=== PATIENT | male | born 1930 | race Caucasian/White ===

== ENCOUNTER 2016-10-22 11:29 | Inpatient (IN) | payer OTHER ==
[~2016-10-22] VITALS: Ht 167.6 cm; Wt 64.5 kg
[~2016-10-22 11:29] MED LIST: KETO0.4S2 OPR; PRED1SUS3 OPR; VITATAB19 PO
[2016-10-22 12:18] LABS: BASO % 0.4 %; BASO ABS # 0.04 K/uL (0-0.2); COMPLETE YES; EOS % 1.5 %; HEMATOCRIT 43.3 % (42-52); IG% 0.2 %; LYMPH ABS # 2.17 K/uL (1.2-3.4); MEAN CELL VOLUME 93.3 fL (80-100); MEAN CORPUSCULAR HGB CONC 33.3 g/dl (32-36); MEAN PLATELET VOLUME 9.1 fL (7.4-10.4); NEUT % 64.9 %; PLATELET COUNT 235 K/uL (130-400); RED BLOOD COUNT 4.64 M/uL (4.7-6.1); WHITE BLOOD COUNT 10.34 K/uL (4.8-10.8)
[2016-10-22 12:27] LABS: INR 2.7 (0.9-1.1); PARTIAL THROMBOPLASTIN RATIO 1.6; PROTHROMBIN TIME (PATIENT) 29.8 SECONDS (9.0-12.0)
[2016-10-22 12:36] LABS: BUN/CREATININE RATIO 17.1 (10-20); CALCIUM 8.6 mg/dl (8.5-10.1); CREATININE 0.85 mg/dl (0.60-1.40); POTASSIUM 3.6 mmol/L (3.5-5.1)
--- NOTE | 2016-10-22 12:39 | DIAGNOSTIC IMAGING REPORT ---
CHEST ONE VIEW PORTABLE CLINICAL HISTORY: 86 years-old Male presenting with AMS. TECHNIQUE: Portable upright AP view of the chest was obtained. COMPARISON: 12/16/2015. FINDINGS: Prominent cardiomediastinal silhouette, unchanged. Elevation of the left hemidiaphragm as on prior exam. Apparent subtle nodular retrocardiac opacities. Pleural spaces clear. Degenerative changes of the bilateral glenohumeral joints. Previously noted old left rib fractures not as well depicted on the current radiograph. Upper abdomen normal. IMPRESSION: 1. Apparent subtle nodular retrocardiac opacities, possibly atelectasis, aspiration or infection. Electronically signed by: Karan Dickerson 10/22/2016 12:37 PM Dictated Date/Time: 10/22/2016 12:35 PM
--- NOTE | 2016-10-22 13:03 | DIAGNOSTIC IMAGING REPORT ---
CT SCAN OF THE BRAIN WITHOUT IV CONTRAST CLINICAL HISTORY: Change in mental status. COMPARISON STUDY: CT of the brain dated 12/16/2015. TECHNIQUE: Unenhanced axial CT scan of the brain is performed from the vertex to the skull base. CT DOSE: 614.27 mGy.cm FINDINGS: Brain parenchyma: There are age-related involutional changes noting moderate patchy subcortical and periventricular microangiopathic change. Left frontoparietal encephalomalacia is unchanged and consistent with a remote infarct. There is no hemorrhage, mass effect, or evidence of acute territorial ischemia by CT criteria. Morales-white matter is preserved. No extra-axial fluid collection is seen. Ventricles, sulci, cisterns: Prominent secondary to involutional change. Intracranial vasculature: There is atherosclerotic calcification of the cavernous carotid and vertebral arteries. Calvarium: Unremarkable. Sinuses and mastoids: There is trace mucosal thickening in the left maxillary antrum. The remaining visualized paranasal sinuses are clear. The mastoid air cells are well pneumatized. Orbits: The bony orbits are grossly intact. There are bilateral ocular lens implants. IMPRESSION: Senescent changes and remote infarct as above. There is no hemorrhage, mass effect, or evidence of acute territorial ischemia by CT criteria. Electronically signed by: Patrice Palma M.D. 10/22/2016 1:02 PM Dictated Date/Time: 10/22/2016 1:00 PM
[2016-10-22] MEDS ORDERED: CEFEPIME IV 1,000 MG in DEXTROSE 5% 100ML 100 ML IV STA (13:07)
[2016-10-22] MEDS ORDERED: SODIUM CHLORIDE 0.9% 1000ML 1,000 ML IV STA (13:11)
[2016-10-22 13:25] VITALS: O2SAT 91; Ht 167.6 cm; Wt 64.5 kg
[2016-10-22 13:31] LABS: URINE APPEARANCE CLEAR (CLEAR); URINE BILIRUBIN NEG (NEG); URINE COLOR YELLOW; URINE EPITHELIAL CELL AUTO 0-5 /lpf (0-5); URINE NITRITE NEG (NEG); URINE PH 5.5 (4.5-7.5); URINE SPECIFIC GRAVITY 1.013 (1.000-1.030); UROBILINOGEN NEG (NEG); ZZURINE CULT IF INDIC CATH NO
[2016-10-22 13:51] LABS: MANUAL MICROSCOPIC REQUIRED? NO; REVIEW REQ? NO
[2016-10-22] MEDS ORDERED: ONDANSETRON INJ 2 MG/ML 2 ML VIAL IV PRN (14:00)
[2016-10-22] MEDS ORDERED: ACETAMINOPHEN 325 MG TAB PO PRN (14:00)
--- NOTE | 2016-10-22 14:43 | Progress Note ---
Progress Note Date of Service Oct 22, 2016. Progress Note Patient came in for intermittent confusion. Patient was here 1 year ago for similar symptoms with work up negative. Per patient's son, he has noticed subtle changes in mental status on and off for months now. No recent illness, no recent change in medications Not on pain medications. EXAM Gen- Awake, alert, disoriented to place, person, time but overall pleasant HEENT -AT, NC Neck- No JVD Lungs- AEBE, no wheezing Heart- S1, S2 normal Ext- No edema Neuro- Power 5/5 all ext, cranial nerves intact ASSESSMENT/PLAN: INTERMITTENT CONFUSION Per son, has noticed subtle changes of forgetfulness, change in mental status on and off with some good days and bad days x months. No recent change in medications, no signs of new infection. Had similar symptoms a year ago when work up was negative. -Likely developing dementia which is progressively worsening . Unlikely to be stroke -Will observe for 24 hours and rule out any acute infection though so far Labs- normal, no clear source of infection noted. -Work up= Labs normal, CT head- no acute changes, CXR- retrocardiac opacities but no clinical signs of pneumonia so likely atelectasis CAD: -stable -continue ASA, BB ATRIAL FIB: -rate controlled with Metoprolol -on Coumadin INR 2.6 -monitor INR HYPERLIPIDEMIA: -continue Statin Hx of Prior CVA: -s/p carotid endarterectomy -continue ASA, Statin DEPRESSION: -continue Celexa DISPOSITION Discussed with son about safety at home as lives alone. Will talk to sister about 24 hour care vs halfway placement PT/OT ordered SS consulted Agree with A/P of SHANE Henry
[2016-10-22] MEDS ORDERED: PROMETHAZINE HCL INJ 12.5 MG in SODIUM CHLORIDE 0.9% 50ML 50 ML IV PRN (14:45)
[2016-10-22] MEDS ORDERED: PNEUMOCOCCAL ADMINISTRATION CHARGE ONE (14:45)
[2016-10-22] MEDS ORDERED: PNEUMOCOCCAL POLYSACCHARIDES 25 MCG/0.5 ML VIAL/SYR IM. ONE (14:45)
[2016-10-22 15:52] VITALS: BP 165/69; PULSE 96; TEMP 36.6; O2SAT 91
[2016-10-22] MEDS: WARFARIN SOD 1 MG TAB PO SCH (16:48)
--- NOTE | 2016-10-22 17:34 | EMERGENCY ROOM VISIT NOTE ---
History Report prepared by Meaghan: Natacha Hernandez Under the Supervision of: Dr. Wilson Berman D.O. First contact with patient: 11:59 Chief Complaint: CONFUSION Stated Complaint: CONFUSED AND SOME DIZZINESS Nursing Triage Summary: son reports pt has been confused for past 2 days. feels like this maybe related to being dehydrated pt works out in the yard and does not get enough fluids has been hospitalized before for this. History of Present Illness The patient is a 86 year old male who presents to the Emergency Room with complaints of episodes of confusion beginning 3 days prior to arrival. Per the patient's family, he has episodes where he is at baseline and understands everything going on. Then he will have an episode of confusion where he does not understand what is going on, where he is, or who is with him. The patient has trouble with his speech when he has these episodes. The patient has had an episode like this in the past that was due to dehydration. The patient normally is mentally with it. He did his normal day to day routine this morning. Pt denies headache, change in vision, fevers, chest pain, shortness of breath, nausea, vomiting, diarrhea, pain with urination, and melena. Source of History: family Onset: 3 days [employer]IV[employer] Position: other (global) Quality: other (confusion) Timing: other (episodes) Note: Patient is experiencing trouble knowing who he is with, where he is, and trouble speaking. Review of Systems See HPI for pertinent positives & negatives. A total of 10 systems reviewed and were otherwise negative. Past Medical & Surgical Medical Problems: (1) Afib (2) Altered mental status (3) Anticoagulated on Coumadin (4) CAD (coronary artery disease) (5) Carotid artery stenosis (6) CVA (cerebral vascular accident) (7) Depression (8) History of left heart catheterization (LHC) (9) HLD (hyperlipidemia) (10) stroke (11) Stroke-like symptom (12) Valvular disease Surgical Problems: (1) H/O carotid endarterectomy (2) H/O colonoscopy (3) H/O shoulder surgery Family History FH: cancer FH: heart disease Social History Smoking Status: Former Smoker Alcohol Use: occasionally Drug Use: none Marital Status: Housing Status: lives alone Occupation Status: retired Current/Historical Medications Scheduled Aspirin (Aspirin Ec), 81 MG PO QAM Atorvastatin Calcium (Lipitor), 40 MG PO DAILY Cholecalciferol (Vitamin D 1000 Unit), 1,000 INTER.UNIT PO QAM Citalopram Hydrobromide (Citalopram Hydrobromide), 20 MG PO QAM Folic Acid (Folvite), 400 MCG PO QAM Metoprolol Tartrate (Lopressor), 12.5 MG PO QAM Multiple Vitamins W/ Minerals (Preservision Areds), 1 CAP PO QAM [place]-3 Fatty Acids (Fish Oil), 1 CAPSULE PO QAM Vitamin A (Vitamin A), 8,000 UNITS PO DAILY Warfarin Sod (Jantoven), 1 MG PO DAILY Allergies Coded Allergies: No Known Allergies (Unverified , 10/22/16) Physical Exam Vital Signs Date Time Temp Pulse Resp B/P (MAP) Pulse Ox O2 Delivery O2 Flow Rate FiO2 10/22/16 13:36 70 18 136/73 91 Room Air 10/22/16 13:25 91 Room Air 10/22/16 13:00 70 10/22/16 12:57 68 18 154/84 91 Room Air 10/22/16 11:31 36.4 95 20 135/86 92 Room Air Physical Exam GENERAL: sitting up in bed, disheveled, alert, well appearing, well nourished, no distress, non-toxic EYE EXAM: normal conjunctiva, PERRL and EOM's intact OROPHARYNX: no exudate, no erythema, lips, buccal mucosa, and tongue normal and mucous membranes are moist NECK: supple, no nuchal rigidity, no adenopathy, non-tender LUNGS: Clear to auscultation. Normal chest wall mechanics HEART: systolic ejection murmur, S1 normal and S2 normal ABDOMEN: abdomen soft, non-tender, normo-active bowel sounds, no masses, no rebound or guarding. BACK: Back is symmetrical on inspection and there is no deformity, no midline tenderness, no CVA tenderness. SKIN: no rashes and no bruising UPPER EXTREMITIES: upper extremities have no weakness. LOWER EXTREMITIES: No pitting edema. NEURO EXAM: Alert, intermittently follows commands, not oriented to time or place. cranial nerves II-XII intact, normal speech, no weakness of arms, no weakness of legs. Unable to perform drift or finger to nose. Medical Decision & Procedures ER Provider Diagnostic Interpretation: Radiology results as stated below per my review and the radiologist's interpretation: CT SCAN OF THE BRAIN WITHOUT IV CONTRAST CLINICAL HISTORY: Change in mental status. COMPARISON STUDY: CT of the brain dated 12/16/2015. TECHNIQUE: Unenhanced axial CT scan of the brain is performed from the vertex to the skull base. CT DOSE: 614.27 mGy.cm FINDINGS: Brain parenchyma: There are age-related involutional changes noting moderate patchy subcortical and periventricular microangiopathic change. Left frontoparietal encephalomalacia is unchanged and consistent with a remote infarct. There is no hemorrhage, mass effect, or evidence of acute territorial ischemia by CT criteria. Morales-white matter is preserved. No extra-axial fluid collection is seen. Ventricles, sulci, cisterns: Prominent secondary to involutional change. Intracranial vasculature: There is atherosclerotic calcification of the cavernous carotid and vertebral arteries. Calvarium: Unremarkable. Sinuses and mastoids: There is trace mucosal thickening in the left maxillary antrum. The remaining visualized paranasal sinuses are clear. The mastoid air cells are well pneumatized. Orbits: The bony orbits are grossly intact. There are bilateral ocular lens implants. IMPRESSION: Senescent changes and remote infarct as above. There is no hemorrhage, mass effect, or evidence of acute territorial ischemia by CT criteria. Electronically signed by: Patrice Palma M.D. 10/22/2016 1:02 PM Dictated Date/Time: 10/22/2016 1:00 PM CHEST ONE VIEW PORTABLE CLINICAL HISTORY: 86 years-old Male presenting with AMS. TECHNIQUE: Portable upright AP view of the chest was obtained. COMPARISON: 12/16/2015. FINDINGS: Prominent cardiomediastinal silhouette, unchanged. Elevation of the left hemidiaphragm as on prior exam. Apparent subtle nodular retrocardiac opacities. Pleural spaces clear. Degenerative changes of the bilateral glenohumeral joints. Previously noted old left rib fractures not as well depicted on the current radiograph. Upper abdomen normal. IMPRESSION: 1. Apparent subtle nodular retrocardiac opacities, possibly atelectasis, aspiration or infection. Electronically signed by: Karan Dickerson 10/22/2016 12:37 PM Dictated Date/Time: 10/22/2016 12:35 PM Laboratory Results 10/22/16 12:05 Red Blood Count 4.64, Mean Corpuscular Volume 93.3, Mean Corpuscular Hemoglobin 31.0, Mean Corpuscular Hemoglobin Concent 33.3, Mean Platelet Volume 9.1, Neutrophils (%) (Auto) 64.9, Lymphocytes (%) (Auto) 21.0, Monocytes (%) (Auto) 12.0, Eosinophils (%) (Auto) 1.5, Basophils (%) (Auto) 0.4, Neutrophils # (Auto ) 6.72, Lymphocytes # (Auto) 2.17, Monocytes # (Auto) 1.24, Eosinophils # (Auto ) 0.15, Basophils # (Auto) 0.04 10/22/16 12:05 Test 10/22/16 12:05 10/22/16 13:15 White Blood Count 10.34 K/uL (4.8-10.8) Red Blood Count 4.64 M/uL (4.7-6.1) Hemoglobin 14.4 g/dL (14.0-18.0) Hematocrit 43.3 % (42-52) Mean Corpuscular Volume 93.3 fL (80-100) Mean Corpuscular Hemoglobin 31.0 pg (25-34) Mean Corpuscular Hemoglobin Concent 33.3 g/dl (32-36) Platelet Count 235 K/uL (130-400) Mean Platelet Volume 9.1 fL (7.4-10.4) Neutrophils (%) (Auto) 64.9 % Lymphocytes (%) (Auto) 21.0 % Monocytes (%) (Auto) 12.0 % Eosinophils (%) (Auto) 1.5 % Basophils (%) (Auto) 0.4 % Neutrophils # (Auto) 6.72 K/uL (1.4-6.5) Lymphocytes # (Auto) 2.17 K/uL (1.2-3.4) Monocytes # (Auto) 1.24 K/uL (0.11-0.59) Eosinophils # (Auto) 0.15 K/uL (0-0.5) Basophils # (Auto) 0.04 K/uL (0-0.2) RDW Standard Deviation 45.5 fL (36.4-46.3) RDW Coefficient of Variation 13.3 % (11.5-14.5) Immature Granulocyte % (Auto) 0.2 % Immature Granulocyte # (Auto) 0.02 K/uL (0.00-0.02) Prothrombin Time 29.8 SECONDS (9.0-12.0) Prothromb Time International Ratio 2.7 (0.9-1.1) Activated Partial Thromboplast Time 41.3 SECONDS (21.0-31.0) Partial Thromboplastin Ratio 1.6 Anion Gap 8.0 mmol/L (3-11) Est Creatinine Clear Calc Drug Dose 58.3 ml/min Estimated GFR () 92.7 Estimated GFR (Non- 80.0 BUN/Creatinine Ratio 17.1 (10-20) Calcium Level 8.6 mg/dl (8.5-10.1) Total Bilirubin 0.9 mg/dl (0.2-1) Direct Bilirubin 0.2 mg/dl (0-0.2) Aspartate Amino Transf (AST/SGOT) 27 U/L (15-37) Alanine Aminotransferase (ALT/SGPT) 33 U/L (12-78) Alkaline Phosphatase 51 U/L (45-117) Troponin I 0.024 ng/ml (0-0.045) Total Protein 6.7 gm/dl (6.4-8.2) Albumin 3.3 gm/dl (3.4-5.0) Urine Color YELLOW Urine Appearance CLEAR (CLEAR) Urine pH 5.5 (4.5-7.5) Urine Specific [place] 1.013 (1.000-1.030) Urine Protein NEG (NEG) Urine Glucose (UA) NEG (NEG) Urine Ketones NEG (NEG) Urine Occult Blood NEG (NEG) Urine Nitrite NEG (NEG) Urine Bilirubin NEG (NEG) Urine Urobilinogen NEG (NEG) Urine Leukocyte Esterase NEG (NEG) Urine WBC (Auto) 0 /hpf (0-5) Urine RBC (Auto) 0-4 /hpf (0-4) Urine Hyaline Casts (Auto) 1-5 /lpf (0-5) Urine Epithelial Cells (Auto) 0-5 /lpf (0-5) Urine Bacteria (Auto) NEG (NEG) Laboratory results per my review. Medications Administered Medications (Trade) Dose Ordered Sig/Thelma Route Start Time Stop Time Status Last Admin Dose Admin Cefepime HCl 1000 mg/Dextrose 111.3 ml @ 200 mls/hr NOW STAT IV 10/22/16 13:07 10/22/16 13:40 DC 10/22/16 13:32 200 MLS/HR Sodium Chloride 1,000 ml @ 999 mls/hr Q1H1M STAT IV 10/22/16 13:11 10/22/16 14:11 DC 10/22/16 13:32 999 MLS/HR ECG Indication: altered mental status Rate (beats per minute): 74 Rhythm: sinus rhythm Findings: 1st degree AV block, PAC, RBBB, left axis deviation ED Course ED COURSE: Vital signs were reviewed and showed hypertension. The patients medical record was reviewed The above diagnostic studies were performed and reviewed. ED treatments and interventions as stated above. 1201: The patient was evaluated in room B7. A complete history and physical examination was performed. 1307: Cefepime HCl 1,000 mg/ Dextrose 111.3 mll @ 200 mls/hr IV. 1309: I checked on the patient and discussed plan for hospitalization. 1311: Sodium Chloride 1,000 ml @ 999 mls/hr IV. 1314: I reviewed the patient's case with RAMONA Preston. She will evaluate the patient for further management. 1325: Upon reevaluation, the patient is hemodynamically stable.I discussed my findings with the patient and his family and they understands and agrees with the treatment plan. Based on the patients age, coexisting illnesses, exam and lab findings the decision to treat as an inpatient was made. The patient remained stable while under my care. The patient will be evaluated for further management. Medical Decision Differential diagnoses includes but is not limited to toxic, metabolic, infectious, traumatic, cardiac, neurologic, hematologic, psychiatric and inflammatory etiologies. Medication Reconciliation: I attest that I have personally reviewed the patient' s current medication list. Blood pressure screening: Patient was found to have an elevated blood pressure and was referred to their primary doctor for recheck and further treatment. The patient is a 86 year old male who presents to the ED with complaints of confusion. Son notes that he is normally awake alert and oriented. He is normal following commands. He has been confused for the past 2 days. No complaints. CBC along with fever, LFTs, bilirubin or unremarkable. Troponin was detectable but not positive. INR was therapeutic. UA was negative. Chest x-ray shows small pneumonia versus atelectasis. Patient had no previous pulmonary complaints. Patient was given IV fluids and cefepime. He is admitted to internal medicine following a negative CT head for altered mental status. Consults Time Called: 1310 Consulting Physician: RAMONA Preston Returned Call: 1314 I reviewed the patient's case with RAMONA Preston. She will evaluate the patient for further management. Impression Primary Impression: Altered mental status Scribe Attestation The scribe's documentation has been prepared under my direction and personally reviewed by me in its entirety. I confirm that the note above accurately reflects all work, treatment, procedures, and medical decision making performed by me. Departure Information Dispostion Being Evaluated By Hospitalist Referrals No Doctor, Assigned (PCP) Problem Qualifiers Primary Impression: Altered mental status Altered mental status type: unspecified Qualified Codes: R41.82 - Altered mental status, unspecified
--- NOTE | 2016-10-22 17:49 | History and Physical ---
History & Physical Date & Time of Service: Oct 22, 2016 ~ 13:30 Chief Complaint: Altered Mental Status Primary Care Physician: Dr. Osman History of Present Illness 86 year old male who presents to the ER with altered mental status. History is limited from patient. Patient's son is at the bedside who provides information due to patient's current mental status. The son reports he notes increasing episodic confusion over the past 4 days. Patient lives alone with family checking on him everyday. Patient had a similar presentation in December 2015. Son reports noticing subtle changes over the past several months however no confusion as severe as the past few days. Patient has continued to take his medications as prescribed. No new medications. No infectious symptoms. Denies unilateral weakness, slurred speech, or facial droop. In the ED, patient's work up is unremarkable however he is severely confused (unsure of his own name, his son, or where he is). Past Medical/Surgical History Medical Problems: (1) Afib Status: Chronic (2) Anticoagulated on Coumadin Status: Chronic (3) Aortic valve stenosis Permanent Comment: mild on echo from 03/2016 Status: Chronic (4) CAD (coronary artery disease) Permanent Comment: 2002 - PCI to left circumflex Status: Chronic (5) CVA (cerebral vascular accident) Status: Chronic (6) Depression Status: Chronic (7) Diastolic dysfunction Permanent Comment: grade I on echo 03/2016 Status: Chronic (8) HLD (hyperlipidemia) Status: Chronic Surgical Problems: (1) H/O carotid endarterectomy Status: Chronic (2) H/O shoulder surgery Status: Chronic Family History non contributory due to patient's age Social History Smoking Status: Former Smoker Alcohol Use: occasionally Allergies Coded Allergies: No Known Allergies (Unverified , 10/22/16) Home Medications Scheduled Aspirin (Aspirin Ec), 81 MG PO QAM Atorvastatin Calcium (Lipitor), 40 MG PO DAILY Cholecalciferol (Vitamin D 1000 Unit), 1,000 INTER.UNIT PO QAM Citalopram Hydrobromide (Citalopram Hydrobromide), 20 MG PO QAM Folic Acid (Folvite), 400 MCG PO QAM Metoprolol Tartrate (Lopressor), 12.5 MG PO QAM Multiple Vitamins W/ Minerals (Preservision Areds), 1 CAP PO QAM [place]-3 Fatty Acids (Fish Oil), 1 CAPSULE PO QAM Vitamin A (Vitamin A), 8,000 UNITS PO DAILY Warfarin Sod (Jantoven), 1 MG PO DAILY Review of Systems unable to be completed with patient due to mental status Physical Exam Vital Signs Date Time Temp Pulse Resp B/P (MAP) Pulse Ox O2 Delivery O2 Flow Rate FiO2 10/22/16 15:52 36.6 96 17 165/69 (101) 91 Room Air 10/22/16 15:25 86 18 163/76 93 Room Air 10/22/16 13:36 70 18 136/73 91 Room Air 10/22/16 13:25 91 Room Air 10/22/16 13:00 70 10/22/16 12:57 68 18 154/84 91 Room Air 10/22/16 11:31 36.4 95 20 135/86 92 Room Air General Appearance: no apparent distress Head: normocephalic Eyes: normal inspection ENT: hearing grossly normal Neck: supple, no JVD Respiratory/Chest: lungs clear, normal breath sounds, no respiratory distress Cardiovascular: regular rate, rhythm, no edema, normal peripheral pulses Abdomen/GI: normal bowel sounds, non tender, soft Extremities/Musculoskelatal: normal inspection, no calf tenderness Neurologic/Psych: alert, + disoriented (to self, time, place, and situation), + pertinent finding (patient is confused however remains pleasant, difficult to complete neuro exam since he does not follow commands well, no obvious focal deficits noted) Skin: normal color, warm/dry Diagnostics Laboratory Results Results Past 24 Hours Test 10/22/16 12:05 10/22/16 13:15 Range/Units White Blood Count 10.34 4.8-10.8 K/uL Red Blood Count 4.64 4.7-6.1 M/uL Hemoglobin 14.4 14.0-18.0 g/dL Hematocrit 43.3 42-52 % Mean Corpuscular Volume 93.3 80-100 fL Mean Corpuscular Hemoglobin 31.0 25-34 pg Mean Corpuscular Hemoglobin Concent 33.3 32-36 g/dl Platelet Count 235 130-400 K/uL Mean Platelet Volume 9.1 7.4-10.4 fL Neutrophils (%) (Auto) 64.9 % Lymphocytes (%) (Auto) 21.0 % Monocytes (%) (Auto) 12.0 % Eosinophils (%) (Auto) 1.5 % Basophils (%) (Auto) 0.4 % Neutrophils # (Auto) 6.72 1.4-6.5 K/uL Lymphocytes # (Auto) 2.17 1.2-3.4 K/uL Monocytes # (Auto) 1.24 0.11-0.59 K/uL Eosinophils # (Auto) 0.15 0-0.5 K/uL Basophils # (Auto) 0.04 0-0.2 K/uL RDW Standard Deviation 45.5 36.4-46.3 fL RDW Coefficient of Variation 13.3 11.5-14.5 % Immature Granulocyte % (Auto) 0.2 % Immature Granulocyte # (Auto) 0.02 0.00-0.02 K/uL Prothrombin Time 29.8 9.0-12.0 SECONDS Prothromb Time International Ratio 2.7 0.9-1.1 Activated Partial Thromboplast Time 41.3 21.0-31.0 SECONDS Partial Thromboplastin Ratio 1.6 Sodium Level 140 136-145 mmol/L Potassium Level 3.6 3.5-5.1 mmol/L Chloride Level 107 98-107 mmol/L Carbon Dioxide Level 25 21-32 mmol/L Anion Gap 8.0 3-11 mmol/L Blood Urea Nitrogen 15 7-18 mg/dl Creatinine 0.85 0.60-1.40 mg/dl Est Creatinine Clear Calc Drug Dose 58.3 ml/min Estimated GFR () 92.7 Estimated GFR (Non- 80.0 BUN/Creatinine Ratio 17.1 10-20 Random Glucose 108 70-99 mg/dl Calcium Level 8.6 8.5-10.1 mg/dl Total Bilirubin 0.9 0.2-1 mg/dl Direct Bilirubin 0.2 0-0.2 mg/dl Aspartate Amino Transf (AST/SGOT) 27 15-37 U/L Alanine Aminotransferase (ALT/SGPT) 33 12-78 U/L Alkaline Phosphatase 51 45-117 U/L Troponin I 0.024 0-0.045 ng/ml Total Protein 6.7 6.4-8.2 gm/dl Albumin 3.3 3.4-5.0 gm/dl Urine Color YELLOW Urine Appearance CLEAR CLEAR Urine pH 5.5 4.5-7.5 Urine Specific [place] 1.013 1.000-1.030 Urine Protein NEG NEG Urine Glucose (UA) NEG NEG Urine Ketones NEG NEG Urine Occult Blood NEG NEG Urine Nitrite NEG NEG Urine Bilirubin NEG NEG Urine Urobilinogen NEG NEG Urine Leukocyte Esterase NEG NEG Urine WBC (Auto) 0 0-5 /hpf Urine RBC (Auto) 0-4 0-4 /hpf Urine Hyaline Casts (Auto) 1-5 0-5 /lpf Urine Epithelial Cells (Auto) 0-5 0-5 /lpf Urine Bacteria (Auto) NEG NEG Diagnostic Radiology HEAD CT IMPRESSION: Senescent changes and remote infarct as above. There is no hemorrhage, mass effect, or evidence of acute territorial ischemia by CT criteria. CXR IMPRESSION: 1. Apparent subtle nodular retrocardiac opacities, possibly atelectasis, aspiration or infection. Impression Assessment and Plan Per Dr. Leelee Burrell: INTERMITTENT CONFUSION Per son, has noticed subtle changes of forgetfulness, change in mental status on and off with some good days and bad days x months. No recent change in medications, no signs of new infection. Had similar symptoms a year ago when work up was negative. -Likely developing dementia which is progressively worsening . Unlikely to be stroke -Will observe for 24 hours and rule out any acute infection though so far Labs- normal, no clear source of infection noted. -Work up= Labs normal, CT head- no acute changes, CXR- retrocardiac opacities but no clinical signs of pneumonia so likely atelectasis CAD: -stable -continue ASA, BB ATRIAL FIB: -rate controlled with Metoprolol -on Coumadin INR 2.6 -monitor INR HYPERLIPIDEMIA: -continue Statin Hx of Prior CVA: -s/p carotid endarterectomy -continue ASA, Statin DEPRESSION: -continue Celexa DISPOSITION Discussed with son about safety at home as lives alone. Will talk to sister about 24 hour care vs residential placement PT/OT ordered SS consulted Advanced Directives Existing Living Will: Yes Existing Power of Geology Teacher: Yes VTE Prophylaxis VTE Risk Assessment Done? Y/N: Yes Risk Level: Moderate Given or contraindicated: Warfarin (Coumadin)
[2016-10-22 19:37] VITALS: BP 163/61; PULSE 79; TEMP 36.7; O2SAT 90
[2016-10-22 23:26] VITALS: BP 143/68; PULSE 65; TEMP 36.5; O2SAT 95
[2016-10-23] VITALS (8 sets, daily range): BP systolic 112–186; BP diastolic 58–93; PULSE 58–74; TEMP 36.4–36.9; O2SAT 90–96
[2016-10-23 02:07] LABS: BENZODIAZEPINE, URINE NEG (NEG); COCAINE,URINE NEG (NEG); PHENCYCLIDINE, URINE NEG (NEG)
[2016-10-23 06:01] LABS: HEMATOCRIT 45.8 % (42-52); MEAN CELL VOLUME 93.1 fL (80-100); MEAN CORPUSCULAR HEMOGLOBIN 31.5 pg (25-34); MEAN CORPUSCULAR HGB CONC 33.8 g/dl (32-36); MEAN PLATELET VOLUME 9.1 fL (7.4-10.4); PLATELET COUNT 222 K/uL (130-400); RED BLOOD COUNT 4.92 M/uL (4.7-6.1); WHITE BLOOD COUNT 10.26 K/uL (4.8-10.8)
[2016-10-23 06:17] LABS: INR 2.9 (0.9-1.1); PROTHROMBIN TIME (PATIENT) 32.4 SECONDS (9.0-12.0)
[2016-10-23 06:35] LABS: BUN/CREATININE RATIO 18.3 (10-20); CALCIUM 8.6 mg/dl (8.5-10.1); CREATININE 0.67 mg/dl (0.60-1.40); POTASSIUM 3.7 mmol/L (3.5-5.1)
[2016-10-23] MEDS: ATORVASTATIN 40 MG TAB PO SCH (09:09)
[2016-10-23] MEDS: CEROVITE ADV FORMULA TAB PO SCH (09:09)
[2016-10-23] MEDS: ASPIRIN 81 MG ECTAB PO SCH (09:09)
[2016-10-23] MEDS: CITALOPRAM 20 MG TAB PO SCH (09:09)
[2016-10-23] MEDS: CHOLECALCIFEROL 1000 INTER.UNIT TAB PO SCH (09:10)
[2016-10-23] MEDS: FoLIC ACID TAB 400 MCG TAB PO SCH (09:10)
[2016-10-23] MEDS: METOPROLOL TARTRATE 25 MG TAB PO SCH (09:10)
[2016-10-23 14:53] LABS: BENZODIAZEPINE, URINE NEG (NEG); COCAINE,URINE NEG (NEG); PHENCYCLIDINE, URINE NEG (NEG)
[2016-10-23] MEDS: WARFARIN SOD 1 MG TAB PO SCH (15:56)
--- NOTE | 2016-10-23 19:26 | Progress Note ---
Internal Med Progress Note Date of Service: Oct 23, 2016. Provider Documentation: SUBJECTIVE: The patient was seen and examined Remains totally confused Denies any complaints OBJECTIVE: Vital Signs-as noted below Exam: General-No distress at rest Eyes-normal ENT-normal Neck-Supple Lungs-clear to auscultate bilaterally Heart-Regular,no murmur Abdomen-Benign,no masses Extremities-NO edema Neuro-AA Totally confused Lab data as noted below. ASSESSMENT & PLAN: INTERMITTENT CONFUSION Per son, has noticed subtle changes of forgetfulness, Change in mental status on and off with some good days and bad days x months. -No recent change in medications, no signs of new infection. -Had similar symptoms a year ago when work up was negative. -Likely developing dementia which is progressively worsening . -No evidence of Infection,Stroke or any injury -discussed with the Son -will observe for a day or two -may need neurology input CAD: -stable -continue ASA, BB ATRIAL FIB: -rate controlled with Metoprolol -on Coumadin INR 2.9 on 10/23/16 -monitor INR HYPERLIPIDEMIA: -continue Statin Hx of Prior CVA: -s/p carotid endarterectomy -continue ASA, Statin DEPRESSION: -continue Celexa DISPOSITION Discussed with son about safety at home as lives alone. May need 24 hour care vs correction placement PT/OT ordered SS consulted Vital Signs: Date Time Temp Pulse Resp B/P (MAP) Pulse Ox O2 Delivery O2 Flow Rate FiO2 10/23/16 16:00 92 Room Air 10/23/16 15:38 36.6 67 19 153/93 (113) 92 Room Air 10/23/16 12:20 Room Air 10/23/16 11:28 36.8 67 18 143/82 (102) 92 Room Air 10/23/16 08:07 Room Air 10/23/16 07:43 36.4 65 20 112/73 (86) 90 Room Air 10/23/16 04:00 Room Air 10/23/16 00:00 Room Air 10/22/16 23:26 36.5 65 18 143/68 (93) 95 Room Air 10/22/16 19:37 36.7 79 20 163/61 (95) 90 Room Air 10/22/16 19:30 Room Air Lab Results: Results Past 24 Hours Test 10/23/16 01:30 10/23/16 05:44 10/23/16 08:40 Range/Units Urine Opiates Screen NEG NEG NEG Urine Methadone, Qualitative NEG NEG NEG Urine Barbiturates NEG NEG NEG Urine Phencyclidine (PCP) Level NEG NEG NEG Ur Amphetamine/Methamphetamine NEG NEG NEG MDMA (Ecstasy) Screen NEG NEG NEG Urine Benzodiazepines Screen NEG NEG NEG Urine Cocaine Metabolite NEG NEG NEG Urine Marijuana (THC) NEG NEG NEG White Blood Count 10.26 4.8-10.8 K/uL Red Blood Count 4.92 4.7-6.1 M/uL Hemoglobin 15.5 14.0-18.0 g/dL Hematocrit 45.8 42-52 % Mean Corpuscular Volume 93.1 80-100 fL Mean Corpuscular Hemoglobin 31.5 25-34 pg Mean Corpuscular Hemoglobin Concent 33.8 32-36 g/dl RDW Standard Deviation 44.8 36.4-46.3 fL RDW Coefficient of Variation 13.2 11.5-14.5 % Platelet Count 222 130-400 K/uL Mean Platelet Volume 9.1 7.4-10.4 fL Prothrombin Time 32.4 9.0-12.0 SECONDS Prothromb Time International Ratio 2.9 0.9-1.1 Sodium Level 142 136-145 mmol/L Potassium Level 3.7 3.5-5.1 mmol/L Chloride Level 109 98-107 mmol/L Carbon Dioxide Level 26 21-32 mmol/L Anion Gap 7.0 3-11 mmol/L Blood Urea Nitrogen 12 7-18 mg/dl Creatinine 0.67 0.60-1.40 mg/dl Est Creatinine Clear Calc Drug Dose 74.0 ml/min Estimated GFR () 102.3 Estimated GFR (Non- 88.2 BUN/Creatinine Ratio 18.3 10-20 Random Glucose 104 70-99 mg/dl Calcium Level 8.6 8.5-10.1 mg/dl
[2016-10-24] VITALS (7 sets, daily range): BP systolic 111–162; BP diastolic 64–75; PULSE 68–79; TEMP 36.5–36.7; O2SAT 90–92
[2016-10-24 07:49] LABS: HEMATOCRIT 43.4 % (42-52); MEAN CELL VOLUME 92.1 fL (80-100); MEAN CORPUSCULAR HEMOGLOBIN 32.5 pg (25-34); MEAN CORPUSCULAR HGB CONC 35.3 g/dl (32-36); MEAN PLATELET VOLUME 9.2 fL (7.4-10.4); PLATELET COUNT 234 K/uL (130-400); RED BLOOD COUNT 4.71 M/uL (4.7-6.1); WHITE BLOOD COUNT 10.54 K/uL (4.8-10.8)
[2016-10-24 07:57] LABS: BUN/CREATININE RATIO 22.8 (10-20); CALCIUM 8.4 mg/dl (8.5-10.1); CREATININE 0.74 mg/dl (0.60-1.40); POTASSIUM 3.8 mmol/L (3.5-5.1)
[2016-10-24 08:10] LABS: THYROID STIMULATING HORMONE 3.27 uIu/ml (0.300-4.500)
[2016-10-24] MEDS: ASPIRIN 81 MG ECTAB PO SCH (08:19)
[2016-10-24] MEDS: CHOLECALCIFEROL 1000 INTER.UNIT TAB PO SCH (08:19)
[2016-10-24] MEDS: CEROVITE ADV FORMULA TAB PO SCH (08:20)
[2016-10-24] MEDS: FoLIC ACID TAB 400 MCG TAB PO SCH (08:20)
[2016-10-24] MEDS: METOPROLOL TARTRATE 25 MG TAB PO SCH (08:20)
[2016-10-24] MEDS: CITALOPRAM 20 MG TAB PO SCH (08:20)
[2016-10-24] MEDS: ATORVASTATIN 40 MG TAB PO SCH (08:20)
--- NOTE | 2016-10-24 12:43 | Neurology Consultation ---
Neurology Consultation Date of Consultation: Oct 24, 2016. Attending Physician: Jitendra Loco M.D. Primary Care Physician: No Doctor, Assigned Reason for Consultation: confusion with persistent altered mental status History of Present Illness Source: family, clinic records Patient with known cerebrovascular disease admitted for increased confusion for past week or so but now back to baseline and being discharged I only saw him briefly with family and did no exam today Past Medical/Surgical History Medical Problems: (1) Altered mental status Status: Acute (2) Confusion Status: Acute (3) Leukocytosis Status: Acute Past Medical/Surgical History Medical Problems: (1) Afib Status: Chronic (2) Anticoagulated on Coumadin Status: Chronic (3) Aortic valve stenosis Permanent Comment: mild on echo from 03/2016 Status: Chronic (4) CAD (coronary artery disease) Permanent Comment: 2002 - PCI to left circumflex Status: Chronic (5) CVA (cerebral vascular accident) Status: Chronic (6) Depression Status: Chronic (7) Diastolic dysfunction Permanent Comment: grade I on echo 03/2016 Status: Chronic (8) HLD (hyperlipidemia) Status: Chronic Surgical Problems: (1) H/O carotid endarterectomy Status: Chronic (2) H/O shoulder surgery Status: Chronic Family History non contributory due to patient's age Social History Smoking Status: Former Smoker Alcohol Use: occasionally Allergies Coded Allergies: No Known Allergies (Unverified , 10/22/16) Home Medications Scheduled Aspirin (Aspirin Ec), 81 MG PO QAM Atorvastatin Calcium (Lipitor), 40 MG PO DAILY Cholecalciferol (Vitamin D 1000 Unit), 1,000 INTER.UNIT PO QAM Citalopram Hydrobromide (Citalopram Hydrobromide), 20 MG PO QAM Folic Acid (Folvite), 400 MCG PO QAM Metoprolol Tartrate (Lopressor), 12.5 MG PO QAM Multiple Vitamins W/ Minerals (Preservision Areds), 1 CAP PO QAM [place]-3 Fatty Acids (Fish Oil), 1 CAPSULE PO QAM Vitamin A (Vitamin A), 8,000 UNITS PO DAILY Warfarin Sod (Jantoven), 1 MG PO DAILY Review of Systems unable to be completed with patient due to mental status Social History Smoking Status: Never smoker Alcohol Use: occasionally Housing Status: lives alone Allergies Coded Allergies: No Known Allergies (Unverified , 10/22/16) Current Inpatient Medications Current Inpatient Medications Medications (Trade) Dose Ordered Sig/Thelma Route Start Time Stop Time Status Last Admin Dose Admin Acetaminophen (Tylenol Tab) 650 mg Q4H PRN PO 10/22/16 14:00 11/21/16 13:59 Aspirin (Ecotrin Tab) 81 mg QAM PO 10/23/16 09:00 11/22/16 08:59 10/24/16 08:19 81 MG Atorvastatin Calcium (Lipitor Tab) 40 mg DAILY PO 10/23/16 09:00 11/22/16 08:59 10/24/16 08:20 40 MG Cholecalciferol (Vitamin D Tab) 1,000 inter.unit QAM PO 10/23/16 09:00 11/22/16 08:59 10/24/16 08:19 1,000 INTER.UNIT Citalopram Hydrobromide (celeXA TAB) 20 mg QAM PO 10/23/16 09:00 11/22/16 08:59 10/24/16 08:20 20 MG Folic Acid (Folvite Tab) 400 mcg QAM PO 10/23/16 09:00 11/22/16 08:59 10/24/16 08:20 400 MCG Metoprolol Tartrate (Lopressor Tab) 12.5 mg QAM PO 10/23/16 09:00 11/22/16 08:59 10/24/16 08:20 12.5 MG Warfarin Sodium (Coumadin Tab) 1 mg DAILY@1600 PO 10/22/16 16:00 11/21/16 15:59 10/23/16 15:56 1 MG Multivitamins/ Minerals (Multivitamin W/ Minerals Tab) 1 tab QAM PO 10/23/16 09:00 11/22/16 08:59 10/24/16 08:20 1 TAB Miscellaneous Information (Order Awaiting Action) 1 ea QS N/A 10/22/16 16:00 11/21/16 15:59 Promethazine HCl 12.5 mg/Sodium Chloride 50.5 ml @ 204 mls/hr Q6H PRN IV 10/22/16 14:45 11/21/16 14:44 Physical Exam Vital Signs (Past 24 Hrs): Date Time Temp Pulse Resp B/P (MAP) Pulse Ox O2 Delivery O2 Flow Rate FiO2 10/24/16 11:16 36.6 72 18 111/64 (80) 92 10/24/16 08:00 91 Room Air 10/24/16 07:30 36.7 79 18 143/75 (97) 91 Room Air 10/24/16 05:05 36.5 76 20 152/70 (97) 90 Room Air 10/24/16 04:00 Room Air 10/24/16 01:40 68 162/72 (102) Room Air 10/24/16 00:01 Room Air 10/23/16 23:43 36.6 58 20 178/74 (108) 91 Room Air 10/23/16 23:41 36.7 61 20 186/82 (116) 96 Room Air 10/23/16 19:53 36.9 72 18 127/71 (89) 95 Room Air 10/23/16 16:00 92 Room Air 10/23/16 15:38 36.6 67 19 153/93 (113) 92 Room Air Only a very limited assessment was performed as patient was in the process of being discharged when I entered the room Laboratory Results Past 24 Hours: 10/24/16 07:09 10/24/16 07:09 Test 10/24/16 07:09 Red Blood Count 4.71 M/uL (4.7-6.1) Mean Corpuscular Volume 92.1 fL (80-100) Mean Corpuscular Hemoglobin 32.5 pg (25-34) Mean Corpuscular Hemoglobin Concent 35.3 g/dl (32-36) RDW Standard Deviation 44.2 fL (36.4-46.3) RDW Coefficient of Variation 13.1 % (11.5-14.5) Mean Platelet Volume 9.2 fL (7.4-10.4) Anion Gap 9.0 mmol/L (3-11) Est Creatinine Clear Calc Drug Dose 67.0 ml/min Estimated GFR () 98.2 Estimated GFR (Non- 84.7 BUN/Creatinine Ratio 22.8 (10-20) Calcium Level 8.4 mg/dl (8.5-10.1) Vitamin B12 Level 546 pg/mL (211-911) Folate > 24.00 ng/mL (>5.38) Thyroid Stimulating Hormone (TSH) 3.270 uIu/ml (0.300-4.500) Imaging CT SCAN OF THE BRAIN WITHOUT IV CONTRAST CLINICAL HISTORY: Change in mental status. COMPARISON STUDY: CT of the brain dated 12/16/2015. TECHNIQUE: Unenhanced axial CT scan of the brain is performed from the vertex to the skull base. CT DOSE: 614.27 mGy.cm FINDINGS: Brain parenchyma: There are age-related involutional changes noting moderate patchy subcortical and periventricular microangiopathic change. Left frontoparietal encephalomalacia is unchanged and consistent with a remote infarct. There is no hemorrhage, mass effect, or evidence of acute territorial ischemia by CT criteria. Morales-white matter is preserved. No extra-axial fluid collection is seen. Ventricles, sulci, cisterns: Prominent secondary to involutional change. Intracranial vasculature: There is atherosclerotic calcification of the cavernous carotid and vertebral arteries. Calvarium: Unremarkable. Sinuses and mastoids: There is trace mucosal thickening in the left maxillary antrum. The remaining visualized paranasal sinuses are clear. The mastoid air cells are well pneumatized. Orbits: The bony orbits are grossly intact. There are bilateral ocular lens implants. IMPRESSION: Senescent changes and remote infarct as above. There is no hemorrhage, mass effect, or evidence of acute territorial ischemia by CT criteria. Electronically signed by: Patrice Palma M.D. 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
--- NOTE | 2016-10-24 15:22 | Progress Note ---
Internal Med Progress Note Date of Service: Oct 24, 2016. Provider Documentation: SUBJECTIVE: The patient was seen and examined Pleasantly confused today Denies any other complaints Ambulating well OBJECTIVE: Vital Signs-as noted below Exam: General-No distress at rest Eyes-normal ENT-normal Neck-Supple Lungs-clear to auscultate bilaterally Heart-Regular,no murmur Abdomen-Benign,no masses Extremities-NO edema Neuro-AA Totally confused Lab data as noted below. ASSESSMENT & PLAN: INTERMITTENT CONFUSION Per son, has noticed subtle changes of forgetfulness, Change in mental status on and off with some good days and bad days x months. -No recent change in medications, no signs of new infection. -Had similar symptoms a year ago when work up was negative. -Likely developing dementia which is progressively worsening . -No evidence of Infection,Stroke or any injury -discussed with the Son -will observe for a day or two -appreciate Neurology input -No medication advised CAD: -stable -continue ASA, BB ATRIAL FIB: -rate controlled with Metoprolol -on Coumadin INR 2.9 on 10/23/16 -monitor INR -therapeutic HYPERLIPIDEMIA: -continue Statin Hx of Prior CVA: -s/p carotid endarterectomy -continue ASA, Statin DEPRESSION: -continue Celexa DISPOSITION Discussed with son about safety at home as lives alone. May need 24 hour care vs fci placement PT/OT ordered SS consulted Discussed with the Daughter and the Son-will take him home Vital Signs: Date Time Temp Pulse Resp B/P (MAP) Pulse Ox O2 Delivery O2 Flow Rate FiO2 10/24/16 12:00 92 Room Air 10/24/16 11:16 36.6 72 18 111/64 (80) 92 10/24/16 08:00 91 Room Air 10/24/16 07:30 36.7 79 18 143/75 (97) 91 Room Air 10/24/16 05:05 36.5 76 20 152/70 (97) 90 Room Air 10/24/16 04:00 Room Air 10/24/16 01:40 68 162/72 (102) Room Air 10/24/16 00:01 Room Air 10/23/16 23:43 36.6 58 20 178/74 (108) 91 Room Air 10/23/16 23:41 36.7 61 20 186/82 (116) 96 Room Air 10/23/16 19:53 36.9 72 18 127/71 (89) 95 Room Air 10/23/16 16:00 92 Room Air 10/23/16 15:38 36.6 67 19 153/93 (113) 92 Room Air Lab Results: Results Past 24 Hours Test 10/24/16 07:09 Range/Units White Blood Count 10.54 4.8-10.8 K/uL Red Blood Count 4.71 4.7-6.1 M/uL Hemoglobin 15.3 14.0-18.0 g/dL Hematocrit 43.4 42-52 % Mean Corpuscular Volume 92.1 80-100 fL Mean Corpuscular Hemoglobin 32.5 25-34 pg Mean Corpuscular Hemoglobin Concent 35.3 32-36 g/dl RDW Standard Deviation 44.2 36.4-46.3 fL RDW Coefficient of Variation 13.1 11.5-14.5 % Platelet Count 234 130-400 K/uL Mean Platelet Volume 9.2 7.4-10.4 fL Sodium Level 141 136-145 mmol/L Potassium Level 3.8 3.5-5.1 mmol/L Chloride Level 108 98-107 mmol/L Carbon Dioxide Level 24 21-32 mmol/L Anion Gap 9.0 3-11 mmol/L Blood Urea Nitrogen 17 7-18 mg/dl Creatinine 0.74 0.60-1.40 mg/dl Est Creatinine Clear Calc Drug Dose 67.0 ml/min Estimated GFR () 98.2 Estimated GFR (Non- 84.7 BUN/Creatinine Ratio 22.8 10-20 Random Glucose 116 70-99 mg/dl Calcium Level 8.4 8.5-10.1 mg/dl Vitamin B12 Level 546 211-911 pg/mL Folate > 24.00 >5.38 ng/mL Thyroid Stimulating Hormone (TSH) 3.270 0.300-4.500 uIu/ml
--- NOTE | 2016-10-24 15:29 | Discharge Instructions ---
Discharge Instructions Date of Service Oct 24, 2016. Admission Reason for Admission: Altered Mental Status Discharge Discharge Diagnosis / Problem: Dementia,Delirium-resolved,AF Discharge Goals Goal(s): Prevent Disease Progression Activity Recommendations Activity Limitations: resume your previous activity (Do Not Drive) DO NOT DRIVE . Instructions / Follow-Up Instructions / Follow-Up Dr Osman on 10/29/16 at 1:30PM.Please refrain from driving Current Hospital Diet Patient's current hospital diet: AHA Diet (Heart Healthy) Discharge Diet Recommended Diet: AHA Diet (Heart Healthy) Pending Studies Studies pending at discharge: no Medical Emergencies . Who to Call and When: Medical Emergencies: If at any time you feel your situation is an emergency, please call 911 immediately. . Non-Emergent Contact Non-Emergency issues call your: Primary Care Provider . Past History Medical & Surgical History: (1) Altered mental status (2) CVA (cerebral vascular accident) (3) CAD (coronary artery disease) (4) Afib (5) Anticoagulated on Coumadin (6) Depression (7) Aortic valve stenosis (8) Diastolic dysfunction (9) H/O carotid endarterectomy (10) H/O shoulder surgery . "Provider Documentation" section prepared by Jitendra Loco. . VTE Core Measure Inpt VTE Proph given/why not?: Warfarin (Coumadin)
[2016-10-24] MEDS: WARFARIN SOD 1 MG TAB PO SCH (15:51)
--- NOTE | 2016-10-25 07:37 | Discharge Summary ---
Discharge Summary Date of Service Oct 25, 2016. Discharge Summary Admission Date: Oct 22, 2016 at 13:58 Discharge Date: Oct 24, 2016 Discharge Disposition: Home Principal Diagnosis: Dementia,Delirium-resolved,AF Secondary Diagnoses/Problems: Please see H&P and Hospital progress note Consultations: Neurology Medication Reconciliation Continued Medications: Aspirin (Aspirin Ec) 81 Mg Tab 81 MG PO QAM Atorvastatin Calcium (Lipitor) 80 Mg Tab 40 MG PO DAILY, TAB Cholecalciferol (Vitamin D 1000 Unit) 1,000 Unit Cap 1000 INTER.UNIT PO QAM, CAP Citalopram Hydrobromide (Citalopram Hydrobromide) 20 Mg Tab 20 MG PO QAM Folic Acid (Folvite) 400 Mcg Tab 400 MCG PO QAM, TAB Metoprolol Tartrate (Lopressor) 25 Mg Tab 12.5 MG PO QAM, TAB Multiple Vitamins W/ Minerals (Preservision Areds) 1 Cap Cap 1 CAP PO QAM [place]-3 Fatty Acids (Fish Oil) 1 Cap Cap 1 CAPSULE PO QAM Vitamin A (Vitamin A) 8,000 Unit Tab 8000 UNITS PO DAILY Warfarin Sod (Jantoven) 1 Mg Tab 1 MG PO DAILY, TAB Admission Information HPI (per Admitting provider): 86 year old male who presents to the ER with altered mental status. History is limited from patient. Patient's son is at the bedside who provides information due to patient's current mental status. The son reports he notes increasing episodic confusion over the past 4 days. Patient lives alone with family checking on him everyday. Patient had a similar presentation in December 2015. Son reports noticing subtle changes over the past several months however no confusion as severe as the past few days. Patient has continued to take his medications as prescribed. No new medications. No infectious symptoms. Denies unilateral weakness, slurred speech, or facial droop. In the ED, patient's work up is unremarkable however he is severely confused (unsure of his own name, his son, or where he is). Past Medical/Surgical History Medical Problems: (1) Afib Status: Chronic (2) Anticoagulated on Coumadin Status: Chronic (3) Aortic valve stenosis Permanent Comment: mild on echo from 03/2016 Status: Chronic (4) CAD (coronary artery disease) Permanent Comment: 2002 - PCI to left circumflex Status: Chronic (5) CVA (cerebral vascular accident) Status: Chronic (6) Depression Status: Chronic (7) Diastolic dysfunction Permanent Comment: grade I on echo 03/2016 Status: Chronic (8) HLD (hyperlipidemia) Status: Chronic Surgical Problems: (1) H/O carotid endarterectomy Status: Chronic (2) H/O shoulder surgery Status: Chronic Family History non contributory due to patient's age Social History Smoking Status: Former Smoker Alcohol Use: occasionally Allergies Coded Allergies: No Known Allergies (Unverified , 10/22/16) Home Medications Scheduled Aspirin (Aspirin Ec), 81 MG PO QAM Atorvastatin Calcium (Lipitor), 40 MG PO DAILY Cholecalciferol (Vitamin D 1000 Unit), 1,000 INTER.UNIT PO QAM Citalopram Hydrobromide (Citalopram Hydrobromide), 20 MG PO QAM Folic Acid (Folvite), 400 MCG PO QAM Metoprolol Tartrate (Lopressor), 12.5 MG PO QAM Multiple Vitamins W/ Minerals (Preservision Areds), 1 CAP PO QAM [place]-3 Fatty Acids (Fish Oil), 1 CAPSULE PO QAM Vitamin A (Vitamin A), 8,000 UNITS PO DAILY Warfarin Sod (Jantoven), 1 MG PO DAILY Review of Systems unable to be completed with patient due to mental status Physical Ex - H&P Physical Exam Vital Signs Date Time Temp Pulse Resp B/P (MAP) Pulse Ox O2 Delivery O2 Flow Rate FiO2 10/22/16 15:52 36.6 96 17 165/69 (101) 91 Room Air 10/22/16 15:25 86 18 163/76 93 Room Air 10/22/16 13:36 70 18 136/73 91 Room Air 10/22/16 13:25 91 Room Air 10/22/16 13:00 70 10/22/16 12:57 68 18 154/84 91 Room Air 10/22/16 11:31 36.4 95 20 135/86 92 Room Air General Appearance: no apparent distress Head: normocephalic Eyes: normal inspection ENT: hearing grossly normal Neck: supple, no JVD Respiratory/Chest: lungs clear, normal breath sounds, no respiratory distress Cardiovascular: regular rate, rhythm, no edema, normal peripheral pulses Abdomen/GI: normal bowel sounds, non tender, soft Extremities/Musculoskelatal: normal inspection, no calf tenderness Neurologic/Psych: alert, + disoriented (to self, time, place, and situation), + pertinent finding (patient is confused however remains pleasant, difficult to complete neuro exam since he does not follow commands well, no obvious focal deficits noted) Skin: normal color, warm/dry Diagnostics - H&P Diagnostics Laboratory Results Results Past 24 Hours Test 10/22/16 12:05 10/22/16 13:15 Range/Units White Blood Count 10.34 4.8-10.8 K/uL Red Blood Count 4.64 4.7-6.1 M/uL Hemoglobin 14.4 14.0-18.0 g/dL Hematocrit 43.3 42-52 % Mean Corpuscular Volume 93.3 80-100 fL Mean Corpuscular Hemoglobin 31.0 25-34 pg Mean Corpuscular Hemoglobin Concent 33.3 32-36 g/dl Platelet Count 235 130-400 K/uL Mean Platelet Volume 9.1 7.4-10.4 fL Neutrophils (%) (Auto) 64.9 % Lymphocytes (%) (Auto) 21.0 % Monocytes (%) (Auto) 12.0 % Eosinophils (%) (Auto) 1.5 % Basophils (%) (Auto) 0.4 % Neutrophils # (Auto) 6.72 1.4-6.5 K/uL Lymphocytes # (Auto) 2.17 1.2-3.4 K/uL Monocytes # (Auto) 1.24 0.11-0.59 K/uL Eosinophils # (Auto) 0.15 0-0.5 K/uL Basophils # (Auto) 0.04 0-0.2 K/uL RDW Standard Deviation 45.5 36.4-46.3 fL RDW Coefficient of Variation 13.3 11.5-14.5 % Immature Granulocyte % (Auto) 0.2 % Immature Granulocyte # (Auto) 0.02 0.00-0.02 K/uL Prothrombin Time 29.8 9.0-12.0 SECONDS Prothromb Time International Ratio 2.7 0.9-1.1 Activated Partial Thromboplast Time 41.3 21.0-31.0 SECONDS Partial Thromboplastin Ratio 1.6 Sodium Level 140 136-145 mmol/L Potassium Level 3.6 3.5-5.1 mmol/L Chloride Level 107 98-107 mmol/L Carbon Dioxide Level 25 21-32 mmol/L Anion Gap 8.0 3-11 mmol/L Blood Urea Nitrogen 15 7-18 mg/dl Creatinine 0.85 0.60-1.40 mg/dl Est Creatinine Clear Calc Drug Dose 58.3 ml/min Estimated GFR () 92.7 Estimated GFR (Non- 80.0 BUN/Creatinine Ratio 17.1 10-20 Random Glucose 108 70-99 mg/dl Calcium Level 8.6 8.5-10.1 mg/dl Total Bilirubin 0.9 0.2-1 mg/dl Direct Bilirubin 0.2 0-0.2 mg/dl Aspartate Amino Transf (AST/SGOT) 27 15-37 U/L Alanine Aminotransferase (ALT/SGPT) 33 12-78 U/L Alkaline Phosphatase 51 45-117 U/L Troponin I 0.024 0-0.045 ng/ml Total Protein 6.7 6.4-8.2 gm/dl Albumin 3.3 3.4-5.0 gm/dl Urine Color YELLOW Urine Appearance CLEAR CLEAR Urine pH 5.5 4.5-7.5 Urine Specific [place] 1.013 1.000-1.030 Urine Protein NEG NEG Urine Glucose (UA) NEG NEG Urine Ketones NEG NEG Urine Occult Blood NEG NEG Urine Nitrite NEG NEG Urine Bilirubin NEG NEG Urine Urobilinogen NEG NEG Urine Leukocyte Esterase NEG NEG Urine WBC (Auto) 0 0-5 /hpf Urine RBC (Auto) 0-4 0-4 /hpf Urine Hyaline Casts (Auto) 1-5 0-5 /lpf Urine Epithelial Cells (Auto) 0-5 0-5 /lpf Urine Bacteria (Auto) NEG NEG Diagnostic Radiology HEAD CT IMPRESSION: Senescent changes and remote infarct as above. There is no hemorrhage, mass effect, or evidence of acute territorial ischemia by CT criteria. CXR IMPRESSION: 1. Apparent subtle nodular retrocardiac opacities, possibly atelectasis, aspiration or infection. Impression - H&P Impression Assessment and Plan Per Dr. Leelee Burrell: INTERMITTENT CONFUSION Per son, has noticed subtle changes of forgetfulness, change in mental status on and off with some good days and bad days x months. No recent change in medications, no signs of new infection. Had similar symptoms a year ago when work up was negative. -Likely developing dementia which is progressively worsening . Unlikely to be stroke -Will observe for 24 hours and rule out any acute infection though so far Labs- normal, no clear source of infection noted. -Work up= Labs normal, CT head- no acute changes, CXR- retrocardiac opacities but no clinical signs of pneumonia so likely atelectasis CAD: -stable -continue ASA, BB ATRIAL FIB: -rate controlled with Metoprolol -on Coumadin INR 2.6 -monitor INR HYPERLIPIDEMIA: -continue Statin Hx of Prior CVA: -s/p carotid endarterectomy -continue ASA, Statin DEPRESSION: -continue Celexa DISPOSITION Discussed with son about safety at home as lives alone. Will talk to sister about 24 hour care vs correction placement PT/OT ordered SS consulted Advanced Directives Existing Living Will: Yes Existing Power of Cylinder [employer] Hole Reliner: Yes VTE Prophylaxis VTE Risk Assessment Done? Y/N: Yes Risk Level: Moderate Given or contraindicated: Warfarin (Coumadin) Physical Exam (per Admitting): General Appearance: no apparent distress Head: normocephalic Eyes: normal inspection ENT: hearing grossly normal Neck: supple, no JVD Respiratory/Chest: lungs clear, normal breath sounds, no respiratory distress Cardiovascular: regular rate, rhythm, no edema, normal peripheral pulses Abdomen/GI: normal bowel sounds, non tender, soft Extremities/Musculoskelatal: normal inspection, no calf tenderness Neurologic/Psych: alert, + disoriented (to self, time, place, and situation) , + pertinent finding (patient is confused however remains pleasant, difficult to complete neuro exam since he does not follow commands well, no obvious focal deficits noted) Skin: normal color, warm/dry Hospital Course INTERMITTENT CONFUSION Per son, has noticed subtle changes of forgetfulness, Change in mental status on and off with some good days and bad days x months. -No recent change in medications, no signs of new infection. -Had similar symptoms a year ago when work up was negative. -Likely developing dementia which is progressively worsening . -No evidence of Infection,Stroke or any injury -discussed with the Son -will observe for a day or two -appreciate Neurology input -No medication advised CAD: -stable -continue ASA, BB ATRIAL FIB: -rate controlled with Metoprolol -on Coumadin INR 2.9 on 10/23/16 -monitor INR -therapeutic HYPERLIPIDEMIA: -continue Statin Hx of Prior CVA: -s/p carotid endarterectomy -continue ASA, Statin DEPRESSION: -continue Celexa DISPOSITION Discussed with son about safety at home as lives alone. May need 24 hour care vs correction placement PT/OT ordered SS consulted Discussed with the Daughter and the Son-will take him home Total time spent on discharge = 35 minutes This includes examination of the patient, discharge planning, medication reconciliation, and communication with other providers. Discharge Instructions Date of Service Oct 24, 2016. Admission Reason for Admission: Altered Mental Status Discharge Discharge Diagnosis / Problem: Dementia,Delirium-resolved,AF Discharge Goals Goal(s): Prevent Disease Progression Activity Recommendations Activity Limitations: resume your previous activity (Do Not Drive) DO NOT DRIVE . Instructions / Follow-Up Instructions / Follow-Up Dr Osman on 10/29/16 at 1:30PM.Please refrain from driving Current Hospital Diet Patient's current hospital diet: AHA Diet (Heart Healthy) Discharge Diet Recommended Diet: AHA Diet (Heart Healthy) Pending Studies Studies pending at discharge: no Medical Emergencies . Who to Call and When: Medical Emergencies: If at any time you feel your situation is an emergency, please call 911 immediately. . Non-Emergent Contact Non-Emergency issues call your: Primary Care Provider . Past History Medical & Surgical History: (1) Altered mental status (2) CVA (cerebral vascular accident) (3) CAD (coronary artery disease) (4) Afib (5) Anticoagulated on Coumadin (6) Depression (7) Aortic valve stenosis (8) Diastolic dysfunction (9) H/O carotid endarterectomy (10) H/O shoulder surgery . "Provider Documentation" section prepared by Jitendra Loco. . VTE Core Measure Inpt VTE Proph given/why not?: Warfarin (Coumadin) <Electronically signed by Jitendra Loco M.D.> Signed: 10/24/16 1532 Additional Copies To Raquel Osman M.D.
[2016-12-06] MEDS ORDERED: MULTCAP33 PO (09:44)
[2016-12-06] MEDS ORDERED: VITA1TAB6 PO (11:51)
== END 2016-10-24 16:24 | disposition home or self-care (01) | DRG 884 ==
LOC: C.EDB 11:31 → C.MED 13:58 → ENRESERV 14:31
PROVIDERS: ADMIT Internal Medicine; ATTEND Internal Medicine
DX: F03.90 Unspecified dementia, unspecified severity, without behavioral disturbance, psychotic disturbance, mood disturbance, and anxiety (principal); R41.0 Disorientation, unspecified; I48.91 Unspecified atrial fibrillation; I25.10 Atherosclerotic heart disease of native coronary artery without angina pectoris; F32.9 Major depressive disorder, single episode, unspecified; E78.5 Hyperlipidemia, unspecified; I51.9 Heart disease, unspecified; I35.0 Nonrheumatic aortic (valve) stenosis; Z87.891 Personal history of nicotine dependence; Z79.82 Long term (current) use of aspirin; Z79.01 Long term (current) use of anticoagulants; Z86.73 Personal history of transient ischemic attack (TIA), and cerebral infarction without residual deficits; Z79.899 Other long term (current) drug therapy

== ENCOUNTER 2016-12-06 13:47 | Inpatient (IN) | payer OTHER ==
[~2016-12-06] VITALS: Ht 165.1 cm; Wt 79.6 kg
[~2016-12-06 13:47] MED LIST changes: -KETO0.4S2 OPR; +MULTCAP33 PO; -PRED1SUS3 OPR; +VITA1TAB6 PO; -VITATAB19 PO
--- NOTE | 2016-12-06 14:27 | EMERGENCY ROOM VISIT NOTE ---
History Report prepared by Meaghan: Harvey Cotton Under the Supervision of: Dr. Milton Ocasio M.D. First contact with patient: 14:16 Chief Complaint: LETHARGIC Stated Complaint: BRUISING, FEVER Nursing Triage Summary: Pts son verbalizes pt developed yellow skin and bruises everywhere on Saturday. Pt takes coumadin, unsure why. Per pts son, pt also seems lethargic. Pt is hard of hearing, alert and oriented x3 in triage. History of Present Illness The patient is an 86 year old male who presents to the Emergency Room for worsening extremity bruising and swelling that started 2 days ago. Per the patient's son, the patient started developing bruising on his right arm 2 days ago as well as on the inside of his left thumb. The patient noted to his son that he may have hit a screen door, but yesterday, the patient started developing bruising on his left wrist and left shoulder. It was also noticed that the patient started developing jaundiced yellow skin last night, which is new. The patient has no history of liver issues, and the patient was seen here 2 months ago for dehydration, and none of the tests came back abnormal. The patient's son notes that the patient has seemed lethargic the past few days. The patient has a known tooth infection that is scheduled to be pulled as long as his INR is under 3. The patient states that currently, he has no pain. He denies any recent falls. One of the other patient's family members noticed some blood in the patient's urine recently. The patient does live by himself. He is on Coumadin. The patient is noted to be fairly healthy, and has no history of aneurysms. The patient adds that he cut himself shaving prior to arrival on the top of his lip. Source of History: patient, family Onset: 2 days ago Position: other (global - bruising) Timing: worsening Associated Symptoms: + fatigue Note: Associated symptoms: Bruising and swelling on right arm, left thumb, left wrist , left shoulder. Jaundiced skin. Denies any falls. Review of Systems See HPI for pertinent positives and negatives. A total of ten systems were reviewed and were otherwise negative. Past Medical & Surgical Medical Problems: (1) Afib (2) Anticoagulated on Coumadin (3) Aortic valve stenosis (4) Biliary obstruction (5) CAD (coronary artery disease) (6) CVA (cerebral vascular accident) (7) Depression (8) Diastolic dysfunction (9) HLD (hyperlipidemia) (10) Pancreatic mass Surgical Problems: (1) H/O carotid endarterectomy (2) H/O shoulder surgery Family History FH: cancer FH: heart disease Social History Smoking Status: Former Smoker Alcohol Use: occasionally Housing Status: lives alone Current/Historical Medications Scheduled Aspirin (Aspirin Ec), 81 MG PO QAM Atorvastatin Calcium (Lipitor), 40 MG PO DAILY Cholecalciferol (Vitamin D 1000 Unit), 1,000 INTER.UNIT PO QAM Citalopram Hydrobromide (Citalopram Hydrobromide), 20 MG PO QAM Folic Acid (Folvite), 400 MCG PO QAM Metoprolol Tartrate (Lopressor), 12.5 MG PO QAM Multiple Vitamins W/ Minerals (Preservision Areds), 1 CAP PO QAM Maupin-3 Fatty Acids (Fish Oil), 1 CAPSULE PO QAM Vitamin A (Vitamin A), 8,000 UNITS PO DAILY Warfarin Sod (Jantoven), 1 MG PO DAILY Allergies Coded Allergies: No Known Allergies (Unverified , 10/22/16) Physical Exam Vital Signs Date Time Temp Pulse Resp B/P (MAP) Pulse Ox O2 Delivery O2 Flow Rate FiO2 12/06/16 17:42 99 22 106/72 95 Room Air 12/06/16 17:14 102 20 84/63 98 Room Air 12/06/16 14:34 122 12/06/16 14:24 118 105/68 12/06/16 13:56 36.6 96 18 92 Room Air Physical Exam GENERAL: Awake, alert, ill-appearing but in no acute distress. HENT: Normocephalic, atraumatic. Oropharynx unremarkable. Dry mucous membranes. EYES: Normal conjunctiva. Scleral icterus. NECK: Supple. No nuchal rigidity. FROM. No JVD. RESPIRATORY: Clear to auscultation. CARDIAC: IRIR. Extremities warm and well perfused. Pulses equal. ABDOMEN: Soft, non-distended. No tenderness to palpation. Palpable pulsatile mass in epigastrum. No rebound or guarding. RECTAL: Deferred. MUSCULOSKELETAL: Chest examination reveals no tenderness. The back is symmetrical on inspection without obvious abnormality. There is no CVA tenderness to palpation. No joint edema. LOWER EXTREMITIES: Calves are equal size bilaterally and non-tender. No edema. No discoloration. NEURO: Alert to self and place, but with mild dementia. No sensory or motor deficits noted. SKIN: Diffuse jaundice noted. Medical Decision & Procedures ER Provider Diagnostic Interpretation: Radiology results as stated below per my review and radiologist interpretation: CHEST ONE VIEW PORTABLE HISTORY: 86 years-old Male CHEST PAIN COMPARISON: Portable chest radiograph 10/22/2016 TECHNIQUE: Portable upright AP view of the chest FINDINGS: Cardiac silhouette is again mildly enlarged. There is atherosclerosis and tortuosity of the thoracic aorta. No pneumothorax or large pleural effusion. There are hazy bibasilar opacities again noted without significant change from comparison. There is mild left hemidiaphragmatic elevation. Mild pulmonary vascular congestion persists. Degenerative changes involve the bilateral shoulders and spine. There are surgical clips at the neck base. IMPRESSION: 1. Mild cardiomegaly with pulmonary vascular congestion. No overt pulmonary edema. 2. Subsegmental bibasilar opacities are again seen suggesting atelectasis. The above report was generated using voice recognition software. It may contain grammatical, syntax or spelling errors. Electronically signed by: Colton Nelson M.D. 12/06/2016 3:44 PM Dictated Date/Time: 12/06/2016 3:43 PM LEFT HAND MIN 3 VIEWS ROUTINE HISTORY: 86 years-old Male ecchymosis/swelling COMPARISON: Brain radiographs of same day TECHNIQUE: 2 views of the left hand FINDINGS: Multifocal severe degenerative changes are seen about the hand and wrist, notably involving the radiocarpal, first carpal metacarpal, first through third metacarpophalangeal and interphalangeal joints. The bones are moderately demineralized. Subcortical cystic changes are seen about the carpus. There has been prior partial amputation of the fourth digit at the level of the mid shaft proximal phalanx. No acute fracture or dislocation is identified. Negative for opaque foreign body. IMPRESSION: 1. No acute fracture or dislocation. 2. Multifocal severe degenerative changes about the hand and wrist as above. 3. Prior partial amputation of the fourth digit at the level of the mid shaft proximal phalanx. The above report was generated using voice recognition software. It may contain grammatical, syntax or spelling errors. Electronically signed by: Colton Nelson M.D. 12/06/2016 3:51 PM Dictated Date/Time: 12/06/2016 3:48 PM RIGHT HAND 3 VIEWS CLINICAL HISTORY: Right hand pain and swelling. FINDINGS: 3 views of the right hand are obtained. No prior studies are available for comparison at the time of dictation. The skeletal structures are osteopenic. No fracture is seen. Advanced degenerative change is seen at the radiocarpal articulation. Cyst formation is present in the distal radius. There is chondrocalcinosis of the triangular fibrocartilage. Advanced osteoarthritic change is present throughout the wrist and hand. Erosive osteoarthritis is seen involving the distal interphalangeal joints. There is subluxation at the first interphalangeal joint as well as the second, third, and fourth distal interphalangeal joints. Mild diffuse soft tissue edema is noted. IMPRESSION: 1. Soft tissue edema with no radiographic evidence of right hand fracture. 2. Osteopenia and advanced arthritic change as above. Electronically signed by: Patrice Palma M.D. 12/06/2016 3:55 PM Dictated Date/Time: 12/06/2016 3:53 PM RIGHT FOREARM 2 VIEWS CLINICAL HISTORY: Right forearm swelling and bruising. FINDINGS: AP and lateral views of the right forearm are obtained. No prior studies are available for comparison at the time of dictation. The skeletal structures are osteopenic. No fracture is seen in the right forearm. Arthritic change is noted in the wrist. Soft tissue edema is present throughout the imaged right upper extremity. An IV catheter is present in the antecubital fossa. IMPRESSION: Soft tissue swelling with no radiographic evidence of right forearm fracture. Electronically signed by: Patrice Palma M.D. 12/06/2016 3:49 PM Dictated Date/Time: 12/06/2016 3:[address] SCAN OF THE ABDOMEN AND PELVIS WITHOUT IV CONTRAST CLINICAL HISTORY: Lethargy. Sepsis. COMPARISON STUDY: Renal ultrasound dated 07/14/2012. TECHNIQUE: CT scan of the abdomen and pelvis is performed from the lung bases to the proximal femora. Images are reviewed in the axial, sagittal, and coronal planes. IV contrast was not administered for this examination as per the referring clinician. Note that the examination was performed in significantly suboptimal fashion without oral and IV contrast. The examination is also degraded by motion artifact. Automated dose control exposure was utilized. A dose lowering technique was utilized adhering to the principles of ALARA. CT DOSE: 467.76 mGycm FINDINGS: Lung bases: The heart is enlarged and without pericardial effusion. The coronary arteries and aortic valve leaflets are densely calcified. There is a small hiatal hernia. Evaluation of the lung base is degraded by motion artifact. Patchy airspace opacities are seen in the medial segment of the right middle lobe. Dependent atelectasis is observed. No pleural effusion is identified. Liver: The unenhanced liver is normal in size, contour, and attenuation. There is moderate intrahepatic biliary ductal dilatation. Gallbladder: The gallbladder is distended and grossly unremarkable. Spleen: Normal in size and attenuation. Pancreas: The unenhanced pancreas is moderately atrophic. The pancreatic head appears asymmetrically increased in size as compared to the remainder of the gland and there is indeterminant soft tissue seen anteriorly on axial image #123. The pancreas duct is normal in caliber. Adrenal glands: Unremarkable. Kidneys: The unenhanced kidneys demonstrate cortical atrophy and are without hydronephrosis. Parapelvic cysts are suggested on the left. There is a punctate nonobstructing right renal calculus. Abdominal vasculature: There is advanced atherosclerotic calcification and ectasia of the abdominal aorta. Bowel: There is moderate to advanced colonic diverticulosis without CT evidence of acute diverticulitis. No bowel obstruction is seen. The appendix is well-visualized and normal. Peritoneum: There is no intraperitoneal free air or abdominal ascites. There is a small fat-containing umbilical hernia. Lymphadenopathy: None. Pelvic viscera: The prostate gland is mildly enlarged and heterogeneous, measuring 4.9 cm in transverse diameter. There is median lobe hypertrophy. The bladder wall is thickened and trabeculated consistent with chronic outlet obstruction. Skeletal structures: The skeletal structures are osteopenic. No lytic or blastic lesions are seen. IMPRESSION: 1. Significantly suboptimal examination without oral and IV contrast. The examination is also degraded by motion artifact. 2. There are no definite acute infectious or inflammatory findings in the abdomen or pelvis. 3. Moderate to advanced colonic diverticulosis without CT evidence of acute diverticulosis. 4. The gallbladder is distended and there is intrahepatic biliary ductal dilatation. Correlation with clinical findings and serum bilirubin levels be required. If clinically warranted this could be further assessed with an ultrasound of the right upper quadrant. 5. The pancreas is atrophic, and the pancreatic head appears asymmetrically enlarged as compared to the remainder of the gland. Indeterminant soft tissue is suggested along the anterior margin the pancreatic head. This is not well characterized and of indeterminant significance. Correlation with a contrast-enhanced CT scan of the abdomen is recommended for further assessment and to assess for underlying mass lesion. 6. Cardiomegaly. 7. Patchy airspace opacities are present within the medial segment of the right middle lobe. Cortical clinically for evidence of an infectious/inflammatory pneumonitis. 8. Punctate nonobstructing right renal calculus. 9. Prostatomegaly with evidence of chronic bladder outlet obstruction. 10. Additional findings as above. Electronically signed by: Patrice Palma M.D. 12/06/2016 4:42 PM Dictated Date/Time: 12/06/2016 4:33 PM Limited EM bedside US: No gross enlargement of aorta. Laboratory Results Test 12/06/16 14:54 Ammonia 34.0 umol/L (11-32) Pro-B-Type Natriuretic Peptide 2442 pg/ml (0-1800) Chemistry Specimen Hemolysis Laboratory results reviewed by me Medications Administered Medications (Trade) Dose Ordered Sig/Thelma Route Start Time Stop Time Status Last Admin Dose Admin Sodium Chloride 1,000 ml @ 100 mls/hr Q10H STAT IV 12/06/16 14:40 12/06/16 19:53 DC 12/06/16 14:40 100 MLS/HR Vancomycin HCl 1250 mg/Sodium Chloride 275 ml @ 125 mls/hr 1552 IV 12/06/16 15:52 12/06/16 18:21 DC 12/06/16 20:21 125 MLS/HR Phytonadione 5 mg/ Sodium Chloride 50.5 ml @ 101 mls/hr NOW ONCE IV 12/06/16 17:05 12/06/16 17:34 DC 12/06/16 17:42 101 MLS/HR Pantoprazole Sodium 40 mg/ Syringe 10 ml @ 5 mls/min NOW ONCE IV 12/06/16 18:00 12/06/16 18:21 DC 12/06/16 18:14 5 MLS/MIN Piperacillin Sod/ Tazobactam Sod 2.25 gm/Dextrose 110 ml @ 200 mls/hr TODAY@1552 IV 12/06/16 15:52 12/06/16 20:00 DC 12/06/16 18:45 200 MLS/HR ECG Indication: weakness Rate (beats per minute): 100 Rhythm: atrial fibrillation Findings: PVC (frequent), no acute ischemic change, other (RBBB) ED Course 1416: The patient was evaluated in room C9. A complete history and physical exam was performed. 1440: Ordered NSS 1000 ml @ 100 mls/hr IV. 1552: Ordered Vancomycin HCl 1250 mg/Sodium Chloride 275 ml @ 125 mls/hr IV, Zosyn IV 2.25 gm IV. 1556: I reevaluated and updated the patient. 1705: Ordered Phytonadione 5 mg/Sodium Chloride 50.5 ml @ 101 mls/hr IV. 1728: I reevaluated the patient and he is resting comfortably. The patient and his son verbally expressed understanding and agreement of the treatment plan. The patient will be evaluated for further treatment. 1742: I discussed the patient with Marge Roldan - she will evaluate the patient for further treatment. 1800: Ordered Pantoprazole Sodium 40 mg/Syringe 10 ml @ 5 mls/min IV. 1820: I discussed the patient with Dr. Santos - [facility] [place]. Medical Decision I reviewed the patient's past medical history, medications, and the nursing notes as described above. Differential diagnoses: infection, pulmonary vs urinary, possible biliary infection, pancreatic mass, AAA, ACS, CHF, dehydration, electrolyte abnormality. Patient is an 86 yo man with pmhx of afib on coumadin who presents to the ED with worsening fatigue, confusion, new jaundice since Saturday per HPI. On arrival the patient is alert to self but otherwise pleasantly demented in NAD. AF with HR 90-100s and SBP 90-100s. On exam has scleral icterus and diffuse jaundice. Abd soft nt/nd with ?pulsitile mass although no AAA on bedside US. Considering patient's painless jaundice there was concern for pancreatic malignancy. Since with new renal failure with Cr. 3.[address] with contrast and thus limited. However pancreatic head with areas suspicious for mass with associated biliary ductal diliation. Otherwise, WBC 18, lactate 2.9, trop 0.07 all in setting of new renal failure. EKG with pvcs but otherwise no acute ischemia. INR supratherapeutic greater than 8. Hemoglobin down to 9 from 14 last month prior. She was given IV vitamin K. K centra considered however in the setting of no evidence of active bleed (rectal exam with brown stool but guaiac positive) additional reversal and/or transfusion was deferred. Patient given broad spectrum abx. Severity of patient's illness was d/w familly. I d/w medicine team who will admit patient to ICU. I also gave report to ICU attending. Likely will need surgery/GI consultation to further characterize mass. Medication Reconcilliation Current Medication List: was personally reviewed by me Blood Pressure Screening Patient's blood pressure: Normal blood pressure Consults Time Called: 174 Consulting Physician: Marge Roldan Returned Call: [phone] I discussed the patient with Marge Roldan - she will evaluate the patient for further treatment. Additional Consults: Time Called: [id number] Consulted Physician: Dr. Danielle LOZANO um rn Returned Call: [phone] Additional Comments: I discussed the patient with Dr. Danielle LOZANO um rn. Impression Primary Impression: Sepsis Additional Impression: Pancreatic mass Scribe Attestation The scribe's documentation has been prepared under my direction and personally reviewed by me in its entirety. I confirm that the note above accurately reflects all work, treatment, procedures, and medical decision making performed by me. Departure Information Dispostion Being Evaluated By Hospitalist Raquel Alba M.D. (PCP) Patient Instructions My [facility] Problem Qualifiers
[2016-12-06] MEDS ORDERED: SODIUM CHLORIDE 0.9% 1000ML 1,000 ML IV STA (14:40)
[2016-12-06 15:12] LABS: HEMATOCRIT 26.6 % (42-52); MEAN CORPUSCULAR HEMOGLOBIN 32.5 pg (25-34); MEAN CORPUSCULAR HGB CONC 34.6 g/dl (32-36); MEAN PLATELET VOLUME 10.3 fL (7.4-10.4); PLATELET COUNT 285 K/uL (130-400); RED BLOOD COUNT 2.83 M/uL (4.7-6.1); WHITE BLOOD COUNT 18.63 K/uL (4.8-10.8)
[2016-12-06] MEDS ORDERED: ATOR80TA PO (15:42)
[2016-12-06] MEDS ORDERED: CITA20TA4 PO (15:42)
[2016-12-06] MEDS ORDERED: LPR25 PO (15:42)
[2016-12-06] MEDS ORDERED: OMEGCAP2 PO (15:42)
--- NOTE | 2016-12-06 15:46 | DIAGNOSTIC IMAGING REPORT ---
CHEST ONE VIEW PORTABLE HISTORY: 86 years-old Male CHEST PAIN COMPARISON: Portable chest radiograph 10/22/2016 TECHNIQUE: Portable upright AP view of the chest FINDINGS: Cardiac silhouette is again mildly enlarged. There is atherosclerosis and tortuosity of the thoracic aorta. No pneumothorax or large pleural effusion. There are hazy bibasilar opacities again noted without significant change from comparison. There is mild left hemidiaphragmatic elevation. Mild pulmonary vascular congestion persists. Degenerative changes involve the bilateral shoulders and spine. There are surgical clips at the neck base. IMPRESSION: 1. Mild cardiomegaly with pulmonary vascular congestion. No overt pulmonary edema. 2. Subsegmental bibasilar opacities are again seen suggesting atelectasis. The above report was generated using voice recognition software. It may contain grammatical, syntax or spelling errors. Electronically signed by: Colton Nelson M.D. 12/06/2016 3:44 PM Dictated Date/Time: 12/06/2016 3:43 PM
[2016-12-06 15:48] LABS: ALKALINE PHOSPHATASE 413 U/L (45-117); ALT/SGPT 504 U/L (12-78); AST/SGOT 529 U/L (15-37); BLOOD UREA NITROGEN 43 mg/dl (7-18); BUN/CREATININE RATIO 11.5 (10-20); CALCIUM 8.1 mg/dl (8.5-10.1); CARBON DIOXIDE 21 mmol/L (21-32); CHLORIDE 108 mmol/L (98-107); GLUCOSE 135 mg/dl (70-99); POTASSIUM 3.8 mmol/L (3.5-5.1); SODIUM 140 mmol/L (136-145)
--- NOTE | 2016-12-06 15:50 | DIAGNOSTIC IMAGING REPORT ---
RIGHT FOREARM 2 VIEWS CLINICAL HISTORY: Right forearm swelling and bruising. FINDINGS: AP and lateral views of the right forearm are obtained. No prior studies are available for comparison at the time of dictation. The skeletal structures are osteopenic. No fracture is seen in the right forearm. Arthritic change is noted in the wrist. Soft tissue edema is present throughout the imaged right upper extremity. An IV catheter is present in the antecubital fossa. IMPRESSION: Soft tissue swelling with no radiographic evidence of right forearm fracture. Electronically signed by: Patrice Palma M.D. 12/06/2016 3:49 PM Dictated Date/Time: 12/06/2016 3:48 PM
[2016-12-06] MEDS ORDERED: VANCOMYCIN INJ 1,250 MG in SODIUM CHLORIDE 0.9% 500ML 500 ML IV STA (15:52)
[2016-12-06] MEDS ORDERED: PIPERACILL/TAZOBAC IV 2.25 GM in DEXTROSE 5% 100ML 100 ML IV SCH (15:52)
[2016-12-06] MEDS ORDERED: VANCOMYCIN INJ 1,250 MG in SODIUM CHLORIDE 0.9% 250ML 250 ML IV SCH (15:52)
[2016-12-06] MEDS ORDERED: PIPERACILLIN/TAZOBACTAM 3.375 GM/100ML D5W IV STA (15:52)
--- NOTE | 2016-12-06 15:52 | DIAGNOSTIC IMAGING REPORT ---
LEFT HAND MIN 3 VIEWS ROUTINE HISTORY: 86 years-old Male ecchymosis/swelling COMPARISON: Brain radiographs of same day TECHNIQUE: 2 views of the left hand FINDINGS: Multifocal severe degenerative changes are seen about the hand and wrist, notably involving the radiocarpal, first carpal metacarpal, first through third metacarpophalangeal and interphalangeal joints. The bones are moderately demineralized. Subcortical cystic changes are seen about the carpus. There has been prior partial amputation of the fourth digit at the level of the mid shaft proximal phalanx. No acute fracture or dislocation is identified. Negative for opaque foreign body. IMPRESSION: 1. No acute fracture or dislocation. 2. Multifocal severe degenerative changes about the hand and wrist as above. 3. Prior partial amputation of the fourth digit at the level of the mid shaft proximal phalanx. The above report was generated using voice recognition software. It may contain grammatical, syntax or spelling errors. Electronically signed by: Colton Nelson M.D. 12/06/2016 3:51 PM Dictated Date/Time: 12/06/2016 3:48 PM
[2016-12-06] MEDS ORDERED: ASPI81TA28 PO (15:53)
[2016-12-06] MEDS ORDERED: CHOL100027 PO (15:53)
[2016-12-06] MEDS ORDERED: FOLI400T41 PO (15:53)
--- NOTE | 2016-12-06 15:56 | DIAGNOSTIC IMAGING REPORT ---
RIGHT HAND 3 VIEWS CLINICAL HISTORY: Right hand pain and swelling. FINDINGS: 3 views of the right hand are obtained. No prior studies are available for comparison at the time of dictation. The skeletal structures are osteopenic. No fracture is seen. Advanced degenerative change is seen at the radiocarpal articulation. Cyst formation is present in the distal radius. There is chondrocalcinosis of the triangular fibrocartilage. Advanced osteoarthritic change is present throughout the wrist and hand. Erosive osteoarthritis is seen involving the distal interphalangeal joints. There is subluxation at the first interphalangeal joint as well as the second, third, and fourth distal interphalangeal joints. Mild diffuse soft tissue edema is noted. IMPRESSION: 1. Soft tissue edema with no radiographic evidence of right hand fracture. 2. Osteopenia and advanced arthritic change as above. Electronically signed by: Patrice Palma M.D. 12/06/2016 3:55 PM Dictated Date/Time: 12/06/2016 3:53 PM
[2016-12-06 16:00] LABS: PROTHROMBIN TIME (PATIENT) > 100.0 SECONDS (9.0-12.0)
[2016-12-06 16:02] LABS: BASO % 0.2 %; BASO ABS # 0.03 K/uL (0-0.2); COMPLETE YES; IG% 0.4 %; LYMPH % 8.5 %; LYMPH ABS # 1.58 K/uL (1.2-3.4); MONO % 9.1 %; NEUT % 81.8 %
[2016-12-06 16:07] LABS: INR > 8.0 (0.9-1.1)
[2016-12-06] MEDS ORDERED: WARF1TAB6 PO (16:21)
--- NOTE | 2016-12-06 16:44 | DIAGNOSTIC IMAGING REPORT ---
CT SCAN OF THE ABDOMEN AND PELVIS WITHOUT IV CONTRAST CLINICAL HISTORY: Lethargy. Sepsis. COMPARISON STUDY: Renal ultrasound dated 07/14/2012. TECHNIQUE: CT scan of the abdomen and pelvis is performed from the lung bases to the proximal femora. Images are reviewed in the axial, sagittal, and coronal planes. IV contrast was not administered for this examination as per the referring clinician. Note that the examination was performed in significantly suboptimal fashion without oral and IV contrast. The examination is also degraded by motion artifact. Automated dose control exposure was utilized. A dose lowering technique was utilized adhering to the principles of ALARA. CT DOSE: 467.76 mGycm FINDINGS: Lung bases: The heart is enlarged and without pericardial effusion. The coronary arteries and aortic valve leaflets are densely calcified. There is a small hiatal hernia. Evaluation of the lung base is degraded by motion artifact. Patchy airspace opacities are seen in the medial segment of the right middle lobe. Dependent atelectasis is observed. No pleural effusion is identified. Liver: The unenhanced liver is normal in size, contour, and attenuation. There is moderate intrahepatic biliary ductal dilatation. Gallbladder: The gallbladder is distended and grossly unremarkable. Spleen: Normal in size and attenuation. Pancreas: The unenhanced pancreas is moderately atrophic. The pancreatic head appears asymmetrically increased in size as compared to the remainder of the gland and there is indeterminant soft tissue seen anteriorly on axial image #123. The pancreas duct is normal in caliber. Adrenal glands: Unremarkable. Kidneys: The unenhanced kidneys demonstrate cortical atrophy and are without hydronephrosis. Parapelvic cysts are suggested on the left. There is a punctate nonobstructing right renal calculus. Abdominal vasculature: There is advanced atherosclerotic calcification and ectasia of the abdominal aorta. Bowel: There is moderate to advanced colonic diverticulosis without CT evidence of acute diverticulitis. No bowel obstruction is seen. The appendix is well-visualized and normal. Peritoneum: There is no intraperitoneal free air or abdominal ascites. There is a small fat-containing umbilical hernia. Lymphadenopathy: None. Pelvic viscera: The prostate gland is mildly enlarged and heterogeneous, measuring 4.9 cm in transverse diameter. There is median lobe hypertrophy. The bladder wall is thickened and trabeculated consistent with chronic outlet obstruction. Skeletal structures: The skeletal structures are osteopenic. No lytic or blastic lesions are seen. IMPRESSION: 1. Significantly suboptimal examination without oral and IV contrast. The examination is also degraded by motion artifact. 2. There are no definite acute infectious or inflammatory findings in the abdomen or pelvis. 3. Moderate to advanced colonic diverticulosis without CT evidence of acute diverticulosis. 4. The gallbladder is distended and there is intrahepatic biliary ductal dilatation. Correlation with clinical findings and serum bilirubin levels be required. If clinically warranted this could be further assessed with an ultrasound of the right upper quadrant. 5. The pancreas is atrophic, and the pancreatic head appears asymmetrically enlarged as compared to the remainder of the gland. Indeterminant soft tissue is suggested along the anterior margin the pancreatic head. This is not well characterized and of indeterminant significance. Correlation with a contrast-enhanced CT scan of the abdomen is recommended for further assessment and to assess for underlying mass lesion. 6. Cardiomegaly. 7. Patchy airspace opacities are present within the medial segment of the right middle lobe. Cortical clinically for evidence of an infectious/inflammatory pneumonitis. 8. Punctate nonobstructing right renal calculus. 9. Prostatomegaly with evidence of chronic bladder outlet obstruction. 10. Additional findings as above. Electronically signed by: Patrice Palma M.D. 12/06/2016 4:42 PM Dictated Date/Time: 12/06/2016 4:33 PM
[2016-12-06] MEDS ORDERED: PHYTONADIONE INJ 5 MG in SODIUM CHLORIDE 0.9% 50ML 50 ML IV ONE (17:05)
[2016-12-06] MEDS ORDERED: PANTOprazole INJ 40 MG in SYRINGE 0 ML IV ONE (18:00)
[2016-12-06 19:55] VITALS: BP 134/40; PULSE 125; TEMP 36.8; O2SAT 95; Ht 165.1 cm; Wt 79.6 kg
[2016-12-06] MEDS: METRONIDAZOLE / NSS 500 MG in PREMIXED NSS 100 ML IV SCH (20:21)
[2016-12-06] MEDS: D5W AND NSS 1,000 ML IV SCH (20:22)
--- NOTE | 2016-12-06 21:25 | History and Physical ---
History & Physical Date & Time of Service: Dec 06, 2016 at 21:22 Chief Complaint: Biliary Obstruction, Pancreatic Mass, Sepsis Primary Care Physician: Raquel Osman M.D. History of Present Illness This is 86yo man with a PMH of A Fib (on coumadin), CAD and h/o prior CVA who presents with worsening bruising of extremities as well as jaundice. Patient has been on long-term anticoagulation and noticed bruising of all four extremities earlier this week that has progressively worsened. He denies any recent falls but states that he may have run into the door of his home. Patient lives alone and has family who intermittently check in. This morning, the patient's son visited and noticed that his Dad was noticeably jaundiced. There is no PMH of liver or gall bladder disease. Patient endorses increased fatigue over the past few days but denies fever, chills, CP, SOB, abdominal pain, nausea , vomiting or rectal bleeding. Family has noticed some blood in patient's urine this week. Denies pain of any kind. Of note, patient has a dental abscess but has not been eligible for surgery due to INR >3. Past Medical/Surgical History Medical Problems: (1) Afib Status: Chronic (2) Anticoagulated on Coumadin Status: Chronic (3) Aortic valve stenosis Permanent Comment: mild on echo from 03/2016 Status: Chronic (4) CAD (coronary artery disease) Permanent Comment: 2002 - PCI to left circumflex Status: Chronic (5) CVA (cerebral vascular accident) Status: Chronic (6) Depression Status: Chronic (7) Diastolic dysfunction Permanent Comment: grade I on echo 03/2016 Status: Chronic (8) HLD (hyperlipidemia) Status: Chronic Surgical Problems: (1) H/O carotid endarterectomy Status: Chronic (2) H/O shoulder surgery Status: Chronic Family History FH: cancer FH: heart disease Social History Smoking Status: Former Smoker Allergies Coded Allergies: No Known Allergies (Unverified , 10/22/16) Home Medications Scheduled Aspirin (Aspirin Ec), 81 MG PO QAM Atorvastatin Calcium (Lipitor), 40 MG PO DAILY Cholecalciferol (Vitamin D 1000 Unit), 1,000 INTER.UNIT PO QAM Citalopram Hydrobromide (Citalopram Hydrobromide), 20 MG PO QAM Folic Acid (Folvite), 400 MCG PO QAM Metoprolol Tartrate (Lopressor), 12.5 MG PO QAM Multiple Vitamins W/ Minerals (Preservision Areds), 1 CAP PO QAM Erie-3 Fatty Acids (Fish Oil), 1 CAPSULE PO QAM Vitamin A (Vitamin A), 8,000 UNITS PO DAILY Warfarin Sod (Jantoven), 1 MG PO DAILY Review of Systems Ten systems reviewed and negative except as noted in the HPI. Physical Exam Vital Signs Date Time Temp Pulse Resp B/P (MAP) Pulse Ox O2 Delivery O2 Flow Rate FiO2 12/06/16 19:55 36.8 125 20 134/40 95 Nasal Cannula 2.0 12/06/16 18:48 107 22 121/70 92 Room Air 12/06/16 17:42 99 22 106/72 95 Room Air 12/06/16 17:14 102 20 84/63 98 Room Air 12/06/16 14:34 122 12/06/16 14:24 118 105/68 12/06/16 13:56 36.6 96 18 92 Room Air General Appearance: WD/WN, no apparent distress, + pertinent finding ( Significant jaundice from head to toe. ) Head: normocephalic, atraumatic Eyes: + abnormal sclerae exam (Scleral icterus ) ENT: normal ENT inspection (hard of hearing ) Neck: supple, no adenopathy, trachea midline Respiratory/Chest: chest non-tender, lungs clear, normal breath sounds, no respiratory distress, no accessory muscle use Cardiovascular: regular rate, rhythm, no murmur Abdomen/GI: normal bowel sounds, non tender, soft (Palpable abdominal bruit ), no organomegaly, + abnormal bowel sounds Extremities/Musculoskelatal: normal inspection, no calf tenderness, normal capillary refill Neurologic/Psych: no motor/sensory deficits, alert (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 due to partial deafness bilaterally), normal mood/affect, oriented x 3 Skin: warm/dry, + jaundice, + pertinent finding (Significant bruising of bilateral arms, some bruising on legs ) Diagnostics Laboratory Results Results Past 24 Hours Test 12/06/16 14:54 12/06/16 20:49 12/06/16 21:00 Range/Units White Blood Count 18.63 4.8-10.8 K/uL Red Blood Count 2.83 4.7-6.1 M/uL Hemoglobin 9.2 14.0-18.0 g/dL Hematocrit 26.6 42-52 % Mean Corpuscular Volume 94.0 80-100 fL Mean Corpuscular Hemoglobin 32.5 25-34 pg Mean Corpuscular Hemoglobin Concent 34.6 32-36 g/dl Platelet Count 285 130-400 K/uL Mean Platelet Volume 10.3 7.4-10.4 fL Neutrophils (%) (Auto) 81.8 % Lymphocytes (%) (Auto) 8.5 % Monocytes (%) (Auto) 9.1 % Eosinophils (%) (Auto) 0.0 % Basophils (%) (Auto) 0.2 % Neutrophils # (Auto) 15.24 1.4-6.5 K/uL Lymphocytes # (Auto) 1.58 1.2-3.4 K/uL Monocytes # (Auto) 1.70 0.11-0.59 K/uL Eosinophils # (Auto) 0.00 0-0.5 K/uL Basophils # (Auto) 0.03 0-0.2 K/uL RDW Standard Deviation 52.7 36.4-46.3 fL RDW Coefficient of Variation 15.3 11.5-14.5 % Immature Granulocyte % (Auto) 0.4 % Immature Granulocyte # (Auto) 0.08 0.00-0.02 K/uL Prothrombin Time > 100.0 9.0-12.0 SECONDS Prothromb Time International Ratio > 8.0 0.9-1.1 Sodium Level 140 136-145 mmol/L Potassium Level 3.8 3.5-5.1 mmol/L Chloride Level 108 98-107 mmol/L Carbon Dioxide Level 21 21-32 mmol/L Anion Gap 11.0 3-11 mmol/L Blood Urea Nitrogen 43 7-18 mg/dl Creatinine 3.70 0.60-1.40 mg/dl Est Creatinine Clear Calc Drug Dose 12.9 ml/min Estimated GFR () 16.4 Estimated GFR (Non- 14.1 BUN/Creatinine Ratio 11.5 10-20 Random Glucose 135 70-99 mg/dl Lactic Acid Level 2.9 0.4-2.0 mmol/L Calcium Level 8.1 8.5-10.1 mg/dl Total Bilirubin 12.1 0.2-1 mg/dl Direct Bilirubin 0-0.2 mg/dl Aspartate Amino Transf (AST/SGOT) 529 15-37 U/L Alanine Aminotransferase (ALT/SGPT) 504 12-78 U/L Alkaline Phosphatase 413 45-117 U/L Ammonia 34.0 11-32 umol/L Total Creatine Kinase 615 39-308 U/L Troponin I 0.075 0-0.045 ng/ml Pro-B-Type Natriuretic Peptide 2442 0-1800 pg/ml Total Protein 6.3 6.4-8.2 gm/dl Albumin 2.8 3.4-5.0 gm/dl Lipase 244 73-393 U/L Chemistry Specimen Hemolysis Bedside Glucose 118 70-99 mg/dl Microbiology Results 12/06/16 Blood Culture, Received Pending 12/06/16 Blood Culture, Received Pending 12/06/16 MRSA DNA Surveillance Screen, Received Pending Diagnostic Radiology Abd/Pelvis CT: IMPRESSION: 1. Significantly suboptimal examination without oral and IV contrast. The examination is also degraded by motion artifact. 2. There are no definite acute infectious or inflammatory findings in the abdomen or pelvis. 3. Moderate to advanced colonic diverticulosis without CT evidence of acute diverticulosis. 4. The gallbladder is distended and there is intrahepatic biliary ductal dilatation. Correlation with clinical findings and serum bilirubin levels be required. If clinically warranted this could be further assessed with an ultrasound of the right upper quadrant. 5. The pancreas is atrophic, and the pancreatic head appears asymmetrically enlarged as compared to the remainder of the gland. Indeterminant soft tissue is suggested along the anterior margin the pancreatic head. This is not well characterized and of indeterminant significance. Correlation with a contrast-enhanced CT scan of the abdomen is recommended for further assessment and to assess for underlying mass lesion. 6. Cardiomegaly. 7. Patchy airspace opacities are present within the medial segment of the right middle lobe. Cortical clinically for evidence of an infectious/inflammatory pneumonitis. 8. Punctate nonobstructing right renal calculus. 9. Prostatomegaly with evidence of chronic bladder outlet obstruction. 10. Additional findings as above. CXR: IMPRESSION: 1. Mild cardiomegaly with pulmonary vascular congestion. No overt pulmonary edema. 2. Subsegmental bibasilar opacities are again seen suggesting atelectasis. R Hand XR: IMPRESSION: 1. Soft tissue edema with no radiographic evidence of right hand fracture. 2. Osteopenia and advanced arthritic change as above. EKG Undetermined rhythm. R BBB Impression Assessment and Plan This is 86yo man with a PMH of A Fib (on coumadin), CAD and h/o prior CVA who presents with worsening bruising of extremities as well as jaundice and was found to have biliary obstruction and a pancreatic mass. Biliary obstruction: -No h/o liver/GB pathology -Elevated T bili of 12 -CT Abd with distended GB and intrahepatic biliary ductal dilatation -Concern for ascending cholangitis -RUQ US, MRCP ordered -Started on cipro, flagyl -Consulted GI, general surgery -Kept NPO, IVFs Incidental pancreatic mass: -CT abd/pelvis with asymmetrically enlarged pancreatic head -Further imaging is suggested. Due to patient's CKD, a non-contrast MRI of the abd would be indicated SIRs with suspected GI source of infection: -Leukocytosis of 18, hypotensive to 84/63, tachycardic 110s-120s, Lactic acid of 2.9 -Started on antibiotics -BP responded to IVFs and is now in normal range -Will repeat lactate, CBC [place]: -Cr of 3.7 from a baseline ~1 -Initiated IVFs -Avoid nephrotoxic agents -Monitor BMP Palpable abd bruit: -Palpated on exam -However, was not appreciated on Ct abd/pelvis -Denies any CP, abd pain CAD: -Stable -Continue metoprolol. Held ASA. Atrial Fibrillation (on coumadin): -Rate controlled with Metoprolol - INR supratherapeutic at 8 -Coumadin held -Monitor INR HLD: -Statin held while NPO -Plan to reinitiate Hx of Prior CVA: -S/p carotid endarterectomy -ASA, Statin held -Plan to reinitiate Depression: - Celexa held DVT Ppx: SCDs Code status: FULL PCP: [facility] Dispo: SW consulted to help with discharge placement Attending Physician Addendum Dr. Roblero: I have seen and examined the patient with RAPHAEL Wang and agree with her assessment and plan and would like to comment on the following: This is a 86 year old M with jaundice of the eyes and skin and bruising x [address] abdomen patient has findings suspicious for pancreatic mass as pancreatic head appears asymmetrically enlarged as compared to the remainder of the gland and in addition based on clinical exam of jaundice, transaminitis with AST and ALT over 200, elevated alkaline phosphatase over 450, hyperbilurubinemia of 12 gallbladder distended and dilated bile duct visualized on CT abdomen, with leukocytosis of 18,000 there is concern for bile duct stone obstruction vs cholangitis. These findings are new. In addition, supratherapeutic INR of 8 and while patient is on coumadin for history of atrial fibrillation it is less likely due to improper use of coumadin and more likely due to acute hepatobiliary injury consistent with aforementioned lab findings. Patient was last seen in [facility] 1 month ago in 10/2016 for evaluation of altered mental status and had normal LFTs. Will empirically treat with ciprofloxacin and flagyl in case of cholangitis. Will monitor LFTs including INR. Patient had received Vitamin K 5 mg IV in the ED on admission for supratherapeutic INR. Will order additional imaging studies abdominal ultrasound, MRI abdomen, MRCP. Have obtained ICU consultation and spoken with Surgery consult and GI consult and awaiting full recommendations and possible interventions. Patients status is full code. Level of Care Critical Care Advanced Directives Existing Living Will: Yes Existing Power of Binder[employer] Machine Feeder Offbearer: Yes Resuscitation Status FULL RESUSCITATION VTE Prophylaxis VTE Risk Assessment Done? Y/N: Yes Risk Level: Moderate Given or contraindicated: SCD's Social Service Consult >80 yr.& Lives Alone
[2016-12-06 21:44] LABS: INR 2.3 (0.9-1.1); PARTIAL THROMBOPLASTIN RATIO 1.7; PROTHROMBIN TIME (PATIENT) 25.4 SECONDS (9.0-12.0)
[2016-12-06 21:51] LABS: CREATININE 3.9 mg/dl (0.60-1.40)
[2016-12-06 21:52] LABS: BUN/CREATININE RATIO 12.1 (10-20); CALCIUM 7.4 mg/dl (8.5-10.1); MAGNESIUM 1.9 mg/dl (1.8-2.4); POTASSIUM 3.5 mmol/L (3.5-5.1)
[2016-12-06 21:54] LABS: MEAN CELL VOLUME 93.5 fL (80-100); MEAN CORPUSCULAR HEMOGLOBIN 30.5 pg (25-34); MEAN CORPUSCULAR HGB CONC 32.6 g/dl (32-36); MEAN PLATELET VOLUME 10.1 fL (7.4-10.4); PLATELET COUNT 250 K/uL (130-400); RED BLOOD COUNT 2.46 M/uL (4.7-6.1)
[2016-12-06 21:55] LABS: ALB/GLOB RATIO 0.8 (0.9-2); PHOSPHORUS 4.3 mg/dl (2.5-4.9)
[2016-12-06 22:00] VITALS: BP 98/58; PULSE 101; O2SAT 93
[2016-12-06] MEDS ORDERED: CIPROFLOXACIN / D5W 400 MG in PREMIXED IN D5W 200 ML IV SCH (22:00)
--- NOTE | 2016-12-06 23:17 | DIAGNOSTIC IMAGING REPORT ---
MRCP CLINICAL HISTORY: 86 years-old Male presenting with Biliary obstruction. TECHNIQUE: Multisequence, multiplanar MR imaging of the abdomen was performed without the use of intravenous contrast. IV contrast: None. COMPARISON: Correlation made to a T performed the same day. FINDINGS: Localizer images: Unremarkable. Lung bases: Left atrial enlargement suggested. No pericardial effusion. Trace right pleural effusion. Liver: Normal morphology. No liver lesion. Patent hepatic vasculature. Biliary: Diffuse moderate intrahepatic and extrahepatic delivery ductal dilatation. Intrahepatic biliary trifurcation. Gallbladder distended but without gallstones. Low insertion of the cystic duct immediately superior to the pancreatic head. It is at the site of insertion at their is abrupt cut off of the common bile duct. No evidence of common duct calculi. Pancreas: Parenchymal atrophy with diffuse pancreatic ductal dilatation that abruptly tapers at the level of the pancreatic head. Ill-defined soft tissue mass at the level of the pancreatic head extending anteriorly into the peripancreatic fat. This is incompletely evaluated without intravenous contrast. Spleen: Normal. Adrenal glands: Normal. Kidneys and ureters: Multiple left parapelvic and parenchymal cysts noted. Gastrointestinal tract: The descending portion of the duodenum directly abuts the pancreatic head mass, although the horizontal portion appears uninvolved. Peritoneal cavity: No free fluid or intraperitoneal gas. Vasculature: Normal noncontrast appearance. The superior mesenteric artery appears grossly uninvolved. The portal venous confluence abuts the pancreatic mass. Lymph nodes: No gross lymphadenopathy allowing for noncontrast technique. Abdominal wall: Normal. Musculoskeletal: Scoliotic curvature of the thoracolumbar spine. IMPRESSION: 1. Dilated biliary and pancreatic ducts with abrupt cutoff at the level of the pancreatic head, where there is an ill-defined soft tissue mass highly concerning for pancreatic malignancy, namely adenocarcinoma. The examination is limited due to lack of intravenous contrast. Further evaluation with a contrast-enhanced dedicated pancreas MRI or CT is recommended. Electronically signed by: Karan Dickerson M.D. 12/06/2016 11:16 PM Dictated Date/Time: 12/06/2016 11:06 PM
[2016-12-06] MEDS: METOPROLOL TARTRATE 1 MG/ML VIAL IV. SCH (23:36)
[2016-12-07] VITALS (41 sets, daily range): BP systolic 82–182; BP diastolic 38–166; PULSE 48–178; TEMP 36.3–36.9; O2SAT 70–99
[2016-12-07 03:03] LABS: INR 1.4 (0.9-1.1); PARTIAL THROMBOPLASTIN RATIO 1.4; PROTHROMBIN TIME (PATIENT) 15.4 SECONDS (9.0-12.0)
[2016-12-07 03:05] LABS: HEMATOCRIT 19.4 % (42-52); MEAN CELL VOLUME 92.4 fL (80-100); MEAN CORPUSCULAR HEMOGLOBIN 32.4 pg (25-34); MEAN CORPUSCULAR HGB CONC 35.1 g/dl (32-36); MEAN PLATELET VOLUME 9.7 fL (7.4-10.4); PLATELET COUNT 189 K/uL (130-400); WHITE BLOOD COUNT 12.08 K/uL (4.8-10.8)
[2016-12-07 03:16] LABS: BASO % 0.2 %; BASO ABS # 0.03 K/uL (0-0.2); COMPLETE YES; EOS % 0.2 %; IG% 0.3 %; LYMPH % 12.7 %; LYMPH ABS # 1.53 K/uL (1.2-3.4); MONO % 13.3 %; NEUT % 73.3 %; POLYCHROMASIA 1+
[2016-12-07 03:38] LABS: BUN/CREATININE RATIO 11.2 (10-20); CALCIUM 7.4 mg/dl (8.5-10.1); CKMB/CK RATIO 0.7 (0-3.0); CREATININE 4.3 mg/dl (0.60-1.40); MAGNESIUM 1.9 mg/dl (1.8-2.4); PHOSPHORUS 4.4 mg/dl (2.5-4.9); POTASSIUM 3.4 mmol/L (3.5-5.1)
[2016-12-07] MEDS: METRONIDAZOLE / NSS 500 MG in PREMIXED NSS 100 ML IV SCH ×3 (03:53→19:50)
[2016-12-07] MEDS: POTASSIUM CHLR 10 MEQ / WTR 10 MEQ in PREMIXED WATER 100 ML IV SCH ×2 (04:39→04:49)
[2016-12-07] MEDS: METOPROLOL TARTRATE 1 MG/ML VIAL IV. SCH ×3 (05:52→18:25)
[2016-12-07] MEDS: D5W AND NSS 1,000 ML IV SCH ×2 (07:15→16:42)
--- NOTE | 2016-12-07 07:25 | DIAGNOSTIC IMAGING REPORT ---
ULTRASOUND RIGHT UPPER QUADRANT ABDOMEN CLINICAL HISTORY: Right upper quadrant abdominal pain. COMPARISON STUDY: Abdominal CT and MRCP dated 12/06/2016. TECHNIQUE: Real-time, grayscale, and color flow sonography of the right upper quadrant of the abdomen was performed. Images are reviewed in the transverse and longitudinal planes. FINDINGS: Liver: The liver is normal in size and echotexture. There is intrahepatic biliary ductal dilatation. The main portal vein is patent. Gallbladder: The gallbladder is distended measuring 10 cm in length. No gallstones are identified. The gallbladder wall appears mildly thickened measuring up to 4 mm. No pericholecystic fluid is seen and a sonographic Resendez's sign is reportedly absent. The common bile duct measures up to 1.1 cm in diameter. Pancreas: A hypoechoic mass lesion is suggested in the region of the pancreatic head. This is not well assessed by ultrasound. Right kidney: Survey images of the right kidney demonstrate cortical atrophy. There is no hydronephrosis. Ascites: None. IMPRESSION: 1. There is intra and extrahepatic biliary ductal dilatation, which was better characterized on today's MRCP. 2. An ill-defined hypoechoic mass lesion is suggested in the region of the pancreatic head. This is not well assessed by ultrasound and correlation with a contrast-enhanced abdominal CT is again recommended for further assessment. 3. The gallbladder is distended and there is nonspecific gallbladder wall thickening. No shadowing gallstones are identified and there is no convincing sonographic evidence of acute cholecystitis. Clinical correlation will be required. If there is strong clinical concern for cholecystitis this could be further assessed with a nuclear hepatobiliary scan. Electronically signed by: Patrice Palma M.D. 12/07/2016 7:24 AM Dictated Date/Time: 12/07/2016 7:20 AM
[2016-12-07 08:25] LABS: MANUAL MICROSCOPIC REQUIRED? YES; REVIEW REQ? NO; SULFASALICYLIC ACID POS (NEG); URINE APPEARANCE CLOUDY (CLEAR); URINE COLOR RED; ZZUR CULT IF INDIC CLEAN CATCH YES
[2016-12-07 08:26] LABS: URINE SPECIFIC GRAVITY 1.022 (1.000-1.030)
[2016-12-07 08:29] LABS: URINE RBC >30 /hpf (0-4)
[2016-12-07 08:30] LABS: URINE BACTERIA 4+ (NEG)
[2016-12-07 08:31] LABS: URINE AMORPHOUS SEDIMENT PRESENT (NONE PRSENT)
[2016-12-07] MEDS ORDERED: INDOMETHACIN 50 MG SUPP PR SCH (08:45)
--- NOTE | 2016-12-07 09:57 | Gastrointestinal Consultation ---
Gastrointestinal Consultation Date of Consultation: Dec 07, 2016 Attending Physician: Jitendra Loco Consulting Physician: Sandra Carlton Reason for Consultation: Biliary obstruction, sepsis, pancreas mass History of Present Illness Patient is a 86 year old male who was brought to ED by his son who noticed pt to be worsening bruising on extremities and also new jaundice. Denies any falls but may have ran into door. He has PMHx of CVA, Afib on Coumadin. Upon eval, INR noted to be supratherapuetic >8, he did receive Vit K 5mg IV, INR down to 1.5 now. His labs also showed WBC 15, H/H /. Family noticed blood in urine as well. CMP reviewed ARF w BUN/Cr 43/3.7, lactic acid of 3.9, elevated LFTs: Tbili 12, AST/ALT in 500s, AP 400s (LFTs previously normal), Troponin rising 0.07 to 0.09, BNP 2442. Imaging studies showed evidence of atelectasis, pulmonary vascular congestion. Abd imaging studies w u/s, CT, MRCP concerning for biliary and pancreatic duct dilations, pancreas head mass suspicious for adenocarcinoma, dilated gallbladder but w/o cholelithiasis. Pt afebrile overnight. Cipro/Flagyl IV antibx started. He denies any CP, SOB, abd pain, N/V. He is very hard of hearing, hard to obtain ROS. Past Medical/Surgical History Medical Problems: (1) Confusion Status: Acute (2) Leukocytosis Status: Acute (3) Pancreatic mass Status: Acute (4) Sepsis Status: Acute Past Medical History: Medical Problems: (1) Afib Status: Chronic (2) Anticoagulated on Coumadin Status: Chronic (3) Aortic valve stenosis Permanent Comment: mild on echo from 03/2016 Status: Chronic (4) CAD (coronary artery disease) Permanent Comment: 2002 - PCI to left circumflex Status: Chronic (5) CVA (cerebral vascular accident) Status: Chronic (6) Depression Status: Chronic (7) Diastolic dysfunction Permanent Comment: grade I on echo 03/2016 Status: Chronic (8) HLD (hyperlipidemia) Status: Chronic Past Surgical History: Surgical Problems: (1) H/O carotid endarterectomy Status: Chronic (2) H/O shoulder surgery Status: Chronic Family History FH: cancer FH: heart disease Social History Smoking Status: Former Smoker Alcohol Use: occasionally Housing Status: lives alone Allergies Coded Allergies: No Known Allergies (Unverified , 10/22/16) Current Medications Home Meds and Scripts Medications Dose Route/Sig Max Daily Dose Days Date Category Vitamin A 8,000 Unit Tab 8,000 Units PO DAILY 10/22/16 Reported Jantoven (Warfarin Sodium) 1 Mg Tab 1 Mg PO DAILY 12/16/15 Reported Preservision Areds (Multiple Vitamins W/ Minerals) 1 Cap Cap 1 Cap PO QAM 08/10/14 Reported Aspirin Ec (Aspirin) 81 Mg Tab 81 Mg PO QAM 07/14/12 Reported Vitamin D 1000 Unit (Cholecalciferol) 1,000 Unit Cap 1,000 Inter.unit PO QAM 07/14/12 Reported Folvite (Folic Acid) 400 Mcg Tab 400 Mcg PO QAM 07/14/12 Reported Fish Oil ([place]-3 Fatty Acids) 1 Cap Cap 1 Capsule PO QAM 07/14/12 Reported Lipitor (Atorvastatin Calcium) 80 Mg Tab 40 Mg PO DAILY 07/14/12 Reported Citalopram Hydrobromide 20 Mg Tab 20 Mg PO QAM 07/14/12 Reported Lopressor (Metoprolol Tartrate) 25 Mg Tab 12.5 Mg PO QAM 07/14/12 Reported Review of Systems Constitutional: No fever, No chills Respiratory: No cough, No shortness of breath Cardiac: No chest pain Abdomen: No pain, No nausea, No vomiting Male : + hematuria Skin: + see HPI (bruising), + jaundice Physical Exam Date Time Temp Pulse Resp B/P (MAP) Pulse Ox O2 Delivery O2 Flow Rate FiO2 12/07/16 09:20 36.6 90 20 104/52 96 2.0 12/07/16 09:04 36.6 178 22 113/45 96 2.0 12/07/16 08:14 36.6 80 20 110/44 95 25.0 12/07/16 07:16 36.5 70 21 103/57 98 2.0 12/07/16 06:20 36.6 61 21 109/53 98 12/07/16 06:07 36.6 71 22 101/52 98 12/07/16 06:02 36.6 62 23 103/49 98 12/07/16 05:57 36.3 67 19 113/74 99 12/07/16 05:52 75 113/74 12/07/16 04:00 Nasal Cannula 2.0 12/07/16 03:31 67 21 95/55 (68) 98 Nasal Cannula 2.0 12/07/16 03:01 81 20 88/50 (63) 97 Nasal Cannula 2.0 12/07/16 02:01 61 22 83/45 (58) 98 Nasal Cannula 2.0 12/07/16 01:08 86 16 109/77 (88) 96 Nasal Cannula 2.0 12/07/16 00:01 36.7 59 24 82/56 (65) 96 Nasal Cannula 2.0 12/07/16 00:00 Nasal Cannula 2.0 12/06/16 23:36 96 113/52 12/06/16 22:00 101 24 98/58 (71) 93 Nasal Cannula 2.0 12/06/16 19:55 36.8 125 20 134/40 95 Nasal Cannula 2.0 12/06/16 18:48 107 22 121/70 92 Room Air 12/06/16 17:42 99 22 106/72 95 Room Air 12/06/16 17:14 102 20 84/63 98 Room Air 12/06/16 14:34 122 12/06/16 14:24 118 105/68 12/06/16 13:56 36.6 96 18 92 Room Air General Appearance: WD/WN, no apparent distress Eyes: EOMI Neck: supple, no JVD, trachea midline Respiratory/Chest: no respiratory distress, no accessory muscle use, + decreased breath sounds Cardiovascular: regular rate, rhythm, no gallop, no murmur Abdomen: normal bowel sounds, non tender, soft Extremities: no pedal edema Neurologic/Psych: alert, normal mood/affect, + disoriented (oriented to self and place mostly. Very hard of hearing) Skin: + jaundice, + pertinent finding (large areas of ecchymosis on arms. ) Laboratory Results Last 24 Hours Test 12/06/16 14:54 12/06/16 20:49 12/06/16 21:21 12/06/16 23:46 White Blood Count 18.63 K/uL 15.40 K/uL Red Blood Count 2.83 M/uL 2.46 M/uL Hemoglobin 9.2 g/dL 7.5 g/dL Hematocrit 26.6 % 23.0 % Mean Corpuscular Volume 94.0 fL 93.5 fL Mean Corpuscular Hemoglobin 32.5 pg 30.5 pg Mean Corpuscular Hemoglobin Concent 34.6 g/dl 32.6 g/dl Platelet Count 285 K/uL 250 K/uL Mean Platelet Volume 10.3 fL 10.1 fL Neutrophils (%) (Auto) 81.8 % Lymphocytes (%) (Auto) 8.5 % Monocytes (%) (Auto) 9.1 % Eosinophils (%) (Auto) 0.0 % Basophils (%) (Auto) 0.2 % Neutrophils # (Auto) 15.24 K/uL Lymphocytes # (Auto) 1.58 K/uL Monocytes # (Auto) 1.70 K/uL Eosinophils # (Auto) 0.00 K/uL Basophils # (Auto) 0.03 K/uL RDW Standard Deviation 52.7 fL 52.3 fL RDW Coefficient of Variation 15.3 % 15.3 % Immature Granulocyte % (Auto) 0.4 % Immature Granulocyte # (Auto) 0.08 K/uL Prothrombin Time > 100.0 SECONDS 25.4 SECONDS Prothromb Time International Ratio > 8.0 2.3 Sodium Level 140 mmol/L 141 mmol/L Potassium Level 3.8 mmol/L 3.5 mmol/L Chloride Level 108 mmol/L 110 mmol/L Carbon Dioxide Level 21 mmol/L 21 mmol/L Anion Gap 11.0 mmol/L 10.0 mmol/L Blood Urea Nitrogen 43 mg/dl 47 mg/dl Creatinine 3.70 mg/dl 3.90 mg/dl Est Creatinine Clear Calc Drug Dose 12.9 ml/min 12.3 ml/min Estimated GFR () 16.4 15.4 Estimated GFR (Non- 14.1 13.3 BUN/Creatinine Ratio 11.5 12.1 Random Glucose 135 mg/dl 110 mg/dl Lactic Acid Level 2.9 mmol/L 1.7 mmol/L Calcium Level 8.1 mg/dl 7.4 mg/dl Total Bilirubin 12.1 mg/dl 10.2 mg/dl Direct Bilirubin mg/dl Aspartate Amino Transf (AST/SGOT) 529 U/L 426 U/L Alanine Aminotransferase (ALT/SGPT) 504 U/L 411 U/L Alkaline Phosphatase 413 U/L 334 U/L Ammonia 34.0 umol/L Total Creatine Kinase 615 U/L Troponin I 0.075 ng/ml Pro-B-Type Natriuretic Peptide 2442 pg/ml Total Protein 6.3 gm/dl 5.3 gm/dl Albumin 2.8 gm/dl 2.4 gm/dl Lipase 244 U/L Chemistry Specimen Hemolysis Bedside Glucose 118 mg/dl 124 mg/dl Activated Partial Thromboplast Time 44.3 SECONDS Partial Thromboplastin Ratio 1.7 Phosphorus Level 4.3 mg/dl Magnesium Level 1.9 mg/dl Globulin 2.9 gm/dl Albumin/Globulin Ratio 0.8 Test 12/07/16 02:41 12/07/16 06:18 12/07/16 08:00 White Blood Count 12.08 K/uL Red Blood Count 2.10 M/uL Hemoglobin 6.8 g/dL Hematocrit 19.4 % Mean Corpuscular Volume 92.4 fL Mean Corpuscular Hemoglobin 32.4 pg Mean Corpuscular Hemoglobin Concent 35.1 g/dl Platelet Count 189 K/uL Mean Platelet Volume 9.7 fL Neutrophils (%) (Auto) 73.3 % Lymphocytes (%) (Auto) 12.7 % Monocytes (%) (Auto) 13.3 % Eosinophils (%) (Auto) 0.2 % Basophils (%) (Auto) 0.2 % Neutrophils # (Auto) 8.84 K/uL Lymphocytes # (Auto) 1.53 K/uL Monocytes # (Auto) 1.61 K/uL Eosinophils # (Auto) 0.03 K/uL Basophils # (Auto) 0.03 K/uL RDW Standard Deviation 51.5 fL RDW Coefficient of Variation 15.2 % Immature Granulocyte % (Auto) 0.3 % Immature Granulocyte # (Auto) 0.04 K/uL Polychromasia 1+ Prothrombin Time 15.4 SECONDS Prothromb Time International Ratio 1.4 Activated Partial Thromboplast Time 36.0 SECONDS Partial Thromboplastin Ratio 1.4 Sodium Level 139 mmol/L Potassium Level 3.4 mmol/L Chloride Level 111 mmol/L Carbon Dioxide Level 20 mmol/L Anion Gap 8.0 mmol/L Blood Urea Nitrogen 48 mg/dl Creatinine 4.30 mg/dl Est Creatinine Clear Calc Drug Dose 11.1 ml/min Estimated GFR () 13.7 Estimated GFR (Non- 11.8 BUN/Creatinine Ratio 11.2 Random Glucose 133 mg/dl Lactic Acid Level 1.2 mmol/L Calcium Level 7.4 mg/dl Phosphorus Level 4.4 mg/dl Magnesium Level 1.9 mg/dl Total Bilirubin 9.7 mg/dl Direct Bilirubin 8.1 mg/dl Aspartate Amino Transf (AST/SGOT) 368 U/L Alanine Aminotransferase (ALT/SGPT) 374 U/L Alkaline Phosphatase 309 U/L Total Creatine Kinase 569 U/L Creatine Kinase MB 4.2 ng/ml Creatine Kinase MB Ratio 0.7 Troponin I 0.093 ng/ml Total Protein 4.8 gm/dl Albumin 2.2 gm/dl Lipase 194 U/L Bedside Glucose 125 mg/dl Urine Color RED Urine Appearance CLOUDY Urine pH Urine Specific [place] 1.022 Urine Protein POS Urine Glucose (UA) Urine Ketones Urine Occult Blood Urine Nitrite Urine Bilirubin Urine Urobilinogen Urine Leukocyte Esterase Urine RBC >30 /hpf Urine WBC 10-30 /hpf Urine Epithelial Cells 0-5 /lpf Urine Amorphous Sediment PRESENT Urine Bacteria 4+ Impression Patient is a 86 year old male admitted for sepsis, new onset of painless jaundice, increased LFTs and increased bruising, noted supratherapeutic INR on Coumadin for Afib and hx of CVA. His abd imaging studies are concerning for pancreas head mass ? adenocarcinoma causing biliary and pancreatic ductal dilation. Plan - Continue Cipro/Flagyl IV antibiotics - Keep NPO, plan for EUS/ERCP w stent placements in [place] this afternoon by Dr. Carlton. Given pt's cardiac hx, anemia and increased troponin will ask Cardiology service to eval for pre-op clearance, consult already placed by primary hospitalist. - Will discuss plans w his family, liya Telles coming from [place] is ISABELA GARVIN noon. I saw and evaluated the patient. He presented with several days of worsening jaundice and hematuria. The patient does note having a fever at home and was thought to have evidence of sepsis last evening. Gastroenterology consulted due to marked dilation of his common bile duct and elevation of his liver associated enzymes. Physical examination Scleral icterus noted, mild right-sided abdominal tenderness noted Impression: 86-year-old male presenting with scleral icterus, elevated liver enzymes and leukocytosis. I wonder about underlying cholangitis or perhaps a pancreatic head mass. We will proceed with upper endoscopy and endoscopic ultrasound for further diagnosis. After these procedures we will proceed with ERCP for biliary decompression and biliary stent placement. I discussed the risks and benefits of the procedures to include bleeding, infection, perforation , pancreatitis, failed biliary cannulation, insufficient cellularity. Plan Nothing by mouth Continue broad-spectrum antibiotics Upper endoscopy, endoscopic ultrasound today ERCP today for biliary decompression
--- NOTE | 2016-12-07 10:21 | Surgery Consultation ---
Consultation Date of Consultation: Dec 07, 2016. Attending Physician: Jitendra Loco M.D. History of Present Illness 86 y/o in usual state of health. was seen at coumadin clinic for increased bruising/hematuria. he was noted to be jaundiced and sent to the ER. w/u has revealed a likely pancreatic mass with biliary obstruction. pt denies weightloss or abdominal pain. he is currently dealing with an abcessed tooth. Past Medical/Surgical History Medical Problems: (1) Confusion Status: Acute (2) Leukocytosis Status: Acute (3) Pancreatic mass Status: Acute (4) Sepsis Status: Acute Family History FH: cancer FH: heart disease Social History Smoking Status: Former Smoker Housing Status: lives alone Allergies Coded Allergies: No Known Allergies (Unverified , 10/22/16) Home Medications Scheduled Aspirin (Aspirin Ec), 81 MG PO QAM Atorvastatin Calcium (Lipitor), 40 MG PO DAILY Cholecalciferol (Vitamin D 1000 Unit), 1,000 INTER.UNIT PO QAM Citalopram Hydrobromide (Citalopram Hydrobromide), 20 MG PO QAM Folic Acid (Folvite), 400 MCG PO QAM Metoprolol Tartrate (Lopressor), 12.5 MG PO QAM Multiple Vitamins W/ Minerals (Preservision Areds), 1 CAP PO QAM [place]-3 Fatty Acids (Fish Oil), 1 CAPSULE PO QAM Vitamin A (Vitamin A), 8,000 UNITS PO DAILY Warfarin Sod (Jantoven), 1 MG PO DAILY Current Inpatient Medications Current Inpatient Medications Medications (Trade) Dose Ordered Sig/Thelma Route Start Time Stop Time Status Last Admin Dose Admin Ciprofloxacin/ Dextrose 400 mg/ Prmx 200 ml @ 100 mls/hr Q12H IV 12/06/16 22:00 12/08/16 21:59 12/06/16 21:35 100 MLS/HR Metronidazole 500 mg/Prmx 100 ml @ 100 mls/hr Q8H IV 12/06/16 20:00 12/08/16 19:59 12/07/16 03:53 100 MLS/HR Pantoprazole Sodium 40 mg/ Syringe 10 ml @ 5 mls/min DAILY@1100 IV 12/07/16 11:00 01/06/17 10:59 Metoprolol Tartrate (Lopressor Iv) 2.5 mg Q6 IV. 12/07/16 00:00 01/06/17 00:00 12/07/16 05:52 2.5 MG Dextrose/Sodium Chloride 1,000 ml @ 100 mls/hr Q10H IV 12/06/16 20:00 01/05/17 19:59 12/07/16 07:15 100 MLS/HR Indomethacin (Indocin Suppository) 100 mg TODAY@0845 [place] 12/07/16 08:45 12/07/16 13:59 Review of Systems Constitutional: + weakness Abdomen: + problem reported (jaundiced) Genitourinary - Male: + hematuria Hematologic / Lymphatic: + abnormal bleeding/bruising Physical Exam Date Time Temp Pulse Resp B/P (MAP) Pulse Ox O2 Delivery O2 Flow Rate FiO2 12/07/16 09:50 36.9 66 22 104/52 93 2.0 12/07/16 09:20 36.6 90 20 104/52 96 2.0 12/07/16 09:04 36.6 178 22 113/45 96 2.0 12/07/16 08:14 36.6 80 20 110/44 95 25.0 12/07/16 07:16 36.5 70 21 103/57 98 2.0 12/07/16 06:20 36.6 61 21 109/53 98 12/07/16 06:07 36.6 71 22 101/52 98 12/07/16 06:02 36.6 62 23 103/49 98 12/07/16 05:57 36.3 67 19 113/74 99 12/07/16 05:52 75 113/74 12/07/16 04:00 Nasal Cannula 2.0 12/07/16 03:31 67 21 95/55 (68) 98 Nasal Cannula 2.0 12/07/16 03:01 81 20 88/50 (63) 97 Nasal Cannula 2.0 12/07/16 02:01 61 22 83/45 (58) 98 Nasal Cannula 2.0 12/07/16 01:08 86 16 109/77 (88) 96 Nasal Cannula 2.0 12/07/16 00:01 36.7 59 24 82/56 (65) 96 Nasal Cannula 2.0 12/07/16 00:00 Nasal Cannula 2.0 12/06/16 23:36 96 113/52 12/06/16 22:00 101 24 98/58 (71) 93 Nasal Cannula 2.0 12/06/16 19:55 36.8 125 20 134/40 95 Nasal Cannula 2.0 12/06/16 18:48 107 22 121/70 92 Room Air 12/06/16 17:42 99 22 106/72 95 Room Air 12/06/16 17:14 102 20 84/63 98 Room Air 12/06/16 14:34 122 12/06/16 14:24 118 105/68 12/06/16 13:56 36.6 96 18 92 Room Air General Appearance: no apparent distress Head: normocephalic Eyes: EOMI, + pertinent finding (sclera icterus) Neck: supple, no JVD Respiratory/Chest: no respiratory distress, no accessory muscle use Abdomen/GI: non tender, soft Neurologic/Psych: alert, oriented x 3 Skin: + pertinent finding (jaundiced) Laboratory Results Last 24 Hours Test 12/06/16 14:54 12/06/16 20:49 12/06/16 21:21 12/06/16 23:46 White Blood Count 18.63 K/uL 15.40 K/uL Red Blood Count 2.83 M/uL 2.46 M/uL Hemoglobin 9.2 g/dL 7.5 g/dL Hematocrit 26.6 % 23.0 % Mean Corpuscular Volume 94.0 fL 93.5 fL Mean Corpuscular Hemoglobin 32.5 pg 30.5 pg Mean Corpuscular Hemoglobin Concent 34.6 g/dl 32.6 g/dl Platelet Count 285 K/uL 250 K/uL Mean Platelet Volume 10.3 fL 10.1 fL Neutrophils (%) (Auto) 81.8 % Lymphocytes (%) (Auto) 8.5 % Monocytes (%) (Auto) 9.1 % Eosinophils (%) (Auto) 0.0 % Basophils (%) (Auto) 0.2 % Neutrophils # (Auto) 15.24 K/uL Lymphocytes # (Auto) 1.58 K/uL Monocytes # (Auto) 1.70 K/uL Eosinophils # (Auto) 0.00 K/uL Basophils # (Auto) 0.03 K/uL RDW Standard Deviation 52.7 fL 52.3 fL RDW Coefficient of Variation 15.3 % 15.3 % Immature Granulocyte % (Auto) 0.4 % Immature Granulocyte # (Auto) 0.08 K/uL Prothrombin Time > 100.0 SECONDS 25.4 SECONDS Prothromb Time International Ratio > 8.0 2.3 Sodium Level 140 mmol/L 141 mmol/L Potassium Level 3.8 mmol/L 3.5 mmol/L Chloride Level 108 mmol/L 110 mmol/L Carbon Dioxide Level 21 mmol/L 21 mmol/L Anion Gap 11.0 mmol/L 10.0 mmol/L Blood Urea Nitrogen 43 mg/dl 47 mg/dl Creatinine 3.70 mg/dl 3.90 mg/dl Est Creatinine Clear Calc Drug Dose 12.9 ml/min 12.3 ml/min Estimated GFR () 16.4 15.4 Estimated GFR (Non- 14.1 13.3 BUN/Creatinine Ratio 11.5 12.1 Random Glucose 135 mg/dl 110 mg/dl Lactic Acid Level 2.9 mmol/L 1.7 mmol/L Calcium Level 8.1 mg/dl 7.4 mg/dl Total Bilirubin 12.1 mg/dl 10.2 mg/dl Direct Bilirubin mg/dl Aspartate Amino Transf (AST/SGOT) 529 U/L 426 U/L Alanine Aminotransferase (ALT/SGPT) 504 U/L 411 U/L Alkaline Phosphatase 413 U/L 334 U/L Ammonia 34.0 umol/L Total Creatine Kinase 615 U/L Troponin I 0.075 ng/ml Pro-B-Type Natriuretic Peptide 2442 pg/ml Total Protein 6.3 gm/dl 5.3 gm/dl Albumin 2.8 gm/dl 2.4 gm/dl Lipase 244 U/L Chemistry Specimen Hemolysis Bedside Glucose 118 mg/dl 124 mg/dl Activated Partial Thromboplast Time 44.3 SECONDS Partial Thromboplastin Ratio 1.7 Phosphorus Level 4.3 mg/dl Magnesium Level 1.9 mg/dl Globulin 2.9 gm/dl Albumin/Globulin Ratio 0.8 Test 12/07/16 02:41 12/07/16 06:18 12/07/16 08:00 White Blood Count 12.08 K/uL Red Blood Count 2.10 M/uL Hemoglobin 6.8 g/dL Hematocrit 19.4 % Mean Corpuscular Volume 92.4 fL Mean Corpuscular Hemoglobin 32.4 pg Mean Corpuscular Hemoglobin Concent 35.1 g/dl Platelet Count 189 K/uL Mean Platelet Volume 9.7 fL Neutrophils (%) (Auto) 73.3 % Lymphocytes (%) (Auto) 12.7 % Monocytes (%) (Auto) 13.3 % Eosinophils (%) (Auto) 0.2 % Basophils (%) (Auto) 0.2 % Neutrophils # (Auto) 8.84 K/uL Lymphocytes # (Auto) 1.53 K/uL Monocytes # (Auto) 1.61 K/uL Eosinophils # (Auto) 0.03 K/uL Basophils # (Auto) 0.03 K/uL RDW Standard Deviation 51.5 fL RDW Coefficient of Variation 15.2 % Immature Granulocyte % (Auto) 0.3 % Immature Granulocyte # (Auto) 0.04 K/uL Polychromasia 1+ Prothrombin Time 15.4 SECONDS Prothromb Time International Ratio 1.4 Activated Partial Thromboplast Time 36.0 SECONDS Partial Thromboplastin Ratio 1.4 Sodium Level 139 mmol/L Potassium Level 3.4 mmol/L Chloride Level 111 mmol/L Carbon Dioxide Level 20 mmol/L Anion Gap 8.0 mmol/L Blood Urea Nitrogen 48 mg/dl Creatinine 4.30 mg/dl Est Creatinine Clear Calc Drug Dose 11.1 ml/min Estimated GFR () 13.7 Estimated GFR (Non- 11.8 BUN/Creatinine Ratio 11.2 Random Glucose 133 mg/dl Lactic Acid Level 1.2 mmol/L Calcium Level 7.4 mg/dl Phosphorus Level 4.4 mg/dl Magnesium Level 1.9 mg/dl Total Bilirubin 9.7 mg/dl Direct Bilirubin 8.1 mg/dl Aspartate Amino Transf (AST/SGOT) 368 U/L Alanine Aminotransferase (ALT/SGPT) 374 U/L Alkaline Phosphatase 309 U/L Total Creatine Kinase 569 U/L Creatine Kinase MB 4.2 ng/ml Creatine Kinase MB Ratio 0.7 Troponin I 0.093 ng/ml Total Protein 4.8 gm/dl Albumin 2.2 gm/dl Lipase 194 U/L Bedside Glucose 125 mg/dl Urine Color RED Urine Appearance CLOUDY Urine pH Urine Specific [place] 1.022 Urine Protein POS Urine Glucose (UA) Urine Ketones Urine Occult Blood Urine Nitrite Urine Bilirubin Urine Urobilinogen Urine Leukocyte Esterase Urine RBC >30 /hpf Urine WBC 10-30 /hpf Urine Epithelial Cells 0-5 /lpf Urine Amorphous Sediment PRESENT Urine Bacteria 4+ Assessment & Plan likely pancreatic ca for ERCP with stent placement and possible biopsy likely not a candidate for whipple but may need a diversion will follow along
[2016-12-07] MEDS ORDERED: MIDAZOLAM HCL 1 MG/ML 2ML VIAL ONE (11:24)
[2016-12-07] MEDS ORDERED: FENTANYL CITRATE INJ 50 MCG/1 ML 2 ML VIAL ONE (11:24)
[2016-12-07] MEDS: PANTOprazole INJ 40 MG in SYRINGE 0 ML IV SCH (11:30)
--- NOTE | 2016-12-07 12:09 | Endo History and Physical ---
History & Physical Date of Service: Dec 07, 2016. Chief Complaint: Jaundice Referring Physician: History of Present Illness Patient admitted last evening with jaundice, elevated liver enzymes and suspected sepsis. We are planning to do upper endoscopy, endoscopic ultrasound and ERCP today for further evaluation. 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?) Hx Urinary Tract Surgery: No Social History Smoking Status: Former Smoker Hx Substance Use: No Hx Alcohol Use: No Allergies Coded Allergies: No Known Allergies (Unverified , 10/22/16) Current Medications Reported Home Medications Medications Dose Route/Sig Max Daily Dose Days Date Category Vitamin A 8,000 Unit Tab 8,000 Units PO DAILY 10/22/16 Reported Jantoven (Warfarin Sodium) 1 Mg Tab 1 Mg PO DAILY 12/16/15 Reported Preservision Areds (Multiple Vitamins W/ Minerals) 1 Cap Cap 1 Cap PO QAM 08/10/14 Reported Aspirin Ec (Aspirin) 81 Mg Tab 81 Mg PO QAM 07/14/12 Reported Vitamin D 1000 Unit (Cholecalciferol) 1,000 Unit Cap 1,000 Inter.unit PO QAM 07/14/12 Reported Folvite (Folic Acid) 400 Mcg Tab 400 Mcg PO QAM 07/14/12 Reported Fish Oil ([place]-3 Fatty Acids) 1 Cap Cap 1 Capsule PO QAM 07/14/12 Reported Lipitor (Atorvastatin Calcium) 80 Mg Tab 40 Mg PO DAILY 07/14/12 Reported Citalopram Hydrobromide 20 Mg Tab 20 Mg PO QAM 07/14/12 Reported Lopressor (Metoprolol Tartrate) 25 Mg Tab 12.5 Mg PO QAM 07/14/12 Reported Vital Signs Weight (Kilograms): 65.900 Height (Feet): 5 Height (Inches): 5.00 Date Time Temp Pulse Resp B/P (MAP) Pulse Ox O2 Delivery O2 Flow Rate FiO2 12/07/16 11:54 73 123/58 12/07/16 11:30 Nasal Cannula 2.0 12/07/16 11:00 61 21 88 12/07/16 10:50 36.9 79 20 103/55 93 2.0 12/07/16 10:38 36.9 80 22 104/52 93 Nasal Cannula 2.0 12/07/16 10:31 51 23 182/166 (174) 87 12/07/16 10:30 64 23 72 12/07/16 10:01 67 22 113/38 (83) 94 12/07/16 10:00 72 19 70 12/07/16 09:50 36.9 66 22 104/52 93 2.0 12/07/16 09:30 69 24 104/52 (70) 94 12/07/16 09:20 36.6 90 20 104/52 96 2.0 12/07/16 09:12 65 20 85/56 (60) 90 12/07/16 09:04 64 21 113/45 (54) 94 12/07/16 09:04 36.6 178 22 113/45 96 2.0 12/07/16 09:02 79 24 104/43 (83) 88 12/07/16 09:00 75 17 86 12/07/16 08:31 74 25 93/61 (72) 92 12/07/16 08:30 78 28 89 12/07/16 08:14 36.6 80 20 110/44 95 25.0 12/07/16 08:01 72 18 119/62 (73) 97 12/07/16 08:00 85 20 90 12/07/16 07:31 71 20 110/44 (61) 97 12/07/16 07:30 48 20 96 12/07/16 07:30 Nasal Cannula 2.0 12/07/16 07:30 36.6 80 16 110/44 (66) 98 Nasal Cannula 2.0 12/07/16 07:16 82 21 103/57 (69) 96 12/07/16 07:16 36.5 70 21 103/57 98 2.0 12/07/16 07:01 56 19 94/55 (63) 99 12/07/16 07:00 68 20 12/07/16 06:20 36.6 61 21 109/53 98 12/07/16 06:07 36.6 71 22 101/52 98 12/07/16 06:02 36.6 62 23 103/49 98 12/07/16 05:57 36.3 67 19 113/74 99 12/07/16 05:52 75 113/74 12/07/16 04:00 Nasal Cannula 2.0 12/07/16 03:31 67 21 95/55 (68) 98 Nasal Cannula 2.0 12/07/16 03:01 81 20 88/50 (63) 97 Nasal Cannula 2.0 12/07/16 02:01 61 22 83/45 (58) 98 Nasal Cannula 2.0 12/07/16 01:08 86 16 109/77 (88) 96 Nasal Cannula 2.0 12/07/16 00:01 36.7 59 24 82/56 (65) 96 Nasal Cannula 2.0 12/07/16 00:00 Nasal Cannula 2.0 12/06/16 23:36 96 113/52 12/06/16 22:00 101 24 98/58 (71) 93 Nasal Cannula 2.0 12/06/16 19:55 36.8 125 20 134/40 95 Nasal Cannula 2.0 12/06/16 18:48 107 22 121/70 92 Room Air 12/06/16 17:42 99 22 106/72 95 Room Air 12/06/16 17:14 102 20 84/63 98 Room Air 12/06/16 14:34 122 12/06/16 14:24 118 105/68 12/06/16 13:56 36.6 96 18 92 Room Air Physical Exam General Appearance: + mild distress Respiratory/Chest: Auscultation: deminished air movement Cardiovascular: Heart Auscultation: murmur, pertinent finding (irregular rhythm consistent with atrial fibrillation) Abdomen: Inspection & Palpation: soft, RUQ tenderness Assessment and Plan Patient admitted with suspected sepsis and elevated liver enzymes. Given the clinical scenario we are wondering about biliary obstruction and possible cholangitis. We are planning to do evaluation today with upper endoscopy and endoscopic ultrasound completing procedures with ERCP for biliary decompression. We have discussed the risks and benefits of the procedures to include bleeding, infection, perforation, pain, pancreatitis and failed biliary cannulation.
[2016-12-07] MEDS ORDERED: INDOMETHACIN 50 MG SUPP PR ONE (12:11)
[2016-12-07] MEDS ORDERED: ATROPINE SULFATE 0.1 MG/ML 5ML SYR IV PRN (12:45)
[2016-12-07] MEDS ORDERED: EpHEDrine SULFATE INJ 50 MG/ML AMP IV PRN (12:45)
[2016-12-07] MEDS ORDERED: FENTANYL CITRATE INJ 50 MCG/1 ML 2 ML VIAL IV PRN (12:45)
[2016-12-07] MEDS ORDERED: LIDOCAINE HCL 2% 2 ML VIAL (20MG/ML) ONE (12:59)
[2016-12-07] MEDS ORDERED: PROPOFOL IV EMULSION 10 MG/ML 20 ML VIAL IV ONE (12:59)
[2016-12-07] MEDS ORDERED: ROCURONIUM BROMIDE 10 MG/ML 5 ML VIAL IV ONE (12:59)
[2016-12-07] MEDS ORDERED: SUCCINYLCHOLINE CHLORIDE 20 MG/ML 10 ML VIAL IV ONE (12:59)
--- NOTE | 2016-12-07 13:54 | Critical Care Consultation ---
Critical Care Consultation Date of Consultation: Dec 07, 2016. Attending Physician: Jitendra Loco M.D. Reason for Consultation: jaundice, elevated liver enzymes and suspected sepsis History of Present Illness Patient is a 86 year old male who was brought to the ED by his son who noticed the patient appeared jaundiced and had worsening bruising on his extremities ( without trauma), as well as hematuria over the last week. Patient's medical history is significant for CVA and atrial fibrillation on Coumadin. On initial evaluation, derangement of labs were noted: Leukocytosis 18.63 on admission. Anemia with dropping hemoglobin - eventually down to 6.8, necessitating transfusion. Acute renal failure with BUN/Cr 43/3.7. Lactic acid of 3.9.Elevated LFTs: Tbili 12, AST and ALT in 500s, ALP 400s - patient was last seen in [facility] in 10/2016 for evaluation of altered mental status and had normal LFTs). INR > 8 with subsequent vitamin K 5 mg IV administration. Troponin rising 0.07 to 0.09 and BNP 2442. In the ED patient was started on IV fluids and empiric Vancomycin and Zosyn. Imaging studies: Non contrasted CT abd/pelvis was concerning for distended gallbladder and intrahepatic biliary ductal dilatation. Asymmetrically enlarged pancreatic head with trophic pancreas tail. Biliary U/S confirmed intrahepatic biliary ductal dilatation, a distended and thickened gallbladder measuring 10 cm in length and up to 4mm thick, without gallstones and a dilated common bile duct that measures up to 1.1 cm in diameter. A hypoechoic mass lesion is suggested in the region of the pancreatic head. MRCP revealed dilated biliary and pancreatic ducts with abrupt cutoff at the level of the pancreatic head, where there is an ill-defined soft tissue mass highly concerning for pancreatic malignancy. Patient was transferred to ICU for further evaluation with concern for bile duct obstruction vs cholangitis. Surgery and GI were consulted. 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 Family History FH: cancer FH: heart disease Social History Smoking Status: Former Smoker Housing Status: lives alone Allergies Coded Allergies: No Known Allergies (Unverified , 10/22/16) Home Medications Scheduled Aspirin (Aspirin Ec), 81 MG PO QAM Atorvastatin Calcium (Lipitor), 40 MG PO DAILY Cholecalciferol (Vitamin D 1000 Unit), 1,000 INTER.UNIT PO QAM Citalopram Hydrobromide (Citalopram Hydrobromide), 20 MG PO QAM Folic Acid (Folvite), 400 MCG PO QAM Metoprolol Tartrate (Lopressor), 12.5 MG PO QAM Multiple Vitamins W/ Minerals (Preservision Areds), 1 CAP PO QAM [place]-3 Fatty Acids (Fish Oil), 1 CAPSULE PO QAM Vitamin A (Vitamin A), 8,000 UNITS PO DAILY Warfarin Sod (Jantoven), 1 MG PO DAILY Current Inpatient Medications Current Inpatient Medications Medications (Trade) Dose Ordered Sig/Thelma Route Start Time Stop Time Status Last Admin Dose Admin Metronidazole 500 mg/Prmx 100 ml @ 100 mls/hr Q8H IV 12/06/16 20:00 12/08/16 19:59 12/07/16 03:53 100 MLS/HR Pantoprazole Sodium 40 mg/ Syringe 10 ml @ 5 mls/min DAILY@1100 IV 12/07/16 11:00 01/06/17 10:59 12/07/16 11:30 5 MLS/MIN Metoprolol Tartrate (Lopressor Iv) 2.5 mg Q6 IV. 12/07/16 00:00 01/06/17 00:00 12/07/16 11:54 2.5 MG Dextrose/Sodium Chloride 1,000 ml @ 100 mls/hr Q10H IV 12/06/16 20:00 01/05/17 19:59 12/07/16 07:15 100 MLS/HR Ciprofloxacin/ Dextrose 400 mg/ Prmx 200 ml @ 100 mls/hr Q24H IV 12/07/16 22:00 12/15/16 23:59 Fentanyl Citrate (Fentanyl Inj) 50 mcg Q5M PRN IV 12/07/16 12:45 12/07/16 17:45 Ephedrine Sulfate (EpHEDrine SULFATE INJ) 5 mg Q5M PRN IV 12/07/16 12:45 12/07/16 17:45 Atropine Sulfate (Atropine Sulfate 0.1MG/Ml Inj) 0.5 mg Q1M PRN IV 12/07/16 12:45 12/07/16 17:45 Review of Systems See HPI for pertinent positives and negatives. A total of ten systems were reviewed and were otherwise negative. Physical Exam Date Time Temp Pulse Resp B/P (MAP) Pulse Ox O2 Delivery O2 Flow Rate FiO2 12/07/16 11:54 73 123/58 12/07/16 11:30 Nasal Cannula 2.0 12/07/16 11:00 61 21 88 12/07/16 10:50 36.9 79 20 103/55 93 2.0 12/07/16 10:38 36.9 80 22 104/52 93 Nasal Cannula 2.0 12/07/16 10:31 51 23 182/166 (174) 87 12/07/16 10:30 64 23 72 12/07/16 10:01 67 22 113/38 (83) 94 12/07/16 10:00 72 19 70 12/07/16 09:50 36.9 66 22 104/52 93 2.0 12/07/16 09:30 69 24 104/52 (70) 94 12/07/16 09:20 36.6 90 20 104/52 96 2.0 12/07/16 09:12 65 20 85/56 (60) 90 12/07/16 09:04 64 21 113/45 (54) 94 12/07/16 09:04 36.6 178 22 113/45 96 2.0 12/07/16 09:02 79 24 104/43 (83) 88 12/07/16 09:00 75 17 86 12/07/16 08:31 74 25 93/61 (72) 92 12/07/16 08:30 78 28 89 12/07/16 08:14 36.6 80 20 110/44 95 25.0 12/07/16 08:01 72 18 119/62 (73) 97 12/07/16 08:00 85 20 90 12/07/16 07:31 71 20 110/44 (61) 97 12/07/16 07:30 48 20 96 12/07/16 07:30 Nasal Cannula 2.0 12/07/16 07:30 36.6 80 16 110/44 (66) 98 Nasal Cannula 2.0 12/07/16 07:16 82 21 103/57 (69) 96 12/07/16 07:16 36.5 70 21 103/57 98 2.0 12/07/16 07:01 56 19 94/55 (63) 99 8/25/17 07:00 68 20 12/07/16 06:20 36.6 61 21 109/53 98 12/07/16 06:07 36.6 71 22 101/52 98 12/07/16 06:02 36.6 62 23 103/49 98 12/07/16 05:57 36.3 67 19 113/74 99 12/07/16 05:52 75 113/74 12/07/16 04:00 Nasal Cannula 2.0 12/07/16 03:31 67 21 95/55 (68) 98 Nasal Cannula 2.0 12/07/16 03:01 81 20 88/50 (63) 97 Nasal Cannula 2.0 12/07/16 02:01 61 22 83/45 (58) 98 Nasal Cannula 2.0 12/07/16 01:08 86 16 109/77 (88) 96 Nasal Cannula 2.0 12/07/16 00:01 36.7 59 24 82/56 (65) 96 Nasal Cannula 2.0 12/07/16 00:00 Nasal Cannula 2.0 12/06/16 23:36 96 113/52 12/06/16 22:00 101 24 98/58 (71) 93 Nasal Cannula 2.0 12/06/16 19:55 36.8 125 20 134/40 95 Nasal Cannula 2.0 12/06/16 18:48 107 22 121/70 92 Room Air 12/06/16 17:42 99 22 106/72 95 Room Air 12/06/16 17:14 102 20 84/63 98 Room Air 12/06/16 14:34 122 12/06/16 14:24 118 105/68 12/06/16 13:56 36.6 96 18 92 Room Air GENERAL: alert, lying in bed, no acute distress, non-toxic HEAD: Normocephalic, atraumatic. EYES: PERRL, EOMI, Scleral icterus and conjunctival pallor OROPHARYNX: No exudate, no erythema. Mucous membranes are dry NECK: Supple, no nuchal rigidity, no adenopathy, non-tender LUNGS: Clear to auscultation. Normal chest wall mechanics, diminished air entry. No crepitations, crackles, or wheezes HEART: Irregular rate, consistent with a.fib, S1 and S2 normal, systolic murmur appreciated. No reproducible chest tenderness. ABDOMEN: Soft, tender to palpation in RUQ, normo-active bowel sounds, no masses , no rebound or guarding. SKIN: Warm, pink, dry. Jaundiced. Significant bruising on arms and wrists. No rashes EXTREMITIES: Grossly normal. Moving all 4 limbs, strength 5/5. No pitting edema. Calves non tender. NEURO: Alert, Ox3. No focal deficits. Normal sensorium, cranial nerves II-XII grossly intact, except hard of hearing, normal speech. PSYCH: Mood and affect appropriate. Laboratory Results Last 24 Hours Test 12/06/16 14:54 12/06/16 20:49 12/06/16 21:21 12/06/16 23:46 White Blood Count 18.63 K/uL 15.40 K/uL Red Blood Count 2.83 M/uL 2.46 M/uL Hemoglobin 9.2 g/dL 7.5 g/dL Hematocrit 26.6 % 23.0 % Mean Corpuscular Volume 94.0 fL 93.5 fL Mean Corpuscular Hemoglobin 32.5 pg 30.5 pg Mean Corpuscular Hemoglobin Concent 34.6 g/dl 32.6 g/dl Platelet Count 285 K/uL 250 K/uL Mean Platelet Volume 10.3 fL 10.1 fL Neutrophils (%) (Auto) 81.8 % Lymphocytes (%) (Auto) 8.5 % Monocytes (%) (Auto) 9.1 % Eosinophils (%) (Auto) 0.0 % Basophils (%) (Auto) 0.2 % Neutrophils # (Auto) 15.24 K/uL Lymphocytes # (Auto) 1.58 K/uL Monocytes # (Auto) 1.70 K/uL Eosinophils # (Auto) 0.00 K/uL Basophils # (Auto) 0.03 K/uL RDW Standard Deviation 52.7 fL 52.3 fL RDW Coefficient of Variation 15.3 % 15.3 % Immature Granulocyte % (Auto) 0.4 % Immature Granulocyte # (Auto) 0.08 K/uL Prothrombin Time > 100.0 SECONDS 25.4 SECONDS Prothromb Time International Ratio > 8.0 2.3 Sodium Level 140 mmol/L 141 mmol/L Potassium Level 3.8 mmol/L 3.5 mmol/L Chloride Level 108 mmol/L 110 mmol/L Carbon Dioxide Level 21 mmol/L 21 mmol/L Anion Gap 11.0 mmol/L 10.0 mmol/L Blood Urea Nitrogen 43 mg/dl 47 mg/dl Creatinine 3.70 mg/dl 3.90 mg/dl Est Creatinine Clear Calc Drug Dose 12.9 ml/min 12.3 ml/min Estimated GFR () 16.4 15.4 Estimated GFR (Non- 14.1 13.3 BUN/Creatinine Ratio 11.5 12.1 Random Glucose 135 mg/dl 110 mg/dl Lactic Acid Level 2.9 mmol/L 1.7 mmol/L Calcium Level 8.1 mg/dl 7.4 mg/dl Total Bilirubin 12.1 mg/dl 10.2 mg/dl Direct Bilirubin mg/dl Aspartate Amino Transf (AST/SGOT) 529 U/L 426 U/L Alanine Aminotransferase (ALT/SGPT) 504 U/L 411 U/L Alkaline Phosphatase 413 U/L 334 U/L Ammonia 34.0 umol/L Total Creatine Kinase 615 U/L Troponin I 0.075 ng/ml Pro-B-Type Natriuretic Peptide 2442 pg/ml Total Protein 6.3 gm/dl 5.3 gm/dl Albumin 2.8 gm/dl 2.4 gm/dl Lipase 244 U/L Chemistry Specimen Hemolysis Bedside Glucose 118 mg/dl 124 mg/dl Activated Partial Thromboplast Time 44.3 SECONDS Partial Thromboplastin Ratio 1.7 Phosphorus Level 4.3 mg/dl Magnesium Level 1.9 mg/dl Globulin 2.9 gm/dl Albumin/Globulin Ratio 0.8 Test 12/07/16 02:41 12/07/16 06:18 12/07/16 08:00 12/07/16 13:00 White Blood Count 12.08 K/uL Red Blood Count 2.10 M/uL Hemoglobin 6.8 g/dL Hematocrit 19.4 % Mean Corpuscular Volume 92.4 fL Mean Corpuscular Hemoglobin 32.4 pg Mean Corpuscular Hemoglobin Concent 35.1 g/dl Platelet Count 189 K/uL Mean Platelet Volume 9.7 fL Neutrophils (%) (Auto) 73.3 % Lymphocytes (%) (Auto) 12.7 % Monocytes (%) (Auto) 13.3 % Eosinophils (%) (Auto) 0.2 % Basophils (%) (Auto) 0.2 % Neutrophils # (Auto) 8.84 K/uL Lymphocytes # (Auto) 1.53 K/uL Monocytes # (Auto) 1.61 K/uL Eosinophils # (Auto) 0.03 K/uL Basophils # (Auto) 0.03 K/uL RDW Standard Deviation 51.5 fL RDW Coefficient of Variation 15.2 % Immature Granulocyte % (Auto) 0.3 % Immature Granulocyte # (Auto) 0.04 K/uL Polychromasia 1+ Prothrombin Time 15.4 SECONDS Prothromb Time International Ratio 1.4 Activated Partial Thromboplast Time 36.0 SECONDS Partial Thromboplastin Ratio 1.4 Sodium Level 139 mmol/L Potassium Level 3.4 mmol/L Chloride Level 111 mmol/L Carbon Dioxide Level 20 mmol/L Anion Gap 8.0 mmol/L Blood Urea Nitrogen 48 mg/dl Creatinine 4.30 mg/dl Est Creatinine Clear Calc Drug Dose 11.1 ml/min Estimated GFR () 13.7 Estimated GFR (Non- 11.8 BUN/Creatinine Ratio 11.2 Random Glucose 133 mg/dl Lactic Acid Level 1.2 mmol/L Calcium Level 7.4 mg/dl Phosphorus Level 4.4 mg/dl Magnesium Level 1.9 mg/dl Total Bilirubin 9.7 mg/dl Direct Bilirubin 8.1 mg/dl Aspartate Amino Transf (AST/SGOT) 368 U/L Alanine Aminotransferase (ALT/SGPT) 374 U/L Alkaline Phosphatase 309 U/L Total Creatine Kinase 569 U/L Creatine Kinase MB 4.2 ng/ml Creatine Kinase MB Ratio 0.7 Troponin I 0.093 ng/ml Total Protein 4.8 gm/dl Albumin 2.2 gm/dl Lipase 194 U/L Bedside Glucose 125 mg/dl Urine Color RED Urine Appearance CLOUDY Urine pH Urine Specific [place] 1.022 Urine Protein POS Urine Glucose (UA) Urine Ketones Urine Occult Blood Urine Nitrite Urine Bilirubin Urine Urobilinogen Urine Leukocyte Esterase Urine RBC >30 /hpf Urine WBC 10-30 /hpf Urine Epithelial Cells 0-5 /lpf Urine Amorphous Sediment PRESENT Urine Bacteria 4+ Diagnostic Results UPPER ENDOSCOPIC U/S: - There was no sign of significant pathology in the ampulla. - There was dilation in the common bile duct which measured up to 10 mm. - Endosonographic images of the left adrenal gland were unremarkable. - One enlarged lymph node was visualized in the artur hepatis region. - A mass was identified in the pancreatic head. This was staged T3 N1 Mx by endosonographic criteria. The staging applies if malignancy is confirmed. Fine needle aspiration performed. ERCP - The major papilla appeared to be small. 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 - A sphincterotomy was performed. - One covered metal biliary stent was placed into the common bile duct. Assessment & Plan Reason critically ill: 86 year old male presents with painless jaundice, hepatic dysfunction, severe anemia and leukocytosis requiring transfusion. High suspicion for malignancy and concern for sepsis. Neuro - CAM negative. - Fentanyl PRN pain - Continue to monitor for changes in RASS CV - Afib rate controlled with lopressor. - BP in acceptable range - Continue to monitor on telemetry Resp - On 2L oxygen via nasal cannula, saturating 94%. Wean as tolerated GI/Nutrition - NPO for now, as per GI - Patient s/p ERCP with biliary stent placement for decompression - Surgery consulted, do not believe patient will be a good candidate for Whipple 's. - Will monitor LFTs closely - GI prophylaxis: pantoprazole Renal/ - Evidence of worsening creatinine despite non contrasted scans. - Continue IVF NSS @ 75cc/hr - Will trend BMP, Mg+, PO4+ ID - Patient afebrile. Ongoing leukocytosis - Continue IV ciprofloxacin and flagyl for now, given ?septic presentation - Will monitor CBC Endo - Glucose within acceptable range. Will continue to monitor Heme - Significant anemia, transfusion of 2 units pRBCs. Will continue to monitor H/ H - INR supratherapeutic likely secondary to acute hepatobiliary injury rather than non compliant use of Coumadin. Patient s/p IV vitamin K. Will continue to monitor prothrombin profile VTE Prophylaxis - No anticoagulation warranted at this time given supratherapeutic INR Resident Physician Supervision Note: I was present with Dr. Aishwarya Ibarra during the history and exam. I discussed the case with the resident and agree with the findings and plan as documented in the note. Any exceptions or clarifications are listed here: 86 year-old male with h/o a-fib on Coumadin, presents with painless obstructive jaundice secondary to pancreatic head mass, highly suspicious for malignancy. Also presented with anemia, oliguric [place], supratherapeutic INR He is s/p ERCP with placement of metallic stent. Monitor LFTs Follow up pathology. If it returns malignant, the prognosis would likely be poor. Surgery and GI following the patient This morning he received 2 units PRBC for Hb of 6.8 (baseline of 14) INR corrected with vitamin K. Will hold it for now Gabriel inserted, has hematuria but overall very poor urine output. Bladder scan showed an empty bladder. Probably INDIA secondary to hypovolemia, hypotension at home Short course of Abx. I seriously doubt cholangitis. DVT prophylaxis: ICDs Critical care time spent greater than 40 minutes Documented By: Benedicto Santos MD Resident Tracking Resident Involvement: Resident Care Provided Care Provided: Adult Hospital Medicine
--- NOTE | 2016-12-07 14:43 | [facility] Post Operative Brief Note ---
Immediate Operative Summary Operative Date Dec 07, 2016. Pre-Operative Diagnosis Biliary Obstruction Post-Operative Diagnosis Pancreatic head mass Procedure(s) Performed Endoscopic Retrograde Cholangiopancreatogram, Upper Endoscopy, Endoscopic Ultrasonography, Stent Placement, Duodenal Mass Biopsies Surgeon Dr. Sandra Carlton Loan Service Officer Surgeon(s) none Estimated Blood Loss 0 cc Findings duodenal mass noted (mony erosion of HOP mass into duodenum) 25 mm HOP mass (FNA done) [address] (no FNA) Covered biliary stent placed. Specimens Duodenal mass biopsies FNA of a pancreatic mass Drains Covered biliary stent placed. Anesthesia General Complication(s) None Disposition Recovery Room / PACU
--- NOTE | 2016-12-07 14:48 | DIAGNOSTIC IMAGING REPORT ---
ERCP BILIARY DUCTAL CLINICAL HISTORY: DUCT EXPLORATION COMPARISON STUDY: CT of the abdomen and pelvis, MRCP and right upper quadrant ultrasound December 06, 2016. FLUOROSCOPY TIME: 3 minutes. FINDINGS: 11 fluoroscopic images were obtained during ERCP. These images demonstrate cannulation of the common bile duct. Biliary ductal dilatation is noted with irregular narrowing of the distal common bile duct. Subsequent images demonstrate placement of a metallic Wallstent within the common bile duct. IMPRESSION: Fluoroscopic images from ERCP demonstrating irregular narrowing of the distal common bile duct highly suggestive of malignancy with placement of a metallic Wallstent. Electronically signed by: Michael Lara M.D. 12/07/2016 2:47 PM Dictated Date/Time: 12/07/2016 2:42 PM
--- NOTE | 2016-12-07 15:19 | Anesthesiology Progress Note ---
Anesthesia Post Op Note Date & Time Dec 07, 2016 at 15:19 Vital Signs Pain Intensity: 0.0 Vital Signs Past 12 Hours Date Time Temp Pulse Resp B/P (MAP) Pulse Ox O2 Delivery O2 Flow Rate FiO2 12/07/16 11:54 73 123/58 12/07/16 11:30 Nasal Cannula 2.0 12/07/16 11:00 61 21 88 12/07/16 10:50 36.9 79 20 103/55 93 2.0 12/07/16 10:38 36.9 80 22 104/52 93 Nasal Cannula 2.0 12/07/16 10:31 51 23 182/166 (174) 87 12/07/16 10:30 64 23 72 12/07/16 10:01 67 22 113/38 (83) 94 12/07/16 10:00 72 19 70 12/07/16 09:50 36.9 66 22 104/52 93 2.0 12/07/16 09:30 69 24 104/52 (70) 94 12/07/16 09:20 36.6 90 20 104/52 96 2.0 12/07/16 09:12 65 20 85/56 (60) 90 12/07/16 09:04 64 21 113/45 (54) 94 12/07/16 09:04 36.6 178 22 113/45 96 2.0 12/07/16 09:02 79 24 104/43 (83) 88 12/07/16 09:00 75 17 86 12/07/16 08:31 74 25 93/61 (72) 92 12/07/16 08:30 78 28 89 12/07/16 08:14 36.6 80 20 110/44 95 25.0 12/07/16 08:01 72 18 119/62 (73) 97 12/07/16 08:00 85 20 90 12/07/16 07:31 71 20 110/44 (61) 97 12/07/16 07:30 48 20 96 12/07/16 07:30 Nasal Cannula 2.0 12/07/16 07:30 36.6 80 16 110/44 (66) 98 Nasal Cannula 2.0 12/07/16 07:16 82 21 103/57 (69) 96 12/07/16 07:16 36.5 70 21 103/57 98 2.0 12/07/16 07:01 56 19 94/55 (63) 99 12/07/16 07:00 68 20 12/07/16 06:20 36.6 61 21 109/53 98 12/07/16 06:07 36.6 71 22 101/52 98 12/07/16 06:02 36.6 62 23 103/49 98 12/07/16 05:57 36.3 67 19 113/74 99 12/07/16 05:52 75 113/74 12/07/16 04:00 Nasal Cannula 2.0 12/07/16 03:31 67 21 95/55 (68) 98 Nasal Cannula 2.0 Notes Mental Status: alert / awake / arousable, participated in evaluation Pt Amnestic to Procedure: Yes Nausea / Vomiting: adequately controlled Pain: adequately controlled Airway Patency, RR, SpO2: stable & adequate BP & HR: stable & adequate Hydration State: stable & adequate Anesthetic Complications: no major complications apparent
--- NOTE | 2016-12-07 16:09 | GI REPORT ---
Procedure Date: 12/07/2016 12:24 PM Procedure: Upper EUS Indications: Common bile duct dilation (acquired) seen on CT scan, Suspected mass in pancreas on CT scan, Common bile duct dilation (acquired) seen on MRCP, Abnormal ultrasound of the abdomen Medicines: General Anesthesia Complications: No immediate complications. Estimated blood loss: Minimal. Estimated Blood Loss: Estimated blood loss was minimal. Procedure: Pre-Anesthesia Assessment: - Prior to the procedure, a History and Physical was performed, and patient medications, allergies and sensitivities were reviewed. The patient's tolerance of previous anesthesia was reviewed. - The risks and benefits of the procedure and the sedation options and risks were discussed with the patient. All questions were answered and informed consent was obtained. - Patient identification and proposed procedure were verified prior to the procedure by the physician, the nurse and the knitter mechanic. The procedure was verified in the procedure room. - Pre-procedure physical examination revealed no contraindications to sedation. - ASA Grade Assessment: IV - A patient with severe systemic disease that is a constant threat to life. - After reviewing the risks and benefits, the patient was deemed in satisfactory condition to undergo the procedure. - The anesthesia plan was to use general anesthesia. - Immediately prior to administration of medications, the patient was re-assessed for adequacy to receive sedatives. - The heart rate, respiratory rate, oxygen saturations, blood pressure, adequacy of pulmonary ventilation, and response to care were monitored throughout the procedure. - The physical status of the patient was re-assessed after the procedure. After obtaining informed consent, the endoscope was passed under direct vision. Throughout the procedure, the patient's blood pressure, pulse, and oxygen saturations were monitored continuously. The Endosonoscope was introduced through the mouth, and advanced to the second part of duodenum. The upper EUS was accomplished without difficulty. The patient tolerated the procedure well. Findings: Endosonographic Finding : There was no sign of significant endosonographic abnormality in the ampulla. There was dilation in the common bile duct which measured up to 10 mm. There was abnormal echogenicity in the visualized portion of the liver. This area was notable for dilated intrahepatic ducts. There was no sign of significant endosonographic abnormality in the left adrenal gland. No adrenal gland enlargement was identified. No lymph nodes were seen during endosonographic examination in the splenic region (level 19), in the celiac region (level 20) and in the perigastric region. One enlarged lymph node was visualized in the artur hepatis region. It measured 11 mm by 10 mm in maximal cross-sectional diameter. The node was round, hypoechoic and had poorly defined margins. FNA not performed due to the adjacent pancreatic mass. The pancreatic duct had a dilated endosonographic appearance in the body of the pancreas and in the tail of the pancreas. The pancreatic duct measured up to 4.2 mm in diameter in the body and 3.7 mm in the tail. A rounded mass was identified in the pancreatic head. The mass was hypoechoic. The mass measured 25 mm by 20 mm in maximal cross-sectional diameter. The endosonographic borders were well-defined. There was sonographic evidence suggesting invasion into the hepatic artery (manifested by encasement) and the portal vein (manifested by abutment). An intact interface was seen between the mass and the superior mesenteric artery and celiac trunk suggesting a lack of invasion. The remainder of the pancreas was examined. The endosonographic appearance of parenchyma and the upstream pancreatic duct indicated duct dilation. Fine needle aspiration for cytology was performed. Color Doppler imaging was utilized prior to needle puncture to confirm a lack of significant vascular structures within the needle path. Five passes were made with the 25 gauge needle using a transduodenal approach. A stylet was used. A general administrator was present and performed a preliminary cytologic examination. Final cytology results are pending. Estimated blood loss was minimal. Impression: - There was no sign of significant pathology in the ampulla. - There was dilation in the common bile duct which measured up to 10 mm. - Endosonographic images of the left adrenal gland were unremarkable. - One enlarged lymph node was visualized in the artur hepatis region. - A mass was identified in the pancreatic head. This was staged T3 N1 Mx by endosonographic criteria. The staging applies if malignancy is confirmed. Fine needle aspiration performed. Recommendation: - Perform an ERCP today. - Await cytology results. Sandra Carlton D.O. Sandra Carlton DO 12/07/2016 2:36:45 PM This report has been signed electronically. Note Initiated On: 12/07/2016 12:24 PM I attest to the content of the Intraoperative Record and orders documented therein, exceptions below
--- NOTE | 2016-12-07 16:09 | GI REPORT ---
Procedure Date: 12/07/2016 12:27 PM Procedure: ERCP Indications: Jaundice, Suspected ascending cholangitis Medicines: General Anesthesia Complications: No immediate complications. Estimated blood loss: Minimal. Estimated Blood Loss: Estimated blood loss was minimal. Procedure: Pre-Anesthesia Assessment: - Prior to the procedure, a History and Physical was performed, and patient medications, allergies and sensitivities were reviewed. The patient's tolerance of previous anesthesia was reviewed. - The risks and benefits of the procedure and the sedation options and risks were discussed with the patient. All questions were answered and informed consent was obtained. - Patient identification and proposed procedure were verified prior to the procedure by the physician, the nurse and the body bumper. The procedure was verified in the procedure room. - Pre-procedure physical examination revealed no contraindications to sedation. - ASA Grade Assessment: IV - A patient with severe systemic disease that is a constant threat to life. - After reviewing the risks and benefits, the patient was deemed in satisfactory condition to undergo the procedure. - The anesthesia plan was to use general anesthesia. - Immediately prior to administration of medications, the patient was re-assessed for adequacy to receive sedatives. - The heart rate, respiratory rate, oxygen saturations, blood pressure, adequacy of pulmonary ventilation, and response to care were monitored throughout the procedure. - The physical status of the patient was re-assessed after the procedure. After obtaining informed consent, the scope was passed under direct vision. Throughout the procedure, the patient's blood pressure, pulse, and oxygen saturations were monitored continuously. The Scope was introduced through the mouth, and advanced to the duodenum and used to inject contrast into the bile duct. The patient tolerated the procedure well. The ERCP was somewhat difficult due to a partially obstructing mass. Successful completion of the procedure was aided by performing the maneuvers documented (below) in this report. Findings: The news assistant film was normal. The esophagus was successfully intubated under direct vision without detailed examination of the pharynx, larynx, and associated structures, and upper GI tract. The upper GI tract was grossly normal. The major papilla was small. Several attempts to cannulate the CBD with an Omni 35 and 0.035 in Acrobat 2 guidewire were made without sucess. The wire was traded with a 0.025 in Acrobat. The bile duct was then deeply cannulated with the short-nosed traction sphincterotome (Omni 35) and and 0.025 in Acrobat guidewire. The pancreatic duct was not cannulated nor injected. Contrast was injected into the biliary tree. I personally interpreted the bile duct images. Contrast extended to the hepatic ducts. The lower third of the main bile duct contained a single segmental stenosis 20 mm in length (intrapancretic portion) correlating with a mass seen on today's EUS. Biliary sphincterotomy was made with a monofilament short-tip traction sphincterotome using ERBE electrocautery. There was no post-sphincterotomy bleeding. A brush cytology was attempted but could not be obtained due to a long position of the endoscope. One 10 Fr by 6 cm covered metal biliary stent was placed 5.5 cm into the common bile duct ([employer], REF [id number]). Bile flowed through the stent. The stent was in good position. The endoscope was withdrawn from the patient. Impression: - The major papilla appeared to be small. 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 - A sphincterotomy was performed. - One covered metal biliary stent was placed into the common bile duct. Recommendation: - Avoid aspirin and nonsteroidal anti-inflammatory medicines for 1 week. - Clear liquid diet today. - Use broad spectrum antibiotics for 10 days. - Observe patient's clinical course following today's ERCP with therapeutic intervention. Sandra Carlton D.O. Sandra Carlton, 12/07/2016 2:26:14 PM This report has been signed electronically. Note Initiated On: 12/07/2016 12:27 PM I attest to the content of the Intraoperative Record and orders documented therein, exceptions below
--- NOTE | 2016-12-07 16:09 | GI REPORT ---
Procedure Date: 12/07/2016 12:23 PM Procedure: Upper GI endoscopy Indications: Abnormal CT of the GI tract, Abnormal MRI of the GI tract, Abnormal ultrasound of the GI tract Medicines: General Anesthesia Complications: No immediate complications. Estimated blood loss: Minimal. Estimated Blood Loss: Estimated blood loss was minimal. Procedure: Pre-Anesthesia Assessment: - Prior to the procedure, a History and Physical was performed, and patient medications, allergies and sensitivities were reviewed. The patient's tolerance of previous anesthesia was reviewed. - The risks and benefits of the procedure and the sedation options and risks were discussed with the patient. All questions were answered and informed consent was obtained. - Patient identification and proposed procedure were verified prior to the procedure by the physician, the nurse and the auto parts salesperson. The procedure was verified in the procedure room. - Pre-procedure physical examination revealed no contraindications to sedation. - ASA Grade Assessment: IV - A patient with severe systemic disease that is a constant threat to life. - After reviewing the risks and benefits, the patient was deemed in satisfactory condition to undergo the procedure. - The anesthesia plan was to use general anesthesia. - Immediately prior to administration of medications, the patient was re-assessed for adequacy to receive sedatives. - The heart rate, respiratory rate, oxygen saturations, blood pressure, adequacy of pulmonary ventilation, and response to care were monitored throughout the procedure. - The physical status of the patient was re-assessed after the procedure. After obtaining informed consent, the endoscope was passed under direct vision. Throughout the procedure, the patient's blood pressure, pulse, and oxygen saturations were monitored continuously. The On-site loaner was introduced through the mouth, and advanced to the third part of duodenum. The upper GI endoscopy was accomplished without difficulty. The patient tolerated the procedure well. Findings: The examined esophagus was normal. The Z-line was irregular and was found 39 cm from the incisors. The entire examined stomach was normal. A large infiltrative mass with no bleeding was found in the duodenal bulb. Biopsies were taken with a cold forceps for histology. Estimated blood loss was minimal. The 2nd part of the duodenum and 3rd part of the duodenum were normal. Impression: - Normal esophagus. - Z-line irregular, 39 cm from the incisors. - Normal stomach. - Rule out malignancy, duodenal mass. Biopsied. - Normal 2nd part of the duodenum and 3rd part of the duodenum. Recommendation: - Perform an upper endoscopic ultrasound (UEUS) today. - Await pathology results. Sandra Carlton D.O. Sandra Carlton, 12/07/2016 12:41:56 PM This report has been signed electronically. Note Initiated On: 12/07/2016 12:23 PM I attest to the content of the Intraoperative Record and orders documented therein, exceptions below
[2016-12-07 16:24] LABS: HEMATOCRIT 28.9 % (42-52); MEAN CELL VOLUME 90.6 fL (80-100); MEAN CORPUSCULAR HGB CONC 34.3 g/dl (32-36); MEAN PLATELET VOLUME 9.9 fL (7.4-10.4); PLATELET COUNT 204 K/uL (130-400); RED BLOOD COUNT 3.19 M/uL (4.7-6.1); WHITE BLOOD COUNT 15.63 K/uL (4.8-10.8)
[2016-12-07 16:43] LABS: ALB/GLOB RATIO 0.7 (0.9-2); BUN/CREATININE RATIO 11.3 (10-20); CALCIUM 7.5 mg/dl (8.5-10.1); CKMB/CK RATIO 0.9 (0-3.0); PHOSPHORUS 4.4 mg/dl (2.5-4.9); POTASSIUM 3.6 mmol/L (3.5-5.1)
[2016-12-07] MEDS ORDERED: NURSING VERBAL MED ORDER ONE (17:00)
--- NOTE | 2016-12-07 17:06 | Progress Note ---
Internal Med Progress Note Date of Service: Dec 07, 2016. 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 ASSESSMENT & PLAN: This is 86yo man with a PMH of A Fib (on Coumadin), CAD and h/o prior CVA who presents with worsening bruising of extremities And Painless Jaundice Admitted with biliary obstruction and a pancreatic head mass. Painless Jaundice Secondary to biliary obstruction No h/o liver/GB pathology CT Abd with distended GB and intrahepatic biliary ductal dilatation Concern for ascending cholangitis with increased WCC Started on cipro, flagyl and will continue for now US Liver-No acute Cholecystitis has CBD and Intrahepatic duct dilatation Consulted GI, general surgery NPO, IVFs Incidental pancreatic head mass: Likely Pancreatic cancer -CT abd/pelvis with asymmetrically enlarged pancreatic head -MRI consistent with CBD dilation and Pancreatic Head mass -S/P ERCP -Duodenal Bulb mass-biopsied SIRs with suspected GI source of infection: -Leukocytosis of 18, hypotensive to 84/63, tachycardic 110s-120s, Lactic acid of 2.9 -Started on antibiotics with Cipro and Flagyl -BP responded to IVFs and is now in normal range [place]: -Cr of 3.7 from a baseline ~1 -Likely secondary to Intravascular Fluid depletion -Initiated IVFs -Avoid nephrotoxic agents -Monitor BMP Palpable abd bruit: -Palpated on exam -However, was not appreciated on Ct abd/pelvis -Denies any CP, abd pain CAD: Atrial Fibrillation (on Coumadin): -Rate controlled with Metoprolol -Cardiology consulted for Pre-op clearance as requested by GI for ERCP -INR supratherapeutic at 8 -Received Vitamin K in ER -Coumadin held -Monitor INR -trending down Dementia No acute Delirium HLD: -Statin held while NPO and due to increased LFTs -Plan to reinitiate Hx of Prior CVA: -S/p carotid endarterectomy -ASA, Statin held -Plan to reinitiate Depression: - Celexa held DVT Ppx: SCDs Code status: FULL PCP: [facility] Dispo: SW consulted to help with discharge placement Vital Signs: Date Time Temp Pulse Resp B/P (MAP) Pulse Ox O2 Delivery O2 Flow Rate FiO2 12/07/16 15:00 36.6 79 20 138/64 (88) 94 Nasal Cannula 2.0 12/07/16 15:00 Nasal Cannula 2.0 12/07/16 14:51 36.9 134/82 (101) 95 12/07/16 14:50 82 19 97 12/07/16 14:50 82 19 94 12/07/16 14:46 122/68 (84) 95 12/07/16 14:45 36.6 69 19 94 12/07/16 14:45 80 19 92 12/07/16 14:41 147/75 (107) 12/07/16 14:40 86 19 95 12/07/16 14:40 36.7 85 19 94 12/07/16 14:36 130/84 (94) 12/07/16 14:35 89 18 95 12/07/16 14:35 36.4 81 18 94 12/07/16 14:31 36.6 135/76 (96) 12/07/16 14:30 81 16 94 12/07/16 14:30 85 16 12/07/16 14:25 36.6 83 24 83 12/07/16 14:25 76 24 12/07/16 14:23 133/70 (89) 12/07/16 11:54 73 123/58 12/07/16 11:30 Nasal Cannula 2.0 12/07/16 11:00 61 21 88 12/07/16 10:50 36.9 79 20 103/55 93 2.0 12/07/16 10:38 36.9 80 22 104/52 93 Nasal Cannula 2.0 12/07/16 10:31 51 23 182/166 (174) 87 12/07/16 10:30 64 23 72 12/07/16 10:01 67 22 113/38 (83) 94 12/07/16 10:00 72 19 70 12/07/16 09:50 36.9 66 22 104/52 93 2.0 12/07/16 09:30 69 24 104/52 (70) 94 12/07/16 09:20 36.6 90 20 104/52 96 2.0 12/07/16 09:12 65 20 85/56 (60) 90 12/07/16 09:04 64 21 113/45 (54) 94 12/07/16 09:04 36.6 178 22 113/45 96 2.0 12/07/16 09:02 79 24 104/43 (83) 88 12/07/16 09:00 75 17 86 12/07/16 08:31 74 25 93/61 (72) 92 12/07/16 08:30 78 28 89 12/07/16 08:14 36.6 80 20 110/44 95 25.0 12/07/16 08:01 72 18 119/62 (73) 97 12/07/16 08:00 85 20 90 12/07/16 07:31 71 20 110/44 (61) 97 12/07/16 07:30 48 20 96 12/07/16 07:30 Nasal Cannula 2.0 12/07/16 07:30 36.6 80 16 110/44 (66) 98 Nasal Cannula 2.0 12/07/16 07:16 82 21 103/57 (69) 96 12/07/16 07:16 36.5 70 21 103/57 98 2.0 12/07/16 07:01 56 19 94/55 (63) 99 12/07/16 07:00 68 20 12/07/16 06:20 36.6 61 21 109/53 98 12/07/16 06:07 36.6 71 22 101/52 98 12/07/16 06:02 36.6 62 23 103/49 98 12/07/16 05:57 36.3 67 19 113/74 99 12/07/16 05:52 75 113/74 12/07/16 04:00 Nasal Cannula 2.0 12/07/16 03:31 67 21 95/55 (68) 98 Nasal Cannula 2.0 12/07/16 03:01 81 20 88/50 (63) 97 Nasal Cannula 2.0 12/07/16 02:01 61 22 83/45 (58) 98 Nasal Cannula 2.0 12/07/16 01:08 86 16 109/77 (88) 96 Nasal Cannula 2.0 12/07/16 00:01 36.7 59 24 82/56 (65) 96 Nasal Cannula 2.0 12/07/16 00:00 Nasal Cannula 2.0 12/06/16 23:36 96 113/52 12/06/16 22:00 101 24 98/58 (71) 93 Nasal Cannula 2.0 12/06/16 19:55 36.8 125 20 134/40 95 Nasal Cannula 2.0 12/06/16 18:48 107 22 121/70 92 Room Air 12/06/16 17:42 99 22 106/72 95 Room Air 12/06/16 17:14 102 20 84/63 98 Room Air Lab Results: Results Past 24 Hours Test 12/06/16 20:49 12/06/16 21:21 12/06/16 23:46 12/07/16 02:41 Range/Units Bedside Glucose 118 124 70-99 mg/dl White Blood Count 15.40 12.08 4.8-10.8 K/uL Red Blood Count 2.46 2.10 4.7-6.1 M/uL Hemoglobin 7.5 6.8 14.0-18.0 g/dL Hematocrit 23.0 19.4 42-52 % Mean Corpuscular Volume 93.5 92.4 80-100 fL Mean Corpuscular Hemoglobin 30.5 32.4 25-34 pg Mean Corpuscular Hemoglobin Concent 32.6 35.1 32-36 g/dl RDW Standard Deviation 52.3 51.5 36.4-46.3 fL RDW Coefficient of Variation 15.3 15.2 11.5-14.5 % Platelet Count 250 189 130-400 K/uL Mean Platelet Volume 10.1 9.7 7.4-10.4 fL Prothrombin Time 25.4 15.4 9.0-12.0 SECONDS Prothromb Time International Ratio 2.3 1.4 0.9-1.1 Activated Partial Thromboplast Time 44.3 36.0 21.0-31.0 SECONDS Partial Thromboplastin Ratio 1.7 1.4 Sodium Level 141 139 136-145 mmol/L Potassium Level 3.5 3.4 3.5-5.1 mmol/L Chloride Level 110 111 98-107 mmol/L Carbon Dioxide Level 21 20 21-32 mmol/L Anion Gap 10.0 8.0 3-11 mmol/L Blood Urea Nitrogen 47 48 7-18 mg/dl Creatinine 3.90 4.30 0.60-1.40 mg/dl Est Creatinine Clear Calc Drug Dose 12.3 11.1 ml/min Estimated GFR () 15.4 13.7 Estimated GFR (Non- 13.3 11.8 BUN/Creatinine Ratio 12.1 11.2 10-20 Random Glucose 110 133 70-99 mg/dl Lactic Acid Level 1.7 1.2 0.4-2.0 mmol/L Calcium Level 7.4 7.4 8.5-10.1 mg/dl Phosphorus Level 4.3 4.4 2.5-4.9 mg/dl Magnesium Level 1.9 1.9 1.8-2.4 mg/dl Total Bilirubin 10.2 9.7 0.2-1 mg/dl Aspartate Amino Transf (AST/SGOT) 426 368 15-37 U/L Alanine Aminotransferase (ALT/SGPT) 411 374 12-78 U/L Alkaline Phosphatase 334 309 45-117 U/L Total Protein 5.3 4.8 6.4-8.2 gm/dl Albumin 2.4 2.2 3.4-5.0 gm/dl Globulin 2.9 2.5-4.0 gm/dl Albumin/Globulin Ratio 0.8 0.9-2 Neutrophils (%) (Auto) 73.3 % Lymphocytes (%) (Auto) 12.7 % Monocytes (%) (Auto) 13.3 % Eosinophils (%) (Auto) 0.2 % Basophils (%) (Auto) 0.2 % Neutrophils # (Auto) 8.84 1.4-6.5 K/uL Lymphocytes # (Auto) 1.53 1.2-3.4 K/uL Monocytes # (Auto) 1.61 0.11-0.59 K/uL Eosinophils # (Auto) 0.03 0-0.5 K/uL Basophils # (Auto) 0.03 0-0.2 K/uL Immature Granulocyte % (Auto) 0.3 % Immature Granulocyte # (Auto) 0.04 0.00-0.02 K/uL Polychromasia 1+ Direct Bilirubin 8.1 0-0.2 mg/dl Total Creatine Kinase 569 39-308 U/L Creatine Kinase MB 4.2 0.5-3.6 ng/ml Creatine Kinase MB Ratio 0.7 0-3.0 Troponin I 0.093 0-0.045 ng/ml Lipase 194 73-393 U/L Test 12/07/16 06:18 12/07/16 08:00 12/07/16 11:16 12/07/16 13:00 Range/Units Bedside Glucose 125 107 70-99 mg/dl Urine Color RED Urine Appearance CLOUDY CLEAR Urine pH 4.5-7.5 Urine Specific [place] 1.022 1.000-1.030 Urine Protein POS NEG Urine Glucose (UA) NEG Urine Ketones NEG Urine Occult Blood NEG Urine Nitrite NEG Urine Bilirubin NEG Urine Urobilinogen NEG Urine Leukocyte Esterase NEG Urine RBC >30 0-4 /hpf Urine WBC 10-30 0-5 /hpf Urine Epithelial Cells 0-5 0-5 /lpf Urine Amorphous Sediment PRESENT NONE PRSENT Urine Bacteria 4+ NEG Creatine Kinase MB Ratio 0-3.0 Test 12/07/16 15:28 12/07/16 15:51 Range/Units White Blood Count 15.63 4.8-10.8 K/uL Red Blood Count 3.19 4.7-6.1 M/uL Hemoglobin 9.9 14.0-18.0 g/dL Hematocrit 28.9 42-52 % Mean Corpuscular Volume 90.6 80-100 fL Mean Corpuscular Hemoglobin 31.0 25-34 pg Mean Corpuscular Hemoglobin Concent 34.3 32-36 g/dl Platelet Count 204 130-400 K/uL Mean Platelet Volume 9.9 7.4-10.4 fL RDW Standard Deviation 53.3 36.4-46.3 fL RDW Coefficient of Variation 16.3 11.5-14.5 % Absolute Reticulocyte Count 0.09 0.02-0.10 10^6/uL Percent Reticulocyte Count 2.8 0.5-2.0 % Lactic Acid Level 2.0 0.4-2.0 mmol/L Bedside Glucose 175 70-99 mg/dl Microbiology Results 12/06/16 MRSA DNA Surveillance Screen - Final, Complete Specimen Negative for MRSA by DNA Probe 12/07/16 Urine Culture, Received Pending
[2016-12-07] MEDS: SODIUM CHLORIDE 0.9% 1000ML 1,000 ML IV SCH (17:16)
--- NOTE | 2016-12-07 17:34 | CARDIOLOGY CONSULTATION ---
DATE OF CONSULTATION: 12/07/2016 REFERRING PHYSICIAN: Dr. Jitendra Loco. REASON FOR CONSULTATION: Paroxysmal atrial fibrillation, preoperative risk stratification, aortic valve stenosis, and chronic CAD. CHIEF COMPLAINT ON ADMISSION: Lethargy, bruising, and fever. HISTORY OF PRESENT ILLNESS: Mr. Ruiz is a complex 86-year-old gentleman who presented to the Emergency Department with bruising, yellow skin, and significant fatigue. He was found to have an INR of greater than 8 and significant anemia with hemoglobin less than 7.0. CT of the abdomen and pelvis was performed, demonstrating pancreatic mass. He underwent MRCP and an ERCP today when biopsies were taken. 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 The patient received 2 units of packed red blood cells and his hemoglobin has improved. He was seen and examined post-ERCP. He is awake and alert. Several family members are at bedside. He denies any chest pain or shortness of breath. Telemetry monitoring demonstrates sinus rhythm with frequent PACs, PVCs, as well as ventricular couplets and 3-beat salvos of nonsustained VT earlier on 12/06/2016. Currently, his rhythm is sinus with PACs. Vital signs are stable. Denies orthopnea, PND, or lower extremity edema. No abdominal discomfort, nausea, vomiting, melena, diarrhea, or hematochezia. Family reports possible hematuria prior to admission. The patient is a poor historian. He is hard of hearing. He offers no other complaints at this time. REVIEW OF SYSTEMS: The pertinent positives noted above. A comprehensive 10-system review is otherwise negative. PAST MEDICAL HISTORY: 1. Asymptomatic paroxysmal atrial fibrillation, on chronic anticoagulation. 2. 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 3. Transient ischemic attack in May 2009. 4. Chronic coronary artery disease with left circumflex stenting in 2002 after abnormal pharmacologic stress testing. 5. Mild aortic valve stenosis. 6. Hypertension. 7. Dyslipidemia. PAST SURGICAL HISTORY: 1. Colonoscopy. 2. Rotator cuff surgery. 3. ERCP performed today. 4. Bilateral carotid endarterectomy in 2002 followed by carotid stenting of an unknown time. FAMILY HISTORY: Negative for premature CAD or sudden cardiac ; however, noncontributory given the patient's advanced age. SOCIAL HISTORY: Former tobacco abuse. He lives alone. ALLERGIES: No known drug allergies. HOME MEDICATIONS: 1. Aspirin 81 mg daily. 2. Lipitor 40 mg daily. 3. Celexa 20 mg daily. 4. Folic acid 400 mcg daily. 5. Metoprolol 12.5 mg daily. 6. Multivitamin daily. 7. Coumadin 1 mg daily. ECG on admission demonstrates sinus rhythm with frequent premature atrial and ventricular complexes. Repeat ECG performed this morning demonstrates sinus rhythm with right bundle branch block, premature ventricular complexes, and premature atrial complexes with aberrant conduction. LABORATORY DATA: Initial INR greater than 8.0 and repeat INR this a.m. is 1.4. White blood cell count 12.08, hemoglobin 6.8 at 02:41 today, and his platelet count is 189. Troponin is 0.093. Sodium 139, potassium 3.4, chloride 111, CO2 is 20, BUN is 40, and creatinine is 4.30. His total bilirubin is 9.7. The direct bilirubin is 8.1. His AST is 368. His ALT is 374. His alkaline phosphatase is 309. Total CPK 569 and CK-MB 4.2. Chest x-ray on admission, mild cardiomegaly with pulmonary vascular congestion, no overt edema or atelectasis. MRCP: Dilated biliary and pancreatic ducts with left pancreatic head, where there is ill-defined soft tissue mass, highly concerning for pancreatic malignancy, namely adeno CA. PHYSICAL EXAMINATION: VITAL SIGNS: Temperature is 36.6 degrees centigrade, pulse 79 beats per minute and irregular, respiratory rate 20 breaths per minute, blood pressure 138/64 and SaO2 is 94% on 2 liters. GENERAL: NAD. He is awake and alert. The patient is hard of hearing. HEENT: Mucous membranes moist. No scleral icterus. Conjunctivae pink. NECK: Supple. There is no JVD or HJR. No carotid bruit. Jaundice is noted. HEART: Regular with frequent ectopy. Normal S1 and S2. There is a 2/6 systolic ejection murmur heard best at the cardiac base without radiation. LUNGS: Demonstrate clear breath sounds without rales, rhonchi, or wheeze. ABDOMEN: Soft and nontender. No rebound or guarding. Normal bowel sounds. EXTREMITIES: Warm and dry without clubbing, cyanosis or edema. NEUROLOGIC: Demonstrates no focal motor deficit. FINAL IMPRESSION: 1. An 86-year-old male with complex cardiovascular history, presents with anemia, jaundice, and new diagnosis of pancreatic mass highly suspicious for adenocarcinoma. 2. History of paroxysmal atrial dysrhythmias, on chronic anticoagulation. INR is supratherapeutic on admission with significant anemia. Repeat hemoglobin is pending. His INR has been reversed. There are no overt signs of ongoing blood loss at this time. 3. Chronic coronary artery disease -- stable. 4. Bilateral carotid vascular disease with a history of carotid endarterectomy as well as carotid stenting -- stable. 5. Mild aortic valve stenosis per echocardiogram in March 2016. 6. Acute renal failure. PLAN AND RECOMMENDATIONS: The patient's overall cardiovascular status appears stable. His hemoglobin will be repeated this afternoon. Recommend maintaining hemoglobin greater than 8.0 given complex cardiovascular issues noted above. Beta fidel will be continued intravenously while he is n.p.o. He then may be transitioned back to oral metoprolol as previously ordered. Anticoagulation will also remain on hold at this time. I would not repeat his resting echo as an inpatient as I do not believe this would change his current treatment plan. Await pathology results from ERCP. Thank you for allowing me to take part in the care of your patient. GUERITA
[2016-12-07 17:48] LABS: BASO % 0.2 %; BASO ABS # 0.03 K/uL (0-0.2); ECHINOCYTES 1+; EOS % 0.3 %; IG% 0.5 %; LYMPH % 9.4 %; LYMPH ABS # 1.47 K/uL (1.2-3.4); MONO % 6.7 %; NEUT % 82.9 %; POLYCHROMASIA 1+
[2016-12-07 20:22] LABS: COMPLETE YES
[2016-12-07] MEDS: CIPROFLOXACIN 400MG / D5W IV SCH (22:19)
[2016-12-08] VITALS (19 sets, daily range): BP systolic 97–142; BP diastolic 48–81; PULSE 43–90; TEMP 36.4–37.3; O2SAT 90–97
[2016-12-08] MEDS: METRONIDAZOLE / NSS 500 MG in PREMIXED NSS 100 ML IV SCH ×2 (04:11→11:39)
[2016-12-08] MEDS: SODIUM CHLORIDE 0.9% 1000ML 1,000 ML IV SCH ×3 (05:38→18:00)
[2016-12-08] MEDS: METOPROLOL TARTRATE 1 MG/ML VIAL IV. SCH ×3 (05:39→12:39)
[2016-12-08 06:03] LABS: BASO % 0.2 %; BASO ABS # 0.02 K/uL (0-0.2); COMPLETE YES; HEMATOCRIT 27.6 % (42-52); IG% 0.3 %; LYMPH % 10.6 %; LYMPH ABS # 1.22 K/uL (1.2-3.4); MEAN CELL VOLUME 89.9 fL (80-100); MEAN CORPUSCULAR HEMOGLOBIN 29.6 pg (25-34); MEAN PLATELET VOLUME 9.9 fL (7.4-10.4); MONO % 15.4 %; NEUT % 72.5 %; PLATELET COUNT 192 K/uL (130-400); RED BLOOD COUNT 3.07 M/uL (4.7-6.1); WHITE BLOOD COUNT 11.46 K/uL (4.8-10.8)
[2016-12-08 06:24] LABS: INR 1.1 (0.9-1.1); PARTIAL THROMBOPLASTIN RATIO 1.2; PROTHROMBIN TIME (PATIENT) 11.7 SECONDS (9.0-12.0)
[2016-12-08 07:10] LABS: BUN/CREATININE RATIO 10.9 (10-20); CALCIUM 7.5 mg/dl (8.5-10.1); CREATININE 5.5 mg/dl (0.60-1.40); MAGNESIUM 1.9 mg/dl (1.8-2.4); PHOSPHORUS 4.4 mg/dl (2.5-4.9); POTASSIUM 3.5 mmol/L (3.5-5.1)
[2016-12-08] MEDS ORDERED: NSS + 20MEQ KCL 1000ML 1,000 ML IV ONE (10:00)
[2016-12-08] MEDS: PANTOprazole INJ 40 MG in SYRINGE 0 ML IV SCH (10:16)
--- NOTE | 2016-12-08 11:02 | Surgery Progress Note ---
Surgery Progress Note Date of Service Dec 08, 2016. Subjective Patient examined at bedside this morning. Afebrile, vitals stable on 2L O2 via NC overnight, no acute events. Denies pain. Sitting up comfortably in chair, eating cheese without pain / nausea / vomiting. EGD / EUS with stent placement completed yesterday, bilirubin has decreased significantly. Objective Vital Signs: Date Time Temp Pulse Resp B/P (MAP) Pulse Ox O2 Delivery O2 Flow Rate FiO2 12/08/16 08:43 90 15 115/63 (80) 92 Room Air 12/08/16 08:05 92 Room Air 12/08/16 07:01 36.8 55 21 136/55 (82) 93 Room Air 12/08/16 06:01 56 21 114/48 (70) 90 12/08/16 05:01 43 20 111/50 (70) 97 12/08/16 04:01 95 Nasal Cannula 2.0 12/08/16 04:01 36.7 50 21 99/48 (65) 95 12/08/16 03:01 60 21 107/59 (75) 96 12/08/16 02:01 65 21 112/56 (74) 97 12/08/16 01:01 67 23 109/53 (71) 97 12/08/16 00:24 95 Nasal Cannula 2.0 12/08/16 00:01 68 23 109/54 (72) 96 Room Air 12/07/16 23:01 66 22 89/52 (64) 97 Room Air 12/07/16 22:01 70 22 115/47 (69) 98 Room Air 12/07/16 21:01 74 21 107/51 (69) 98 Room Air 12/07/16 20:11 95 Nasal Cannula 3.0 12/07/16 20:01 36.6 70 28 119/79 (92) 98 Nasal Cannula 3.0 12/07/16 19:01 62 23 88/59 (69) 99 Nasal Cannula 3.0 12/07/16 18:25 92 12/07/16 18:00 36.6 74 20 116/53 (74) 95 Nasal Cannula 3.0 12/07/16 15:00 36.6 79 20 138/64 (88) 94 Nasal Cannula 2.0 12/07/16 15:00 Nasal Cannula 2.0 12/07/16 14:51 36.9 134/82 (101) 95 12/07/16 14:50 82 19 97 12/07/16 14:50 82 19 94 12/07/16 14:46 122/68 (84) 95 12/07/16 14:45 36.6 69 19 94 12/07/16 14:45 80 19 92 12/07/16 14:41 147/75 (107) 12/07/16 14:40 86 19 95 12/07/16 14:40 36.7 85 19 94 12/07/16 14:36 130/84 (94) 12/07/16 14:35 89 18 95 12/07/16 14:35 36.4 81 18 94 12/07/16 14:31 36.6 135/76 (96) 12/07/16 14:30 81 16 94 12/07/16 14:30 85 16 12/07/16 14:25 36.6 83 24 83 12/07/16 14:25 76 24 12/07/16 14:23 133/70 (89) 12/07/16 11:54 73 123/58 12/07/16 11:30 Nasal Cannula 2.0 12/07/16 11:00 61 21 88 General Appearance: WD/WN, no apparent distress Head: normocephalic Neck: supple Respiratory/Chest: lungs clear, normal breath sounds Cardiovascular: regular rate, rhythm Abdomen: normal bowel sounds, non tender, non distended, soft Laboratory Results: Results Past 24 Hours Test 12/07/16 11:16 12/07/16 15:28 12/07/16 15:51 12/08/16 05:47 Range/Units Bedside Glucose 107 175 70-99 mg/dl White Blood Count 15.63 11.46 4.8-10.8 K/uL Red Blood Count 3.19 3.07 4.7-6.1 M/uL Hemoglobin 9.9 9.1 14.0-18.0 g/dL Hematocrit 28.9 27.6 42-52 % Mean Corpuscular Volume 90.6 89.9 80-100 fL Mean Corpuscular Hemoglobin 31.0 29.6 25-34 pg Mean Corpuscular Hemoglobin Concent 34.3 33.0 32-36 g/dl Platelet Count 204 192 130-400 K/uL Mean Platelet Volume 9.9 9.9 7.4-10.4 fL Neutrophils (%) (Auto) 82.9 72.5 % Lymphocytes (%) (Auto) 9.4 10.6 % Monocytes (%) (Auto) 6.7 15.4 % Eosinophils (%) (Auto) 0.3 1.0 % Basophils (%) (Auto) 0.2 0.2 % Neutrophils # (Auto) 12.96 8.31 1.4-6.5 K/uL Lymphocytes # (Auto) 1.47 1.22 1.2-3.4 K/uL Monocytes # (Auto) 1.05 1.77 0.11-0.59 K/uL Eosinophils # (Auto) 0.04 0.11 0-0.5 K/uL Basophils # (Auto) 0.03 0.02 0-0.2 K/uL RDW Standard Deviation 53.3 54.3 36.4-46.3 fL RDW Coefficient of Variation 16.3 16.7 11.5-14.5 % Immature Granulocyte % (Auto) 0.5 0.3 % Immature Granulocyte # (Auto) 0.08 0.03 0.00-0.02 K/uL Polychromasia 1+ Echinocytes 1+ Absolute Reticulocyte Count 0.09 0.02-0.10 10^6/uL Percent Reticulocyte Count 2.8 0.5-2.0 % Sodium Level 139 140 136-145 mmol/L Potassium Level 3.6 3.5 3.5-5.1 mmol/L Chloride Level 107 111 98-107 mmol/L Carbon Dioxide Level 18 18 21-32 mmol/L Anion Gap 14.0 11.0 3-11 mmol/L Blood Urea Nitrogen 56 60 7-18 mg/dl Creatinine 5.00 5.50 0.60-1.40 mg/dl Est Creatinine Clear Calc Drug Dose 9.6 8.7 ml/min Estimated GFR () 11.4 10.2 Estimated GFR (Non- 9.8 8.8 BUN/Creatinine Ratio 11.3 10.9 10-20 Random Glucose 149 104 70-99 mg/dl Lactic Acid Level 2.0 0.4-2.0 mmol/L Calcium Level 7.5 7.5 8.5-10.1 mg/dl Phosphorus Level 4.4 4.4 2.5-4.9 mg/dl Magnesium Level 2.0 1.9 1.8-2.4 mg/dl Total Bilirubin 12.1 4.5 0.2-1 mg/dl Aspartate Amino Transf (AST/SGOT) 333 182 15-37 U/L Alanine Aminotransferase (ALT/SGPT) 383 270 12-78 U/L Alkaline Phosphatase 369 295 45-117 U/L Lactate Dehydrogenase 791 87-241 U/L Total Creatine Kinase 661 39-308 U/L Creatine Kinase MB 5.7 0.5-3.6 ng/ml Creatine Kinase MB Ratio 0.9 0-3.0 Troponin I 0.061 0-0.045 ng/ml Total Protein 5.8 5.1 6.4-8.2 gm/dl Albumin 2.5 2.1 3.4-5.0 gm/dl Globulin 3.3 2.5-4.0 gm/dl Albumin/Globulin Ratio 0.7 0.9-2 Procalcitonin 8.64 0-0.5 ng/ml Prothrombin Time 11.7 9.0-12.0 SECONDS Prothromb Time International Ratio 1.1 0.9-1.1 Activated Partial Thromboplast Time 32.0 21.0-31.0 SECONDS Partial Thromboplastin Ratio 1.2 Direct Bilirubin 3.4 0-0.2 mg/dl Lipase 5945 73-393 U/L Assessment & Plan Bryn Ruiz is an 86 year old man with a 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 An EUS with covered stent placement was completed yesterday, with a subsequent significant decrease in total bilirubin. Patient appears well, denies pain, sitting up comfortably and eating regular diet. -No acute surgical intervention indicated at this time, biliary system is now decompressed -Would need contrast enhanced CT imaging to determine resectability, but patient and his daughter do not seem interested in surgery -Diet as tolerated -Await biopsy results -Rest of care per primary team -Will continue to follow Patti Major MD 12/08/16
--- NOTE | 2016-12-08 13:05 | Critical Care Progress Note ---
Critical Care Progress Note Date of Service Dec 08, 2016. Attending Dr. Santos Subjective Doing better, up in chair Urine is clearing up, output starts to slowly improve. Objective General: Less jaundiced, NAD, up in chair Heent: NC/AT Lungs: CTA b/l CVS: S1S2, irregular, systolic murmur Abdomen: soft, non-tender Ext: ecchymotic arms, missing finger on left hand Skin: generalized jaundice [employer]: no deficit Assessment & Plan Assessment & Plan 86 year-old male with h/o a-fib on Coumadin, presents with painless obstructive jaundice secondary to pancreatic head mass, highly suspicious for malignancy. Also presented with anemia, oliguric [place], supratherapeutic INR He is s/p ERCP with placement of metallic stent. Monitor LFTs Follow up pathology. If it returns malignant, the prognosis would likely be poor. Bilirubin improving rapidly. Lipase elevated today but the patient is asymptomatic. Monitor for now He received 2 units PRBC for Hb of 6.8 (baseline of 14) INR corrected with vitamin K. Will hold Coumadin for now Hematuria cleared, urine is less pigmented today Creatinine worsening. may require dialysis if he doesn't improve Change metoprolol to 12.5 mg PO BID Short course of Abx. I seriously doubt cholangitis. DVT prophylaxis: ICDs Critical care time spent greater than 25 minutes Will sign off at this point from a critical care standpoint, may be transferred Documented By: Benedicto Santos MD Consults & Procedures Consultants: Cardio - Dr Solomon GI - Dr Carlton Surgery - Dr Nur Nephrology - Dr Granados Procedures: 12/07/16 - ERCP with biopsy and stent placement Data Medications: Current Inpatient Medications Medications (Trade) Dose Ordered Sig/Thelma Route Start Time Stop Time Status Last Admin Dose Admin Metronidazole 500 mg/Prmx 100 ml @ 100 mls/hr Q8H IV 12/06/16 20:00 12/08/16 19:59 12/08/16 11:39 100 MLS/HR Pantoprazole Sodium 40 mg/ Syringe 10 ml @ 5 mls/min DAILY@1100 IV 12/07/16 11:00 01/06/17 10:59 12/08/16 10:16 5 MLS/MIN Metoprolol Tartrate (Lopressor Iv) 2.5 mg Q6 IV. 12/07/16 00:00 01/06/17 00:00 12/07/16 18:25 2.5 MG Ciprofloxacin/ Dextrose 400 mg/ Prmx 200 ml @ 100 mls/hr Q24H IV 12/07/16 22:00 12/15/16 23:59 12/07/16 22:19 100 MLS/HR Sodium Chloride 1,000 ml @ 75 mls/hr [id number] IV 12/07/16 17:00 01/06/17 16:59 12/08/16 05:38 75 MLS/HR Potassium Chloride/Sodium Chloride 1,000 ml @ 200 mls/hr Q5H ONCE IV 12/08/16 10:00 12/08/16 14:59 12/08/16 10:23 200 MLS/HR Vital Signs: Date Time Temp Pulse Resp B/P (MAP) Pulse Ox O2 Delivery O2 Flow Rate FiO2 12/08/16 10:54 36.6 68 25 97/78 (84) 92 Room Air 12/08/16 08:43 90 15 115/63 (80) 92 Room Air 12/08/16 08:05 92 Room Air 12/08/16 07:01 36.8 55 21 136/55 (82) 93 Room Air 12/08/16 06:01 56 21 114/48 (70) 90 12/08/16 05:01 43 20 111/50 (70) 97 12/08/16 04:01 95 Nasal Cannula 2.0 12/08/16 04:01 36.7 50 21 99/48 (65) 95 12/08/16 03:01 60 21 107/59 (75) 96 12/08/16 02:01 65 21 112/56 (74) 97 12/08/16 01:01 67 23 109/53 (71) 97 12/08/16 00:24 95 Nasal Cannula 2.0 12/08/16 00:01 68 23 109/54 (72) 96 Room Air 12/07/16 23:01 66 22 89/52 (64) 97 Room Air 12/07/16 22:01 70 22 115/47 (69) 98 Room Air 12/07/16 21:01 74 21 107/51 (69) 98 Room Air 12/07/16 20:11 95 Nasal Cannula 3.0 12/07/16 20:01 36.6 70 28 119/79 (92) 98 Nasal Cannula 3.0 12/07/16 19:01 62 23 88/59 (69) 99 Nasal Cannula 3.0 12/07/16 18:25 92 12/07/16 18:00 36.6 74 20 116/53 (74) 95 Nasal Cannula 3.0 12/07/16 15:00 36.6 79 20 138/64 (88) 94 Nasal Cannula 2.0 12/07/16 15:00 Nasal Cannula 2.0 12/07/16 14:51 36.9 134/82 (101) 95 12/07/16 14:50 82 19 97 12/07/16 14:50 82 19 94 12/07/16 14:46 122/68 (84) 95 12/07/16 14:45 36.6 69 19 94 12/07/16 14:45 80 19 92 12/07/16 14:41 147/75 (107) 12/07/16 14:40 86 19 95 12/07/16 14:40 36.7 85 19 94 12/07/16 14:36 130/84 (94) 12/07/16 14:35 89 18 95 12/07/16 14:35 36.4 81 18 94 12/07/16 14:31 36.6 135/76 (96) 12/07/16 14:30 81 16 94 12/07/16 14:30 85 16 12/07/16 14:25 36.6 83 24 83 12/07/16 14:25 76 24 12/07/16 14:23 133/70 (89) Laboratory Results: Last 24 Hours Test 12/07/16 15:28 12/07/16 15:51 12/08/16 05:47 White Blood Count 15.63 K/uL 11.46 K/uL Red Blood Count 3.19 M/uL 3.07 M/uL Hemoglobin 9.9 g/dL 9.1 g/dL Hematocrit 28.9 % 27.6 % Mean Corpuscular Volume 90.6 fL 89.9 fL Mean Corpuscular Hemoglobin 31.0 pg 29.6 pg Mean Corpuscular Hemoglobin Concent 34.3 g/dl 33.0 g/dl Platelet Count 204 K/uL 192 K/uL Mean Platelet Volume 9.9 fL 9.9 fL Neutrophils (%) (Auto) 82.9 % 72.5 % Lymphocytes (%) (Auto) 9.4 % 10.6 % Monocytes (%) (Auto) 6.7 % 15.4 % Eosinophils (%) (Auto) 0.3 % 1.0 % Basophils (%) (Auto) 0.2 % 0.2 % Neutrophils # (Auto) 12.96 K/uL 8.31 K/uL Lymphocytes # (Auto) 1.47 K/uL 1.22 K/uL Monocytes # (Auto) 1.05 K/uL 1.77 K/uL Eosinophils # (Auto) 0.04 K/uL 0.11 K/uL Basophils # (Auto) 0.03 K/uL 0.02 K/uL RDW Standard Deviation 53.3 fL 54.3 fL RDW Coefficient of Variation 16.3 % 16.7 % Immature Granulocyte % (Auto) 0.5 % 0.3 % Immature Granulocyte # (Auto) 0.08 K/uL 0.03 K/uL Polychromasia 1+ Echinocytes 1+ Absolute Reticulocyte Count 0.09 10^6/uL Percent Reticulocyte Count 2.8 % Sodium Level 139 mmol/L 140 mmol/L Potassium Level 3.6 mmol/L 3.5 mmol/L Chloride Level 107 mmol/L 111 mmol/L Carbon Dioxide Level 18 mmol/L 18 mmol/L Anion Gap 14.0 mmol/L 11.0 mmol/L Blood Urea Nitrogen 56 mg/dl 60 mg/dl Creatinine 5.00 mg/dl 5.50 mg/dl Est Creatinine Clear Calc Drug Dose 9.6 ml/min 8.7 ml/min Estimated GFR () 11.4 10.2 Estimated GFR (Non- 9.8 8.8 BUN/Creatinine Ratio 11.3 10.9 Random Glucose 149 mg/dl 104 mg/dl Lactic Acid Level 2.0 mmol/L Calcium Level 7.5 mg/dl 7.5 mg/dl Phosphorus Level 4.4 mg/dl 4.4 mg/dl Magnesium Level 2.0 mg/dl 1.9 mg/dl Total Bilirubin 12.1 mg/dl 4.5 mg/dl Aspartate Amino Transf (AST/SGOT) 333 U/L 182 U/L Alanine Aminotransferase (ALT/SGPT) 383 U/L 270 U/L Alkaline Phosphatase 369 U/L 295 U/L Lactate Dehydrogenase 791 U/L Total Creatine Kinase 661 U/L Creatine Kinase MB 5.7 ng/ml Creatine Kinase MB Ratio 0.9 Troponin I 0.061 ng/ml Total Protein 5.8 gm/dl 5.1 gm/dl Albumin 2.5 gm/dl 2.1 gm/dl Globulin 3.3 gm/dl Albumin/Globulin Ratio 0.7 Procalcitonin 8.64 ng/ml Bedside Glucose 175 mg/dl Prothrombin Time 11.7 SECONDS Prothromb Time International Ratio 1.1 Activated Partial Thromboplast Time 32.0 SECONDS Partial Thromboplastin Ratio 1.2 Direct Bilirubin 3.4 mg/dl Lipase 5945 U/L
--- NOTE | 2016-12-08 13:31 | Nephrology Consultation ---
Nephrology Consultation Date of Consultation: Dec 08, 2016. Attending Physician: Dr Loco Requesting Physician: Dr Loco Reason for Consultation: acute renal failure History of Present Illness 86 year old male who lives and ambulates independently and w/ suspected dementia admitted on 12/07 for management of acute obstructive jaundice, acute renal failure, acute anemia w/ coagulopathy after his son brought him to ER to evaluate easy bruising and new jaundice. Other PMH includes paroxysmal atrial fibrillation on coumadin, remote stroke. remote tobacco abuse. On presentation , he had INR >8, creatinine 3.7, hgb 6.8, T bili 12 and abnormal LFTs, gross hematuria w/ 4+ bacteria and proteinuria. Also w/ WBC 12K on presentation w/ concern for sepsis. Fever and possible hematuria were reported by pt at admission. Yesterday he underwent ERCP with stenting and was noted to have a 25 mm mass in pancreatic head appearing grossly to invade portal vein and hepatic artery, biopsies pending. he has had 2 units pRBC and is getting NS w/ 20 mEq K/L at 200 ml hourly. His creatinine today is 5.5 w/ K 3.5 and bicarb 18 ; INR is 1.1. He is oliguric w/ 250 mL uop yesterday and 100 so far today. he remains on RA. His daughter Koki is at bedside and answers most questions; pt is very hard of hearing, has mild cognitive impairment per records. labs one month back most recently and over the past year show creatinine 0.8 at baseline and with no anemia. Of note he was also admitted her for a few days in 10/2016 for acute MS changes and dx'd w/ delirium, ? if there had been a seizure prior to being brought to hospital. noted in f/u PCP clinic 10/2016 to have word finding difficulty which was stable/chronic. per his daughter pt was out in his yard one week ago raking leaves. he is not an optimal historian but he and his daughter believe that he had been taking 2 advil in AM for a few days prior to admission (? for a few weeks) to manage headache. Uses advil intermittently but a bottle per daughter usually lasts him for months. 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 -TIA 2009 -admission [facility] for delirium 10/2016 -chronic word finding difficulty and per cardiology 03/2016 note and daughter in interview today suspected dementia -CAD s/p 2002 stent -HTN w/ sbp in 110-140s on outpt assessments past year -HL -reformed smoker w/ 30-50 pk yr hx quit 2002 -s/p rotator cuff repair Family History FH: cancer FH: heart disease Social History Smoking Status: Former Smoker Alcohol Use: occasionally Drug Use: none Marital Status: single Housing Status: lives alone Occupation Status: retired Allergies Coded Allergies: No Known Allergies (Unverified , 10/22/16) Medications Current Inpatient Medications Medications (Trade) Dose Ordered Sig/Thelma Route Start Time Stop Time Status Last Admin Dose Admin Metronidazole 500 mg/Prmx 100 ml @ 100 mls/hr Q8H IV 12/06/16 20:00 12/08/16 19:59 12/08/16 11:39 100 MLS/HR Pantoprazole Sodium 40 mg/ Syringe 10 ml @ 5 mls/min DAILY@1100 IV 12/07/16 11:00 01/06/17 10:59 12/08/16 10:16 5 MLS/MIN Metoprolol Tartrate (Lopressor Iv) 2.5 mg Q6 IV. 12/07/16 00:00 01/06/17 00:00 12/07/16 18:25 2.5 MG Ciprofloxacin/ Dextrose 400 mg/ Prmx 200 ml @ 100 mls/hr Q24H IV 12/07/16 22:00 12/15/16 23:59 12/07/16 22:19 100 MLS/HR Sodium Chloride 1,000 ml @ 75 mls/hr [id number] IV 12/07/16 17:00 01/06/17 16:59 12/08/16 05:38 75 MLS/HR Potassium Chloride/Sodium Chloride 1,000 ml @ 200 mls/hr Q5H ONCE IV 12/08/16 10:00 12/08/16 14:59 12/08/16 10:23 200 MLS/HR Home Meds and Scripts Medications Dose Route/Sig Max Daily Dose Days Date Category Vitamin A 8,000 Unit Tab 8,000 Units PO DAILY 7/10/17 Reported Jantoven (Warfarin Sodium) 1 Mg Tab 1 Mg PO DAILY 12/16/15 Reported Preservision Areds (Multiple Vitamins W/ Minerals) 1 Cap Cap 1 Cap PO QAM 08/10/14 Reported Aspirin Ec (Aspirin) 81 Mg Tab 81 Mg PO QAM 07/14/12 Reported Vitamin D 1000 Unit (Cholecalciferol) 1,000 Unit Cap 1,000 Inter.unit PO QAM 07/14/12 Reported Folvite (Folic Acid) 400 Mcg Tab 400 Mcg PO QAM 07/14/12 Reported Fish Oil ([place]-3 Fatty Acids) 1 Cap Cap 1 Capsule PO QAM 07/14/12 Reported Lipitor (Atorvastatin Calcium) 80 Mg Tab 40 Mg PO DAILY 07/14/12 Reported Citalopram Hydrobromide 20 Mg Tab 20 Mg PO QAM 07/14/12 Reported Lopressor (Metoprolol Tartrate) 25 Mg Tab 12.5 Mg PO QAM 07/14/12 Reported Review of Systems Constitutional: + weakness, + fatigue Eyes: No worsening of vision ENT: + hearing loss Respiratory: No shortness of breath Cardiac: No edema, No palpitations Abdomen: + jaundice, No pain Musculoskeletal: No joint pain, No muscle pain Male : + hematuria Neuro: + memory loss, + weakness, No numbness/tingling Psych: No depression symptoms, No anxiety Heme: + abnormal bleeding/bruising Endo: + fatigue Skin: + bleeding, + jaundice Physical Exam Date Time Temp Pulse Resp B/P (MAP) Pulse Ox O2 Delivery O2 Flow Rate FiO2 12/08/16 12:01 93 Room Air 12/08/16 10:54 36.6 68 25 97/78 (84) 92 Room Air 12/08/16 08:43 90 15 115/63 (80) 92 Room Air 12/08/16 08:05 92 Room Air 12/08/16 07:01 36.8 55 21 136/55 (82) 93 Room Air 12/08/16 06:01 56 21 114/48 (70) 90 12/08/16 05:01 43 20 111/50 (70) 97 12/08/16 04:01 95 Nasal Cannula 2.0 12/08/16 04:01 36.7 50 21 99/48 (65) 95 12/08/16 03:01 60 21 107/59 (75) 96 12/08/16 02:01 65 21 112/56 (74) 97 12/08/16 01:01 67 23 109/53 (71) 97 12/08/16 00:24 95 Nasal Cannula 2.0 12/08/16 00:01 68 23 109/54 (72) 96 Room Air 12/07/16 23:01 66 22 89/52 (64) 97 Room Air 12/07/16 22:01 70 22 115/47 (69) 98 Room Air 12/07/16 21:01 74 21 107/51 (69) 98 Room Air 12/07/16 20:11 95 Nasal Cannula 3.0 12/07/16 20:01 36.6 70 28 119/79 (92) 98 Nasal Cannula 3.0 12/07/16 19:01 62 23 88/59 (69) 99 Nasal Cannula 3.0 12/07/16 18:25 92 12/07/16 18:00 36.6 74 20 116/53 (74) 95 Nasal Cannula 3.0 12/07/16 15:00 36.6 79 20 138/64 (88) 94 Nasal Cannula 2.0 12/07/16 15:00 Nasal Cannula 2.0 12/07/16 14:51 36.9 134/82 (101) 95 12/07/16 14:50 82 19 97 12/07/16 14:50 82 19 94 12/07/16 14:46 122/68 (84) 95 12/07/16 14:45 36.6 69 19 94 12/07/16 14:45 80 19 92 12/07/16 14:41 147/75 (107) 12/07/16 14:40 86 19 95 12/07/16 14:40 36.7 85 19 94 12/07/16 14:36 130/84 (94) 12/07/16 14:35 89 18 95 12/07/16 14:35 36.4 81 18 94 12/07/16 14:31 36.6 135/76 (96) 12/07/16 14:30 81 16 94 12/07/16 14:30 85 16 12/07/16 14:25 36.6 83 24 83 12/07/16 14:25 76 24 12/07/16 14:23 133/70 (89) General Appearance: WD/WN, no apparent distress, + pertinent finding (on RA, very hard of hearing) Eyes: + pertinent finding (scleral icterus) ENT: + pertinent finding (hard of hearing) Neck: supple Respiratory/Chest: no respiratory distress, no accessory muscle use, + decreased breath sounds, + crackles (bibasilar) Cardiovascular: + systolic murmur, + irregularly irregular Abdomen: normal bowel sounds, non tender, soft, + pertinent finding (espinoza w/ brown urine) Extremities: + pedal edema (trace BL) Neurologic/Psych: alert, normal mood/affect, + pertinent finding (pleasant, some word finding trouble) Skin: + jaundice, + pertinent finding (diffuse bruises) Diagnostics Last 24 Hours Test 12/07/16 15:28 12/07/16 15:51 12/08/16 05:47 White Blood Count 15.63 K/uL 11.46 K/uL Red Blood Count 3.19 M/uL 3.07 M/uL Hemoglobin 9.9 g/dL 9.1 g/dL Hematocrit 28.9 % 27.6 % Mean Corpuscular Volume 90.6 fL 89.9 fL Mean Corpuscular Hemoglobin 31.0 pg 29.6 pg Mean Corpuscular Hemoglobin Concent 34.3 g/dl 33.0 g/dl Platelet Count 204 K/uL 192 K/uL Mean Platelet Volume 9.9 fL 9.9 fL Neutrophils (%) (Auto) 82.9 % 72.5 % Lymphocytes (%) (Auto) 9.4 % 10.6 % Monocytes (%) (Auto) 6.7 % 15.4 % Eosinophils (%) (Auto) 0.3 % 1.0 % Basophils (%) (Auto) 0.2 % 0.2 % Neutrophils # (Auto) 12.96 K/uL 8.31 K/uL Lymphocytes # (Auto) 1.47 K/uL 1.22 K/uL Monocytes # (Auto) 1.05 K/uL 1.77 K/uL Eosinophils # (Auto) 0.04 K/uL 0.11 K/uL Basophils # (Auto) 0.03 K/uL 0.02 K/uL RDW Standard Deviation 53.3 fL 54.3 fL RDW Coefficient of Variation 16.3 % 16.7 % Immature Granulocyte % (Auto) 0.5 % 0.3 % Immature Granulocyte # (Auto) 0.08 K/uL 0.03 K/uL Polychromasia 1+ Echinocytes 1+ Absolute Reticulocyte Count 0.09 10^6/uL Percent Reticulocyte Count 2.8 % Sodium Level 139 mmol/L 140 mmol/L Potassium Level 3.6 mmol/L 3.5 mmol/L Chloride Level 107 mmol/L 111 mmol/L Carbon Dioxide Level 18 mmol/L 18 mmol/L Anion Gap 14.0 mmol/L 11.0 mmol/L Blood Urea Nitrogen 56 mg/dl 60 mg/dl Creatinine 5.00 mg/dl 5.50 mg/dl Est Creatinine Clear Calc Drug Dose 9.6 ml/min 8.7 ml/min Estimated GFR () 11.4 10.2 Estimated GFR (Non- 9.8 8.8 BUN/Creatinine Ratio 11.3 10.9 Random Glucose 149 mg/dl 104 mg/dl Lactic Acid Level 2.0 mmol/L Calcium Level 7.5 mg/dl 7.5 mg/dl Phosphorus Level 4.4 mg/dl 4.4 mg/dl Magnesium Level 2.0 mg/dl 1.9 mg/dl Total Bilirubin 12.1 mg/dl 4.5 mg/dl Aspartate Amino Transf (AST/SGOT) 333 U/L 182 U/L Alanine Aminotransferase (ALT/SGPT) 383 U/L 270 U/L Alkaline Phosphatase 369 U/L 295 U/L Lactate Dehydrogenase 791 U/L Total Creatine Kinase 661 U/L Creatine Kinase MB 5.7 ng/ml Creatine Kinase MB Ratio 0.9 Troponin I 0.061 ng/ml Total Protein 5.8 gm/dl 5.1 gm/dl Albumin 2.5 gm/dl 2.1 gm/dl Globulin 3.3 gm/dl Albumin/Globulin Ratio 0.7 Procalcitonin 8.64 ng/ml Bedside Glucose 175 mg/dl Prothrombin Time 11.7 SECONDS Prothromb Time International Ratio 1.1 Activated Partial Thromboplast Time 32.0 SECONDS Partial Thromboplastin Ratio 1.2 Direct Bilirubin 3.4 mg/dl Lipase 5945 U/L Diagnostic Radiology: CT abd/pelvis non con >> asymmetric pancr head and elswhere atrohic w/ distended gall bladder w/ intrahepatic biliary ductal dilatation; no hydronephrosis; punctate R renal calculus, prostatomegaly w/ evidence of chronic bladder outlet obstruction ERCP > irregular narrowing of distal CBD highly suggestive of malignancy w/ stent placement CXR mild cardiomegaly and pulmonary vascular congestion w/o pulmonary edema Assessment & Plan 86 y/o M w/ a fib on coumadin and baseline creatinine 0.8, CAD, hx BL CEA, remote tobacco abuse, mild dementia presented w/ gross hematuria, bruising and jaundice on 12/06 and found to have pancreatic mass worrisome for pancreatic adenocarcinoma in the setting of INR > 8 and oliguric acute renal failure w/ presenting creatinine 3.7, up to 5.5 at time of nephro consult on 12/08. he has undergone ERCP w/ stenting and biopsy results are pending. Bilirubin and liver enzymes improving acute oliguric renal failure in setting of gross hematuria on outpt coumadin likely w/ recent nsaids and w/ obstructive jaundice from presumed pancreatic adenocarcinoma. -no acute indication for dialysis nor is it clear he will be a candidate; preliminary discussions about what dialysis is, how it affects quality of life were discussed w/ daughter; pt not able to/interested in participating much currently appearance of urine sediment and hx suspicious for ATN; he had some intermittent hypotension yesterday w/ some readings in 80-100s systolic -repeat UACM; will check rd urine sodium though may not necessarily be useful -he is getting 1 L NS w/ 20 mEq KCl at 200 mL hourly; would then move to NS at 75 mL hourly as tolerated -recheck CXR in am; sooner if acutely hypoxic -cont strict I/O -would not limit diet to renal diet just yet -on cipro/flagyl subacute anemia emerging over past month w/ INR > 8 on presentaiton -not an epo candidate; pRBC prn pancreatic head mass -bxs pending; prx not hopeful Appreciate consult; will follow with you; care coordinated w/ Dr. Loco
--- NOTE | 2016-12-08 14:52 | Progress Note ---
Internal Med Progress Note Date of Service: Dec 08, 2016. 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 ASSESSMENT & PLAN: This is 86yo man with a PMH of A Fib (on Coumadin), CAD and h/o prior CVA who presents with worsening bruising of extremities And Painless Jaundice Admitted with biliary obstruction and a pancreatic head mass. Painless Jaundice Secondary to biliary obstruction No h/o liver/GB pathology CT Abd with distended GB and intrahepatic biliary ductal dilatation Concern for ascending cholangitis with increased WCC Started on cipro, flagyl and will continue for now US Liver-No acute Cholecystitis has CBD and Intrahepatic duct dilatation Consulted GI, general surgery NPO, IVFs Started on AHA diet Incidental pancreatic head mass: Likely Pancreatic cancer -CT abd/pelvis with asymmetrically enlarged pancreatic head -MRI consistent with CBD dilation and Pancreatic Head mass -S/P ERCP -Duodenal Bulb mass-biopsied -remains stable SIRs with suspected GI source of infection: -Leukocytosis of 18, hypotensive to 84/63, tachycardic 110s-120s, Lactic acid of 2.9 -Started on antibiotics with Cipro and Flagyl -BP responded to IVFs and is now in normal range [place]: -Cr of 3.7 from a baseline ~1 -Likely secondary to Intravascular Fluid depletion -Initiated IVFs -Avoid nephrotoxic agents,used NSAIDs before admission -Renal function is worse -started on Increased IVF -Nephrology consulted Palpable abd bruit: -Palpated on exam -However, was not appreciated on Ct abd/pelvis -Denies any CP, abd pain CAD: Atrial Fibrillation (on Coumadin): -Rate controlled with Metoprolol -Cardiology consulted for Pre-op clearance as requested by GI for ERCP -INR supratherapeutic at 8 -Received Vitamin K in ER -Coumadin held -Monitor INR -trending down -Appreciate Cardiology input Dementia No acute Delirium HLD: -Statin held while NPO and due to increased LFTs -Plan to reinitiate Hx of Prior CVA: -S/p carotid endarterectomy -ASA, Statin held -Plan to reinitiate Depression: - Celexa held DVT Ppx: SCDs Code status: FULL PCP: Dawson Dispo: SW consulted to help with discharge placement Discussed with the Daughter in detailed Probable Pancreatic cancer and prognosis is guarded Has INDIA-expected to improve Vital Signs: Date Time Temp Pulse Resp B/P (MAP) Pulse Ox O2 Delivery O2 Flow Rate FiO2 12/08/16 12:39 62 142/81 12/08/16 12:34 36.6 79 22 94 12/08/16 12:15 79 22 142/81 (101) 94 Room Air 12/08/16 12:01 93 Room Air 12/08/16 10:54 36.6 68 25 97/78 (84) 92 Room Air 12/08/16 08:43 90 15 115/63 (80) 92 Room Air 12/08/16 08:05 92 Room Air 12/08/16 07:01 36.8 55 21 136/55 (82) 93 Room Air 12/08/16 06:01 56 21 114/48 (70) 90 12/08/16 05:01 43 20 111/50 (70) 97 12/08/16 04:01 95 Nasal Cannula 2.0 12/08/16 04:01 36.7 50 21 99/48 (65) 95 12/08/16 03:01 60 21 107/59 (75) 96 12/08/16 02:01 65 21 112/56 (74) 97 12/08/16 01:01 67 23 109/53 (71) 97 12/08/16 00:24 95 Nasal Cannula 2.0 12/08/16 00:01 68 23 109/54 (72) 96 Room Air 12/07/16 23:01 66 22 89/52 (64) 97 Room Air 12/07/16 22:01 70 22 115/47 (69) 98 Room Air 12/07/16 21:01 74 21 107/51 (69) 98 Room Air 12/07/16 20:11 95 Nasal Cannula 3.0 12/07/16 20:01 36.6 70 28 119/79 (92) 98 Nasal Cannula 3.0 12/07/16 19:01 62 23 88/59 (69) 99 Nasal Cannula 3.0 12/07/16 18:25 92 12/07/16 18:00 36.6 74 20 116/53 (74) 95 Nasal Cannula 3.0 12/07/16 15:00 36.6 79 20 138/64 (88) 94 Nasal Cannula 2.0 12/07/16 15:00 Nasal Cannula 2.0 12/07/16 14:51 36.9 134/82 (101) 95 12/07/16 14:50 82 19 97 12/07/16 14:50 82 19 94 12/07/16 14:46 122/68 (84) 95 12/07/16 14:45 36.6 69 19 94 12/07/16 14:45 80 19 92 Lab Results: Results Past 24 Hours Test 12/07/16 15:28 12/07/16 15:51 12/08/16 05:47 Range/Units White Blood Count 15.63 11.46 4.8-10.8 K/uL Red Blood Count 3.19 3.07 4.7-6.1 M/uL Hemoglobin 9.9 9.1 14.0-18.0 g/dL Hematocrit 28.9 27.6 42-52 % Mean Corpuscular Volume 90.6 89.9 80-100 fL Mean Corpuscular Hemoglobin 31.0 29.6 25-34 pg Mean Corpuscular Hemoglobin Concent 34.3 33.0 32-36 g/dl Platelet Count 204 192 130-400 K/uL Mean Platelet Volume 9.9 9.9 7.4-10.4 fL Neutrophils (%) (Auto) 82.9 72.5 % Lymphocytes (%) (Auto) 9.4 10.6 % Monocytes (%) (Auto) 6.7 15.4 % Eosinophils (%) (Auto) 0.3 1.0 % Basophils (%) (Auto) 0.2 0.2 % Neutrophils # (Auto) 12.96 8.31 1.4-6.5 K/uL Lymphocytes # (Auto) 1.47 1.22 1.2-3.4 K/uL Monocytes # (Auto) 1.05 1.77 0.11-0.59 K/uL Eosinophils # (Auto) 0.04 0.11 0-0.5 K/uL Basophils # (Auto) 0.03 0.02 0-0.2 K/uL RDW Standard Deviation 53.3 54.3 36.4-46.3 fL RDW Coefficient of Variation 16.3 16.7 11.5-14.5 % Immature Granulocyte % (Auto) 0.5 0.3 % Immature Granulocyte # (Auto) 0.08 0.03 0.00-0.02 K/uL Polychromasia 1+ Echinocytes 1+ Absolute Reticulocyte Count 0.09 0.02-0.10 10^6/uL Percent Reticulocyte Count 2.8 0.5-2.0 % Sodium Level 139 140 136-145 mmol/L Potassium Level 3.6 3.5 3.5-5.1 mmol/L Chloride Level 107 111 98-107 mmol/L Carbon Dioxide Level 18 18 21-32 mmol/L Anion Gap 14.0 11.0 3-11 mmol/L Blood Urea Nitrogen 56 60 7-18 mg/dl Creatinine 5.00 5.50 0.60-1.40 mg/dl Est Creatinine Clear Calc Drug Dose 9.6 8.7 ml/min Estimated GFR () 11.4 10.2 Estimated GFR (Non- 9.8 8.8 BUN/Creatinine Ratio 11.3 10.9 10-20 Random Glucose 149 104 70-99 mg/dl Lactic Acid Level 2.0 0.4-2.0 mmol/L Calcium Level 7.5 7.5 8.5-10.1 mg/dl Phosphorus Level 4.4 4.4 2.5-4.9 mg/dl Magnesium Level 2.0 1.9 1.8-2.4 mg/dl Total Bilirubin 12.1 4.5 0.2-1 mg/dl Aspartate Amino Transf (AST/SGOT) 333 182 15-37 U/L Alanine Aminotransferase (ALT/SGPT) 383 270 12-78 U/L Alkaline Phosphatase 369 295 45-117 U/L Lactate Dehydrogenase 791 87-241 U/L Total Creatine Kinase 661 39-308 U/L Creatine Kinase MB 5.7 0.5-3.6 ng/ml Creatine Kinase MB Ratio 0.9 0-3.0 Troponin I 0.061 0-0.045 ng/ml Total Protein 5.8 5.1 6.4-8.2 gm/dl Albumin 2.5 2.1 3.4-5.0 gm/dl Globulin 3.3 2.5-4.0 gm/dl Albumin/Globulin Ratio 0.7 0.9-2 Procalcitonin 8.64 0-0.5 ng/ml Bedside Glucose 175 70-99 mg/dl Prothrombin Time 11.7 9.0-12.0 SECONDS Prothromb Time International Ratio 1.1 0.9-1.1 Activated Partial Thromboplast Time 32.0 21.0-31.0 SECONDS Partial Thromboplastin Ratio 1.2 Direct Bilirubin 3.4 0-0.2 mg/dl Lipase 5945 73-393 U/L
--- NOTE | 2016-12-08 15:53 | Progress Note ---
Progress Note Date of Service Dec 08, 2016. Progress Note No abdominal pain, tolerating PO. Labs reviewed - lipase increased, but transaminases, bili and alk phos improved. A/P: Prob Panc ca with Bili obstruction s/p EUS/ERCP with bx of panc mass and CBD stent - No further recs - cont current management. Lipase elevated, but no clin evidence of pancreatitis -- no need to follow.
[2016-12-08 16:35] LABS: BUN/CREATININE RATIO 10.9 (10-20); CALCIUM 7.4 mg/dl (8.5-10.1); CREATININE 5.9 mg/dl (0.60-1.40); MAGNESIUM 1.8 mg/dl (1.8-2.4); POTASSIUM 3.7 mmol/L (3.5-5.1)
[2016-12-08] MEDS: METOPROLOL SUCC 25MG EXT REL TAB PO SCH (17:37)
[2016-12-08] MEDS ORDERED: NURSING VERBAL MED ORDER ONE (18:15)
[2016-12-08] MEDS: CIPROFLOXACIN 400MG / D5W IV SCH (22:22)
[2016-12-09] MEDS: SODIUM CHLORIDE 0.9% 1000ML 1,000 ML IV SCH ×4 (03:07→22:33)
[2016-12-09 03:10] VITALS: BP 108/69; PULSE 63; TEMP 36.8; O2SAT 91
[2016-12-09 06:06] LABS: BASO % 0.2 %; BASO ABS # 0.03 K/uL (0-0.2); COMPLETE YES; EOS % 1.6 %; HEMATOCRIT 27.5 % (42-52); IG% 0.7 %; LYMPH ABS # 1.57 K/uL (1.2-3.4); MEAN CELL VOLUME 90.8 fL (80-100); MEAN CORPUSCULAR HGB CONC 33.1 g/dl (32-36); MEAN PLATELET VOLUME 9.8 fL (7.4-10.4); MONO % 14.5 %; PLATELET COUNT 211 K/uL (130-400); RED BLOOD COUNT 3.03 M/uL (4.7-6.1)
[2016-12-09 06:18] LABS: INR 1.2 (0.9-1.1); PARTIAL THROMBOPLASTIN RATIO 1.3; PROTHROMBIN TIME (PATIENT) 12.6 SECONDS (9.0-12.0)
[2016-12-09 06:57] LABS: BUN/CREATININE RATIO 11.2 (10-20); CALCIUM 7.4 mg/dl (8.5-10.1); CREATININE 6.1 mg/dl (0.60-1.40); MAGNESIUM 1.9 mg/dl (1.8-2.4); POTASSIUM 3.6 mmol/L (3.5-5.1)
[2016-12-09 07:34] VITALS: BP 119/74; PULSE 67; TEMP 37.1; O2SAT 90
[2016-12-09] MEDS: PANTOprazole SOD 40 MG TAB PO SCH (08:05)
[2016-12-09] MEDS: METOPROLOL SUCC 25MG EXT REL TAB PO SCH ×2 (08:05→19:33)
--- NOTE | 2016-12-09 10:28 | Surgery Progress Note ---
Surgery Progress Note Date of Service Dec 09, 2016. Subjective Patient examined at bedside this morning. Afebrile, vitals stable overnight on room air, no acute events. Feels well this morning. Denies pain. Tolerating diet without N/V. Having BMs. LFTs, bili and lipase continue to trend down. Objective Vital Signs: Date Time Temp Pulse Resp B/P (MAP) Pulse Ox O2 Delivery O2 Flow Rate FiO2 12/09/16 08:00 Room Air 12/09/16 07:34 37.1 67 17 119/74 (89) 90 Room Air 12/09/16 04:00 Room Air 12/09/16 03:10 36.8 63 16 108/69 (82) 91 Room Air 12/09/16 00:00 Room Air 12/08/16 23:11 37.3 73 16 112/64 (80) 93 Room Air 12/08/16 20:00 Room Air 12/08/16 18:38 36.7 72 19 122/69 (86) 93 Room Air 12/08/16 18:00 37.0 56 18 132/64 (86) 91 Room Air 12/08/16 16:00 Room Air 12/08/16 15:06 36.4 66 19 119/59 (79) 90 Room Air 12/08/16 12:39 62 142/81 12/08/16 12:34 36.6 79 22 94 12/08/16 12:15 79 22 142/81 (101) 94 Room Air 12/08/16 12:01 93 Room Air 12/08/16 10:54 36.6 68 25 97/78 (84) 92 Room Air General Appearance: WD/WN, no apparent distress Head: normocephalic Neck: supple Respiratory/Chest: chest non-tender Cardiovascular: regular rate, rhythm Abdomen: normal bowel sounds, non tender, non distended, soft (no rebound / guarding) Laboratory Results: Results Past 24 Hours Test 12/08/16 15:20 12/09/16 05:09 Range/Units Sodium Level 139 140 136-145 mmol/L Potassium Level 3.7 3.6 3.5-5.1 mmol/L Chloride Level 110 114 98-107 mmol/L Carbon Dioxide Level 18 15 21-32 mmol/L Anion Gap 11.0 11.0 3-11 mmol/L Blood Urea Nitrogen 65 69 7-18 mg/dl Creatinine 5.90 6.10 0.60-1.40 mg/dl Est Creatinine Clear Calc Drug Dose 8.1 7.8 ml/min Estimated GFR () 9.3 9.0 Estimated GFR (Non- 8.0 7.7 BUN/Creatinine Ratio 10.9 11.2 10-20 Random Glucose 167 118 70-99 mg/dl Calcium Level 7.4 7.4 8.5-10.1 mg/dl Magnesium Level 1.8 1.9 1.8-2.4 mg/dl White Blood Count 12.10 4.8-10.8 K/uL Red Blood Count 3.03 4.7-6.1 M/uL Hemoglobin 9.1 14.0-18.0 g/dL Hematocrit 27.5 42-52 % Mean Corpuscular Volume 90.8 80-100 fL Mean Corpuscular Hemoglobin 30.0 25-34 pg Mean Corpuscular Hemoglobin Concent 33.1 32-36 g/dl Platelet Count 211 130-400 K/uL Mean Platelet Volume 9.8 7.4-10.4 fL Neutrophils (%) (Auto) 70.0 % Lymphocytes (%) (Auto) 13.0 % Monocytes (%) (Auto) 14.5 % Eosinophils (%) (Auto) 1.6 % Basophils (%) (Auto) 0.2 % Neutrophils # (Auto) 8.48 1.4-6.5 K/uL Lymphocytes # (Auto) 1.57 1.2-3.4 K/uL Monocytes # (Auto) 1.75 0.11-0.59 K/uL Eosinophils # (Auto) 0.19 0-0.5 K/uL Basophils # (Auto) 0.03 0-0.2 K/uL RDW Standard Deviation 54.8 36.4-46.3 fL RDW Coefficient of Variation 16.9 11.5-14.5 % Immature Granulocyte % (Auto) 0.7 % Immature Granulocyte # (Auto) 0.08 0.00-0.02 K/uL Prothrombin Time 12.6 9.0-12.0 SECONDS Prothromb Time International Ratio 1.2 0.9-1.1 Activated Partial Thromboplast Time 33.6 21.0-31.0 SECONDS Partial Thromboplastin Ratio 1.3 Phosphorus Level 4.0 2.5-4.9 mg/dl Total Bilirubin 3.4 0.2-1 mg/dl Direct Bilirubin 2.4 0-0.2 mg/dl Aspartate Amino Transf (AST/SGOT) 93 15-37 U/L Alanine Aminotransferase (ALT/SGPT) 196 12-78 U/L Alkaline Phosphatase 248 45-117 U/L Total Protein 5.2 6.4-8.2 gm/dl Albumin 2.1 3.4-5.0 gm/dl Lipase 3165 73-393 U/L Assessment & Plan Bryn Oliver is an 86 year old man with a 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 An EUS with covered stent placement was completed 12/07, with a subsequent decrease in Tbili, LFTs and lipase. Patient appears well, denies pain, tolerating regular diet. -No acute surgical intervention indicated at this time, biliary system is now decompressed -Would need contrast enhanced CT imaging to determine resectability, but patient and his daughter do not seem interested in surgery -Diet as tolerated -Await biopsy results -Rest of care per primary team -Will continue to follow Patti Major MD 12/09/16
[2016-12-09 11:41] VITALS: BP 126/64; PULSE 66; TEMP 36.8; O2SAT 93
--- NOTE | 2016-12-09 15:14 | Progress Note ---
Internal Med Progress Note Date of Service: Dec 09, 2016. 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 ASSESSMENT & PLAN: This is 86yo man with a PMH of A Fib (on Coumadin), CAD and h/o prior CVA who presents with worsening bruising of extremities And Painless Jaundice Admitted with biliary obstruction and a pancreatic head mass. Painless Jaundice Secondary to biliary obstruction No h/o liver/GB pathology CT Abd with distended GB and intrahepatic biliary ductal dilatation Concern for ascending cholangitis with increased WCC Started on Cipro, Flagyl>Flagyl discontinued and now on Cipro. US Liver-No acute Cholecystitis has CBD and Intrahepatic duct dilatation Consulted GI, general surgery Started on AHA diet and tolerating the diet Incidental pancreatic head mass: Likely Pancreatic cancer -CT abd/pelvis with asymmetrically enlarged pancreatic head -MRI consistent with CBD dilation and Pancreatic Head mass -S/P ERCP -Duodenal Bulb mass-and Pancreatic head mass-biopsied -remains stable -Results not back yet SIRs with suspected GI source of infection: -Leukocytosis of 18, hypotensive to 84/63, tachycardic 110s-120s, Lactic acid of 2.9 -Started on antibiotics with Cipro and Flagyl -BP responded to IVFs and is now in normal range [place]: -Cr of 3.7 from a baseline ~1 -Likely secondary to Intravascular Fluid depletion -Initiated IVFs -Avoid nephrotoxic agents,used NSAIDs before admission -Renal function is worse -started on Increased IVF -Nephrology consulted -Kidney function is worse but urine is clearer Palpable abd bruit: -Palpated on exam -However, was not appreciated on Ct abd/pelvis -Denies any CP, abd pain CAD: Atrial Fibrillation (on Coumadin): -Rate controlled with Metoprolol -Cardiology consulted for Pre-op clearance as requested by GI for ERCP -INR supratherapeutic at 8 -Received Vitamin K in ER -Coumadin held and restarted on 12/09/16 -Monitor INR -trending down -Appreciate Cardiology input Dementia No acute Delirium HLD: -Statin held while NPO and due to increased LFTs -Plan to reinitiate Hx of Prior CVA: -S/p carotid endarterectomy -ASA, Statin held -Plan to reinitiate Depression: - Celexa held DVT Ppx: SCDs Coumadin restarted Has High risk of Clot formation Code status: FULL PCP: Dawson Dispo: SW consulted to help with discharge placement Discussed with the Daughter in detailed Probable Pancreatic cancer and prognosis is guarded Has [place]IA-expected to improve Discussed with the family members Vital Signs: Date Time Temp Pulse Resp B/P (MAP) Pulse Ox O2 Delivery O2 Flow Rate FiO2 12/09/16 12:00 Room Air 12/09/16 11:41 36.8 66 18 126/64 (84) 93 Room Air 12/09/16 08:00 Room Air 12/09/16 07:34 37.1 67 17 119/74 (89) 90 Room Air 12/09/16 04:00 Room Air 12/09/16 03:10 36.8 63 16 108/69 (82) 91 Room Air 12/09/16 00:00 Room Air 12/08/16 23:11 37.3 73 16 112/64 (80) 93 Room Air 12/08/16 20:00 Room Air 12/08/16 18:38 36.7 72 19 122/69 (86) 93 Room Air 12/08/16 18:00 37.0 56 18 132/64 (86) 91 Room Air 12/08/16 16:00 Room Air 12/08/16 15:06 36.4 66 19 119/59 (79) 90 Room Air Lab Results: Results Past 24 Hours Test 12/08/16 15:20 12/09/16 05:09 Range/Units Sodium Level 139 140 136-145 mmol/L Potassium Level 3.7 3.6 3.5-5.1 mmol/L Chloride Level 110 114 98-107 mmol/L Carbon Dioxide Level 18 15 21-32 mmol/L Anion Gap 11.0 11.0 3-11 mmol/L Blood Urea Nitrogen 65 69 7-18 mg/dl Creatinine 5.90 6.10 0.60-1.40 mg/dl Est Creatinine Clear Calc Drug Dose 8.1 7.8 ml/min Estimated GFR () 9.3 9.0 Estimated GFR (Non- 8.0 7.7 BUN/Creatinine Ratio 10.9 11.2 10-20 Random Glucose 167 118 70-99 mg/dl Calcium Level 7.4 7.4 8.5-10.1 mg/dl Magnesium Level 1.8 1.9 1.8-2.4 mg/dl White Blood Count 12.10 4.8-10.8 K/uL Red Blood Count 3.03 4.7-6.1 M/uL Hemoglobin 9.1 14.0-18.0 g/dL Hematocrit 27.5 42-52 % Mean Corpuscular Volume 90.8 80-100 fL Mean Corpuscular Hemoglobin 30.0 25-34 pg Mean Corpuscular Hemoglobin Concent 33.1 32-36 g/dl Platelet Count 211 130-400 K/uL Mean Platelet Volume 9.8 7.4-10.4 fL Neutrophils (%) (Auto) 70.0 % Lymphocytes (%) (Auto) 13.0 % Monocytes (%) (Auto) 14.5 % Eosinophils (%) (Auto) 1.6 % Basophils (%) (Auto) 0.2 % Neutrophils # (Auto) 8.48 1.4-6.5 K/uL Lymphocytes # (Auto) 1.57 1.2-3.4 K/uL Monocytes # (Auto) 1.75 0.11-0.59 K/uL Eosinophils # (Auto) 0.19 0-0.5 K/uL Basophils # (Auto) 0.03 0-0.2 K/uL RDW Standard Deviation 54.8 36.4-46.3 fL RDW Coefficient of Variation 16.9 11.5-14.5 % Immature Granulocyte % (Auto) 0.7 % Immature Granulocyte # (Auto) 0.08 0.00-0.02 K/uL Prothrombin Time 12.6 9.0-12.0 SECONDS Prothromb Time International Ratio 1.2 0.9-1.1 Activated Partial Thromboplast Time 33.6 21.0-31.0 SECONDS Partial Thromboplastin Ratio 1.3 Phosphorus Level 4.0 2.5-4.9 mg/dl Total Bilirubin 3.4 0.2-1 mg/dl Direct Bilirubin 2.4 0-0.2 mg/dl Aspartate Amino Transf (AST/SGOT) 93 15-37 U/L Alanine Aminotransferase (ALT/SGPT) 196 12-78 U/L Alkaline Phosphatase 248 45-117 U/L Total Protein 5.2 6.4-8.2 gm/dl Albumin 2.1 3.4-5.0 gm/dl Lipase 3165 73-393 U/L
[2016-12-09 15:45] VITALS: BP 107/62; PULSE 68; TEMP 36.9; O2SAT 95
[2016-12-09 18:45] VITALS: BP 141/57; PULSE 74; TEMP 36.8; O2SAT 95
[2016-12-09] MEDS: WARFARIN SOD 1 MG TAB PO SCH (19:32)
[2016-12-09] MEDS: CIPROFLOXACIN 400MG / D5W IV SCH (21:44)
[2016-12-09 23:00] VITALS: BP 130/66; PULSE 65; TEMP 36.8; O2SAT 92
[2016-12-10] VITALS (8 sets, daily range): BP systolic 108–148; BP diastolic 62–78; PULSE 50–83; TEMP 36.4–37.7; O2SAT 91–95
[2016-12-10 06:15] LABS: BASO % 0.2 %; BASO ABS # 0.03 K/uL (0-0.2); COMPLETE YES; EOS % 3.4 %; HEMATOCRIT 28.6 % (42-52); IG% 1.1 %; LYMPH % 11.7 %; LYMPH ABS # 1.55 K/uL (1.2-3.4); MEAN CORPUSCULAR HEMOGLOBIN 30.2 pg (25-34); MEAN CORPUSCULAR HGB CONC 32.9 g/dl (32-36); MEAN PLATELET VOLUME 9.4 fL (7.4-10.4); MONO % 14.2 %; NEUT % 69.4 %; PLATELET COUNT 227 K/uL (130-400); RED BLOOD COUNT 3.11 M/uL (4.7-6.1)
[2016-12-10 06:26] LABS: INR 1.3 (0.9-1.1); PARTIAL THROMBOPLASTIN RATIO 1.3; PROTHROMBIN TIME (PATIENT) 13.8 SECONDS (9.0-12.0)
[2016-12-10 07:05] LABS: BUN/CREATININE RATIO 11.7 (10-20); CALCIUM 7.1 mg/dl (8.5-10.1); MAGNESIUM 1.8 mg/dl (1.8-2.4); PHOSPHORUS 4.6 mg/dl (2.5-4.9); POTASSIUM 3.8 mmol/L (3.5-5.1)
[2016-12-10 07:06] LABS: CREATININE 6.3 mg/dl (0.60-1.40)
--- NOTE | 2016-12-10 07:39 | Anesthesiology Progress Note ---
Anesthesia Post Op Note Date & Time Dec 10, 2016 at 07:38 Vital Signs Pain Intensity: 0.0 Vital Signs Past 12 Hours Date Time Temp Pulse Resp B/P (MAP) Pulse Ox O2 Delivery O2 Flow Rate FiO2 12/10/16 04:01 36.9 67 19 122/64 (83) 94 Room Air 12/10/16 04:00 Room Air 12/09/16 23:59 Room Air 12/09/16 23:00 36.8 65 22 130/66 (87) 92 Room Air 12/09/16 20:00 Room Air Notes Mental Status: alert / awake / arousable, participated in evaluation Pt Amnestic to Procedure: Yes Nausea / Vomiting: adequately controlled Pain: adequately controlled Airway Patency, RR, SpO2: stable & adequate BP & HR: stable & adequate Hydration State: stable & adequate Anesthetic Complications: no major complications apparent
[2016-12-10] MEDS: PANTOprazole SOD 40 MG TAB PO SCH (08:15)
[2016-12-10] MEDS: SODIUM CHLORIDE 0.9% 1000ML 1,000 ML IV SCH ×3 (08:15→20:23)
[2016-12-10] MEDS: CITALOPRAM 20 MG TAB PO SCH (08:16)
[2016-12-10] MEDS: CEROVITE ADV FORMULA TAB PO SCH (08:16)
[2016-12-10] MEDS: METOPROLOL SUCC 25MG EXT REL TAB PO SCH ×2 (08:16→20:23)
[2016-12-10] MEDS: CHOLECALCIFEROL 1000 INTER.UNIT TAB PO SCH (08:17)
[2016-12-10] MEDS: FoLIC ACID TAB 400 MCG TAB PO SCH (08:17)
[2016-12-10] MEDS ORDERED: NON-FORMULARY MEDICATION (Vitamin A 8,000 UNITS) PO SCH (09:00)
--- NOTE | 2016-12-10 16:32 | Progress Note ---
Internal Med Progress Note Date of Service: Dec 10, 2016. 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 ASSESSMENT & PLAN: This is 86yo man with a PMH of A Fib (on Coumadin), CAD and h/o prior CVA who presents with worsening bruising of extremities And Painless Jaundice Admitted with biliary obstruction and a pancreatic head mass. Painless Jaundice Secondary to biliary obstruction No h/o liver/GB pathology CT Abd with distended GB and intrahepatic biliary ductal dilatation Concern for ascending cholangitis with increased WCC Started on Cipro, Flagyl>Flagyl discontinued and now on Cipro. US Liver-No acute Cholecystitis has CBD and Intrahepatic duct dilatation Consulted GI, general surgery Started on AHA diet and tolerating the diet Tolerating diet without any symptoms Adenocarcinoma of the Pancreas -CT abd/pelvis with asymmetrically enlarged pancreatic head -MRI consistent with CBD dilation and Pancreatic Head mass -S/P ERCP -Duodenal Bulb mass-and Pancreatic head mass-biopsied -Clinically no symptoms Will discuss with the Daughter and others involved Poor prognosis SIRs with suspected GI source of infection: -Leukocytosis of 18, hypotensive to 84/63, tachycardic 110s-120s, Lactic acid of 2.9 -Started on antibiotics with Cipro and Flagyl -BP responded to IVFs and is now in normal range -will discontinue antibiotic [place]: -Cr of 3.7 from a baseline ~1 -Likely secondary to Intravascular Fluid depletion -Initiated IVFs -Avoid nephrotoxic agents,used NSAIDs before admission -Renal function is worse -started on Increased IVF -Nephrology consulted -Kidney function is worse again Palpable abd bruit: -Palpated on exam -However, was not appreciated on Ct abd/pelvis -Denies any CP, abd pain CAD: Atrial Fibrillation (on Coumadin): -Rate controlled with Metoprolol -Cardiology consulted for Pre-op clearance as requested by GI for ERCP -INR supratherapeutic at 8 -Received Vitamin K in ER -Coumadin held and restarted on 12/09/16 -Monitor INR -trending down -Appreciate Cardiology input Dementia No acute Delirium HLD: -Statin held while NPO and due to increased LFTs -Plan to reinitiate Hx of Prior CVA: -S/p carotid endarterectomy -ASA, Statin held -Plan to reinitiate Depression: - Celexa held DVT Ppx: SCDs Coumadin restarted Has High risk of Clot formation Code status: FULL PCP: Dawson Dispo: SW consulted to help with discharge placement Discussed with the Daughter in detailed Probable Pancreatic cancer and prognosis is guarded Has [place]-expected to improve Discussed with the family members Discussed with the Daughter Poor prognosis Vital Signs: Date Time Temp Pulse Resp B/P (MAP) Pulse Ox O2 Delivery O2 Flow Rate FiO2 12/10/16 14:50 36.4 58 20 108/62 (77) 95 Room Air 12/10/16 12:02 36.6 64 16 116/77 (90) 93 Room Air 12/10/16 12:00 91 Room Air 12/10/16 08:13 36.5 50 16 125/68 (87) 91 Room Air 12/10/16 08:00 Room Air 12/10/16 04:01 36.9 67 19 122/64 (83) 94 Room Air 12/10/16 04:00 Room Air 12/09/16 23:59 Room Air 12/09/16 23:00 36.8 65 22 130/66 (87) 92 Room Air 12/09/16 20:00 Room Air 12/09/16 18:45 36.8 74 19 141/57 (85) 95 Room Air Lab Results: Results Past 24 Hours Test 12/10/16 05:40 Range/Units White Blood Count 13.20 4.8-10.8 K/uL Red Blood Count 3.11 4.7-6.1 M/uL Hemoglobin 9.4 14.0-18.0 g/dL Hematocrit 28.6 42-52 % Mean Corpuscular Volume 92.0 80-100 fL Mean Corpuscular Hemoglobin 30.2 25-34 pg Mean Corpuscular Hemoglobin Concent 32.9 32-36 g/dl Platelet Count 227 130-400 K/uL Mean Platelet Volume 9.4 7.4-10.4 fL Neutrophils (%) (Auto) 69.4 % Lymphocytes (%) (Auto) 11.7 % Monocytes (%) (Auto) 14.2 % Eosinophils (%) (Auto) 3.4 % Basophils (%) (Auto) 0.2 % Neutrophils # (Auto) 9.14 1.4-6.5 K/uL Lymphocytes # (Auto) 1.55 1.2-3.4 K/uL Monocytes # (Auto) 1.88 0.11-0.59 K/uL Eosinophils # (Auto) 0.45 0-0.5 K/uL Basophils # (Auto) 0.03 0-0.2 K/uL RDW Standard Deviation 55.4 36.4-46.3 fL RDW Coefficient of Variation 17.3 11.5-14.5 % Immature Granulocyte % (Auto) 1.1 % Immature Granulocyte # (Auto) 0.15 0.00-0.02 K/uL Prothrombin Time 13.8 9.0-12.0 SECONDS Prothromb Time International Ratio 1.3 0.9-1.1 Activated Partial Thromboplast Time 34.8 21.0-31.0 SECONDS Partial Thromboplastin Ratio 1.3 Sodium Level 141 136-145 mmol/L Potassium Level 3.8 3.5-5.1 mmol/L Chloride Level 115 98-107 mmol/L Carbon Dioxide Level 14 21-32 mmol/L Anion Gap 12.0 3-11 mmol/L Blood Urea Nitrogen 74 7-18 mg/dl Creatinine 6.30 0.60-1.40 mg/dl Est Creatinine Clear Calc Drug Dose 8.3 ml/min Estimated GFR () 8.6 Estimated GFR (Non- 7.4 BUN/Creatinine Ratio 11.7 10-20 Random Glucose 123 70-99 mg/dl Calcium Level 7.1 8.5-10.1 mg/dl Phosphorus Level 4.6 2.5-4.9 mg/dl Magnesium Level 1.8 1.8-2.4 mg/dl Total Bilirubin 2.8 0.2-1 mg/dl Direct Bilirubin 2.0 0-0.2 mg/dl Aspartate Amino Transf (AST/SGOT) 60 15-37 U/L Alanine Aminotransferase (ALT/SGPT) 147 12-78 U/L Alkaline Phosphatase 219 45-117 U/L Total Protein 5.1 6.4-8.2 gm/dl Albumin 2.0 3.4-5.0 gm/dl Lipase 1150 73-393 U/L
[2016-12-10] MEDS: WARFARIN SOD 1 MG TAB PO SCH (16:56)
[2016-12-10] MEDS: CIPROFLOXACIN 400MG / D5W IV SCH (22:09)
[2016-12-11] VITALS (7 sets, daily range): BP systolic 120–151; BP diastolic 59–74; PULSE 65–109; TEMP 36.6–37.3; O2SAT 90–94
[2016-12-11] MEDS: SODIUM CHLORIDE 0.9% 1000ML 1,000 ML IV SCH ×4 (05:51→23:39)
[2016-12-11 06:03] LABS: BASO % 0.2 %; BASO ABS # 0.04 K/uL (0-0.2); COMPLETE YES; HEMATOCRIT 27.3 % (42-52); IG% 0.9 %; LYMPH % 6.6 %; LYMPH ABS # 1.16 K/uL (1.2-3.4); MEAN CELL VOLUME 91.6 fL (80-100); MEAN CORPUSCULAR HEMOGLOBIN 31.2 pg (25-34); MEAN CORPUSCULAR HGB CONC 34.1 g/dl (32-36); MEAN PLATELET VOLUME 9.4 fL (7.4-10.4); MONO % 12.8 %; NEUT % 78.5 %; PLATELET COUNT 236 K/uL (130-400); RED BLOOD COUNT 2.98 M/uL (4.7-6.1); WHITE BLOOD COUNT 17.57 K/uL (4.8-10.8)
[2016-12-11 06:33] LABS: INR 1.4 (0.9-1.1); PARTIAL THROMBOPLASTIN RATIO 1.4; PROTHROMBIN TIME (PATIENT) 15.1 SECONDS (9.0-12.0)
[2016-12-11 06:45] LABS: BUN/CREATININE RATIO 13.1 (10-20); CALCIUM 7.6 mg/dl (8.5-10.1); MAGNESIUM 1.6 mg/dl (1.8-2.4); PHOSPHORUS 4.4 mg/dl (2.5-4.9); POTASSIUM 3.9 mmol/L (3.5-5.1)
[2016-12-11] MEDS: CEROVITE ADV FORMULA TAB PO SCH (07:45)
[2016-12-11] MEDS: CITALOPRAM 20 MG TAB PO SCH (07:45)
[2016-12-11] MEDS: METOPROLOL SUCC 25MG EXT REL TAB PO SCH ×2 (07:45→20:54)
[2016-12-11] MEDS: FoLIC ACID TAB 400 MCG TAB PO SCH (07:45)
[2016-12-11] MEDS: CHOLECALCIFEROL 1000 INTER.UNIT TAB PO SCH (07:45)
[2016-12-11] MEDS: PANTOprazole SOD 40 MG TAB PO SCH (07:45)
--- NOTE | 2016-12-11 09:35 | Clinical Documentation Query ---
CLINICAL DOCUMENTATION QUERY Dr. DIAZ, SIRS criteria are present in many hospitalized patients, including those who never develop infection and never incur adverse outcomes. SIRS may simply reflect an appropriate host response that is frequently adaptive In your clinical opinion is this patient being managed for: ( + ) SIRS due to a non-infectious source (please identify non-infectious source) ( ) Sepsis due to an infectious source (please identify source) ( ) Not Agree ( ) Other explanation of clinical findings (Please Explain) ( ) Unable to determine (Please Define) ( ) Need to Discuss Possible Biliary sourse The medical record reflects the following clinical findings, treatment, and risk factors. Clinical Indicators: 86 yo male presenting with bruising and painless jaundice, diagnosed with adenocarcinoma of pancreas. Documentation reflects pt has SIRS with suspected GI source of infection Treatment: IV cipro, IV flagyl, serial labs, IV fluids, IV vancomycin, IV zosyn, GI consult, ERCP, stent placement, blood and urine cx Risk Factors:biliary obstruction, adenocarcinoma Please clarify and document your clinical opinion in the progress notes and discharge summary. Terms such as "probable", "suspected", "likely", "questionable", "possible", or "still to be ruled out" are acceptable. IF IN AGREEMENT, YOU MUST DOCUMENT ABOVE DIAGNOSTIC STATEMENT IN DAILY PROGRESS NOTES AND DISCHARGE SUMMARY. This document is not part of the patient's record. Thank You, Kathy George RN [phone]
--- NOTE | 2016-12-11 09:46 | Progress Note ---
Internal Med Progress Note Date of Service: Dec 11, 2016. 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 ASSESSMENT & PLAN: This is 86yo man with a PMH of A Fib (on Coumadin), CAD and h/o prior CVA who presents with worsening bruising of extremities And Painless Jaundice Admitted with biliary obstruction and a pancreatic head mass. Adenocarcinoma of the Pancreas :Biopsy proven -CT abd/pelvis with asymmetrically enlarged pancreatic head -MRI consistent with CBD dilation and Pancreatic Head mass -S/P ERCP -Duodenal Bulb mass-and Pancreatic head mass-biopsied -Clinically no symptoms -Will discuss with the Daughter and others involved -Poor prognosis -likely to see Oncology as an OP,will discuss with the Daughter Painless Jaundice Secondary to biliary obstruction No h/o liver/GB pathology CT Abd with distended GB and intrahepatic biliary ductal dilatation Concern for ascending cholangitis with increased WCC Started on Cipro, Flagyl>Flagyl discontinued and now on Cipro. US Liver-No acute Cholecystitis has CBD and Intrahepatic duct dilatation Consulted GI, general surgery Started on AHA diet and tolerating the diet Tolerating diet without any symptoms Will discontinue Cipro after 7 days of therapy SIRs with suspected GI source of infection: -Leukocytosis of 18, hypotensive to 84/63, tachycardic 110s-120s, Lactic acid of 2.9 -Started on antibiotics with Cipro and Flagyl -BP responded to IVFs and is now in normal range -WCC remains elevated -will check CXR and Urine [place]: -Cr of 3.7 from a baseline ~1 -Likely secondary to Intravascular Fluid depletion -Initiated IVFs -Avoid nephrotoxic agents,used NSAIDs before admission -Renal function is worse -started on Increased IVF -Nephrology consulted -Kidney function worsened and Palpable abd bruit: -Palpated on exam -However, was not appreciated on Ct abd/pelvis -Denies any CP, abd pain CAD: Atrial Fibrillation (on Coumadin): -Rate controlled with Metoprolol -Cardiology consulted for Pre-op clearance as requested by GI for ERCP -INR supratherapeutic at 8 -Received Vitamin K in ER -Coumadin held and restarted on 12/09/16 -Appreciate Cardiology input Dementia No acute Delirium HLD: -Statin held while NPO and due to increased LFTs -Plan to reinitiate when LFTs are improved Hx of Prior CVA: -S/p carotid endarterectomy -ASA, Statin held -Plan to reinitiate Depression: - Celexa held DVT Ppx: SCDs Coumadin restarted Has High risk of Clot formation Code status: FULL PCP: Dawson Dispo: SW consulted to help with discharge placement Discussed with the Daughter in detailed Probable Pancreatic cancer and prognosis is guarded Has [place]-expected to improve Discussed with the family members Discussed with the Daughter Poor prognosis Vital Signs: Date Time Temp Pulse Resp B/P (MAP) Pulse Ox O2 Delivery O2 Flow Rate FiO2 12/11/16 08:08 36.8 109 18 120/71 (87) 90 Room Air 12/11/16 08:00 Room Air 12/11/16 04:00 Room Air 12/11/16 03:54 36.7 83 19 134/59 (84) 90 Room Air 12/10/16 23:59 Room Air 12/10/16 23:19 37.7 83 20 148/75 (99) 91 Room Air 12/10/16 20:15 Room Air 12/10/16 18:44 37.1 59 18 128/78 (95) 92 Room Air 12/10/16 16:41 95 Room Air 12/10/16 14:50 36.4 58 20 108/62 (77) 95 Room Air 12/10/16 12:02 36.6 64 16 116/77 (90) 93 Room Air 12/10/16 12:00 91 Room Air Lab Results: Results Past 24 Hours Test 12/11/16 05:14 Range/Units White Blood Count 17.57 4.8-10.8 K/uL Red Blood Count 2.98 4.7-6.1 M/uL Hemoglobin 9.3 14.0-18.0 g/dL Hematocrit 27.3 42-52 % Mean Corpuscular Volume 91.6 80-100 fL Mean Corpuscular Hemoglobin 31.2 25-34 pg Mean Corpuscular Hemoglobin Concent 34.1 32-36 g/dl Platelet Count 236 130-400 K/uL Mean Platelet Volume 9.4 7.4-10.4 fL Neutrophils (%) (Auto) 78.5 % Lymphocytes (%) (Auto) 6.6 % Monocytes (%) (Auto) 12.8 % Eosinophils (%) (Auto) 1.0 % Basophils (%) (Auto) 0.2 % Neutrophils # (Auto) 13.79 1.4-6.5 K/uL Lymphocytes # (Auto) 1.16 1.2-3.4 K/uL Monocytes # (Auto) 2.25 0.11-0.59 K/uL Eosinophils # (Auto) 0.17 0-0.5 K/uL Basophils # (Auto) 0.04 0-0.2 K/uL RDW Standard Deviation 55.9 36.4-46.3 fL RDW Coefficient of Variation 17.4 11.5-14.5 % Immature Granulocyte % (Auto) 0.9 % Immature Granulocyte # (Auto) 0.16 0.00-0.02 K/uL Prothrombin Time 15.1 9.0-12.0 SECONDS Prothromb Time International Ratio 1.4 0.9-1.1 Activated Partial Thromboplast Time 36.2 21.0-31.0 SECONDS Partial Thromboplastin Ratio 1.4 Sodium Level 142 136-145 mmol/L Potassium Level 3.9 3.5-5.1 mmol/L Chloride Level 115 98-107 mmol/L Carbon Dioxide Level 15 21-32 mmol/L Anion Gap 12.0 3-11 mmol/L Blood Urea Nitrogen 80 7-18 mg/dl Creatinine 6.00 0.60-1.40 mg/dl Est Creatinine Clear Calc Drug Dose 8.9 ml/min Estimated GFR () 9.1 Estimated GFR (Non- 7.9 BUN/Creatinine Ratio 13.1 10-20 Random Glucose 123 70-99 mg/dl Calcium Level 7.6 8.5-10.1 mg/dl Phosphorus Level 4.4 2.5-4.9 mg/dl Magnesium Level 1.6 1.8-2.4 mg/dl Total Bilirubin 2.7 0.2-1 mg/dl Direct Bilirubin 1.7 0-0.2 mg/dl Aspartate Amino Transf (AST/SGOT) 53 15-37 U/L Alanine Aminotransferase (ALT/SGPT) 115 12-78 U/L Alkaline Phosphatase 189 45-117 U/L Total Protein 5.2 6.4-8.2 gm/dl Albumin 2.0 3.4-5.0 gm/dl Lipase 493 73-393 U/L
[2016-12-11 10:56] LABS: URINE APPEARANCE CLOUDY (CLEAR); URINE BILIRUBIN NEG (NEG); URINE COLOR YELLOW; URINE NITRITE NEG (NEG); URINE SPECIFIC GRAVITY 1.016 (1.000-1.030); UROBILINOGEN NEG (NEG); ZZURINE CULT IF INDIC CATH YES
--- NOTE | 2016-12-11 10:56 | DIAGNOSTIC IMAGING REPORT ---
CHEST 2 VIEWS ROUTINE HISTORY: Cough. r/o Pneumonia COMPARISON: Chest 12/06/2016. FINDINGS: No pneumothorax. The heart remains mildly enlarged. Linear density within the left lower lung zone favors atelectasis. This is new from the prior study. Old, healed left-sided rib fractures. There is a progressive right infrahilar patchy airspace opacity. Small bilateral pleural effusions. No evidence for pulmonary edema. IMPRESSION: 1. Progressive right infrahilar patchy airspace opacity. This likely represents a pneumonia. Recommend follow-up to complete resolution. 2. Interval development of small bilateral pleural effusions. Electronically signed by: Sloan Kebede M.D. 12/11/2016 10:54 AM Dictated Date/Time: 12/11/2016 10:52 AM
[2016-12-11 11:03] LABS: MANUAL MICROSCOPIC REQUIRED? NO; REVIEW REQ? YES
[2016-12-11 11:11] LABS: URINE MUCUS PRESENT (NONE PRSENT); URINE PATH CASTS 5-10 GRANULAR CASTS /lpf (0)
--- NOTE | 2016-12-11 14:21 | Surgery Progress Note ---
Surgery Progress Note Date of Service Dec 11, 2016. Subjective pt seen. no new complaints today. "feel pretty good". Objective Vital Signs: Date Time Temp Pulse Resp B/P (MAP) Pulse Ox O2 Delivery O2 Flow Rate FiO2 12/11/16 12:44 36.6 100 18 125/69 (87) 90 Room Air 12/11/16 12:00 Room Air 12/11/16 08:08 36.8 109 18 120/71 (87) 90 Room Air 12/11/16 08:00 Room Air 12/11/16 04:00 Room Air 12/11/16 03:54 36.7 83 19 134/59 (84) 90 Room Air 12/10/16 23:59 Room Air 12/10/16 23:19 37.7 83 20 148/75 (99) 91 Room Air 12/10/16 20:15 Room Air 12/10/16 18:44 37.1 59 18 128/78 (95) 92 Room Air 12/10/16 16:41 95 Room Air 12/10/16 14:50 36.4 58 20 108/62 (77) 95 Room Air General Appearance: no apparent distress Head: normocephalic, atraumatic Neck: no JVD Respiratory/Chest: no respiratory distress, no accessory muscle use Abdomen: non tender, soft Laboratory Results: Results Past 24 Hours Test 12/11/16 05:14 12/11/16 10:35 Range/Units White Blood Count 17.57 4.8-10.8 K/uL Red Blood Count 2.98 4.7-6.1 M/uL Hemoglobin 9.3 14.0-18.0 g/dL Hematocrit 27.3 42-52 % Mean Corpuscular Volume 91.6 80-100 fL Mean Corpuscular Hemoglobin 31.2 25-34 pg Mean Corpuscular Hemoglobin Concent 34.1 32-36 g/dl Platelet Count 236 130-400 K/uL Mean Platelet Volume 9.4 7.4-10.4 fL Neutrophils (%) (Auto) 78.5 % Lymphocytes (%) (Auto) 6.6 % Monocytes (%) (Auto) 12.8 % Eosinophils (%) (Auto) 1.0 % Basophils (%) (Auto) 0.2 % Neutrophils # (Auto) 13.79 1.4-6.5 K/uL Lymphocytes # (Auto) 1.16 1.2-3.4 K/uL Monocytes # (Auto) 2.25 0.11-0.59 K/uL Eosinophils # (Auto) 0.17 0-0.5 K/uL Basophils # (Auto) 0.04 0-0.2 K/uL RDW Standard Deviation 55.9 36.4-46.3 fL RDW Coefficient of Variation 17.4 11.5-14.5 % Immature Granulocyte % (Auto) 0.9 % Immature Granulocyte # (Auto) 0.16 0.00-0.02 K/uL Prothrombin Time 15.1 9.0-12.0 SECONDS Prothromb Time International Ratio 1.4 0.9-1.1 Activated Partial Thromboplast Time 36.2 21.0-31.0 SECONDS Partial Thromboplastin Ratio 1.4 Sodium Level 142 136-145 mmol/L Potassium Level 3.9 3.5-5.1 mmol/L Chloride Level 115 98-107 mmol/L Carbon Dioxide Level 15 21-32 mmol/L Anion Gap 12.0 3-11 mmol/L Blood Urea Nitrogen 80 7-18 mg/dl Creatinine 6.00 0.60-1.40 mg/dl Est Creatinine Clear Calc Drug Dose 8.9 ml/min Estimated GFR () 9.1 Estimated GFR (Non- 7.9 BUN/Creatinine Ratio 13.1 10-20 Random Glucose 123 70-99 mg/dl Calcium Level 7.6 8.5-10.1 mg/dl Phosphorus Level 4.4 2.5-4.9 mg/dl Magnesium Level 1.6 1.8-2.4 mg/dl Total Bilirubin 2.7 0.2-1 mg/dl Direct Bilirubin 1.7 0-0.2 mg/dl Aspartate Amino Transf (AST/SGOT) 53 15-37 U/L Alanine Aminotransferase (ALT/SGPT) 115 12-78 U/L Alkaline Phosphatase 189 45-117 U/L Total Protein 5.2 6.4-8.2 gm/dl Albumin 2.0 3.4-5.0 gm/dl Lipase 493 73-393 U/L Urine Color YELLOW Urine Appearance CLOUDY CLEAR Urine pH 5.0 4.5-7.5 Urine Specific [place] 1.016 1.000-1.030 Urine Protein NEG NEG Urine Glucose (UA) NEG NEG Urine Ketones NEG NEG Urine Occult Blood 2+ NEG Urine Nitrite NEG NEG Urine Bilirubin NEG NEG Urine Urobilinogen NEG NEG Urine Leukocyte Esterase TRACE NEG Urine WBC (Auto) 1-5 0-5 /hpf Urine RBC (Auto) 10-30 0-4 /hpf Urine Hyaline Casts (Auto) 0 0-5 /lpf Urine Epithelial Cells (Auto) 5-10 0-5 /lpf Urine Bacteria (Auto) NEG NEG Urine Pathogenic Casts 5-10 GRANULAR CASTS 0 /lpf Urine Mucus PRESENT NONE PRSENT Urine Yeast (Auto) NONE PRSENT Microbiology Results 12/11/16 Urine Culture, Received Pending Assessment & Plan 12/11/16 pt's mass likely unresectable and pt is a very poor surgical candidate for such a massive surgery no acute surgical issues At some point he may need a gastrojejunal bypass +/- biliary bypass for obstruction. for now he is doing ok Per Dr. Major who saw pt over the weekend, the pt /family were not interested in surgery. If I do not see them during rounds will call one of the kids to verify but I agree that he is not a good surgical candidate for pancreaticojejunostomy.
--- NOTE | 2016-12-11 16:09 | Nephrology Progress Note ---
Nephrology Progress Note Date of Service: Dec 11, 2016. Subjective 86 y/o M w/ a fib on coumadin and baseline creatinine 0.8, CAD, hx BL CEA, remote tobacco abuse, NSAID use, mild dementia presented w/ gross hematuria, bruising and jaundice on 12/06 and found to have biopsy confirmed pancreatic adenocarcinoma. Creatinine trended upward with a peak of 6.3 and now improving. patient with Espinoza catheter and being given IVF. Jaundice and scleral icteris greatly confused. Per family patient is much less confused. Has gotten a total of 2 units RBCs during hospital stay. Patient is awoken from sleep and has difficulty hearing and responding to provider. Family members note that he is clinically better. They note that his belly seems more distended but that overall patient is less weak. no nausea or vomiting. Objective Date Time Temp Pulse Resp B/P (MAP) Pulse Ox O2 Delivery O2 Flow Rate FiO2 12/11/16 12:44 36.6 100 18 125/69 (87) 90 Room Air 12/11/16 12:00 Room Air 12/11/16 08:08 36.8 109 18 120/71 (87) 90 Room Air 12/11/16 08:00 Room Air 12/11/16 04:00 Room Air 12/11/16 03:54 36.7 83 19 134/59 (84) 90 Room Air 12/10/16 23:59 Room Air 12/10/16 23:19 37.7 83 20 148/75 (99) 91 Room Air 12/10/16 20:15 Room Air 12/10/16 18:44 37.1 59 18 128/78 (95) 92 Room Air 12/10/16 16:41 95 Room Air Physical Exam: General Appearance: WD/WN, no apparent distress, +pertinent finding (on RA, very hard of hearing) Eyes: moist mucosal membranes + scleral icterus improved ENT: + pertinent finding (hard of hearing) Neck: supple Respiratory/Chest: no respiratory distress, no accessory muscle use, + decreased breath sounds, + crackles (bibasilar) Cardiovascular: + systolic murmur, + irregularly irregular Abdomen: normal bowel sounds, non tender, soft, + espinoza in place +distended Extremities: + trace b/l pedal edema Neurologic/Psych: alert, normal mood/affect, + pertinent finding (pleasant, some word finding trouble) +difficulty articulating without tooth implant Skin: No jaundice, + diffuse bruises Current Inpatient Medications Medications (Trade) Dose Ordered Sig/Thelma Route Start Time Stop Time Status Last Admin Dose Admin Metoprolol Succinate (Toprol Xl Tab) 12.5 mg BID PO 12/08/16 18:00 01/07/17 17:59 12/11/16 07:45 12.5 MG Pantoprazole Sodium (Protonix Tab) 40 mg QAM PO 12/09/16 09:00 01/08/17 08:59 12/11/16 07:45 40 MG Sodium Chloride 1,000 ml @ 150 mls/hr [id number] IV 12/08/16 17:15 01/07/17 17:14 12/11/16 13:34 150 MLS/HR Cholecalciferol (Vitamin D Tab) 1,000 inter.unit QAM PO 12/10/16 09:00 01/09/17 08:59 12/11/16 07:45 1,000 INTER.UNIT Citalopram Hydrobromide (celeXA TAB) 20 mg QAM PO 12/10/16 09:00 01/09/17 08:59 12/11/16 07:45 20 MG Folic Acid (Folvite Tab) 400 mcg QAM PO 12/10/16 09:00 01/09/17 08:59 12/11/16 07:45 400 MCG Warfarin Sodium (Coumadin Tab) 1 mg DAILY@1600 PO 12/09/16 17:34 01/08/17 17:33 12/10/16 16:56 1 MG Multivitamins/ Minerals (Multivitamin W/ Minerals Tab) 1 tab QAM PO 12/10/16 09:00 01/09/17 08:59 12/11/16 07:45 1 TAB Doxycycline Hyclate (Vibramycin Cap) 100 mg BID PO 12/11/16 21:00 12/18/16 20:59 Last 24 Hours Test 12/11/16 05:14 12/11/16 10:35 White Blood Count 17.57 K/uL Red Blood Count 2.98 M/uL Hemoglobin 9.3 g/dL Hematocrit 27.3 % Mean Corpuscular Volume 91.6 fL Mean Corpuscular Hemoglobin 31.2 pg Mean Corpuscular Hemoglobin Concent 34.1 g/dl Platelet Count 236 K/uL Mean Platelet Volume 9.4 fL Neutrophils (%) (Auto) 78.5 % Lymphocytes (%) (Auto) 6.6 % Monocytes (%) (Auto) 12.8 % Eosinophils (%) (Auto) 1.0 % Basophils (%) (Auto) 0.2 % Neutrophils # (Auto) 13.79 K/uL Lymphocytes # (Auto) 1.16 K/uL Monocytes # (Auto) 2.25 K/uL Eosinophils # (Auto) 0.17 K/uL Basophils # (Auto) 0.04 K/uL RDW Standard Deviation 55.9 fL RDW Coefficient of Variation 17.4 % Immature Granulocyte % (Auto) 0.9 % Immature Granulocyte # (Auto) 0.16 K/uL Prothrombin Time 15.1 SECONDS Prothromb Time International Ratio 1.4 Activated Partial Thromboplast Time 36.2 SECONDS Partial Thromboplastin Ratio 1.4 Sodium Level 142 mmol/L Potassium Level 3.9 mmol/L Chloride Level 115 mmol/L Carbon Dioxide Level 15 mmol/L Anion Gap 12.0 mmol/L Blood Urea Nitrogen 80 mg/dl Creatinine 6.00 mg/dl Est Creatinine Clear Calc Drug Dose 8.9 ml/min Estimated GFR () 9.1 Estimated GFR (Non- 7.9 BUN/Creatinine Ratio 13.1 Random Glucose 123 mg/dl Calcium Level 7.6 mg/dl Phosphorus Level 4.4 mg/dl Magnesium Level 1.6 mg/dl Total Bilirubin 2.7 mg/dl Direct Bilirubin 1.7 mg/dl Aspartate Amino Transf (AST/SGOT) 53 U/L Alanine Aminotransferase (ALT/SGPT) 115 U/L Alkaline Phosphatase 189 U/L Total Protein 5.2 gm/dl Albumin 2.0 gm/dl Lipase 493 U/L Urine Color YELLOW Urine Appearance CLOUDY Urine pH 5.0 Urine Specific [place] 1.016 Urine Protein NEG Urine Glucose (UA) NEG Urine Ketones NEG Urine Occult Blood 2+ Urine Nitrite NEG Urine Bilirubin NEG Urine Urobilinogen NEG Urine Leukocyte Esterase TRACE Urine WBC (Auto) 1-5 /hpf Urine RBC (Auto) 10-30 /hpf Urine Hyaline Casts (Auto) 0 /lpf Urine Epithelial Cells (Auto) 5-10 /lpf Urine Bacteria (Auto) NEG Urine Pathogenic Casts 5-10 GRANULAR CASTS /lpf Urine Mucus PRESENT Urine Yeast (Auto) Date/Time Source Procedure Growth Status 12/11/16 10:35 Urine,Catheterized Urine Culture Pending Received Other Studies: 12/10/16 12/11/16 12/12/16 07:59 07:59 07:59 Intake Total 4062 ml 5179 ml 1622 ml Output Total 1350 ml 2450 ml 800 ml Balance 2712 ml 2729 ml 822 ml Assessment & Plan Acute oliguric renal failure in the setting of gross hematuria on outpt coumadin likely w/ recent nsaids and w/ obstructive jaundice from presumed pancreatic adenocarcinoma. Jaundice much improved. Creatinine improved on IVF. Patient does not seem uremic and at this time do not think he needs emergent dialysis. patient's family had discussed dialysis with Dr. Granados and thought that it was done through a Espinoza Catheter. I clarified that the catheter used in dialysis is a venous catheter and explained the process of placing and using a catheter for dialysis. Answered family's questions. Weight gain: Patient's weight is trending upward. recent CXR with small b/l Pleural Effusions. abdomen is also extended per patient's family. will lower rate of fluids to 75cc and hour and continue to monitor. no ascites as of 12/06 U /S-may benefit from a f/u U/S-defer to primary service. urine output improving. on cipro/flagyl Anemia: hgb steady at 9.3. Patient received 2 units pRBCs. not an HARMAN candidate. will continue to monitor and transfuse prn. This patient was seen and treated with direct collaboration with Dr. Hogan. Thank you for the opportunity to participate in this patient's care. Appreciate the Consult. ATTENDING NOTE: I performed a history and physical examination of the patient, including specifically on history-he was somnolent, family says he is less jaundiced and less confused, on physical exam-reduced breath sounds at bases, and my impression and plan are [place]-creatinine peaked at 6.3 and improving. urinating better. concern about fluid overload and will reduce iv fluids to 75cc/hr. no role for dialysis at this time. I have discussed the patient's management with Dina Cat PA-C, Please refer to above note for the documented findings and plan of care. Fausto Hogan DO
[2016-12-11] MEDS: WARFARIN SOD 1 MG TAB PO SCH (16:17)
[2016-12-11] MEDS: DOXYCYCLINE HYCLATE 100 MG CAP PO SCH (20:54)
[2016-12-11] MEDS ORDERED: MAGNESIUM SULFATE 1GM / D5W 1 GM in PREMIXED IN D5W 100 ML IV ONE (23:45)
[2016-12-12 00:16] LABS: BUN/CREATININE RATIO 14.5 (10-20); CALCIUM 7.6 mg/dl (8.5-10.1); CREATININE 5.9 mg/dl (0.60-1.40); MAGNESIUM 1.6 mg/dl (1.8-2.4); POTASSIUM 4.1 mmol/L (3.5-5.1)
[2016-12-12 03:41] VITALS: BP 141/71; PULSE 75; TEMP 36.7; O2SAT 92
[2016-12-12 07:43] VITALS: BP 114/68; PULSE 75; TEMP 36.6; O2SAT 94
[2016-12-12] MEDS: FoLIC ACID TAB 400 MCG TAB PO SCH (08:05)
[2016-12-12] MEDS: CITALOPRAM 20 MG TAB PO SCH (08:05)
[2016-12-12] MEDS: DOXYCYCLINE HYCLATE 100 MG CAP PO SCH ×2 (08:05→20:01)
[2016-12-12] MEDS: PANTOprazole SOD 40 MG TAB PO SCH (08:05)
[2016-12-12] MEDS: CEROVITE ADV FORMULA TAB PO SCH (08:06)
[2016-12-12] MEDS: CHOLECALCIFEROL 1000 INTER.UNIT TAB PO SCH (08:06)
[2016-12-12] MEDS: METOPROLOL SUCC 25MG EXT REL TAB PO SCH ×2 (08:09→20:01)
--- NOTE | 2016-12-12 08:52 | Nephrology Progress Note ---
Nephrology Progress Note Date of Service: Dec 12, 2016. Subjective 86 yo male with joni/atn in setting of likely pancreatic cancer, pt currently on iv fluids which were reduced yesterday. pt with edema in arms and legs. no complaints of sob. has espinoza in place and urinating better. complaining of right wrist pain-difficult for him to move it. Objective Date Time Temp Pulse Resp B/P (MAP) Pulse Ox O2 Delivery O2 Flow Rate FiO2 12/12/16 07:43 36.6 75 19 114/68 (83) 94 Room Air 12/12/16 04:00 Room Air 12/12/16 03:41 36.7 75 19 141/71 (94) 92 Room Air 12/12/16 00:00 Room Air 2.0 12/11/16 23:52 36.8 85 18 141/61 (87) 92 Room Air 12/11/16 20:00 Room Air 12/11/16 19:05 37.0 84 19 132/69 (90) 94 Room Air 12/11/16 16:58 37.3 12/11/16 16:00 Room Air 12/11/16 15:39 36.8 65 17 151/74 (99) 94 Room Air 12/11/16 12:44 36.6 100 18 125/69 (87) 90 Room Air 12/11/16 12:00 Room Air Physical Exam: General-aaox3, poor insight Eyes-no scleral icterus ENT-mmm Neck-supple Lungs-+end expiratory wheezing Heart-irregular Abdomen-bs+/mildly distended Extremities-+1 edema in both arms and legs Neuro-nonfocal Current Inpatient Medications Medications (Trade) Dose Ordered Sig/Thelma Route Start Time Stop Time Status Last Admin Dose Admin Metoprolol Succinate (Toprol Xl Tab) 12.5 mg BID PO 12/08/16 18:00 01/07/17 17:59 12/12/16 08:09 12.5 MG Pantoprazole Sodium (Protonix Tab) 40 mg QAM PO 12/09/16 09:00 01/08/17 08:59 12/12/16 08:05 40 MG Sodium Chloride 1,000 ml @ 75 mls/hr [id number] IV 12/08/16 17:15 01/07/17 17:14 12/11/16 23:39 75 MLS/HR Cholecalciferol (Vitamin D Tab) 1,000 inter.unit QAM PO 12/10/16 09:00 01/09/17 08:59 12/12/16 08:06 1,000 INTER.UNIT Citalopram Hydrobromide (celeXA TAB) 20 mg QAM PO 12/10/16 09:00 01/09/17 08:59 12/12/16 08:05 20 MG Folic Acid (Folvite Tab) 400 mcg QAM PO 12/10/16 09:00 01/09/17 08:59 12/12/16 08:05 400 MCG Warfarin Sodium (Coumadin Tab) 1 mg DAILY@1600 PO 12/09/16 17:34 01/08/17 17:33 12/11/16 16:17 1 MG Multivitamins/ Minerals (Multivitamin W/ Minerals Tab) 1 tab QAM PO 12/10/16 09:00 01/09/17 08:59 12/12/16 08:06 1 TAB Doxycycline Hyclate (Vibramycin Cap) 100 mg BID PO 12/11/16 21:00 12/18/16 20:59 12/12/16 08:05 100 MG Last 24 Hours Test 12/11/16 10:35 12/11/16 23:24 Urine Color YELLOW Urine Appearance CLOUDY Urine pH 5.0 Urine Specific [place] 1.016 Urine Protein NEG Urine Glucose (UA) NEG Urine Ketones NEG Urine Occult Blood 2+ Urine Nitrite NEG Urine Bilirubin NEG Urine Urobilinogen NEG Urine Leukocyte Esterase TRACE Urine WBC (Auto) 1-5 /hpf Urine RBC (Auto) 10-30 /hpf Urine Hyaline Casts (Auto) 0 /lpf Urine Epithelial Cells (Auto) 5-10 /lpf Urine Bacteria (Auto) NEG Urine Pathogenic Casts 5-10 GRANULAR CASTS /lpf Urine Mucus PRESENT Urine Yeast (Auto) Sodium Level 143 mmol/L Potassium Level 4.1 mmol/L Chloride Level 117 mmol/L Carbon Dioxide Level 15 mmol/L Anion Gap 11.0 mmol/L Blood Urea Nitrogen 84 mg/dl Creatinine 5.90 mg/dl Est Creatinine Clear Calc Drug Dose 9.0 ml/min Estimated GFR () 9.3 Estimated GFR (Non- 8.0 BUN/Creatinine Ratio 14.5 Random Glucose 114 mg/dl Calcium Level 7.6 mg/dl Magnesium Level 1.6 mg/dl Date/Time Source Procedure Growth Status 12/11/16 10:35 Urine,Catheterized Urine Culture Pending Received Assessment & Plan [id number]-jvr-[id number]-urinating much better. concerned about eventual fluid overload. reduced fluids to 75cc/hr last night. does have end expiratory wheeze and edema in arms and legs but no symptoms of sob and not requiring oxygen. creatinine slowly improving. not uremic. no role for dialysis at this time. hopefully creatinine continues to improve but overall has a poor prognosis given constellation of comorbidities.
[2016-12-12] MEDS ORDERED: MAGNESIUM SULFATE 1GM / D5W 1 GM in PREMIXED IN D5W 100 ML IV SCH (10:00)
[2016-12-12 10:01] LABS: INR 1.6 (0.9-1.1)
[2016-12-12 10:26] VITALS: BP 135/63; PULSE 61
[2016-12-12 10:49] LABS: BUN/CREATININE RATIO 14.7 (10-20); CALCIUM 7.7 mg/dl (8.5-10.1); CREATININE 5.9 mg/dl (0.60-1.40); MAGNESIUM 1.9 mg/dl (1.8-2.4); POTASSIUM 4.1 mmol/L (3.5-5.1)
[2016-12-12 11:29] VITALS: BP 145/74; PULSE 85; TEMP 36.7; O2SAT 93
[2016-12-12 15:27] VITALS: BP 125/71; PULSE 80; TEMP 37.7; O2SAT 91
[2016-12-12] MEDS: SODIUM CHLORIDE 0.9% 1000ML 1,000 ML IV SCH (15:40)
[2016-12-12] MEDS: WARFARIN SOD 1 MG TAB PO SCH (16:55)
[2016-12-12 19:56] VITALS: BP 122/64; PULSE 99; TEMP 37.7; O2SAT 92
--- NOTE | 2016-12-12 20:19 | Progress Note ---
Medicine Progress Note Date & Time of Visit: Dec 12, 2016 at 19:50. Subjective Pt was seen and examined Lying in bed with no acute distress complaint of right arm tenderness and swelling denies any chest pain, palpitation, dizziness and SOB Objective Last 8 Hrs Date Time Temp Pulse Resp B/P (MAP) Pulse Ox O2 Delivery O2 Flow Rate FiO2 12/12/16 16:00 Room Air 12/12/16 15:27 37.7 80 20 125/71 (89) 91 Room Air 12/12/16 12:00 Room Air Physical Exam: General- No acute distress Head- atraumatic Eyes- PERRL, EOMI ENT- oropharynx clear Neck- no JVD, no adenopathy Lungs- mild wheezing on expiratory Heart- regular rhythm Abdomen- normal bowel sounds Extremities-no calf tenderness, +RUE tenderness and swelling Neuro- alert, oriented x 3; PERRL Skin- warm & dry Laboratory Results: Last 24 Hours Test 12/11/16 23:24 12/12/16 09:35 Sodium Level 143 mmol/L 141 mmol/L Potassium Level 4.1 mmol/L 4.1 mmol/L Chloride Level 117 mmol/L 115 mmol/L Carbon Dioxide Level 15 mmol/L 14 mmol/L Anion Gap 11.0 mmol/L 12.0 mmol/L Blood Urea Nitrogen 84 mg/dl 85 mg/dl Creatinine 5.90 mg/dl 5.90 mg/dl Est Creatinine Clear Calc Drug Dose 9.0 ml/min 9.0 ml/min Estimated GFR () 9.3 9.3 Estimated GFR (Non- 8.0 8.0 BUN/Creatinine Ratio 14.5 14.7 Random Glucose 114 mg/dl 153 mg/dl Calcium Level 7.6 mg/dl 7.7 mg/dl Magnesium Level 1.6 mg/dl 1.9 mg/dl Prothrombin Time 17.0 SECONDS Prothromb Time International Ratio 1.6 Assessment & Plan Adenocarcinoma of the Pancreas -CT abd/pelvis with asymmetrically enlarged pancreatic head -MRI consistent with CBD dilation and Pancreatic Head mass -S/P ERCP -Duodenal Bulb mass-and Pancreatic head mass-biopsied - Biopsy: ATYPICAL EPITHELIAL CELLS CONSISTENT WITH PANCREATIC ADENOCARCINOMA -Asymptomatic -Poor prognosis - case discuss with daughter and Son - Will arrange follow up appt with hem/onc with Dr. Lama - Family will decide about next option after meeting with dr. Lama Painless Jaundice Secondary to biliary obstruction No h/o liver/GB pathology CT Abd with distended GB and intrahepatic biliary ductal dilatation Concern for ascending cholangitis with increased WCC US Liver-No acute Cholecystitis has CBD and Intrahepatic duct dilatation Consulted GI, general surgery No surgical intervention as per surgery, very high risk candidate Continue Cipro for 7 days of therapy Right UE swelling/tenderness Will apply compress on it if pain worsening, will get an U/S in am SIRs with suspected GI source of infection: -Leukocytosis of 18, hypotensive to 84/63, tachycardic 110s-120s, Lactic acid of 2.9 -Started on antibiotics with Cipro and Flagyl -BP responded to IVFs and is now in normal range -WCC remains elevated -will check CXR and Urine [place]: -Cr of 3.7 from a baseline ~1 -Likely secondary to Intravascular Fluid depletion -creatine 5.9 today - IVF was decrease -Avoid nephrotoxic agents -Nephrology consulted -creatine treading down slowly - Continue monitor BMP Palpable abd bruit: -Palpated on exam -However, was not appreciated on Ct abd/pelvis -Denies any CP, abd pain CAD: Atrial Fibrillation (on Coumadin): -Rate controlled with Metoprolol -Cardiology consulted for Pre-op clearance as requested by GI for ERCP -Coumadin resumed -INR 1.6 today Dementia Stable HLD: -Statin held while NPO and due to increased LFTs -Plan to reinitiate when LFTs are improved Hx of Prior CVA: -S/p carotid endarterectomy will resume asa in am Depression: - Celexa held DVT Ppx: SCDs Coumadin restarted Has High risk of Clot formation Code status: FULL PCP: Dawson Dispo: Possible discharge home tomorrow Will schedule follow appt with hem/onc Will discharge to rehab 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 Medications: Current Inpatient Medications Medications (Trade) Dose Ordered Sig/Thelma Route Start Time Stop Time Status Last Admin Dose Admin Metoprolol Succinate (Toprol Xl Tab) 12.5 mg BID PO 12/08/16 18:00 01/07/17 17:59 12/12/16 08:09 12.5 MG Pantoprazole Sodium (Protonix Tab) 40 mg QAM PO 12/09/16 09:00 01/08/17 08:59 12/12/16 08:05 40 MG Sodium Chloride 1,000 ml @ 75 mls/hr [id number] IV 12/08/16 17:15 01/07/17 17:14 12/12/16 15:40 75 MLS/HR Cholecalciferol (Vitamin D Tab) 1,000 inter.unit QAM PO 12/10/16 09:00 01/09/17 08:59 12/12/16 08:06 1,000 INTER.UNIT Citalopram Hydrobromide (celeXA TAB) 20 mg QAM PO 12/10/16 09:00 01/09/17 08:59 12/12/16 08:05 20 MG Folic Acid (Folvite Tab) 400 mcg QAM PO 12/10/16 09:00 01/09/17 08:59 12/12/16 08:05 400 MCG Warfarin Sodium (Coumadin Tab) 1 mg DAILY@1600 PO 12/09/16 17:34 01/08/17 17:33 12/12/16 16:55 1 MG Multivitamins/ Minerals (Multivitamin W/ Minerals Tab) 1 tab QAM PO 12/10/16 09:00 01/09/17 08:59 12/12/16 08:06 1 TAB Doxycycline Hyclate (Vibramycin Cap) 100 mg BID PO 12/11/16 21:00 12/18/16 20:59 12/12/16 08:05 100 MG
[2016-12-13] VITALS (7 sets, daily range): BP systolic 115–148; BP diastolic 59–75; PULSE 75–90; TEMP 36.7–37.1; O2SAT 91–96
[2016-12-13] MEDS: SODIUM CHLORIDE 0.9% 1000ML 1,000 ML IV SCH ×2 (04:08→17:39)
[2016-12-13 06:26] LABS: HEMATOCRIT 26.1 % (42-52); MEAN CELL VOLUME 94.9 fL (80-100); MEAN CORPUSCULAR HEMOGLOBIN 30.9 pg (25-34); MEAN CORPUSCULAR HGB CONC 32.6 g/dl (32-36); MEAN PLATELET VOLUME 9.2 fL (7.4-10.4); PLATELET COUNT 281 K/uL (130-400); RED BLOOD COUNT 2.75 M/uL (4.7-6.1); WHITE BLOOD COUNT 14.98 K/uL (4.8-10.8)
[2016-12-13 07:20] LABS: ALB/GLOB RATIO 0.6 (0.9-2); BUN/CREATININE RATIO 15.7 (10-20); CREATININE 5.6 mg/dl (0.60-1.40); POTASSIUM 4.2 mmol/L (3.5-5.1)
[2016-12-13] MEDS: FoLIC ACID TAB 400 MCG TAB PO SCH (08:30)
[2016-12-13] MEDS: DOXYCYCLINE HYCLATE 100 MG CAP PO SCH ×2 (08:30→19:17)
[2016-12-13] MEDS: CHOLECALCIFEROL 1000 INTER.UNIT TAB PO SCH (08:30)
[2016-12-13] MEDS: PANTOprazole SOD 40 MG TAB PO SCH (08:30)
[2016-12-13] MEDS: CEROVITE ADV FORMULA TAB PO SCH (08:31)
[2016-12-13] MEDS: CITALOPRAM 20 MG TAB PO SCH (08:31)
[2016-12-13] MEDS: METOPROLOL SUCC 25MG EXT REL TAB PO SCH ×2 (08:31→19:17)
--- NOTE | 2016-12-13 09:01 | Nephrology Progress Note ---
Nephrology Progress Note Date of Service: Dec 13, 2016. Subjective 86 yo male with joni/atn in setting of likely pancreatic cancer, pt currently on iv fluids, hard of hearing. no specific complaints. appears comfortable. good urine output in [place]. Objective Date Time Temp Pulse Resp B/P (MAP) Pulse Ox O2 Delivery O2 Flow Rate FiO2 12/13/16 08:00 Room Air 12/13/16 06:54 36.7 82 17 115/75 (88) 91 Room Air 12/13/16 04:00 Room Air 12/13/16 03:56 36.8 88 18 122/63 (82) 93 Room Air 12/13/16 00:01 Room Air 12/13/16 00:00 36.8 90 18 138/75 (96) 93 Room Air 12/12/16 20:00 Room Air 12/12/16 19:56 37.7 99 22 122/64 (83) 92 Room Air 12/12/16 16:00 Room Air 12/12/16 15:27 37.7 80 20 125/71 (89) 91 Room Air 12/12/16 12:00 Room Air 12/12/16 11:29 36.7 85 18 145/74 (97) 93 Room Air 12/12/16 10:26 61 135/63 (87) Physical Exam: General-aaox3, poor insight, hard of hearing Eyes-no scleral icterus ENT-mmm Neck-supple Lungs-cta Heart-irregular Abdomen-bs+/mildly distended Extremities-+1 edema worse in right hand Neuro-nonfocal Current Inpatient Medications Medications (Trade) Dose Ordered Sig/Thelma Route Start Time Stop Time Status Last Admin Dose Admin Metoprolol Succinate (Toprol Xl Tab) 12.5 mg BID PO 12/08/16 18:00 01/07/17 17:59 12/13/16 08:31 12.5 MG Pantoprazole Sodium (Protonix Tab) 40 mg QAM PO 12/09/16 09:00 01/08/17 08:59 12/13/16 08:30 40 MG Sodium Chloride 1,000 ml @ 75 mls/hr [id number] IV 12/08/16 17:15 01/07/17 17:14 12/13/16 04:08 75 MLS/HR Cholecalciferol (Vitamin D Tab) 1,000 inter.unit QAM PO 12/10/16 09:00 01/09/17 08:59 12/13/16 08:30 1,000 INTER.UNIT Citalopram Hydrobromide (celeXA TAB) 20 mg QAM PO 12/10/16 09:00 01/09/17 08:59 12/13/16 08:31 20 MG Folic Acid (Folvite Tab) 400 mcg QAM PO 12/10/16 09:00 01/09/17 08:59 12/13/16 08:30 400 MCG Warfarin Sodium (Coumadin Tab) 1 mg DAILY@1600 PO 12/09/16 17:34 01/08/17 17:33 12/12/16 16:55 1 MG Multivitamins/ Minerals (Multivitamin W/ Minerals Tab) 1 tab QAM PO 12/10/16 09:00 01/09/17 08:59 12/13/16 08:31 1 TAB Doxycycline Hyclate (Vibramycin Cap) 100 mg BID PO 12/11/16 21:00 12/18/16 20:59 12/13/16 08:30 100 MG Last 24 Hours Test 12/12/16 09:35 12/13/16 05:14 12/13/16 08:39 Prothrombin Time 17.0 SECONDS Prothromb Time International Ratio 1.6 Sodium Level 141 mmol/L 143 mmol/L Potassium Level 4.1 mmol/L 4.2 mmol/L Chloride Level 115 mmol/L 118 mmol/L Carbon Dioxide Level 14 mmol/L 16 mmol/L Anion Gap 12.0 mmol/L 9.0 mmol/L Blood Urea Nitrogen 85 mg/dl 88 mg/dl Creatinine 5.90 mg/dl 5.60 mg/dl Est Creatinine Clear Calc Drug Dose 9.0 ml/min 9.5 ml/min Estimated GFR () 9.3 9.9 Estimated GFR (Non- 8.0 8.6 BUN/Creatinine Ratio 14.7 15.7 Random Glucose 153 mg/dl 115 mg/dl Calcium Level 7.7 mg/dl 7.0 mg/dl Magnesium Level 1.9 mg/dl White Blood Count 14.98 K/uL Red Blood Count 2.75 M/uL Hemoglobin 8.5 g/dL Hematocrit 26.1 % Mean Corpuscular Volume 94.9 fL Mean Corpuscular Hemoglobin 30.9 pg Mean Corpuscular Hemoglobin Concent 32.6 g/dl RDW Standard Deviation 60.9 fL RDW Coefficient of Variation 18.1 % Platelet Count 281 K/uL Mean Platelet Volume 9.2 fL Total Bilirubin 2.0 mg/dl Aspartate Amino Transf (AST/SGOT) 35 U/L Alanine Aminotransferase (ALT/SGPT) 74 U/L Alkaline Phosphatase 138 U/L Total Protein 5.2 gm/dl Albumin 1.9 gm/dl Globulin 3.3 gm/dl Albumin/Globulin Ratio 0.6 Assessment & Plan [id number]-urinating much better. on normal saline at 75cc/hr. has a persistent metabolic acidosis and would like to switch to 1/2ns with 75 bicarb to help with the acidosis. creatinine is slowly improving. no role for dialysis at this time.
[2016-12-13 10:47] LABS: INR 1.7 (0.9-1.1); PROTHROMBIN TIME (PATIENT) 18.6 SECONDS (9.0-12.0)
--- NOTE | 2016-12-13 15:25 | Progress Note ---
Medicine Progress Note Date & Time of Visit: Dec 13, 2016 at 15:19. Subjective Pt was seen examined Lying in bed with no distress his right arm swelling and pain improved Denies any chest pain, palpitation, dizziness and SOB Objective Last 8 Hrs Date Time Temp Pulse Resp B/P (MAP) Pulse Ox O2 Delivery O2 Flow Rate FiO2 12/13/16 12:00 Room Air 12/13/16 11:26 36.9 75 19 118/59 (78) 93 Room Air 12/13/16 08:00 Room Air Physical Exam: General- No acute distress Head- atraumatic Eyes- PERRL, EOMI ENT- oropharynx clear Neck- no JVD, no adenopathy Lungs- mild wheezing on expiratory Heart- regular rhythm Abdomen- normal bowel sounds Extremities-no calf tenderness, +RUE tenderness and swelling Neuro- alert, oriented x 3; PERRL Skin- warm & dry Laboratory Results: Last 24 Hours Test 12/13/16 05:14 12/13/16 10:31 White Blood Count 14.98 K/uL Red Blood Count 2.75 M/uL Hemoglobin 8.5 g/dL Hematocrit 26.1 % Mean Corpuscular Volume 94.9 fL Mean Corpuscular Hemoglobin 30.9 pg Mean Corpuscular Hemoglobin Concent 32.6 g/dl RDW Standard Deviation 60.9 fL RDW Coefficient of Variation 18.1 % Platelet Count 281 K/uL Mean Platelet Volume 9.2 fL Sodium Level 143 mmol/L Potassium Level 4.2 mmol/L Chloride Level 118 mmol/L Carbon Dioxide Level 16 mmol/L Anion Gap 9.0 mmol/L Blood Urea Nitrogen 88 mg/dl Creatinine 5.60 mg/dl Est Creatinine Clear Calc Drug Dose 9.5 ml/min Estimated GFR () 9.9 Estimated GFR (Non- 8.6 BUN/Creatinine Ratio 15.7 Random Glucose 115 mg/dl Calcium Level 7.0 mg/dl Total Bilirubin 2.0 mg/dl Aspartate Amino Transf (AST/SGOT) 35 U/L Alanine Aminotransferase (ALT/SGPT) 74 U/L Alkaline Phosphatase 138 U/L Total Protein 5.2 gm/dl Albumin 1.9 gm/dl Globulin 3.3 gm/dl Albumin/Globulin Ratio 0.6 Prothrombin Time 18.6 SECONDS Prothromb Time International Ratio 1.7 Assessment & Plan Adenocarcinoma of the Pancreas -CT abd/pelvis with asymmetrically enlarged pancreatic head -MRI consistent with CBD dilation and Pancreatic Head mass -S/P ERCP -Duodenal Bulb mass-and Pancreatic head mass-biopsied - Biopsy: ATYPICAL EPITHELIAL CELLS CONSISTENT WITH PANCREATIC ADENOCARCINOMA -Asymptomatic -Poor prognosis - case discuss with daughter and Son - Will arrange follow up appt with hem/onc with Dr. Lama - Family will decide about next option after meeting with dr. Lama Painless Jaundice Secondary to biliary obstruction No h/o liver/GB pathology CT Abd with distended GB and intrahepatic biliary ductal dilatation Concern for ascending cholangitis with increased WCC US Liver-No acute Cholecystitis has CBD and Intrahepatic duct dilatation Consulted GI, general surgery No surgical intervention as per surgery, very high risk candidate Continue Cipro for 7 days of therapy Right UE swelling/tenderness Continue apply warm compress on it improved SIRs with suspected GI source of infection: -Leukocytosis of 18, hypotensive to 84/63, tachycardic 110s-120s, Lactic acid of 2.9 -Started on antibiotics with Cipro and Flagyl -BP responded to IVFs and is now in normal range -WCC remains elevated -will check CXR and Urine [place]: -Cr of 3.7 from a baseline ~1 -Likely secondary to Intravascular Fluid depletion -creatine 5.6 today - Continue IVF -Avoid nephrotoxic agents -Nephrology on board -creatine treading down slowly - Continue monitor BMP Palpable abd bruit: -Palpated on exam -However, was not appreciated on Ct abd/pelvis -Denies any CP, abd pain CAD: Atrial Fibrillation (on Coumadin): -Rate controlled with Metoprolol -Cardiology consulted for Pre-op clearance as requested by GI for ERCP -Coumadin resumed -INR 1.7today Dementia Stable HLD: -Statin held while NPO and due to increased LFTs -Plan to reinitiate when LFTs are improved Hx of Prior CVA: -S/p carotid endarterectomy will resume asa in am Depression: - Celexa held DVT Ppx: SCDs Coumadin restarted Has High risk of Clot formation Code status: FULL PCP: Dawson Dispo: Discharge once medically stable Will schedule follow appt with hem/onc Will discharge to rehab once medically stable 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 Medications: Current Inpatient Medications Medications (Trade) Dose Ordered Sig/Thelma Route Start Time Stop Time Status Last Admin Dose Admin Metoprolol Succinate (Toprol Xl Tab) 12.5 mg BID PO 12/08/16 18:00 01/07/17 17:59 12/13/16 08:31 12.5 MG Pantoprazole Sodium (Protonix Tab) 40 mg QAM PO 12/09/16 09:00 01/08/17 08:59 12/13/16 08:30 40 MG Sodium Chloride 1,000 ml @ 75 mls/hr [id number] IV 12/08/16 17:15 01/07/17 17:14 12/13/16 04:08 75 MLS/HR Cholecalciferol (Vitamin D Tab) 1,000 inter.unit QAM PO 12/10/16 09:00 01/09/17 08:59 12/13/16 08:30 1,000 INTER.UNIT Citalopram Hydrobromide (celeXA TAB) 20 mg QAM PO 12/10/16 09:00 01/09/17 08:59 12/13/16 08:31 20 MG Folic Acid (Folvite Tab) 400 mcg QAM PO 12/10/16 09:00 01/09/17 08:59 12/13/16 08:30 400 MCG Warfarin Sodium (Coumadin Tab) 1 mg DAILY@1600 PO 12/09/16 17:34 01/08/17 17:33 12/12/16 16:55 1 MG Multivitamins/ Minerals (Multivitamin W/ Minerals Tab) 1 tab QAM PO 12/10/16 09:00 01/09/17 08:59 12/13/16 08:31 1 TAB Doxycycline Hyclate (Vibramycin Cap) 100 mg BID PO 12/11/16 21:00 12/18/16 20:59 12/13/16 08:30 100 MG
[2016-12-13] MEDS: WARFARIN SOD 1 MG TAB PO SCH (15:50)
[2016-12-13 18:04] LABS: BUN/CREATININE RATIO 16.4 (10-20); CREATININE 5.4 mg/dl (0.60-1.40); MAGNESIUM 1.9 mg/dl (1.8-2.4); POTASSIUM 4.4 mmol/L (3.5-5.1)
[2016-12-13 18:05] LABS: CALCIUM 8.1 mg/dl (8.5-10.1)
[2016-12-14 03:06] VITALS: BP 126/67; PULSE 72; TEMP 36.8; O2SAT 92
[2016-12-14 05:33] LABS: HEMATOCRIT 26.3 % (42-52); MEAN CORPUSCULAR HEMOGLOBIN 30.7 pg (25-34); MEAN CORPUSCULAR HGB CONC 31.9 g/dl (32-36); MEAN PLATELET VOLUME 9.1 fL (7.4-10.4); PLATELET COUNT 288 K/uL (130-400); RED BLOOD COUNT 2.74 M/uL (4.7-6.1); WHITE BLOOD COUNT 13.33 K/uL (4.8-10.8)
[2016-12-14 05:43] LABS: INR 2.1 (0.9-1.1); PROTHROMBIN TIME (PATIENT) 23.6 SECONDS (9.0-12.0)
[2016-12-14 06:16] LABS: BUN/CREATININE RATIO 17.2 (10-20); CREATININE 5.2 mg/dl (0.60-1.40); MAGNESIUM 1.8 mg/dl (1.8-2.4); POTASSIUM 4.4 mmol/L (3.5-5.1)
[2016-12-14 07:35] VITALS: BP 127/68; PULSE 86; TEMP 36.7; O2SAT 92
[2016-12-14] MEDS: CEROVITE ADV FORMULA TAB PO SCH (07:48)
[2016-12-14] MEDS: PANTOprazole SOD 40 MG TAB PO SCH (07:48)
[2016-12-14] MEDS: METOPROLOL SUCC 25MG EXT REL TAB PO SCH ×2 (07:48→20:17)
[2016-12-14] MEDS: CHOLECALCIFEROL 1000 INTER.UNIT TAB PO SCH (07:49)
[2016-12-14] MEDS: CITALOPRAM 20 MG TAB PO SCH (07:49)
[2016-12-14] MEDS: DOXYCYCLINE HYCLATE 100 MG CAP PO SCH ×2 (07:49→20:17)
[2016-12-14] MEDS: FoLIC ACID TAB 400 MCG TAB PO SCH (07:49)
[2016-12-14] MEDS: SODIUM CHLORIDE 0.9% 1000ML 1,000 ML IV SCH (08:02)
--- NOTE | 2016-12-14 09:47 | PROGRESS NOTE ---
DATE: 12/14/2016 DATE: 12/14/2016 SUBJECTIVE: The patient is an 86-year-old male with TKI/ATN in the setting of pancreatic cancer. Most likely acute renal failure was prerenal in etiology with possible ATN on top. No new complaints. Overnight no new issues. He is making good amount of urine. He has a Gabriel catheter. Urine output 2650 mL yesterday. He is eating and drinking fine. Denies shortness of breath, nausea, vomiting. PHYSICAL EXAMINATION: GENERAL: Awake, alert, oriented x3, very hard of hearing. HEAD, EYES, EARS, NOSE, AND THROAT: Mucous membrane is moist. NECK: Supple. LUNGS: Clear to auscultation. HEART: Irregular. ABDOMEN: Soft, mildly distended. No tenderness. EXTREMITIES: Shows some venous insufficiency in his lower extremity with evidence of peripheral vascular disease. NEUROLOGIC: Nonfocal. LABORATORY TESTS: From this morning shows hemoglobin of 8.4. WBC count 13,000, platelet count 288. Sodium 145, potassium 4.4, BUN 90, creatinine 5.2. Lactic acid 2.0. Calcium 8.0. Magnesium 1.8. ASSESSMENT AND PLAN: Acute kidney injury, nonoliguric, most likely acute tubular necrosis. ------ Labs are getting better, but very slowly with a bicarb level is still only 15, but the anion gap is still normal at 11. However, the corrected anion gap is high accounting for the very low albumin. Continue with half normal saline with 75 of bicarb. Continue daily labs. No dialysis needed. MTDD
[2016-12-14] MEDS: SODIUM BICARBONATE 8.4% INJ 75 MEQ in SODIUM CHLORIDE 0.45% 1000ML 1,000 ML IV SCH (11:32)
[2016-12-14 11:49] VITALS: BP 155/88; PULSE 91; TEMP 36.8; O2SAT 94
[2016-12-14 15:16] VITALS: BP 148/81; PULSE 102; TEMP 36.9; O2SAT 94
[2016-12-14] MEDS: WARFARIN SOD 1 MG TAB PO SCH (17:41)
[2016-12-14 19:17] VITALS: BP 146/72; PULSE 79; TEMP 37.2; O2SAT 93
--- NOTE | 2016-12-14 19:35 | Progress Note ---
Medicine Progress Note Date & Time of Visit: Dec 14, 2016 at 16:28. Subjective Pt was seen and examined Lying in bed with no distress his left arm swelling continue to improve he has a 34 sec beat of VT yesterday with no symptoms (while sleeping) No chest pain, palpitation, dizziness and sob Objective Last 8 Hrs Date Time Temp Pulse Resp B/P (MAP) Pulse Ox O2 Delivery O2 Flow Rate FiO2 12/14/16 16:00 Room Air 12/14/16 15:16 36.9 102 20 148/81 (103) 94 Room Air 12/14/16 12:00 Room Air 12/14/16 11:49 36.8 91 18 155/88 (110) 94 Room Air Physical Exam: General- No acute distress Head- atraumatic Eyes- PERRL, EOMI ENT- oropharynx clear Neck- no JVD, no adenopathy Lungs-No crackles Heart- regular rhythm Abdomen- normal bowel sounds Extremities-no calf tenderness, +RUE tenderness and swelling Neuro- alert, oriented x 3; PERRL Skin- warm & dry Laboratory Results: Last 24 Hours Test 12/14/16 05:07 White Blood Count 13.33 K/uL Red Blood Count 2.74 M/uL Hemoglobin 8.4 g/dL Hematocrit 26.3 % Mean Corpuscular Volume 96.0 fL Mean Corpuscular Hemoglobin 30.7 pg Mean Corpuscular Hemoglobin Concent 31.9 g/dl RDW Standard Deviation 62.7 fL RDW Coefficient of Variation 18.2 % Platelet Count 288 K/uL Mean Platelet Volume 9.1 fL Prothrombin Time 23.6 SECONDS Prothromb Time International Ratio 2.1 Sodium Level 145 mmol/L Potassium Level 4.4 mmol/L Chloride Level 119 mmol/L Carbon Dioxide Level 15 mmol/L Anion Gap 11.0 mmol/L Blood Urea Nitrogen 90 mg/dl Creatinine 5.20 mg/dl Est Creatinine Clear Calc Drug Dose 10.2 ml/min Estimated GFR () 10.9 Estimated GFR (Non- 9.4 BUN/Creatinine Ratio 17.2 Random Glucose 110 mg/dl Calcium Level 8.0 mg/dl Magnesium Level 1.8 mg/dl Assessment & Plan Adenocarcinoma of the Pancreas -CT abd/pelvis with asymmetrically enlarged pancreatic head -MRI consistent with CBD dilation and Pancreatic Head mass -S/P ERCP -Duodenal Bulb mass-and Pancreatic head mass-biopsied - Biopsy: ATYPICAL EPITHELIAL CELLS CONSISTENT WITH PANCREATIC ADENOCARCINOMA -Asymptomatic -Poor prognosis - case discuss with daughter and Son on 12/12 - Will arrange follow up appt with hem/onc with Dr. Lama - Family will decide about next option after meeting with dr. Lama Painless Jaundice Secondary to biliary obstruction No h/o liver/GB pathology CT Abd with distended GB and intrahepatic biliary ductal dilatation Concern for ascending cholangitis with increased WCC US Liver-No acute Cholecystitis has CBD and Intrahepatic duct dilatation Consulted GI, general surgery No surgical intervention as per surgery, very high risk candidate Continue Cipro for 7 days of therapy Right UE swelling/tenderness Continue apply warm compress on it Continue improved SIRs with suspected GI source of infection: -Leukocytosis of 18, hypotensive to 84/63, tachycardic 110s-120s, Lactic acid of 2.9 -Started on antibiotics with Cipro and Flagyl -BP responded to IVFs and is now in normal range -WCC remains elevated -will check CXR and Urine Brief run of VT Episodes last for 34 sec asymptomatic Cardiology was notified Continue current management monitor electrolytes [place]: -Cr of 3.7 from a baseline ~1 -Likely secondary to Intravascular Fluid depletion -creatine 5.2 today - Continue IVF -Avoid nephrotoxic agents - Continue IVF with 75 bicarb -Nephrology on board -creatine treading down slowly - Continue monitor BMP Palpable abd bruit: -Palpated on exam -However, was not appreciated on Ct abd/pelvis -Denies any CP, abd pain CAD: Atrial Fibrillation (on Coumadin): -Rate controlled with Metoprolol -Cardiology consulted for Pre-op clearance as requested by GI for ERCP -Coumadin resumed -INR 2.1 today Dementia Stable HLD: -Statin held while NPO and due to increased LFTs -Plan to reinitiate when LFTs are improved Hx of Prior CVA: -S/p carotid endarterectomy will resume asa in am Depression: - Celexa held DVT Ppx: SCDs On Coumadin INR therapeutic Code status: FULL PCP: Dawson Dispo: Discharge once medically stable Will schedule follow appt with hem/onc Will discharge to rehab once medically stable 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 Medications: Current Inpatient Medications Medications (Trade) Dose Ordered Sig/Thelma Route Start Time Stop Time Status Last Admin Dose Admin Metoprolol Succinate (Toprol Xl Tab) 12.5 mg BID PO 12/08/16 18:00 01/07/17 17:59 12/14/16 07:48 12.5 MG Pantoprazole Sodium (Protonix Tab) 40 mg QAM PO 12/09/16 09:00 01/08/17 08:59 12/14/16 07:48 40 MG Cholecalciferol (Vitamin D Tab) 1,000 inter.unit QAM PO 12/10/16 09:00 01/09/17 08:59 12/14/16 07:49 1,000 INTER.UNIT Citalopram Hydrobromide (celeXA TAB) 20 mg QAM PO 12/10/16 09:00 01/09/17 08:59 12/14/16 07:49 20 MG Folic Acid (Folvite Tab) 400 mcg QAM PO 12/10/16 09:00 01/09/17 08:59 12/14/16 07:49 400 MCG Warfarin Sodium (Coumadin Tab) 1 mg DAILY@1600 PO 12/09/16 17:34 01/08/17 17:33 12/14/16 17:41 1 MG Multivitamins/ Minerals (Multivitamin W/ Minerals Tab) 1 tab QAM PO 12/10/16 09:00 01/09/17 08:59 12/14/16 07:48 1 TAB Doxycycline Hyclate (Vibramycin Cap) 100 mg BID PO 12/11/16 21:00 12/18/16 20:59 12/14/16 07:49 100 MG Sodium Bicarbonate 75 meq/Sodium Chloride 1,075 ml @ 75 mls/hr [id number] IV 12/14/16 10:32 01/13/17 10:31 12/14/16 11:32 75 MLS/HR
[2016-12-14 20:00] VITALS: O2SAT 93
[2016-12-15] VITALS (9 sets, daily range): BP systolic 116–136; BP diastolic 66–74; PULSE 59–83; TEMP 36.7–37.6; O2SAT 92–95
[2016-12-15] MEDS: SODIUM BICARBONATE 8.4% INJ 75 MEQ in SODIUM CHLORIDE 0.45% 1000ML 1,000 ML IV SCH ×2 (01:10→15:05)
[2016-12-15 05:54] LABS: HEMATOCRIT 25.9 % (42-52); MEAN CELL VOLUME 94.9 fL (80-100); MEAN CORPUSCULAR HEMOGLOBIN 31.1 pg (25-34); MEAN CORPUSCULAR HGB CONC 32.8 g/dl (32-36); MEAN PLATELET VOLUME 9.1 fL (7.4-10.4); PLATELET COUNT 299 K/uL (130-400); RED BLOOD COUNT 2.73 M/uL (4.7-6.1); WHITE BLOOD COUNT 11.64 K/uL (4.8-10.8)
[2016-12-15 06:02] LABS: INR 2.7 (0.9-1.1); PROTHROMBIN TIME (PATIENT) 30.6 SECONDS (9.0-12.0)
[2016-12-15 06:37] LABS: BUN/CREATININE RATIO 18.3 (10-20); CALCIUM 8.1 mg/dl (8.5-10.1); CREATININE 4.9 mg/dl (0.60-1.40); POTASSIUM 4.3 mmol/L (3.5-5.1)
[2016-12-15] MEDS: CHOLECALCIFEROL 1000 INTER.UNIT TAB PO SCH (09:02)
[2016-12-15] MEDS: CEROVITE ADV FORMULA TAB PO SCH (09:02)
[2016-12-15] MEDS: FoLIC ACID TAB 400 MCG TAB PO SCH (09:02)
[2016-12-15] MEDS: PANTOprazole SOD 40 MG TAB PO SCH (09:02)
[2016-12-15] MEDS: CITALOPRAM 20 MG TAB PO SCH (09:02)
[2016-12-15] MEDS: DOXYCYCLINE HYCLATE 100 MG CAP PO SCH ×2 (09:02→21:52)
[2016-12-15] MEDS: METOPROLOL SUCC 25MG EXT REL TAB PO SCH ×2 (10:50→21:52)
[2016-12-15] MEDS: WARFARIN SOD 1 MG TAB PO SCH (15:30)
--- NOTE | 2016-12-15 15:46 | Progress Note ---
Medicine Progress Note Date & Time of Visit: Dec 15, 2016 at 15:22. Subjective Pt was seen and examined Sitting in chair comfortable with no distress Pt said that he feels fine The swelling in his right arm is worst today he had IVF running in the RUE No pain in the right arm He denies any chest pain, palpitation, dizziness Objective Last 8 Hrs Date Time Temp Pulse Resp B/P (MAP) Pulse Ox O2 Delivery O2 Flow Rate FiO2 12/15/16 10:51 36.8 83 20 136/74 (94) 92 Room Air 12/15/16 08:35 Room Air 12/15/16 08:32 36.7 75 20 128/66 (86) 93 Room Air Physical Exam: General- No acute distress Head- atraumatic Eyes- PERRL, EOMI ENT- oropharynx clear Neck- no JVD, no adenopathy Lungs-No crackles Heart- regular rhythm Abdomen- normal bowel sounds Extremities-no calf tenderness, +RUE swelling Neuro- alert, oriented x 3; PERRL Skin- warm & dry Laboratory Results: Last 24 Hours Test 12/15/16 05:13 White Blood Count 11.64 K/uL Red Blood Count 2.73 M/uL Hemoglobin 8.5 g/dL Hematocrit 25.9 % Mean Corpuscular Volume 94.9 fL Mean Corpuscular Hemoglobin 31.1 pg Mean Corpuscular Hemoglobin Concent 32.8 g/dl RDW Standard Deviation 61.0 fL RDW Coefficient of Variation 17.8 % Platelet Count 299 K/uL Mean Platelet Volume 9.1 fL Prothrombin Time 30.6 SECONDS Prothromb Time International Ratio 2.7 Sodium Level 144 mmol/L Potassium Level 4.3 mmol/L Chloride Level 116 mmol/L Carbon Dioxide Level 18 mmol/L Anion Gap 10.0 mmol/L Blood Urea Nitrogen 90 mg/dl Creatinine 4.90 mg/dl Est Creatinine Clear Calc Drug Dose 11.0 ml/min Estimated GFR () 11.7 Estimated GFR (Non- 10.1 BUN/Creatinine Ratio 18.3 Random Glucose 109 mg/dl Calcium Level 8.1 mg/dl Assessment & Plan Adenocarcinoma of the Pancreas -CT abd/pelvis with asymmetrically enlarged pancreatic head -MRI consistent with CBD dilation and Pancreatic Head mass -S/P ERCP -Duodenal Bulb mass-and Pancreatic head mass-biopsied - Biopsy: ATYPICAL EPITHELIAL CELLS CONSISTENT WITH PANCREATIC ADENOCARCINOMA -Asymptomatic -Poor prognosis - case discuss with daughter and Son on 12/12 - Will arrange follow up appt with hem/onc with Dr. Lama - Family will decide about next option after meeting with dr. Lama - Stable Painless Jaundice Secondary to biliary obstruction No h/o liver/GB pathology CT Abd with distended GB and intrahepatic biliary ductal dilatation Concern for ascending cholangitis with increased WCC US Liver-No acute Cholecystitis has CBD and Intrahepatic duct dilatation Consulted GI, general surgery No surgical intervention as per surgery, very high risk candidate Right UE swelling/tenderness Continue apply warm compress on it worst today, might be due IVF running through the RUE Will not use the RUE for IVF SIRs with suspected GI source of infection: -Leukocytosis of 18, hypotensive to 84/63, tachycardic 110s-120s, Lactic acid of 2.9 -Received antibiotics with Cipro and Flagyl -BP responded to IVFs and is now in normal range -WCC trending down -Stable Brief run of VT Episodes last for 34 sec asymptomatic Cardiology was notified Continue current management monitor electrolytes Stable [place]: -Cr of 3.7 from a baseline ~1 -Likely secondary to Intravascular Fluid depletion -creatine 4.9 today - Continue IVF -Avoid nephrotoxic agents - Continue IVF with 75 bicarb -Nephrology on board -creatine treading down slowly - Continue monitor BMP Palpable abd bruit: -Palpated on exam -However, was not appreciated on Ct abd/pelvis -Denies any CP, abd pain CAD: Atrial Fibrillation (on Coumadin): -Rate controlled with Metoprolol -Cardiology consulted for Pre-op clearance as requested by GI for ERCP -On Coumadin 1 mg -INR 2.7 today Dementia Stable HLD: -Statin held while NPO and due to increased LFTs -Plan to reinitiate when LFTs are improved Hx of Prior CVA: -S/p carotid endarterectomy will resume asa in am Depression: - Celexa held DVT Ppx: SCDs On Coumadin INR 2.7 therapeutic Code status: FULL PCP: Dawson Dispo: Discharge once medically stable Will schedule follow appt with hem/onc Will discharge to rehab once medically stable Consultants: Nephro Surgery gastro Cardio [employer] Ax Consultant Current Inpatient Medications: Current Inpatient Medications Medications (Trade) Dose Ordered Sig/Thelma Route Start Time Stop Time Status Last Admin Dose Admin Metoprolol Succinate (Toprol Xl Tab) 12.5 mg BID PO 12/08/16 18:00 01/07/17 17:59 12/15/16 10:50 12.5 MG Pantoprazole Sodium (Protonix Tab) 40 mg QAM PO 12/09/16 09:00 01/08/17 08:59 12/15/16 09:02 40 MG Cholecalciferol (Vitamin D Tab) 1,000 inter.unit QAM PO 12/10/16 09:00 01/09/17 08:59 12/15/16 09:02 1,000 INTER.UNIT Citalopram Hydrobromide (celeXA TAB) 20 mg QAM PO 12/10/16 09:00 01/09/17 08:59 12/15/16 09:02 20 MG Folic Acid (Folvite Tab) 400 mcg QAM PO 12/10/16 09:00 01/09/17 08:59 12/15/16 09:02 400 MCG Warfarin Sodium (Coumadin Tab) 1 mg DAILY@1600 PO 12/09/16 17:34 01/08/17 17:33 12/14/16 17:41 1 MG Multivitamins/ Minerals (Multivitamin W/ Minerals Tab) 1 tab QAM PO 12/10/16 09:00 01/09/17 08:59 12/15/16 09:02 1 TAB Doxycycline Hyclate (Vibramycin Cap) 100 mg BID PO 12/11/16 21:00 12/18/16 20:59 12/15/16 09:02 100 MG Sodium Bicarbonate 75 meq/Sodium Chloride 1,075 ml @ 75 mls/hr [id number] IV 12/14/16 10:32 01/13/17 10:31 12/15/16 15:05 75 MLS/HR
[2016-12-16 00:23] VITALS: BP 125/55; PULSE 68; TEMP 36.9; O2SAT 94
[2016-12-16 04:25] VITALS: BP 97/61; PULSE 72; TEMP 37.4; O2SAT 92
[2016-12-16] MEDS: SODIUM BICARBONATE 8.4% INJ 75 MEQ in SODIUM CHLORIDE 0.45% 1000ML 1,000 ML IV SCH ×2 (05:54→21:15)
[2016-12-16 07:31] LABS: HEMATOCRIT 24.9 % (42-52); MEAN CELL VOLUME 95.8 fL (80-100); MEAN CORPUSCULAR HEMOGLOBIN 31.2 pg (25-34); MEAN CORPUSCULAR HGB CONC 32.5 g/dl (32-36); MEAN PLATELET VOLUME 8.8 fL (7.4-10.4); PLATELET COUNT 273 K/uL (130-400); WHITE BLOOD COUNT 9.58 K/uL (4.8-10.8)
[2016-12-16 07:42] VITALS: BP 122/68; PULSE 66; TEMP 36.6; O2SAT 90
[2016-12-16] MEDS: CHOLECALCIFEROL 1000 INTER.UNIT TAB PO SCH (07:55)
[2016-12-16] MEDS: FoLIC ACID TAB 400 MCG TAB PO SCH (07:56)
[2016-12-16] MEDS: METOPROLOL SUCC 25MG EXT REL TAB PO SCH ×2 (07:56→21:21)
[2016-12-16] MEDS: CEROVITE ADV FORMULA TAB PO SCH (07:56)
[2016-12-16] MEDS: CITALOPRAM 20 MG TAB PO SCH (07:56)
[2016-12-16] MEDS: DOXYCYCLINE HYCLATE 100 MG CAP PO SCH ×2 (07:56→21:21)
[2016-12-16] MEDS: PANTOprazole SOD 40 MG TAB PO SCH (07:57)
[2016-12-16 08:12] LABS: BUN/CREATININE RATIO 19.5 (10-20); CALCIUM 7.9 mg/dl (8.5-10.1); CREATININE 4.5 mg/dl (0.60-1.40); MAGNESIUM 1.6 mg/dl (1.8-2.4); POTASSIUM 4.2 mmol/L (3.5-5.1)
[2016-12-16 08:37] LABS: INR 2.9 (0.9-1.1); PROTHROMBIN TIME (PATIENT) 32.1 SECONDS (9.0-12.0)
[2016-12-16] MEDS: MAGNESIUM SULFATE 1GM / D5W 1 GM in PREMIXED IN D5W 100 ML IV SCH ×2 (10:18→11:31)
--- NOTE | 2016-12-16 14:09 | Progress Note ---
Medicine Progress Note Date & Time of Visit: Dec 16, 2016 at 13:59. Subjective Pt was seen and examined Lying in bed comfortable with no distress with son and daughter at bedside Pt said that he feels fine Swelling in his arm improved significantly Denies any chest pain, palpitation, dizziness, diarrhea and SOB Objective Last 8 Hrs Date Time Temp Pulse Resp B/P (MAP) Pulse Ox O2 Delivery O2 Flow Rate FiO2 12/16/16 08:00 Room Air 12/16/16 07:42 36.6 66 18 122/68 (86) 90 Room Air Physical Exam: General- No acute distress Head- atraumatic Eyes- PERRL, EOMI ENT- oropharynx clear Neck- no JVD, no adenopathy Lungs-No crackles Heart- regular rhythm Abdomen- normal bowel sounds Extremities-no calf tenderness, +RUE swelling Neuro- alert, oriented x 3; PERRL Skin- warm & dry Laboratory Results: Last 24 Hours Test 12/16/16 07:19 12/16/16 08:09 White Blood Count 9.58 K/uL Red Blood Count 2.60 M/uL Hemoglobin 8.1 g/dL Hematocrit 24.9 % Mean Corpuscular Volume 95.8 fL Mean Corpuscular Hemoglobin 31.2 pg Mean Corpuscular Hemoglobin Concent 32.5 g/dl RDW Standard Deviation 61.8 fL RDW Coefficient of Variation 17.7 % Platelet Count 273 K/uL Mean Platelet Volume 8.8 fL Sodium Level 144 mmol/L Potassium Level 4.2 mmol/L Chloride Level 114 mmol/L Carbon Dioxide Level 20 mmol/L Anion Gap 10.0 mmol/L Blood Urea Nitrogen 88 mg/dl Creatinine 4.50 mg/dl Est Creatinine Clear Calc Drug Dose 11.9 ml/min Estimated GFR () 12.9 Estimated GFR (Non- 11.2 BUN/Creatinine Ratio 19.5 Random Glucose 104 mg/dl Calcium Level 7.9 mg/dl Magnesium Level 1.6 mg/dl Prothrombin Time 32.1 SECONDS Prothromb Time International Ratio 2.9 Assessment & Plan Adenocarcinoma of the Pancreas -CT abd/pelvis with asymmetrically enlarged pancreatic head -MRI consistent with CBD dilation and Pancreatic Head mass -S/P ERCP -Duodenal Bulb mass-and Pancreatic head mass-biopsied - Biopsy: ATYPICAL EPITHELIAL CELLS CONSISTENT WITH PANCREATIC ADENOCARCINOMA -Asymptomatic -Poor prognosis - case discuss with daughter and Son on 12/12 - Will arrange follow up appt with hem/onc with Dr. Lama - Family will decide about next option after meeting with dr. Lama - Stable Painless Jaundice Secondary to biliary obstruction No h/o liver/GB pathology CT Abd with distended GB and intrahepatic biliary ductal dilatation Concern for ascending cholangitis with increased WCC US Liver-No acute Cholecystitis has CBD and Intrahepatic duct dilatation Consulted GI, general surgery No surgical intervention as per surgery, very high risk candidate Right UE swelling/tenderness Continue apply warm compress on it worst today, might be due IVF running through the RUE Will not use the RUE for IVF improved significantly SIRs with suspected GI source of infection: -Leukocytosis of 18, hypotensive to 84/63, tachycardic 110s-120s, Lactic acid of 2.9 -Received antibiotics with Cipro and Flagyl -BP responded to IVFs and is now in normal range -WCC trending down -Stable Brief run of VT Episodes last for 34 sec asymptomatic Cardiology was notified Continue current management monitor electrolytes Stable [place]: -Cr of 3.7 from a baseline ~1 -Likely secondary to Intravascular Fluid depletion -creatine continue trending down, 4.5 today - Continue IVF -Avoid nephrotoxic agents - Continue IVF with 75 bicarb - Bicarb improved -Nephrology on board -creatine treading down slowly - Case discussed with Nephrology - From nephrology standpoint, ok to discharge to rehab - Will need to repeat BMP on Saturday Palpable abd bruit: -Palpated on exam -However, was not appreciated on Ct abd/pelvis -Denies any CP, abd pain CAD: Atrial Fibrillation (on Coumadin): -Rate controlled with Metoprolol -Cardiology consulted for Pre-op clearance as requested by GI for ERCP -will decrease Coumadin from 1 mg to 0.5 mg -INR 2.9 today Dementia Stable HLD: -Statin held while NPO and due to increased LFTs -Plan to reinitiate when LFTs are improved Hx of Prior CVA: -S/p carotid endarterectomy will resume asa in am Depression: - Celexa held DVT Ppx: SCDs On Coumadin INR 2.9 therapeutic Code status: FULL PCP: Dawson Dispo: Will schedule follow appt with hem/onc Waiting for bed to discharge to rehab Check BMP and Mg on Sat Consultants: Nephro Surgery gastro Cardio [employer] Current Inpatient Medications: Current Inpatient Medications Medications (Trade) Dose Ordered Sig/Thelma Route Start Time Stop Time Status Last Admin Dose Admin Metoprolol Succinate (Toprol Xl Tab) 12.5 mg BID PO 12/08/16 18:00 01/07/17 17:59 12/16/16 07:56 12.5 MG Pantoprazole Sodium (Protonix Tab) 40 mg QAM PO 12/09/16 09:00 01/08/17 08:59 12/16/16 07:57 40 MG Cholecalciferol (Vitamin D Tab) 1,000 inter.unit QAM PO 12/10/16 09:00 01/09/17 08:59 12/16/16 07:55 1,000 INTER.UNIT Citalopram Hydrobromide (celeXA TAB) 20 mg QAM PO 12/10/16 09:00 01/09/17 08:59 12/16/16 07:56 20 MG Folic Acid (Folvite Tab) 400 mcg QAM PO 12/10/16 09:00 01/09/17 08:59 12/16/16 07:56 400 MCG Multivitamins/ Minerals (Multivitamin W/ Minerals Tab) 1 tab QAM PO 12/10/16 09:00 01/09/17 08:59 12/16/16 07:56 1 TAB Doxycycline Hyclate (Vibramycin Cap) 100 mg BID PO 12/11/16 21:00 12/18/16 20:59 12/16/16 07:56 100 MG Sodium Bicarbonate 75 meq/Sodium Chloride 1,075 ml @ 75 mls/hr [id number] IV 12/14/16 10:32 01/13/17 10:31 12/16/16 05:54 75 MLS/HR Warfarin Sodium (Coumadin Tab) 0.5 mg DAILY@1600 PO 12/16/16 16:00 01/08/17 17:33
[2016-12-16 15:30] VITALS: BP 127/72; PULSE 72; TEMP 36.9; O2SAT 90
[2016-12-16] MEDS ORDERED: WARFARIN SOD 0.5 MG TAB PO SCH (16:00)
[2016-12-16 23:37] VITALS: BP 159/74; PULSE 73; TEMP 37; O2SAT 91
[2016-12-17 06:42] LABS: CALCIUM 7.9 mg/dl (8.5-10.1); CREATININE 4.2 mg/dl (0.60-1.40); POTASSIUM 4.3 mmol/L (3.5-5.1)
[2016-12-17 07:25] VITALS: BP 176/70; PULSE 109; TEMP 36.9; O2SAT 91
[2016-12-17] MEDS: PANTOprazole SOD 40 MG TAB PO SCH (07:49)
[2016-12-17] MEDS: DOXYCYCLINE HYCLATE 100 MG CAP PO SCH (07:49)
[2016-12-17] MEDS: METOPROLOL SUCC 25MG EXT REL TAB PO SCH (07:49)
[2016-12-17] MEDS: CHOLECALCIFEROL 1000 INTER.UNIT TAB PO SCH (07:50)
[2016-12-17] MEDS: CEROVITE ADV FORMULA TAB PO SCH (07:50)
[2016-12-17] MEDS: CITALOPRAM 20 MG TAB PO SCH (07:50)
[2016-12-17] MEDS: FoLIC ACID TAB 400 MCG TAB PO SCH (07:50)
[2016-12-17 08:10] LABS: INR 2.9 (0.9-1.1); PROTHROMBIN TIME (PATIENT) 32.8 SECONDS (9.0-12.0)
[2016-12-17] MEDS: SODIUM BICARBONATE 8.4% INJ 75 MEQ in SODIUM CHLORIDE 0.45% 1000ML 1,000 ML IV SCH (10:12)
--- NOTE | 2016-12-17 10:22 | Progress Note ---
Medicine Progress Note Date & Time of Visit: Dec 17, 2016 at 10:05. Subjective Pt was seen and examined Lying in bed with no distress with daughters at bedside Pt said that he feels fine He said that he slept well last night Denies any chest pain, palpitation, dizziness and SOB Objective Last 8 Hrs Date Time Temp Pulse Resp B/P (MAP) Pulse Ox O2 Delivery O2 Flow Rate FiO2 12/17/16 07:25 36.9 109 18 176/70 (105) 91 Room Air Physical Exam: General- No acute distress Head- atraumatic Eyes- PERRL, EOMI ENT- oropharynx clear Neck- no JVD, no adenopathy Lungs-No crackles Heart- regular rhythm Abdomen- normal bowel sounds Pelvis- swollen scrotum and penis, Gabriel in place Extremities-no calf tenderness, UE swelling improved Neuro- alert, oriented x 3; PERRL Skin- warm & dry Laboratory Results: Last 24 Hours Test 12/17/16 06:00 12/17/16 07:46 Sodium Level 143 mmol/L Potassium Level 4.3 mmol/L Chloride Level 113 mmol/L Carbon Dioxide Level 23 mmol/L Anion Gap 7.0 mmol/L Blood Urea Nitrogen 88 mg/dl Creatinine 4.20 mg/dl Est Creatinine Clear Calc Drug Dose 12.7 ml/min Estimated GFR () 14.1 Estimated GFR (Non- 12.1 BUN/Creatinine Ratio 21.0 Random Glucose 117 mg/dl Calcium Level 7.9 mg/dl Magnesium Level 2.0 mg/dl Prothrombin Time 32.8 SECONDS Prothromb Time International Ratio 2.9 Assessment & Plan Adenocarcinoma of the Pancreas -CT abd/pelvis with asymmetrically enlarged pancreatic head -MRI consistent with CBD dilation and Pancreatic Head mass -S/P ERCP -Duodenal Bulb mass-and Pancreatic head mass-biopsied - Biopsy: ATYPICAL EPITHELIAL CELLS CONSISTENT WITH PANCREATIC ADENOCARCINOMA -Asymptomatic -Poor prognosis - case discuss with daughter and Son on 12/12 - Will arrange follow up appt with hem/onc with Dr. Lama - Family will decide about next option after meeting with dr. Lama - I called to schedule follow up appt, unfortunately the office is closed - Stable Painless Jaundice Secondary to biliary obstruction No h/o liver/GB pathology CT Abd with distended GB and intrahepatic biliary ductal dilatation Concern for ascending cholangitis with increased WBC Liver enzymes (AST/ALT) above 500 on admission AST/ALT back to normal level US Liver-No acute Cholecystitis has CBD and Intrahepatic duct dilatation Consulted GI, general surgery No surgical intervention as per surgery, very high risk candidate Right UE swelling/tenderness Continue apply warm compress on it worst today, might be due IVF running through the RUE Will not use the RUE for IVF improved significantly Scrotum swelling Asymptomatic Normal output Will keep Gabriel cath for now Will d/c Gabriel when swelling improved SIRs with suspected GI source of infection: -Leukocytosis of 18, hypotensive to 84/63, tachycardic 110s-120s, Lactic acid of 2.9 -Received antibiotics with Cipro and Flagyl -BP responded to IVFs and is now in normal range -WBC WNL -Stable Pneumonia CXR showed Progressive right infrahilar patchy airspace opacity Completed doxycycline course Afebrile, NO leukocytosis Stable Brief run of VT Episodes last for 34 sec asymptomatic Cardiology was notified Continue current management monitor electrolytes Stable [place]: -Cr of 3.7 from a baseline ~1 -Likely secondary to Intravascular Fluid depletion -creatine continue trending down, 4.2 today - Continue IVF -Avoid nephrotoxic agents - Continue IVF with 75 bicarb - Bicarb WNL -Nephrology on board -creatine treading down slowly - Case discussed with Nephrology - From nephrology standpoint, ok to discharge to rehab - Will need to repeat BMP on Saturday and send result to Dr. Hogan Palpable abd bruit: -Palpated on exam -However, was not appreciated on Ct abd/pelvis -Denies any CP, abd pain CAD Asymptomatic stable Atrial Fibrillation (on Coumadin): -Rate controlled with Metoprolol -Cardiology consulted for Pre-op clearance as requested by GI for ERCP -Continue coumadin -INR 2.9 today Ambulatory dysfunction Continue PT/OT fall precaution Will transfer to rehab today Dementia Stable HLD: -Statin held while NPO and due to increased LFTs -Plan to reinitiate when LFTs are improved Hx of Prior CVA: -S/p carotid endarterectomy will resume asa in am Depression: - Celexa held DVT Ppx: SCDs On Coumadin INR 2.9 therapeutic Code status: FULL PCP: Dawson Disposition Discharge to [facility] for rehab Call to schedule follow appt with hem/onc Check BMP and Mg on Sat Consultants: Nephro Surgery gastro Cardio [employer] Procedures: Endoscopic ultrasound (UEUS) EGD Current Inpatient Medications: Current Inpatient Medications Medications (Trade) Dose Ordered Sig/Thelma Route Start Time Stop Time Status Last Admin Dose Admin Metoprolol Succinate (Toprol Xl Tab) 12.5 mg BID PO 12/08/16 18:00 01/07/17 17:59 12/17/16 07:49 12.5 MG Pantoprazole Sodium (Protonix Tab) 40 mg QAM PO 12/09/16 09:00 01/08/17 08:59 12/17/16 07:49 40 MG Cholecalciferol (Vitamin D Tab) 1,000 inter.unit QAM PO 12/10/16 09:00 01/09/17 08:59 12/17/16 07:50 1,000 INTER.UNIT Citalopram Hydrobromide (celeXA TAB) 20 mg QAM PO 12/10/16 09:00 01/09/17 08:59 12/17/16 07:50 20 MG Folic Acid (Folvite Tab) 400 mcg QAM PO 12/10/16 09:00 01/09/17 08:59 12/17/16 07:50 400 MCG Multivitamins/ Minerals (Multivitamin W/ Minerals Tab) 1 tab QAM PO 12/10/16 09:00 01/09/17 08:59 12/17/16 07:50 1 TAB Doxycycline Hyclate (Vibramycin Cap) 100 mg BID PO 12/11/16 21:00 12/18/16 20:59 12/17/16 07:49 100 MG Sodium Bicarbonate 75 meq/Sodium Chloride 1,075 ml @ 75 mls/hr [id number] IV 12/14/16 10:32 01/13/17 10:31 12/16/16 21:15 75 MLS/HR Warfarin Sodium (Coumadin Tab) 0.5 mg DAILY@1600 PO 12/16/16 16:00 01/08/17 17:33 12/16/16 16:01 0.5 MG
--- NOTE | 2016-12-17 10:49 | Discharge Instructions ---
Discharge Instructions Date of Service Dec 17, 2016. Admission Reason for Admission: Biliary Obstruction, Pancreatic Mass, Sepsis Discharge Discharge Diagnosis / Problem: Adenocarcinoma of the Pancreas, Acute kidney injury, Billiary obstruction Discharge Goals Goal(s): Decrease discomfort, Improve function, Improve disease control Activity Recommendations Activity Limitations: resume your previous activity (as tolerated) . Instructions / Follow-Up Instructions / Follow-Up Discharge to [facility] Please call your primary care provider once discharge from rehab Please call Dr. Lama office tomorrow to schedule an appointment between 1 to 2 weeks Address: [address], [place] [address] Continue monitor renal function Please avoid medication that can damage the kidney Check BMP, CBC and Magnesium on Saturday Then Check BMP in 1 week and send result to nephrology Dr. Hogan Aspirin can be resumed after checking CBC on Saturday if hemoglobin stable Continue monitor INR INR today 2.9 Continue PT/OT fall precaution OK to discharge with Gabriel cath Gabriel can be discontinued in about 2 days once scrotum/penis swelling improved significantly Current Hospital Diet Patient's current hospital diet: AHA Diet (Heart Healthy) Discharge Diet Recommended Diet: AHA Diet (Heart Healthy), Low Sodium Diet (2gm Na) Procedures Procedures Performed: Endoscopic Retrograde Cholangiopancreatogram, Upper Endoscopy, Endoscopic Ultrasonography, Stent Placement, Duodenal Mass Biopsies Pending Studies Studies pending at discharge: no Medical Emergencies . Who to Call and When: Medical Emergencies: If at any time you feel your situation is an emergency, please call 911 immediately. . Non-Emergent Contact Non-Emergency issues call your: Primary Care Provider Call Non-Emergent contact if: you have any medication questions . . "Provider Documentation" section prepared by Raghu Ferrer. . VTE Core Measure Inpt VTE Proph given/why not?: Warfarin (Coumadin), SCD's
[2016-12-17 10:58] VITALS: BP 176/70; PULSE 109; TEMP 36.9; O2SAT 91
--- NOTE | 2016-12-17 11:00 | Discharge Summary ---
Discharge Summary Date of Service Dec 17, 2016. Discharge Summary Admission Date: Dec 06, 2016 at 18:39 Discharge Date: Dec 17, 2016 Discharge Disposition: Rehab Principal Diagnosis: Painless Jaundice Secondary to biliary obstruction Secondary Diagnoses/Problems: Adenocarcinoma of the Pancreas Right UE swelling/tenderness Scrotum swelling Pneumonia Brief run of VT IND[place] CAD Atrial Fibrillation Ambulatory dysfunction Dementia Palpable abd bruit Hx of Prior CVA depression Procedures: Endoscopic ultrasound (UEUS) EGD Consultations: Nephro Surgery gastro Cardio [employer]el [employer] Medication Reconciliation Continued Medications: Aspirin (Aspirin Ec) 81 Mg Tab 81 MG PO QAM Atorvastatin Calcium (Lipitor) 80 Mg Tab 40 MG PO DAILY, TAB Cholecalciferol (Vitamin D 1000 Unit) 1,000 Unit Cap 1000 INTER.UNIT PO QAM, CAP Citalopram Hydrobromide (Citalopram Hydrobromide) 20 Mg Tab 20 MG PO QAM Folic Acid (Folvite) 400 Mcg Tab 400 MCG PO QAM, TAB Metoprolol Tartrate (Lopressor) 25 Mg Tab 12.5 MG PO QAM, TAB Multiple Vitamins W/ Minerals (Preservision Areds) 1 Cap Cap 1 CAP PO QAM Salida-3 Fatty Acids (Fish Oil) 1 Cap Cap 1 CAPSULE PO QAM Vitamin A (Vitamin A) 8,000 Unit Tab 8000 UNITS PO DAILY Warfarin Sod (Jantoven) 1 Mg Tab 1 MG PO DAILY, TAB Admission Information HPI (per Admitting provider): This is 86yo man with a PMH of A Fib (on coumadin), CAD and h/o prior CVA who presents with worsening bruising of extremities as well as jaundice. Patient has been on long-term anticoagulation and noticed bruising of all four extremities earlier this week that has progressively worsened. He denies any recent falls but states that he may have run into the door of his home. Patient lives alone and has family who intermittently check in. This morning, the patient's son visited and noticed that his Dad was noticeably jaundiced. There is no PMH of liver or gall bladder disease. Patient endorses increased fatigue over the past few days but denies fever, chills, CP, SOB, abdominal pain, nausea , vomiting or rectal bleeding. Family has noticed some blood in patient's urine this week. Denies pain of any kind. Of note, patient has a dental abscess but has not been eligible for surgery due to INR >3. Physical Exam (per Admitting): General Appearance: WD/WN, no apparent distress, + pertinent finding ( Significant jaundice from head to toe. ) Head: normocephalic, atraumatic Eyes: + abnormal sclerae exam (Scleral icterus ) ENT: normal ENT inspection (hard of hearing ) Neck: supple, no adenopathy, trachea midline Respiratory/Chest: chest non-tender, lungs clear, normal breath sounds, no respiratory distress, no accessory muscle use Cardiovascular: regular rate, rhythm, no murmur Abdomen/GI: normal bowel sounds, non tender, soft (Palpable abdominal bruit ), no organomegaly, + abnormal bowel sounds Extremities/Musculoskelatal: normal inspection, no calf tenderness, normal capillary refill Neurologic/Psych: no motor/sensory deficits, alert (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 due to partial deafness bilaterally), normal mood/affect, oriented x 3 Skin: warm/dry, + jaundice, + pertinent finding (Significant bruising of bilateral arms, some bruising on legs ) Hospital Course Adenocarcinoma of the Pancreas -CT abd/pelvis with asymmetrically enlarged pancreatic head -MRI consistent with CBD dilation and Pancreatic Head mass -S/P ERCP -Duodenal Bulb mass-and Pancreatic head mass-biopsied - Biopsy: ATYPICAL EPITHELIAL CELLS CONSISTENT WITH PANCREATIC ADENOCARCINOMA -Asymptomatic -Poor prognosis - case discuss with daughter and Son on 12/12 - Will arrange follow up appt with hem/onc with Dr. Lama - Family will decide about next option after meeting with dr. Lama - I called to schedule follow up appt, unfortunately the office is closed - Stable Painless Jaundice Secondary to biliary obstruction No h/o liver/GB pathology CT Abd with distended GB and intrahepatic biliary ductal dilatation Concern for ascending cholangitis with increased WBC Liver enzymes (AST/ALT) above 500 on admission AST/ALT back to normal level US Liver-No acute Cholecystitis has CBD and Intrahepatic duct dilatation Consulted GI, general surgery No surgical intervention as per surgery, very high risk candidate Right UE swelling/tenderness Continue apply warm compress on it worst today, might be due IVF running through the RUE Will not use the RUE for IVF improved significantly Scrotum swelling Asymptomatic Normal output Will keep Gabriel cath for now Will d/c Gabriel when swelling improved SIRs with suspected GI source of infection: -Leukocytosis of 18, hypotensive to 84/63, tachycardic 110s-120s, Lactic acid of 2.9 -Received antibiotics with Cipro and Flagyl -BP responded to IVFs and is now in normal range -WBC WNL -Stable Pneumonia CXR showed Progressive right infrahilar patchy airspace opacity Completed doxycycline course Afebrile, NO leukocytosis Stable Brief run of VT Episodes last for 34 sec asymptomatic Cardiology was notified Continue current management monitor electrolytes Stable INDIA: -Cr of 3.7 from a baseline ~1 -Likely secondary to Intravascular Fluid depletion -creatine continue trending down, 4.2 today - Continue IVF -Avoid nephrotoxic agents - Continue IVF with 75 bicarb - Bicarb WNL -Nephrology on board -creatine treading down slowly - Case discussed with Nephrology - From nephrology standpoint, ok to discharge to rehab - Will need to repeat BMP on Saturday and send result to Dr. Hogan Palpable abd bruit -Palpated on exam -However, was not appreciated on Ct abd/pelvis -Denies any CP, abd pain CAD Asymptomatic resume aspirin if Hbg stable Atrial Fibrillation -Rate controlled with Metoprolol -Cardiology consulted for Pre-op clearance as requested by GI for ERCP -Continue coumadin -INR 2.9 today Ambulatory dysfunction Continue PT/OT fall precaution Will transfer to rehab today Dementia Stable HLD: -Statin held while NPO and due to increased LFTs -Plan to reinitiate when LFTs are improved Hx of Prior CVA: -S/p carotid endarterectomy will resume asa in am Depression: -Resume Celexa DVT Ppx: SCDs On Coumadin INR 2.9 therapeutic Code status: FULL PCP: Dawson Disposition Discharge to [facility] today for rehab Call to schedule follow appt with hem/onc Check BMP and Mg on Sat Case discussed with the physician at [facility] Total time spent on discharge = 40 minutes This includes examination of the patient, discharge planning, medication reconciliation, and communication with other providers. Discharge Instructions DI: Medical v4 Discharge Instructions Date of Service Dec 17, 2016. Admission Reason for Admission: Biliary Obstruction, Pancreatic Mass, Sepsis Discharge Discharge Diagnosis / Problem: Adenocarcinoma of the Pancreas, Acute kidney injury, Billiary obstruction Discharge Goals Goal(s): Decrease discomfort, Improve function, Improve disease control Activity Recommendations Activity Limitations: resume your previous activity (as tolerated) . Instructions / Follow-Up Instructions / Follow-Up Discharge to [facility] Please call your primary care provider once discharge from rehab Please call Dr. Lama office tomorrow to schedule an appointment between 1 to 2 weeks Address: [address], [place] [address] Continue monitor renal function Please avoid medication that can damage the kidney Check BMP, CBC and Magnesium on Saturday Then Check BMP in 1 week and send result to nephrology Dr. Hogan Aspirin can be resumed after checking CBC on Saturday if hemoglobin stable Continue monitor INR INR today 2.9 Continue PT/OT fall precaution OK to discharge with Gabriel cath Gabriel can be discontinued in about 2 days once scrotum/penis swelling improved significantly Current Hospital Diet Patient's current hospital diet: AHA Diet (Heart Healthy) Discharge Diet Recommended Diet: AHA Diet (Heart Healthy), Low Sodium Diet (2gm Na) Procedures Procedures Performed: Endoscopic Retrograde Cholangiopancreatogram, Upper Endoscopy, Endoscopic Ultrasonography, Stent Placement, Duodenal Mass Biopsies Pending Studies Studies pending at discharge: no Medical Emergencies . Who to Call and When: Medical Emergencies: If at any time you feel your situation is an emergency, please call 911 immediately. . Non-Emergent Contact Non-Emergency issues call your: Primary Care Provider Call Non-Emergent contact if: you have any medication questions . . "Provider Documentation" section prepared by Raghu Ferrer. . VTE Core Measure Inpt VTE Proph given/why not?: Warfarin (Coumadin), SCD's Additional Copies To Raquel Osman M.D.; Ibrahima Lama M.D. [facility]
== END 2016-12-17 11:50 | DRG 435 ==
LOC: C.EDB 13:49 → C.MSICU 18:39 → ENRESERV 18:51 → C.2T 12-08 13:01 → CANRESERV 12-13 16:18 → ENRESERV 12-13 16:18 → CANBEDREQ 12-13 16:45 → ENRESERV 12-15 17:23 → C.MS2W 12-15 18:55
PROVIDERS: ADMIT Hospitalist; ATTEND Internal Medicine
PROC: 0DB98ZX Excision of Duodenum, Via Natural or Artificial Opening Endoscopic, Diagnostic (ICD-10-PCS; principal; 2016-12-07 12:15)
PROC: 0F798DZ Dilation of Common Bile Duct with Intraluminal Device, Via Natural or Artificial Opening Endoscopic (ICD-10-PCS; 2016-12-07 12:15)
DX: C25.0 Malignant neoplasm of head of pancreas (principal); K83.1 Obstruction of bile duct; J18.9 Pneumonia, unspecified organism; N17.0 Acute kidney failure with tubular necrosis; R65.10 Systemic inflammatory response syndrome (SIRS) of non-infectious origin without acute organ dysfunction; I25.10 Atherosclerotic heart disease of native coronary artery without angina pectoris; I48.91 Unspecified atrial fibrillation; R09.89 Other specified symptoms and signs involving the circulatory and respiratory systems; E78.5 Hyperlipidemia, unspecified; F32.9 Major depressive disorder, single episode, unspecified; N50.89 Other specified disorders of the male genital organs; F03.90 Unspecified dementia, unspecified severity, without behavioral disturbance, psychotic disturbance, mood disturbance, and anxiety; I10 Essential (primary) hypertension; Z79.01 Long term (current) use of anticoagulants; Z79.82 Long term (current) use of aspirin; Z79.899 Other long term (current) drug therapy; Z86.73 Personal history of transient ischemic attack (TIA), and cerebral infarction without residual deficits; Z87.891 Personal history of nicotine dependence

== ENCOUNTER 2017-02-04 08:51 | Inpatient (IN) | payer OTHER ==
[2017-02-04] VITALS (7 sets, daily range): BP systolic 98–116; BP diastolic 55–75; PULSE 81–103; TEMP 36.9–37.1; O2SAT 90–95; Ht 167.6 cm; Wt 66.8 kg
[~2017-02-04] VITALS: Ht 167.6 cm; Wt 66.8 kg
[~2017-02-04 08:51] MED LIST changes: +ASPI81TA28 PO; +ATOR80TA PO; +CHOL100027 PO; +CITA20TA4 PO; +FOLI400T41 PO; +LPR25 PO; +OMEGCAP2 PO; +WARF1TAB6 PO
[2017-02-04] MEDS ORDERED: SODIUM CHLORIDE 0.9% 1000ML 1,000 ML IV STA (09:24)
--- NOTE | 2017-02-04 09:41 | EMERGENCY ROOM VISIT NOTE ---
History Report prepared by Meaghan: Dianelys Mcgowan Under the Supervision of: Dr. Conner Harris M.D. First contact with patient: 09:18 Chief Complaint: VOMITING Stated Complaint: VOMITING History of Present Illness The patient is an 86 year old male who presents to the Emergency Room with complaints of persistent vomiting that began around 0300. Per the patient's family, the patient has a history of a pancreatic tumor. They note that two weeks ago the patient was taken off his Coumadin but notes that he still takes an aspirin daily. They deny the patient being on any recent antibiotics. The patient's family states that the patient was taken off the Coumadin because his hemoglobin was low, but states that since he was taken off, his levels have been rising. The patient's family states that the patient had a distended abdomen yesterday, but reports normal bowel movements, denying any melena or hematochezia. They deny the patient having any previous blood transfusions. The patient's family states that the patient began vomiting around 0300 but notes that around 0715 the patient began experiencing hematemesis, noting nearly a gallon of dark purple emesis. The patient denies wearing oxygen at home. He denies any headache, neck pain, chest pain, abdominal pain, or urinary symptoms. Source of History: patient, family Onset: 0300 Position: other (global) Quality: other (vomiting) Timing: other (persistent) Associated Symptoms: No headache, No neck pain, No chest pain, No abdominal pain, No melena, No hematochezia, No urinary symptoms Note: Associated Symptoms: abdominal distension, hematemesis Review of Systems See HPI for pertinent positives & negatives. A total of 10 systems reviewed and were otherwise negative. Past Medical & Surgical Medical Problems: (1) Afib (2) Aortic valve stenosis (3) Biliary obstruction (4) CAD (coronary artery disease) (5) Carotid stenosis (6) CVA (cerebral vascular accident) (7) Depression (8) Diastolic dysfunction (9) HLD (hyperlipidemia) (10) Pancreatic adenocarcinoma (11) Pancreatic mass (12) Pneumonia (13) Sepsis Surgical Problems: (1) H/O carotid endarterectomy (2) H/O shoulder surgery Family History FH: cancer FH: heart disease Social History Smoking Status: Former Smoker Alcohol Use: occasionally Drug Use: none Marital Status: single Housing Status: lives alone Occupation Status: retired Current/Historical Medications Scheduled Aspirin (Aspirin Ec), 81 MG PO QAM Cholecalciferol (Vitamin D 1000 Unit), 1,000 INTER.UNIT PO QAM Citalopram Hydrobromide (Citalopram Hydrobromide), 20 MG PO QAM Citalopram Hydrobromide (Citalopram Hydrobromide), 10 MG PO QAM Ferrous Sulfate (Kp Ferrous Sulfate), 325 MG PO TIDM Folic Acid (Folic Acid), 1 TAB PO DAILY Metoprolol Tartrate (Lopressor), 12.5 MG PO QAM Multiple Vitamins W/ Minerals (Preservision Areds), 1 CAP PO QAM Ondansetron Hcl (Zofran), 4 MG PO QID Polyethylene Glycol 3350 (Miralax), 17 GM PO DAILY Ranitidine (Zantac), 150 MG PO BID Senna/Docusate Sod (Senokot S), 2 TABS PO DAILY Allergies Coded Allergies: No Known Allergies (Unverified , 02/04/17) Physical Exam Vital Signs Date Time Temp Pulse Resp B/P (MAP) Pulse Ox O2 Delivery O2 Flow Rate FiO2 02/04/17 10:44 108 28 117/78 94 Nasal Cannula 6.0 02/04/17 09:20 91 Nasal Cannula 6.0 02/04/17 09:20 81 Room Air 02/04/17 09:12 38.2 128 32 92/75 91 Nasal Cannula 6.0 02/04/17 09:01 124 Physical Exam GENERAL: Patient is acutely ill appearing, diaphoretic, pale appearing. HEENT: No acute trauma, normocephalic atraumatic, mucous membranes moist, no nasal congestion, no scleral icterus. NECK: No stridor, no adenopathy, no meningismus, trachea is midline. LUNGS: No dyspnea. Crackles in all lung jean baptiste HEART: Regular rate and rhythm. No murmurs, rubs, gallops appreciated. ABDOMEN: Soft, nontender, bowel sounds positive, no masses appreciated, no peritonitis. BACK: No midline tenderness, no CVA tenderness EXTREMITIES: Normal motion all extremities, no cyanosis, no edema. NEUROLOGIC: Alert and oriented, no acute motor or sensory deficits, no focal weakness, cranial nerves grossly intact. SKIN: No rash, no jaundice, no diaphoresis. Medical Decision & Procedures ER Provider Diagnostic Interpretation: X ray results are stated below per my interpretation and the radiologist's interpretation. CHEST ONE VIEW PORTABLE HISTORY: 86 years-old Male fever acute fever. COMPARISON: Chest radiographs 12/11/2016, 12/06/2016 TECHNIQUE: Portable upright AP view of the chest FINDINGS: Cardiac silhouette is mildly enlarged. There is atherosclerosis of the aorta. There are patchy perihilar, lateral left midlung and bibasilar airspace opacities are present. No pneumothorax, large pleural effusion or overt pulmonary edema. Bones are grossly intact. There are advanced degenerative changes of the right shoulder. At least moderate degenerative changes of the left shoulder. IMPRESSION: Patchy perihilar, lateral left midlung and bibasilar alveolar opacities are concerning for pneumonia or aspiration pneumonitis in the appropriate clinical setting. Follow-up recommended. The above report was generated using voice recognition software. It may contain grammatical, syntax or spelling errors. Electronically signed by: Colton Nelson M.D. 02/04/2017 9:47 AM Dictated Date/Time: 02/04/2017 9:45 AM Laboratory Results 02/04/17 08:29 Red Blood Count 3.52, Mean Corpuscular Volume 99.7, Mean Corpuscular Hemoglobin 32.1, Mean Corpuscular Hemoglobin Concent 32.2, Mean Platelet Volume 9.9, Neutrophils (%) (Auto) 84.7, Lymphocytes (%) (Auto) 10.0, Monocytes (%) (Auto) 4.6, Eosinophils (%) (Auto) 0.1, Basophils (%) (Auto) 0.2, Neutrophils # (Auto) 11.25, Lymphocytes # (Auto) 1.33, Monocytes # (Auto) 0.61, Eosinophils # (Auto) 0.01, Basophils # (Auto) 0.03 Test 02/04/17 08:29 02/04/17 10:11 02/04/17 10:45 White Blood Count 13.28 K/uL (4.8-10.8) Red Blood Count 3.52 M/uL (4.7-6.1) Hemoglobin 11.3 g/dL (14.0-18.0) Hematocrit 35.1 % (42-52) Mean Corpuscular Volume 99.7 fL (80-100) Mean Corpuscular Hemoglobin 32.1 pg (25-34) Mean Corpuscular Hemoglobin Concent 32.2 g/dl (32-36) Platelet Count 320 K/uL (130-400) Mean Platelet Volume 9.9 fL (7.4-10.4) Neutrophils (%) (Auto) 84.7 % Lymphocytes (%) (Auto) 10.0 % Monocytes (%) (Auto) 4.6 % Eosinophils (%) (Auto) 0.1 % Basophils (%) (Auto) 0.2 % Neutrophils # (Auto) 11.25 K/uL (1.4-6.5) Lymphocytes # (Auto) 1.33 K/uL (1.2-3.4) Monocytes # (Auto) 0.61 K/uL (0.11-0.59) Eosinophils # (Auto) 0.01 K/uL (0-0.5) Basophils # (Auto) 0.03 K/uL (0-0.2) RDW Standard Deviation 52.7 fL (36.4-46.3) RDW Coefficient of Variation 14.5 % (11.5-14.5) Immature Granulocyte % (Auto) 0.4 % Immature Granulocyte # (Auto) 0.05 K/uL (0.00-0.02) Prothrombin Time 10.9 SECONDS (9.0-12.0) Prothromb Time International Ratio 1.0 (0.9-1.1) Magnesium Level 2.0 mg/dl (1.8-2.4) Total Bilirubin 0.6 mg/dl (0.2-1) Direct Bilirubin 0.2 mg/dl (0-0.2) Aspartate Amino Transf (AST/SGOT) 19 U/L (15-37) Alanine Aminotransferase (ALT/SGPT) 19 U/L (12-78) Alkaline Phosphatase 76 U/L (45-117) Total Creatine Kinase 41 U/L (39-308) Creatine Kinase MB 1.1 ng/ml (0.5-3.6) Creatine Kinase MB Ratio 2.7 (0-3.0) Troponin I 0.023 ng/ml (0-0.045) Total Protein 7.5 gm/dl (6.4-8.2) Albumin 3.2 gm/dl (3.4-5.0) Bedside Lactic Acid Venous 1.99 mmol/L (0.90-1.70) Urine Color YELLOW Urine Appearance CLEAR (CLEAR) Urine pH 7.5 (4.5-7.5) Urine Specific [place] 1.017 (1.000-1.030) Urine Protein 1+ (NEG) Urine Glucose (UA) NEG (NEG) Urine Ketones TRACE (NEG) Urine Occult Blood NEG (NEG) Urine Nitrite NEG (NEG) Urine Bilirubin NEG (NEG) Urine Urobilinogen NEG (NEG) Urine Leukocyte Esterase TRACE (NEG) Urine WBC (Auto) 1-5 /hpf (0-5) Urine RBC (Auto) 0-4 /hpf (0-4) Urine Hyaline Casts (Auto) 1-5 /lpf (0-5) Urine Epithelial Cells (Auto) 10-20 /lpf (0-5) Urine Bacteria (Auto) NEG (NEG) Laboratory results as reviewed by me. Medications Administered Medications (Trade) Dose Ordered Sig/Thelma Route Start Time Stop Time Status Last Admin Dose Admin Sodium Chloride 1,000 ml @ 999 mls/hr Q1H1M STAT IV 02/04/17 09:24 02/04/17 10:24 DC 02/04/17 10:40 999 MLS/HR Pantoprazole Sodium 80 mg/ Dextrose 120 ml @ 480 mls/hr NOW ONCE IV 02/04/17 09:45 02/04/17 09:59 DC 02/04/17 10:39 480 MLS/HR Pantoprazole Sodium 40 mg/ Dextrose 100 ml @ 20 mls/hr Q5H IV 02/04/17 10:00 02/04/17 11:38 DC 02/04/17 10:39 20 MLS/HR Piperacillin Sod/ Tazobactam Sod (Zosyn Iv) 4.5 gm NOW STAT IV 02/04/17 09:44 02/04/17 09:46 DC 02/04/17 11:35 4.5 GM Vancomycin HCl 1500 mg/Sodium Chloride 530 ml @ 200 mls/hr ONE STAT IV 02/04/17 09:44 02/04/17 12:22 DC 02/04/17 10:39 200 MLS/HR Sodium Chloride 500 ml @ 999 mls/hr Q31M STAT IV 02/04/17 10:48 02/04/17 11:18 DC 02/04/17 11:38 999 MLS/HR ECG Indication: vomiting Rate (beats per minute): 106 Rhythm: sinus tachycardia Findings: RBBB, no acute ischemic change, no ectopy, other (prolonged QTC of 504) ED Course 918: The patient was evaluated in room B5. A complete history and physical exam was performed. 923: Ordered Sodium Chloride 1000 ml @ 999 mls/hr IV. 943: Ordered Vancomycin HCl 1500 mg/Sodium Chloride 530 ml @ 200 mls/hr IV, Zosyn IV 4.5 gm IV, Pantoprazole Sodium 80 mg/Dextrose 120 ml @ 480 mls/hr IV. 50: I reevaluated the patient and he is resting. His blood pressure has improved and has had no further respiratory issues. I discussed the exam findings with him and I discussed the treatment plan. He verbalized complete understanding and agreement. He will be evaluated for further treatment. 1000: Ordered Pantoprazole Sodium 40 mg/Dextrose 100 ml @ 20 mls/hr IV. 8: I discussed the patient's case with Jamar Hernandez. She is going to evaluate the patient for further treatment. Ordered Sodium Chloride 500 ml @ 999 mls/hr IV. Medical Decision Differential: Sepsis, Infectious (UTI/Pneumonia/Meningitis/etc), Metabolic/ Electrolyte Abnormality, Cardiac, Hepatic, Endocrine, Toxicologic, Neurologic, amongst other pathologies entertained. 86 yr old male arrives for evaluation of hypotension and vomiting. He is hypoxic, hypotensive, febrile, and tachycardic. Poor lung exam. Soft, non- tender abdomen without no abnormal findings of abdo. No further nausea/ vomiting. He is clearly septic and with lung exam with CXR findings suspect this is secondary to lung source, thus Zosyn/Vanco. Suspect vomiting secondary to infection but could be primary bleed followed by aspiration lung event. Blood clearly in vomit this morning though was reported dark early but unclear if it was blood. Regardless will start protonix. Given initial fluid resus followed by further fluids and fluids from IV abx, thus with good improvement in BP, HR and looking much improved will hold on given further fluids to avoid overload. Many rechecks and patient doing much better on multiple evaluations. Breathing comfortably and not appearing to be going in to respiratory failure at this time. Will need to come in to hospital and thus hospitalist consulted. Medication Reconcilliation Current Medication List: was personally reviewed by me Blood Pressure Screening Patient's blood pressure: Normal blood pressure Blood pressure disposition: Did not require urgent referral Consults Time Called: 1036 Consulting Physician: Jamar Hernandez Returned Call: [phone] I discussed the patient's case with Jamar Hernandez. She is going to evaluate the patient for further treatment. Impression Primary Impression: Sepsis Additional Impressions: Pneumonia Hematemesis Hypotension Critical Care I have personally spent greater than 35 minutes of critical care time in the direct management of this patient. This was a life/limb threatening event. This includes time spent evaluating patient, direct bedside care, chart review, placing orders, interpretation of diagnostic studies, discussion with consultants, patient, and family members, as well as other required patient management activities. This 35 minutes is in excess of all separately billable procedures. Scribe Attestation The scribe's documentation has been prepared under my direction and personally reviewed by me in its entirety. I confirm that the note above accurately reflects all work, treatment, procedures, and medical decision making performed by me. Departure Information Dispostion Being Evaluated By Hospitalist Referrals Raquel Osman M.D. (PCP) Problem Qualifiers
[2017-02-04 09:43] LABS: BASO % 0.2 %; BASO ABS # 0.03 K/uL (0-0.2); COMPLETE YES; EOS % 0.1 %; HEMATOCRIT 35.1 % (42-52); IG% 0.4 %; LYMPH ABS # 1.33 K/uL (1.2-3.4); MEAN CELL VOLUME 99.7 fL (80-100); MEAN CORPUSCULAR HEMOGLOBIN 32.1 pg (25-34); MEAN CORPUSCULAR HGB CONC 32.2 g/dl (32-36); MEAN PLATELET VOLUME 9.9 fL (7.4-10.4); MONO % 4.6 %; NEUT % 84.7 %; PLATELET COUNT 320 K/uL (130-400); RED BLOOD COUNT 3.52 M/uL (4.7-6.1); WHITE BLOOD COUNT 13.28 K/uL (4.8-10.8)
[2017-02-04] MEDS ORDERED: VANCOMYCIN INJ 1,500 MG in SODIUM CHLORIDE 0.9% 500ML 500 ML IV STA (09:44)
[2017-02-04] MEDS ORDERED: PIPERACILLIN/TAZOBACTAM 4.5 GM/100ML D5W IV STA (09:44)
[2017-02-04] MEDS ORDERED: PANTOprazole INJ 80 MG in DEXTROSE 5% 100ML IV ONE (09:45)
[2017-02-04 09:49] LABS: PROTHROMBIN TIME (PATIENT) 10.9 SECONDS (9.0-12.0)
--- NOTE | 2017-02-04 09:49 | DIAGNOSTIC IMAGING REPORT ---
CHEST ONE VIEW PORTABLE HISTORY: 86 years-old Male fever acute fever. COMPARISON: Chest radiographs 12/11/2016, 12/06/2016 TECHNIQUE: Portable upright AP view of the chest FINDINGS: Cardiac silhouette is mildly enlarged. There is atherosclerosis of the aorta. There are patchy perihilar, lateral left midlung and bibasilar airspace opacities are present. No pneumothorax, large pleural effusion or overt pulmonary edema. Bones are grossly intact. There are advanced degenerative changes of the right shoulder. At least moderate degenerative changes of the left shoulder. IMPRESSION: Patchy perihilar, lateral left midlung and bibasilar alveolar opacities are concerning for pneumonia or aspiration pneumonitis in the appropriate clinical setting. Follow-up recommended. The above report was generated using voice recognition software. It may contain grammatical, syntax or spelling errors. Electronically signed by: Colton Nelson M.D. 02/04/2017 9:47 AM Dictated Date/Time: 02/04/2017 9:45 AM
[2017-02-04] MEDS ORDERED: CITA10TA4 PO (10:00)
[2017-02-04] MEDS ORDERED: PANTOprazole INJ 40 MG in DEXTROSE 5% 100ML IV SCH (10:00)
[2017-02-04] MEDS ORDERED: FERR1TAB13 PO (10:01)
[2017-02-04] MEDS ORDERED: POLY335019 PO (10:03)
[2017-02-04] MEDS ORDERED: SENN-65 PO (10:03)
[2017-02-04] MEDS ORDERED: FOLI1TAB7 PO (10:03)
[2017-02-04 10:06] LABS: BUN/CREATININE RATIO 20.7 (10-20); CALCIUM 8.7 mg/dl (8.5-10.1); CREATININE 1.48 mg/dl (0.60-1.40); POTASSIUM 3.7 mmol/L (3.5-5.1)
[2017-02-04 10:11] LABS: CKMB/CK RATIO 2.7 (0-3.0)
[2017-02-04] MEDS ORDERED: SODIUM CHLORIDE 0.9% 500ML 500 ML IV STA (10:48)
[2017-02-04 11:00] LABS: URINE APPEARANCE CLEAR (CLEAR); URINE BILIRUBIN NEG (NEG); URINE COLOR YELLOW; URINE NITRITE NEG (NEG); URINE PH 7.5 (4.5-7.5); URINE SPECIFIC GRAVITY 1.017 (1.000-1.030); UROBILINOGEN NEG (NEG); ZZUR CULT IF INDIC CLEAN CATCH NO
[2017-02-04 11:03] LABS: MANUAL MICROSCOPIC REQUIRED? NO; REVIEW REQ? NO; SULFASALICYLIC ACID POS (NEG)
[2017-02-04] MEDS ORDERED: PIPERACILL/TAZOBAC IV 4.5 GM in DEXTROSE 5% 100ML 100 ML IV STA (11:16)
[2017-02-04] MEDS ORDERED: LEVOFLOXACIN / D5W 750 MG in PREMIXED IN D5W 150 ML IV STA (11:16)
[2017-02-04] MEDS ORDERED: SODIUM CHLORIDE 0.9% 1000ML 1,000 ML IV ONE ×2 (11:16→22:15)
[2017-02-04] MEDS ORDERED: ONDANSETRON INJ 2 MG/ML 2 ML VIAL IV PRN (11:30)
[2017-02-04] MEDS ORDERED: ACETAMINOPHEN 325 MG TAB PO PRN (11:30)
[2017-02-04] MEDS ORDERED: ONDA4TAB46 PO (12:16)
[2017-02-04] MEDS ORDERED: ZNTT/150 PO (12:16)
[2017-02-04] MEDS ORDERED: FLV400 PO (12:16)
[2017-02-04 12:20] LABS: HEMATOCRIT 28.5 % (42-52)
[2017-02-04 12:38] LABS: BUN/CREATININE RATIO 25.3 (10-20); CALCIUM 7.6 mg/dl (8.5-10.1); CREATININE 1.28 mg/dl (0.60-1.40); POTASSIUM 3.9 mmol/L (3.5-5.1)
--- NOTE | 2017-02-04 12:44 | Gastrointestinal Consultation ---
Gastrointestinal Consultation Date of Consultation: Feb 04, 2017 Consulting Physician: Brandt Reason for Consultation: UGI bleed History of Present Illness Patient is a 86 year old male with newly diagnosed pancreatic CA after he presented to [facility] in November with bruising and jaundice, CT w/ pancreatic head mass with dilated ducts s/p EGD/EUS/ERCP FNA confirmed malignancy and covered metal stent in place who presented to the ER for evaluation of coffee ground emesis and hematemesis since 299. Pt was seen and evaluated, chart reviewed. Family is aiding in accurate history. He was discharged to [facility] in November and then discharged to [facility] for additional rehabilitation. during his stay at [facility] he was doing well, but makes mention of one day of abdominal pain, nausea and vomiting. At this time his emesis was mostly undigested food, he suggested maybe a day or two old food as well. He was discharged back home from [facility] where he resumed his previous level of independence. His family comes over at night to ensure he took his medication for the day and to help with dinner. He tells me this weekend he was feeling well, he was up around town and doing some yard work. He woke up around 0300 this AM with stomach and and nausea, he had about 5-6 bouts of emesis ( undigested food and some maroon colored blood, no clots) He took a zofran and a few sips of water and went back to bed. Woke back up around 0700. At this time he had a few more bouts of emesis (all liquid, thick, hematemesis). No episodes since. Currently denies any abdominal pain. May have had some dark stools yesterday, No BRBPR. Notes early satiety despite good appetite with about a 15 lb weight loss. He takes ASA daily. Was on coumadin up until January 22 per daughter. Per daughter, pt has had a productive cough and some URI signs for about the past week. In the ED, evaluation with chest XR with concern for aspiration pneumonia of left lung, BP stable, febrile 38.2 with tachycardia, hypoxic on room air sating low 80's. Now pulse ox mid 90's on 5-6L nasal canula. Has been evaluated by Dr. Lama - he was not deemed a candidate for chemotherapy or surgical intervention, he was advised he could undergo palliative radiation but decided against this. Dr. aLma had suggested hospice or palliative care, however, pt decided against this. Both he and his family are agreeable to endoscopic evaluation. Chest XR 02/04/17: Patchy perihilar, lateral left midlung and bibasilar alveolar opacities are concerning for pneumonia or aspiration pneumonitis in the appropriate clinical setting. Follow-up recommended. EGD 12/07/16: The examined esophagus was normal. The Z-line was irregular and was found 39 cm from the incisors. The entire examined stomach was normal. A large infiltrative mass with no bleeding was found in the duodenal bulb. Biopsies were taken with a cold forceps for histology. Estimated blood loss was minimall. The 2nd part of the duodenum and 3rd part of the duodenum were normal EUS 12/07/16: ampulla ok, CBD dilation 10mm, left adrenal ok, enlarged lymph node at artur hepatis, pancreatic head mass T3 N1 MX, biopsied ERCP 12/07/16: small major papilla, malignant appearing biliary stricture a/p covered metal stent placement Past Medical/Surgical History Medical Problems: (1) Confusion Status: Acute (2) Hematemesis Status: Acute (3) Leukocytosis Status: Acute (4) Pancreatic mass Status: Acute (5) Sepsis Status: Acute Past Medical History: pancreatic CA, afib, aortic valve stenosis, CAD, CVA, depression, hyperlipidemia , diastolic dysfunction Past Surgical History: EGD, EUS, ERCP, carotid endarterectomy, shoulder surgery Family History FH: cancer FH: heart disease Social History Smoking Status: Unknown if Ever Smoked Alcohol Use: occasionally Drug Use: none Marital Status: single Housing Status: lives alone Occupation Status: retired Allergies Coded Allergies: No Known Allergies (Unverified , 02/04/17) Current Medications Home Meds and Scripts Medications Dose Route/Sig Max Daily Dose Days Date Category Dose Instructions Zofran (Ondansetron HCl) 4 Mg Tab 4 Mg PO QID 02/04/17 Reported Folic Acid 400 Mcg Tab 1 Tab PO DAILY 02/04/17 Reported Zantac (Ranitidine HCl) 150 Mg Tab 150 Mg PO BID 02/04/17 Reported Senokot S (Senna/Docusate Sodium) 1 Tab Tab 2 Tabs PO DAILY 02/04/17 Reported Miralax (Polyethylene Glycol 3350) 1 Pow Pow 17 Gm PO DAILY 02/04/17 Reported Kp Ferrous Sulfate (Ferrous Sulfate) 325 Mg Tab 325 Mg PO TIDM 02/04/17 Reported Citalopram Hydrobromide 10 Mg Tab 10 Mg PO QAM 02/04/17 Reported TOTAL DOSE=30MG Preservision Areds (Multiple Vitamins W/ Minerals) 1 Cap Cap 1 Cap PO QAM 08/10/14 Reported Aspirin Ec (Aspirin) 81 Mg Tab 81 Mg PO QAM 07/14/12 Reported Vitamin D 1000 Unit (Cholecalciferol) 1,000 Unit Cap 1,000 Inter.unit PO QAM 07/14/12 Reported Citalopram Hydrobromide 20 Mg Tab 20 Mg PO QAM 07/14/12 Reported TOTAL DOSE=30MG Lopressor (Metoprolol Tartrate) 25 Mg Tab 12.5 Mg PO QAM 07/14/12 Reported Review of Systems Constitutional: + fever, No chills Respiratory: + cough, + shortness of breath Cardiac: No chest pain, No edema Abdomen: + nausea, + vomiting, + GI bleeding, No pain, No diarrhea, No constipation Skin: No rash, No color change Physical Exam Date Time Temp Pulse Resp B/P (MAP) Pulse Ox O2 Delivery O2 Flow Rate FiO2 02/04/17 11:51 Nasal Cannula 5.0 02/04/17 11:40 101 28 132/63 97 Nasal Cannula 5.0 02/04/17 10:44 108 28 117/78 94 Nasal Cannula 6.0 02/04/17 09:20 91 Nasal Cannula 6.0 02/04/17 09:20 81 Room Air 02/04/17 09:12 38.2 128 32 92/75 91 Nasal Cannula 6.0 02/04/17 09:01 124 General Appearance: + thin, + pertinent finding (ill-appearing) Eyes: PERRL ENT: hearing grossly normal Neck: supple Respiratory/Chest: no respiratory distress, no accessory muscle use, + decreased breath sounds, + crackles, + pertinent finding (wearing O2 nasal canula) Cardiovascular: regular rate, rhythm Abdomen: normal bowel sounds, non tender, soft, no organomegaly, no pulsatile mass Neurologic/Psych: alert, normal mood/affect, oriented x 3 Skin: no jaundice, warm/dry, + pallor Laboratory Results Last 24 Hours Test 02/04/17 08:29 02/04/17 10:11 02/04/17 10:45 02/04/17 12:08 White Blood Count 13.28 K/uL Red Blood Count 3.52 M/uL Hemoglobin 11.3 g/dL 9.2 g/dL Hematocrit 35.1 % 28.5 % Mean Corpuscular Volume 99.7 fL Mean Corpuscular Hemoglobin 32.1 pg Mean Corpuscular Hemoglobin Concent 32.2 g/dl Platelet Count 320 K/uL Mean Platelet Volume 9.9 fL Neutrophils (%) (Auto) 84.7 % Lymphocytes (%) (Auto) 10.0 % Monocytes (%) (Auto) 4.6 % Eosinophils (%) (Auto) 0.1 % Basophils (%) (Auto) 0.2 % Neutrophils # (Auto) 11.25 K/uL Lymphocytes # (Auto) 1.33 K/uL Monocytes # (Auto) 0.61 K/uL Eosinophils # (Auto) 0.01 K/uL Basophils # (Auto) 0.03 K/uL RDW Standard Deviation 52.7 fL RDW Coefficient of Variation 14.5 % Immature Granulocyte % (Auto) 0.4 % Immature Granulocyte # (Auto) 0.05 K/uL Prothrombin Time 10.9 SECONDS Prothromb Time International Ratio 1.0 Sodium Level 139 mmol/L Potassium Level 3.7 mmol/L Chloride Level 102 mmol/L Carbon Dioxide Level 28 mmol/L Anion Gap 10.0 mmol/L Blood Urea Nitrogen 31 mg/dl Creatinine 1.48 mg/dl Est Creatinine Clear Calc Drug Dose 33.5 ml/min Estimated GFR () 49.6 Estimated GFR (Non- 42.8 BUN/Creatinine Ratio 20.7 Random Glucose 175 mg/dl Calcium Level 8.7 mg/dl Magnesium Level 2.0 mg/dl Total Bilirubin 0.6 mg/dl Direct Bilirubin 0.2 mg/dl Aspartate Amino Transf (AST/SGOT) 19 U/L Alanine Aminotransferase (ALT/SGPT) 19 U/L Alkaline Phosphatase 76 U/L Total Creatine Kinase 41 U/L Creatine Kinase MB 1.1 ng/ml Creatine Kinase MB Ratio 2.7 Troponin I 0.023 ng/ml Total Protein 7.5 gm/dl Albumin 3.2 gm/dl Bedside Lactic Acid Venous 1.99 mmol/L Urine Color YELLOW Urine Appearance CLEAR Urine pH 7.5 Urine Specific [place] 1.017 Urine Protein 1+ Urine Glucose (UA) NEG Urine Ketones TRACE Urine Occult Blood NEG Urine Nitrite NEG Urine Bilirubin NEG Urine Urobilinogen NEG Urine Leukocyte Esterase TRACE Urine WBC (Auto) 1-5 /hpf Urine RBC (Auto) 0-4 /hpf Urine Hyaline Casts (Auto) 1-5 /lpf Urine Epithelial Cells (Auto) 10-20 /lpf Urine Bacteria (Auto) NEG Impression Patient is a 86 year old male with history of abnormal bruising and painless jaundice admitted to [facility] in November with EGD/EUS/ERCP with FNA confirming pancreatic head CA, he was discharged to [facility] and subsequently [facility] and has recently returned to home and resumed previous level of activity. Was evaluated by Dr. Lama, who deemed pt not a candidate for chemotherapy, surgical intervention. Suggested palliative radiation, palliative care or hospice which the pt refused. Now with hematemesis x 2 at 0300 and 0700 on 02/04. In the ED, he was febrile and tachycardiac, chest XR with left sided pneumonia and new requiring of O2. He was on ASA and coumadin up until 01/22/17 per pt daughter, no other NSAIDs. Differntials include UGIB from Gastric ulcer vs obstructive pancreatic mass vs other. Pt and family aware of diagnosis and offered endoscopic evaluation once clinically stable from a respiratory standpoint, unless bleeding become emergent. They are in agreement with plan. Plan NPO IVF hydration IV PPI BID Hold all NSAIDs, anticoagulation Trend H&H Monitor stools and emesis for GI blood loss Transfuse as needed possible EGD in the AM Treatment of pneumonia per primary service Please call with any questions or concerns. I saw and evaluated the patient. We are consult at for evaluation of suspected hematemesis. The patient reports that he was in his usual state of health until early this morning when he began to have nausea and several episodes of emesis. He does have a history of pancreatic cancer and is not felt to be a candidate for surgical resection or medical therapy. Physical examination No obvious distress No abdominal tenderness Impression: Patient admitted with nausea vomiting and suspected hematemesis. We will proceed with upper endoscopy after volume resuscitation to evaluate for evidence of peptic ulcer disease or an infiltrating duodenal mass. We've discussed the risks of upper endoscopy to include bleeding, infection, perforation and cardiovascular complications. Recommendations Nothing by mouth at midnight may have clear liquids today Protonix 40 mg IV twice daily Avoid nonsteroidals Please call with any questions or concerns
--- NOTE | 2017-02-04 13:48 | History and Physical ---
History & Physical Date & Time of Service: Feb 04, 2017 at 12:23 Chief Complaint: Vomiting Primary Care Physician: Raquel Osman M.D. History of Present Illness Source: patient, family, clinic records, hospital records This is an 86 y/o male with PMH of atrial fibrillation no longer on Coumadin, CAD, hx CVA, pancreatic adenocarcinoma diagnosed in 11/2016, and other problems listed below who presents to the ED with hematemesis. The patient was recently admitted from December 06-December 17, 2016 with newly diagnosed adenocarcinoma of pancreas, painless jaundice from biliary obstruction, SIRS with suspected GI source treated with Cipro and Flagyl, pneumonia treated with doxycycline, brief run of [place], [place]. Patient underwent EUS/ERCP with biopsy of pancreatic mass and CBD stent by Dr. Carlton. He was discharged to [facility] then returned home 5 days ago where daughters are staying with him. Family states he has been ambulating unassisted and performing ADL's independently. Pt followed up with Dr. Lama, was not a candidate for surgery or chemo, patient/ family decided against palliative radiation. he was having N/V 3-4 weeks ago which resolved after being placed on Zofran. Then overnight around 3 am patient developed vomiting of blood >1 cup in volume. His daughter reports 7-8 episodes, initially with brown/red colored blood then progressed to purple/red appearance. Last episode was around 7:20 am, then had no further episodes in ER. Currently nausea is resolved. Pt reports 1 episode of red blood in his stool this morning. Family states stool was normal formed brown yesterday.Family reports rhinorrhea for a few days and occasional cough, then overnight cough became more significant and family thought he sounded wheezy. Not expectorating sputum. Family reports longstanding SOB when bending over but no acute SOB. Family denies aspiration episode during vomiting. He had been eating normally without swallowing issues/ aspirating during meals. Does have early postprandial fullness and weight loss of 15 lb since November. Pt denies fever, chills, sore throat, weakness, dizziness, chest pain, abdominal pain, diarrhea, constipation, melena, acute urinary change, altered mental status. Pt takes baby aspirin but no other NSAID or blood thinner (taken off Coumadin approx 2 weeks ago). Pt does not use home O2 but was hypoxic to 81% on RA in ER , now saturating well on 6 liters NC. In ER pt was also febrile to 38.2, tachycardic, tachypneic, borderline hypotensive which resolved with IVF's. EGD 12/07/2016- Normal esophagus. Z-line irregular, 39 cm from the incisors. Normal stomach. Rule out malignancy, duodenal mass. Biopsy-benign, nonspecific edema . Normal 2nd part of the duodenum and 3rd part of the duodenum. EUS 12/07/16-There was no sign of significant pathology in the ampulla.There was dilation in the common bile duct which measured up to 10 mm. Endosonographic images of the left adrenal gland were unremarkable. One enlarged lymph node was visualized in the artur hepatis region. A mass was identified in the pancreatic head. This was staged T3 N1 Mx by endosonographic criteria. The staging applies if malignancy is confirmed. Fine needle aspiration- pancreatic adenocarcinoma ERCP 12/07/16: The major papilla appeared to be small. A segmental biliary stricture was found. The stricture was malignant appearing. A sphincterotomy was performed. One covered metal biliary stent was placed into the common bile duct. Past Medical/Surgical History Medical Problems: (1) Afib Status: Chronic (2) Aortic valve stenosis Permanent Comment: mild on echo from 03/2016 Status: Chronic (3) CAD (coronary artery disease) Permanent Comment: 2002 - PCI to left circumflex Status: Chronic (4) Carotid stenosis Status: Chronic (5) CVA (cerebral vascular accident) Status: Chronic (6) Depression Status: Chronic (7) Diastolic dysfunction Permanent Comment: grade I on echo 03/2016 Status: Chronic (8) HLD (hyperlipidemia) Status: Chronic (9) Pancreatic adenocarcinoma Status: Chronic Surgical Problems: (1) H/O carotid endarterectomy Status: Chronic (2) H/O shoulder surgery Status: Chronic Family History FH: cancer FH: heart disease Social History Smoking Status: Former Smoker Alcohol Use: none Marital Status: single Housing status: lives alone (lives alone but daughters currently staying with him) Occupational Status: retired Allergies Coded Allergies: No Known Allergies (Unverified , 02/04/17) Home Medications Scheduled Aspirin (Aspirin Ec), 81 MG PO QAM Cholecalciferol (Vitamin D 1000 Unit), 1,000 INTER.UNIT PO QAM Citalopram Hydrobromide (Citalopram Hydrobromide), 20 MG PO QAM Citalopram Hydrobromide (Citalopram Hydrobromide), 10 MG PO QAM Ferrous Sulfate (Kp Ferrous Sulfate), 325 MG PO TIDM Folic Acid (Folic Acid), 1 TAB PO DAILY Metoprolol Tartrate (Lopressor), 25 MG PO QAM Multiple Vitamins W/ Minerals (Preservision Areds), 1 CAP PO QAM Ondansetron Hcl (Zofran), 4 MG PO QID Pantoprazole (Pantoprazole Sodium), 40 MG PO BID Polyethylene Glycol 3350 (Miralax), 17 GM PO DAILY Ranitidine (Zantac), 150 MG PO BID Senna/Docusate Sod (Senokot S), 2 TABS PO DAILY Review of Systems Ten systems reviewed and negative except as noted in HPI. Physical Exam Vital Signs Date Time Temp Pulse Resp B/P (MAP) Pulse Ox O2 Delivery O2 Flow Rate FiO2 02/04/17 11:51 Nasal Cannula 5.0 02/04/17 11:40 101 28 132/63 97 Nasal Cannula 5.0 02/04/17 10:44 108 28 117/78 94 Nasal Cannula 6.0 02/04/17 09:20 91 Nasal Cannula 6.0 02/04/17 09:20 81 Room Air 02/04/17 09:12 38.2 128 32 92/75 91 Nasal Cannula 6.0 02/04/17 09:01 124 General Appearance: WD/WN, no apparent distress, + pertinent finding ( daughters at bedside) Head: normocephalic, atraumatic Eyes: normal inspection, sclerae normal ENT: normal ENT inspection (external inspection of ears, nose lips WNL), + pertinent finding (hard of hearing) Neck: supple, trachea midline Respiratory/Chest: normal breath sounds, no respiratory distress, no accessory muscle use, + crackles (bilateral bases), + pertinent finding (saturating well on 6 liters NC) Cardiovascular: regular rate, rhythm (rate 90s), no murmur Abdomen/GI: normal bowel sounds, non tender, soft Extremities/Musculoskelatal: no calf tenderness, no pedal edema Neurologic/Psych: alert, normal mood/affect, + pertinent finding (oriented to person and place, correct on the month and slightly off on the date, incorrect on the year- baseline per family) Skin: normal color, warm/dry Diagnostics Laboratory Results Results Past 24 Hours Test 02/04/17 08:29 02/04/17 10:11 02/04/17 10:45 02/04/17 12:08 Range/Units White Blood Count 13.28 4.8-10.8 K/uL Red Blood Count 3.52 4.7-6.1 M/uL Hemoglobin 11.3 9.2 14.0-18.0 g/dL Hematocrit 35.1 28.5 42-52 % Mean Corpuscular Volume 99.7 80-100 fL Mean Corpuscular Hemoglobin 32.1 25-34 pg Mean Corpuscular Hemoglobin Concent 32.2 32-36 g/dl Platelet Count 320 130-400 K/uL Mean Platelet Volume 9.9 7.4-10.4 fL Neutrophils (%) (Auto) 84.7 % Lymphocytes (%) (Auto) 10.0 % Monocytes (%) (Auto) 4.6 % Eosinophils (%) (Auto) 0.1 % Basophils (%) (Auto) 0.2 % Neutrophils # (Auto) 11.25 1.4-6.5 K/uL Lymphocytes # (Auto) 1.33 1.2-3.4 K/uL Monocytes # (Auto) 0.61 0.11-0.59 K/uL Eosinophils # (Auto) 0.01 0-0.5 K/uL Basophils # (Auto) 0.03 0-0.2 K/uL RDW Standard Deviation 52.7 36.4-46.3 fL RDW Coefficient of Variation 14.5 11.5-14.5 % Immature Granulocyte % (Auto) 0.4 % Immature Granulocyte # (Auto) 0.05 0.00-0.02 K/uL Prothrombin Time 10.9 9.0-12.0 SECONDS Prothromb Time International Ratio 1.0 0.9-1.1 Sodium Level 139 136-145 mmol/L Potassium Level 3.7 3.5-5.1 mmol/L Chloride Level 102 98-107 mmol/L Carbon Dioxide Level 28 21-32 mmol/L Anion Gap 10.0 3-11 mmol/L Blood Urea Nitrogen 31 7-18 mg/dl Creatinine 1.48 0.60-1.40 mg/dl Est Creatinine Clear Calc Drug Dose 33.5 ml/min Estimated GFR () 49.6 Estimated GFR (Non- 42.8 BUN/Creatinine Ratio 20.7 10-20 Random Glucose 175 70-99 mg/dl Calcium Level 8.7 8.5-10.1 mg/dl Magnesium Level 2.0 1.8-2.4 mg/dl Total Bilirubin 0.6 0.2-1 mg/dl Direct Bilirubin 0.2 0-0.2 mg/dl Aspartate Amino Transf (AST/SGOT) 19 15-37 U/L Alanine Aminotransferase (ALT/SGPT) 19 12-78 U/L Alkaline Phosphatase 76 45-117 U/L Total Creatine Kinase 41 39-308 U/L Creatine Kinase MB 1.1 0.5-3.6 ng/ml Creatine Kinase MB Ratio 2.7 0-3.0 Troponin I 0.023 0-0.045 ng/ml Total Protein 7.5 6.4-8.2 gm/dl Albumin 3.2 3.4-5.0 gm/dl Bedside Lactic Acid Venous 1.99 0.90-1.70 mmol/L Urine Color YELLOW Urine Appearance CLEAR CLEAR Urine pH 7.5 4.5-7.5 Urine Specific [place] 1.017 1.000-1.030 Urine Protein 1+ NEG Urine Glucose (UA) NEG NEG Urine Ketones TRACE NEG Urine Occult Blood NEG NEG Urine Nitrite NEG NEG Urine Bilirubin NEG NEG Urine Urobilinogen NEG NEG Urine Leukocyte Esterase TRACE NEG Urine WBC (Auto) 1-5 0-5 /hpf Urine RBC (Auto) 0-4 0-4 /hpf Urine Hyaline Casts (Auto) 1-5 0-5 /lpf Urine Epithelial Cells (Auto) 10-20 0-5 /lpf Urine Bacteria (Auto) NEG NEG Microbiology Results 02/04/17 Blood Culture, Received Pending 02/04/17 Blood Culture, Received Pending Diagnostic Radiology CHEST ONE VIEW PORTABLE IMPRESSION: Patchy perihilar, lateral left midlung and bibasilar alveolar opacities are concerning for pneumonia or aspiration pneumonitis in the appropriate clinical setting. Follow-up recommended. EKG sinus tachycardia with premature atrial beats, 106 bpm, Right bundle branch block, Left anterior fascicular block, Bifascicular block, when compared with ECG of 07-DEC-2016 09:04, PVCs are no longer Present, Left anterior fascicular block is now Present, Nonspecific T wave abnormality no longer evident in Anterior leads, olc=[id number], as confirmed by cardiology read, also reviewed by me. Impression Assessment and Plan SEPSIS Secondary to pneumonia Meets SIRS criteria for tachycardia, tachypnea, leukocytosis (WBC 13K), also has fever (38.2), BP borderline low in 90s systolic -> improved with IVF's, POC lactic acid 1.99 Treated with Zosyn and vancomycin in ER Blood cultures pending, check sputum culture Management per sepsis protocol Broad spectrum IV antibiotics with Zosyn, check MRSA nasal swab- if negative can d/c vancomycin, continue IVF's, monitor PRP and H/H, repeat lactic acid WNL Consult infectious disease ACUTE HYPOXIA 2/2 PNEUMONIA CAP vs. HCAP (recently in facility up until 5 days ago), no aspiration episode per family, but x-ray concerning for possible aspiration- will consult speech therapy Check sputum culture Antibiotics as above Continue supplemental O2 Recheck CXR in AM Consult pulmonology GI BLEED Presents with hematemesis x 7-8 episodes [employer] G[employer] and 1 episode hematochezia- no further episodes since presenting to ER Tachycardic and borderline low BP in ER- resolved with IVF's Hg is 11.3 -> 9.2 on repeat; was running 7-9 on recent outpatient labs Monitor H/H, Type and screen done, transfuse PRN Hg < 8 Hold aspirin NPO except meds IV Protonix BID Consult GI PROLONGED QT [id number], avoid QT prolonging medications Recheck EKG in am ADENOCARCINOMA OF PANCREAS Diagnosed by FNA in November [address] Lama, not a candidate for surgery or chemo, declined palliative radiation CAD Stable, no chest pain Hold aspirin due to GI bleed ATRIAL FIBRILLATION In sinus rhythm, HR initially 120s-> improved to 90s-100s Continue beta fidel No longer on Coumadin DEPRESSION Continue Celexa DVT PROPHYLAXIS SCD's CODE STATUS DNR per my discussion with the patient and family at bedside. Patient seen in collaboration with Dr. Beatty. Please see her addendum. ATTENDING ADDENDUM : pt seen and examined , in agreement with above H&P 86 yo Male with dx of pancreatic adeno Ca presents with multiple episodes of hematemesis , fever , chills , tachycardia with concern for aspiration pneumonia P/e: Gen ; no apparent distress, appears very pale HEENT : NAD Lungs: coarse crackles at base abdomen : soft , non tender ext : no lower ext edema Neuro: AAO x3 A/P : Sepsis : possible due to aspiration pneumonia meets criteria admit to tele , IVF broad spectrum Abx with Vancomycin and Zosyn evans cultures ordered ID eval requested GI BLEED /POSSIBLE UPPER WITH HEMATEMESIS : NPO with IV PPI GI eval requested will need EGD eval ACUTE BLOOD LOSS ANEMIA : due to above follow H&H closely transfuse for HB< 8 please refer to detail documentation of Marge Groves for further discussion of other issues Advanced Directives Existing Living Will: Yes Existing Power of Information Officer: Yes Resuscitation Status DO NOT RESUSCITATE VTE Prophylaxis VTE Risk Assessment Done? Y/N: Yes Risk Level: Moderate Given or contraindicated: SCD's
[2017-02-04] MEDS ORDERED: VANCOMYCIN CONSULT ACTIVE PRN (14:15)
[2017-02-04] MEDS ORDERED: PIPERACILL/TAZOBAC CONSULT ACTIVE PRN (14:18)
[2017-02-04 15:51] LABS: ISTAT CREATININE 1.4 mg/dl (0.6-1.3); ISTAT HEMOGLOBIN 11.6 g/dl (14.0-18.0); ISTAT IONIZED CALCIUM 1.09 mmol/l (1.12-1.32)
[2017-02-04 16:09] LABS: HEMATOCRIT 28.8 % (42-52)
--- NOTE | 2017-02-04 16:15 | Pharmacy Progress Note ---
Pharmacy Antibiotic Consult Date of Service: Feb 04, 2017. Pharmacy Dosing Scope Pharmacy is consulted to initiate Vancomycin and Zosyn IV dosing therapy, order appropriate labs and adjust drug dose/frequency. Subjective The patient is a 86 year old male admitted on Feb 04, 2017 at 11:03. Objective Height (Feet): 5 Height (Inches): 6.00 Weight (Kilograms): 65.400 Lab Results (24hrs): Test 02/04/17 08:29 02/04/17 09:36 02/04/17 10:11 02/04/17 10:45 White Blood Count 13.28 K/uL (4.8-10.8) Red Blood Count 3.52 M/uL (4.7-6.1) Hemoglobin 11.3 g/dL (14.0-18.0) Hematocrit 35.1 % (42-52) Mean Corpuscular Volume 99.7 fL (80-100) Mean Corpuscular Hemoglobin 32.1 pg (25-34) Mean Corpuscular Hemoglobin Concent 32.2 g/dl (32-36) Platelet Count 320 K/uL (130-400) Mean Platelet Volume 9.9 fL (7.4-10.4) Neutrophils (%) (Auto) 84.7 % Lymphocytes (%) (Auto) 10.0 % Monocytes (%) (Auto) 4.6 % Eosinophils (%) (Auto) 0.1 % Basophils (%) (Auto) 0.2 % Neutrophils # (Auto) 11.25 K/uL (1.4-6.5) Lymphocytes # (Auto) 1.33 K/uL (1.2-3.4) Monocytes # (Auto) 0.61 K/uL (0.11-0.59) Eosinophils # (Auto) 0.01 K/uL (0-0.5) Basophils # (Auto) 0.03 K/uL (0-0.2) RDW Standard Deviation 52.7 fL (36.4-46.3) RDW Coefficient of Variation 14.5 % (11.5-14.5) Immature Granulocyte % (Auto) 0.4 % Immature Granulocyte # (Auto) 0.05 K/uL (0.00-0.02) Prothrombin Time 10.9 SECONDS (9.0-12.0) Prothromb Time International Ratio 1.0 (0.9-1.1) Est Creatinine Clear Calc Drug Dose 33.5 ml/min Magnesium Level 2.0 mg/dl (1.8-2.4) Total Bilirubin 0.6 mg/dl (0.2-1) Direct Bilirubin 0.2 mg/dl (0-0.2) Aspartate Amino Transf (AST/SGOT) 19 U/L (15-37) Alanine Aminotransferase (ALT/SGPT) 19 U/L (12-78) Alkaline Phosphatase 76 U/L (45-117) Total Creatine Kinase 41 U/L (39-308) Creatine Kinase MB 1.1 ng/ml (0.5-3.6) Creatine Kinase MB Ratio 2.7 (0-3.0) Troponin I 0.023 ng/ml (0-0.045) Total Protein 7.5 gm/dl (6.4-8.2) Albumin 3.2 gm/dl (3.4-5.0) Bedside Hemoglobin 11.6 g/dl (14.0-18.0) Bedside Hematocrit 34 % (42-52) Bedside Sodium 142 mEq/L (135-144) Bedside Potassium 3.7 mEq/L (3.3-5.0) Bedside Chloride 100 mEq/L (101-112) Bedside Total CO2 29 mEq/l (24-31) Bedside Blood Urea Nitrogen 30 mg/dl (7-18) Bedside Creatinine 1.4 mg/dl (0.6-1.3) Bedside Glucose (other) 178 mg/dl (70-99) Bedside Ionized Calcium (Mk) 1.09 mmol/l (1.12-1.32) Bedside Lactic Acid Venous 1.99 mmol/L (0.90-1.70) Urine Color YELLOW Urine Appearance CLEAR (CLEAR) Urine pH 7.5 (4.5-7.5) Urine Specific [place] 1.017 (1.000-1.030) Urine Protein 1+ (NEG) Urine Glucose (UA) NEG (NEG) Urine Ketones TRACE (NEG) Urine Occult Blood NEG (NEG) Urine Nitrite NEG (NEG) Urine Bilirubin NEG (NEG) Urine Urobilinogen NEG (NEG) Urine Leukocyte Esterase TRACE (NEG) Urine WBC (Auto) 1-5 /hpf (0-5) Urine RBC (Auto) 0-4 /hpf (0-4) Urine Hyaline Casts (Auto) 1-5 /lpf (0-5) Urine Epithelial Cells (Auto) 10-20 /lpf (0-5) Urine Bacteria (Auto) NEG (NEG) Test 02/04/17 12:08 02/04/17 13:23 02/04/17 15:59 Hemoglobin 9.2 g/dL (14.0-18.0) Hematocrit 28.5 % (42-52) Sodium Level 142 mmol/L (136-145) Potassium Level 3.9 mmol/L (3.5-5.1) Chloride Level 108 mmol/L (98-107) Carbon Dioxide Level 27 mmol/L (21-32) Anion Gap 7.0 mmol/L (3-11) Blood Urea Nitrogen 32 mg/dl (7-18) Creatinine 1.28 mg/dl (0.60-1.40) Est Creatinine Clear Calc Drug Dose 38.7 ml/min Estimated GFR () 59.2 Estimated GFR (Non- 51.1 BUN/Creatinine Ratio 25.3 (10-20) Random Glucose 159 mg/dl (70-99) Lactic Acid Level 1.6 mmol/L (0.4-2.0) Calcium Level 7.6 mg/dl (8.5-10.1) Procalcitonin 6.34 ng/ml (0-0.5) Assessment & Plan Assessment Pt 86 y/o male with PMH of atrial fibrillation, CAD, hx CVA, and pancreatic adenocarcinoma diagnosed in 11/2016 who presents to the ED with hematemesis. He is suspected to have sepsis secondary to HAP or aspiration pneumonia. Currently be treated with Zosyn 3.375gm IV q 8 hours and Vancomycin. Received Vanco (23mg/kg) IV x 1 in the ER. Per Анна Mcgrath, Vancomycin to be discontinued if Nasal MRSA swab is negative. His Scr is slightly elevated his baseline so he will be dosed per levels for now. Goal trough for pneumonia 15-20 mcg/mL Plan Vancomycin * Received Vanco (23mg/kg) 1500mg IV x 1 in the ER * Random vanc level ordered for tomorrow am with labs * Vanco will be discontinued if pending nasal MRSA swab is negative Zosyn * Received Zosyn 4.5 gm x 1 in ER * Continue Zosyn 3.375 gm IV q 8 hours. Pharmacy will continue to follow and will adjust dose/frequency as necessary. Thank you
--- NOTE | 2017-02-04 16:27 | Medical Consult ---
Consultation Date of Consultation: Feb 04, 2017. Attending Physician: Kelsie Beatty M.D. Reason for Consultation: sepsis, pulmonary source History of Present Illness 86-year-old male with history of pancreatic cancer diagnosed in November, not on any therapy, history of AFib, recent hospitalization for sepsis and pneumonia, now presents with sudden onset of severe hematemesis. Was brought to the hospital where he had evidence of sepsis with fever, elevated white blood cell count, elevated lactate, tachycardia, and chest x-ray, read by me, showing bilateral infiltrates consistent with aspiration pneumonia. Procalcitonin elevated at 6.34. Patient has been started on Zosyn and levofloxacin, has been given 1 dose of vancomycin. Cultures are pending. Plans for EGD tomorrow. No significant travel or exposure history. Has been in snf facility prior to admission. Currently complaining of mild cough, otherwise feeling reasonably well. Vomiting appears to have stopped. Past Medical/Surgical History Medical Problems: (1) Confusion Status: Acute (2) Hematemesis Status: Acute (3) Hypotension Status: Acute (4) Leukocytosis Status: Acute (5) Pancreatic mass Status: Acute (6) Sepsis Status: Acute Medical Problems: (1) Afib (2) Aortic valve stenosis (3) Biliary obstruction (4) CAD (coronary artery disease) (5) Carotid stenosis (6) CVA (cerebral vascular accident) (7) Depression (8) Diastolic dysfunction (9) HLD (hyperlipidemia) (10) Pancreatic adenocarcinoma (11) Pancreatic mass (12) Pneumonia (13) Sepsis Surgical Problems: (1) H/O carotid endarterectomy (2) H/O shoulder surgery Family History FH: cancer FH: heart disease Social History Smoking Status: Former Smoker Alcohol Use: none Marital Status: single Housing Status: lives alone Occupation Status: retired Allergies Coded Allergies: No Known Allergies (Unverified , 02/04/17) Current Inpatient Medications Current Inpatient Medications Medications (Trade) Dose Ordered Sig/Thelma Route Start Time Stop Time Status Last Admin Dose Admin Piperacillin Sod/ Tazobactam Sod (Consult) 1 ea UD PRN N/A 02/04/17 14:18 03/06/17 14:17 Acetaminophen (Tylenol Tab) 650 mg Q4H PRN PO 02/04/17 11:30 03/06/17 11:29 Pantoprazole Sodium 40 mg/ Syringe 10 ml @ 5 mls/min DAILY@09,21 IV 02/04/17 21:00 03/06/17 20:59 Citalopram Hydrobromide (celeXA TAB) 30 mg QAM PO 02/05/17 09:00 03/07/17 08:59 Metoprolol Tartrate (Lopressor Tab) 12.5 mg QAM PO 02/05/17 09:00 03/07/17 08:59 Influenza Virus Vaccine (Fluzone High-Dose Pf 0.5 ml) 0.5 ml ONCE ONCE IM. 02/05/17 08:00 02/05/17 08:01 Pneumococcal Polysaccharide Vaccine (Pneumovax-23 Inj) 25 mcg ONCE ONCE IM. 02/05/17 08:00 02/05/17 08:01 Vancomycin HCl (Consult) 1 ea UD PRN N/A 02/04/17 14:15 03/06/17 14:14 Piperacillin Sod/ Tazobactam Sod 3.375 gm/Dextrose 115 ml @ 28.75 mls/ hr Q8@0000,0800,1600 IV 02/04/17 16:00 02/11/17 15:59 Review of Systems all systems were reviewed and are negative except as per HPI Physical Exam Date Time Temp Pulse Resp B/P (MAP) Pulse Ox O2 Delivery O2 Flow Rate FiO2 02/04/17 15:11 37.0 81 16 98/64 (75) 94 Nasal Cannula 4.0 02/04/17 12:00 36.9 103 18 116/75 (89) 91 Nasal Cannula 4.0 02/04/17 11:51 Nasal Cannula 5.0 02/04/17 11:40 101 28 132/63 97 Nasal Cannula 5.0 02/04/17 10:44 108 28 117/78 94 Nasal Cannula 6.0 02/04/17 09:20 91 Nasal Cannula 6.0 02/04/17 09:20 81 Room Air 02/04/17 09:12 38.2 128 32 92/75 91 Nasal Cannula 6.0 02/04/17 09:01 124 General Appearance: WD/WN, no apparent distress Head: normocephalic, atraumatic Eyes: normal inspection, EOMI, sclerae normal ENT: normal ENT inspection, pharynx normal Neck: supple, no adenopathy, thyroid normal, trachea midline Respiratory/Chest: chest non-tender, no respiratory distress, no accessory muscle use, + rales Cardiovascular: no gallop, no murmur, + irregularly irregular Abdomen/GI: normal bowel sounds, non tender, soft, no organomegaly Back: normal inspection, no CVA tenderness Extremities/Musculoskelatal: no calf tenderness, non-tender Neurologic/Psych: alert, oriented x 3 Skin: normal color, warm/dry, no rash Lymphatic: no adenopathy Laboratory Results Date/Time Source Procedure Growth Status 02/04/17 10:04 Blood Blood Culture Pending Received 02/04/17 09:58 Blood Blood Culture Pending Received 02/04/17 14:15 Nasal MRSA DNA Surveillance Screen Pending Received Last 24 Hours Test 02/04/17 08:29 02/04/17 09:36 02/04/17 10:11 02/04/17 10:45 White Blood Count 13.28 K/uL Red Blood Count 3.52 M/uL Hemoglobin 11.3 g/dL Hematocrit 35.1 % Mean Corpuscular Volume 99.7 fL Mean Corpuscular Hemoglobin 32.1 pg Mean Corpuscular Hemoglobin Concent 32.2 g/dl Platelet Count 320 K/uL Mean Platelet Volume 9.9 fL Neutrophils (%) (Auto) 84.7 % Lymphocytes (%) (Auto) 10.0 % Monocytes (%) (Auto) 4.6 % Eosinophils (%) (Auto) 0.1 % Basophils (%) (Auto) 0.2 % Neutrophils # (Auto) 11.25 K/uL Lymphocytes # (Auto) 1.33 K/uL Monocytes # (Auto) 0.61 K/uL Eosinophils # (Auto) 0.01 K/uL Basophils # (Auto) 0.03 K/uL RDW Standard Deviation 52.7 fL RDW Coefficient of Variation 14.5 % Immature Granulocyte % (Auto) 0.4 % Immature Granulocyte # (Auto) 0.05 K/uL Prothrombin Time 10.9 SECONDS Prothromb Time International Ratio 1.0 Sodium Level 139 mmol/L Potassium Level 3.7 mmol/L Chloride Level 102 mmol/L Carbon Dioxide Level 28 mmol/L Anion Gap 10.0 mmol/L 17.0 mmol/L Blood Urea Nitrogen 31 mg/dl Creatinine 1.48 mg/dl Est Creatinine Clear Calc Drug Dose 33.5 ml/min Estimated GFR () 49.6 Estimated GFR (Non- 42.8 BUN/Creatinine Ratio 20.7 Random Glucose 175 mg/dl Calcium Level 8.7 mg/dl Magnesium Level 2.0 mg/dl Total Bilirubin 0.6 mg/dl Direct Bilirubin 0.2 mg/dl Aspartate Amino Transf (AST/SGOT) 19 U/L Alanine Aminotransferase (ALT/SGPT) 19 U/L Alkaline Phosphatase 76 U/L Total Creatine Kinase 41 U/L Creatine Kinase MB 1.1 ng/ml Creatine Kinase MB Ratio 2.7 Troponin I 0.023 ng/ml Total Protein 7.5 gm/dl Albumin 3.2 gm/dl Bedside Hemoglobin 11.6 g/dl Bedside Hematocrit 34 % Bedside Sodium 142 mEq/L Bedside Potassium 3.7 mEq/L Bedside Chloride 100 mEq/L Bedside Total CO2 29 mEq/l Bedside Blood Urea Nitrogen 30 mg/dl Bedside Creatinine 1.4 mg/dl Bedside Glucose (other) 178 mg/dl Bedside Ionized Calcium (Mk) 1.09 mmol/l Bedside Lactic Acid Venous 1.99 mmol/L Urine Color YELLOW Urine Appearance CLEAR Urine pH 7.5 Urine Specific [place] 1.017 Urine Protein 1+ Urine Glucose (UA) NEG Urine Ketones TRACE Urine Occult Blood NEG Urine Nitrite NEG Urine Bilirubin NEG Urine Urobilinogen NEG Urine Leukocyte Esterase TRACE Urine WBC (Auto) 1-5 /hpf Urine RBC (Auto) 0-4 /hpf Urine Hyaline Casts (Auto) 1-5 /lpf Urine Epithelial Cells (Auto) 10-20 /lpf Urine Bacteria (Auto) NEG Test 02/04/17 12:08 02/04/17 13:23 02/04/17 15:59 Hemoglobin 9.2 g/dL 9.4 g/dL Hematocrit 28.5 % 28.8 % Sodium Level 142 mmol/L Potassium Level 3.9 mmol/L Chloride Level 108 mmol/L Carbon Dioxide Level 27 mmol/L Anion Gap 7.0 mmol/L Blood Urea Nitrogen 32 mg/dl Creatinine 1.28 mg/dl Est Creatinine Clear Calc Drug Dose 38.7 ml/min Estimated GFR () 59.2 Estimated GFR (Non- 51.1 BUN/Creatinine Ratio 25.3 Random Glucose 159 mg/dl Lactic Acid Level 1.6 mmol/L Calcium Level 7.6 mg/dl Procalcitonin 6.34 ng/ml CHEST ONE VIEW PORTABLE HISTORY: 86 years-old Male fever acute fever. COMPARISON: Chest radiographs 12/11/2016, 12/06/2016 TECHNIQUE: Portable upright AP view of the chest FINDINGS: Cardiac silhouette is mildly enlarged. There is atherosclerosis of the aorta. There are patchy perihilar, lateral left midlung and bibasilar airspace opacities are present. No pneumothorax, large pleural effusion or overt pulmonary edema. Bones are grossly intact. There are advanced degenerative changes of the right shoulder. At least moderate degenerative changes of the left shoulder. IMPRESSION: Patchy perihilar, lateral left midlung and bibasilar alveolar opacities are concerning for pneumonia or aspiration pneumonitis in the appropriate clinical setting. Follow-up recommended. The above report was generated using voice recognition software. It may contain grammatical, syntax or spelling errors. Electronically signed by: Colton Nelson M.D. 02/04/2017 9:47 AM Dictated Date/Time: 02/04/2017 9:45 AM The status of this report is Signed. Draft = Not yet reviewed or approved by Radiologist. Signed = Reviewed and approved by Radiologist. <AttendingPhy></AttendingPhy> <FamilyPhy>Raquel Osman M.D.</FamilyPhy> < PrimaryPhy>Raquel Osman M.D.</PrimaryPhy> <UnitNumber>[id number]</UnitNumber > <VisitNumber>[id number]</VisitNumber> <PatientName>STEFFANIE HANDLEY</ PatientName> <DateOfBirth>1930</DateOfBirth> <Location>[facility]</Location> < ServiceDate>02/04/17</ServiceDate> <MNE>ESINDI</MNE> <OrderingPhy>Conner Harris M.D.</OrderingPhy> <OrderingPhyMNE>f rep ord dr olson</OrderingPhyMNE> < DictatingPhyMNE>f rep dict dr olson</DictatingPhyMNE> <CCListMNE Assessment & Plan 86-year-old male with known pancreatic carcinoma now presents with sepsis with probable bilateral pneumonia, most likely aspiration in type. Current antibiotic therapy with Zosyn and levofloxacin appropriate, would obtain MRSA nasal swab to ensure no MRSA colonization. Will follow procalcitonin for response to therapy. Await follow-up chest x-ray. For EGD tomorrow. Will follow.
[2017-02-04 16:35] LABS: BUN/CREATININE RATIO 22.7 (10-20); CALCIUM 7.7 mg/dl (8.5-10.1); CREATININE 1.36 mg/dl (0.60-1.40); POTASSIUM 4.1 mmol/L (3.5-5.1)
[2017-02-04] MEDS: PIPERACILL/TAZOBAC IV 3.375 GM in DEXTROSE 5% 100ML IV SCH ×2 (16:38→23:58)
[2017-02-04 20:20] LABS: BUN/CREATININE RATIO 23.2 (10-20); CALCIUM 7.6 mg/dl (8.5-10.1); CREATININE 1.27 mg/dl (0.60-1.40); POTASSIUM 3.8 mmol/L (3.5-5.1)
[2017-02-04] MEDS: PANTOprazole INJ 40 MG in SYRINGE 0 ML IV SCH (20:43)
--- NOTE | 2017-02-04 20:47 | Progress Note ---
Progress Note Date of Service Feb 04, 2017. Progress Note pt has prolong Qtc > 500 IV Erythromycin prep for EGD D/amrit for concern for worsening of Qtc prolongation leading to Torsades /arrhythmia cont to monitor in Tele daily EKG ordered monitor K /Mg daily to keep K > 4 ; Mg > 1.8
[2017-02-04] MEDS ORDERED: NURSING VERBAL MED ORDER ONE ×2 (21:00→22:15)
[2017-02-04] MEDS ORDERED: POTASSIUM CHLR 10 MEQ / WTR 10 MEQ in PREMIXED WATER 100 ML IV STA (21:23)
[2017-02-04] MEDS ORDERED: SODIUM CHLORIDE 0.9% 250ML 250 ML IV ONE (21:30)
[2017-02-04] MEDS: SODIUM CHLORIDE 0.9% 1000ML 1,000 ML IV SCH (22:03)
[2017-02-04 23:40] LABS: HEMATOCRIT 25.7 % (42-52)
[2017-02-04 23:58] LABS: BUN/CREATININE RATIO 23.6 (10-20); CALCIUM 7.5 mg/dl (8.5-10.1); CREATININE 1.24 mg/dl (0.60-1.40); POTASSIUM 4.2 mmol/L (3.5-5.1)
[2017-02-05] VITALS (17 sets, daily range): BP systolic 106–134; BP diastolic 62–77; PULSE 72–97; TEMP 36.7–37.4; O2SAT 90–95
[2017-02-05] MEDS: SODIUM CHLORIDE 0.9% 1000ML 1,000 ML IV SCH ×2 (05:10→19:00)
[2017-02-05] MEDS ORDERED: ERYTHROMYCIN IV 500 MG in SODIUM CHLORIDE 0.9% 250ML 250 ML IV SCH (06:00)
[2017-02-05 06:32] LABS: MEAN CELL VOLUME 99.6 fL (80-100); MEAN CORPUSCULAR HEMOGLOBIN 31.5 pg (25-34); MEAN CORPUSCULAR HGB CONC 31.7 g/dl (32-36); MEAN PLATELET VOLUME 9.2 fL (7.4-10.4); PLATELET COUNT 163 K/uL (130-400); RED BLOOD COUNT 2.41 M/uL (4.7-6.1)
--- NOTE | 2017-02-05 07:09 | DIAGNOSTIC IMAGING REPORT ---
CHEST ONE VIEW PORTABLE HISTORY: 86 years-old Male PNEUMONIA acute pneumonia. Follow-up study. COMPARISON: Chest radiograph 02/04/2017 TECHNIQUE: Portable upright AP view of the chest FINDINGS: Cardiac silhouette is again mildly enlarged. Pulmonary vascular congestion. Atherosclerosis of the aorta. No pneumothorax or large pleural effusion. There is mild background interstitial coarsening with patchy perihilar and right greater than left bibasilar opacities. Slightly improved aeration of the lateral left midlung. Bones are grossly intact. Degenerative changes are seen about the shoulders and spine. IMPRESSION: 1. Cardiomegaly with mild pulmonary vascular congestion and mild background interstitial coarsening suspicious for developing pulmonary edema. 2. Persistent patchy perihilar and bibasilar opacities suggesting atelectasis or pneumonia with slightly improved aeration of the lateral left midlung. The above report was generated using voice recognition software. It may contain grammatical, syntax or spelling errors. Electronically signed by: Colton Nelson M.D. 02/05/2017 7:07 AM Dictated Date/Time: 02/05/2017 7:05 AM
[2017-02-05 07:11] LABS: ALB/GLOB RATIO 0.6 (0.9-2); BUN/CREATININE RATIO 22.3 (10-20); CALCIUM 7.4 mg/dl (8.5-10.1); CREATININE 1.15 mg/dl (0.60-1.40); MAGNESIUM 2.1 mg/dl (1.8-2.4)
[2017-02-05 07:22] LABS: PLT ESTIMATE NORMAL
[2017-02-05] MEDS ORDERED: PNEUMOCOCCAL ADMINISTRATION CHARGE ONE (08:00)
[2017-02-05] MEDS ORDERED: INFLUENZA ADMINISTRATION CHARGE ONE (08:00)
[2017-02-05] MEDS ORDERED: PNEUMOCOCCAL POLYSACCHARIDES 25 MCG/0.5 ML VIAL/SYR IM. ONE (08:00)
[2017-02-05] MEDS ORDERED: INFLUENZA VACCINE HIGH DOSE 65+ 0.5 ML SYR IM. ONE (08:00)
[2017-02-05] MEDS ORDERED: CITALOPRAM 20 MG TAB PO SCH ×2 (09:00)
[2017-02-05] MEDS: PANTOprazole INJ 40 MG in SYRINGE 0 ML IV SCH ×2 (09:03→19:33)
[2017-02-05] MEDS: PIPERACILL/TAZOBAC IV 3.375 GM in DEXTROSE 5% 100ML IV SCH ×3 (09:03→23:57)
[2017-02-05] MEDS: METOPROLOL TARTRATE 25 MG TAB PO SCH (09:04)
--- NOTE | 2017-02-05 09:24 | Progress Note ---
Subjective Date of Service: Feb 05, 2017. Subjective Pt evaluation today including: conversation w/ patient, physical exam, lab review, review of studies, review of inpatient medication list Saw/examined the patient in room 222-1 Daughter at bedside Patient doing okay; denies any symptoms; no vomiting episodes overnight Denies cough, weakness or fevers/chills Denies chest pain/shortness of breath Both patient and daughter aware of the plan for EGD this morning Problem List Medical Problems: (1) Confusion Status: Acute (2) Hematemesis Status: Acute (3) Hypotension Status: Acute (4) Leukocytosis Status: Acute (5) Pancreatic mass Status: Acute (6) Sepsis Status: Acute Review of Systems Constitutional: No fever, No chills, No weakness Respiratory: No cough, No sputum, No shortness of breath Abdomen: + vomiting, + GI bleeding (hematemesis), No pain, No nausea, No diarrhea, No constipation Male : No dysuria, No urinary frequency Heme: + abnormal bleeding/bruising Medications Current Inpatient Medications Medications (Trade) Dose Ordered Sig/Thelma Route Start Time Stop Time Status Last Admin Dose Admin Piperacillin Sod/ Tazobactam Sod (Consult) 1 ea UD PRN N/A 02/04/17 14:18 03/06/17 14:17 Acetaminophen (Tylenol Tab) 650 mg Q4H PRN PO 02/04/17 11:30 03/06/17 11:29 Pantoprazole Sodium 40 mg/ Syringe 10 ml @ 5 mls/min DAILY@09,21 IV 02/04/17 21:00 03/06/17 20:59 02/04/17 20:43 5 MLS/MIN Metoprolol Tartrate (Lopressor Tab) 12.5 mg QAM PO 02/05/17 09:00 03/07/17 08:59 Piperacillin Sod/ Tazobactam Sod 3.375 gm/Dextrose 115 ml @ 28.75 mls/ hr Q8@0000,0800,1600 IV 02/04/17 16:00 02/11/17 15:59 02/04/17 23:58 28.75 MLS/HR Sodium Chloride 1,000 ml @ 100 mls/hr Q10H IV 02/04/17 22:30 03/06/17 22:29 02/05/17 05:10 100 MLS/HR Objective Vital Signs Date Time Temp Pulse Resp B/P (MAP) Pulse Ox O2 Delivery O2 Flow Rate FiO2 02/05/17 04:00 94 Nasal Cannula 4.0 02/05/17 04:00 37.4 89 16 115/68 (84) 94 Nasal Cannula 4.0 02/05/17 00:00 90 Nasal Cannula 3.5 02/04/17 23:31 37.1 98 18 114/67 (83) 90 Nasal Cannula 3.5 02/04/17 22:04 92 98/57 (71) 02/04/17 20:00 95 Nasal Cannula 4.0 02/04/17 19:31 37.0 84 18 98/55 (69) 91 Nasal Cannula 3.5 02/04/17 16:00 94 Nasal Cannula 4.0 02/04/17 15:11 37.0 81 16 98/64 (75) 94 Nasal Cannula 4.0 02/04/17 12:00 36.9 103 18 116/75 (89) 91 Nasal Cannula 4.0 02/04/17 11:51 Nasal Cannula 5.0 02/04/17 11:40 101 28 132/63 97 Nasal Cannula 5.0 02/04/17 10:44 108 28 117/78 94 Nasal Cannula 6.0 02/04/17 09:20 91 Nasal Cannula 6.0 02/04/17 09:20 81 Room Air 02/04/17 09:12 38.2 128 32 92/75 91 Nasal Cannula 6.0 02/04/17 09:01 124 Physical Exam General Appearance: no apparent distress ENT: + pertinent finding (hard of hearing) Respiratory/Chest: no respiratory distress, no accessory muscle use Cardiovascular: no edema Abdomen: non tender, soft Extremities: normal range of motion, non-tender, normal inspection, no pedal edema, no calf tenderness Neurologic/Psychiatric: no motor/sensory deficits, alert, normal mood/affect Laboratory Results Last 24 Hours Test 02/04/17 08:29 02/04/17 09:36 02/04/17 10:11 02/04/17 10:45 White Blood Count 13.28 K/uL Red Blood Count 3.52 M/uL Hemoglobin 11.3 g/dL Hematocrit 35.1 % Mean Corpuscular Volume 99.7 fL Mean Corpuscular Hemoglobin 32.1 pg Mean Corpuscular Hemoglobin Concent 32.2 g/dl Platelet Count 320 K/uL Mean Platelet Volume 9.9 fL Neutrophils (%) (Auto) 84.7 % Lymphocytes (%) (Auto) 10.0 % Monocytes (%) (Auto) 4.6 % Eosinophils (%) (Auto) 0.1 % Basophils (%) (Auto) 0.2 % Neutrophils # (Auto) 11.25 K/uL Lymphocytes # (Auto) 1.33 K/uL Monocytes # (Auto) 0.61 K/uL Eosinophils # (Auto) 0.01 K/uL Basophils # (Auto) 0.03 K/uL RDW Standard Deviation 52.7 fL RDW Coefficient of Variation 14.5 % Immature Granulocyte % (Auto) 0.4 % Immature Granulocyte # (Auto) 0.05 K/uL Prothrombin Time 10.9 SECONDS Prothromb Time International Ratio 1.0 Sodium Level 139 mmol/L Potassium Level 3.7 mmol/L Chloride Level 102 mmol/L Carbon Dioxide Level 28 mmol/L Anion Gap 10.0 mmol/L 17.0 mmol/L Blood Urea Nitrogen 31 mg/dl Creatinine 1.48 mg/dl Est Creatinine Clear Calc Drug Dose 33.5 ml/min Estimated GFR () 49.6 Estimated GFR (Non- 42.8 BUN/Creatinine Ratio 20.7 Random Glucose 175 mg/dl Calcium Level 8.7 mg/dl Magnesium Level 2.0 mg/dl Total Bilirubin 0.6 mg/dl Direct Bilirubin 0.2 mg/dl Aspartate Amino Transf (AST/SGOT) 19 U/L Alanine Aminotransferase (ALT/SGPT) 19 U/L Alkaline Phosphatase 76 U/L Total Creatine Kinase 41 U/L Creatine Kinase MB 1.1 ng/ml Creatine Kinase MB Ratio 2.7 Troponin I 0.023 ng/ml Total Protein 7.5 gm/dl Albumin 3.2 gm/dl Bedside Hemoglobin 11.6 g/dl Bedside Hematocrit 34 % Bedside Sodium 142 mEq/L Bedside Potassium 3.7 mEq/L Bedside Chloride 100 mEq/L Bedside Total CO2 29 mEq/l Bedside Blood Urea Nitrogen 30 mg/dl Bedside Creatinine 1.4 mg/dl Bedside Glucose (other) 178 mg/dl Bedside Ionized Calcium (Mk) 1.09 mmol/l Bedside Lactic Acid Venous 1.99 mmol/L Urine Color YELLOW Urine Appearance CLEAR Urine pH 7.5 Urine Specific [place] 1.017 Urine Protein 1+ Urine Glucose (UA) NEG Urine Ketones TRACE Urine Occult Blood NEG Urine Nitrite NEG Urine Bilirubin NEG Urine Urobilinogen NEG Urine Leukocyte Esterase TRACE Urine WBC (Auto) 1-5 /hpf Urine RBC (Auto) 0-4 /hpf Urine Hyaline Casts (Auto) 1-5 /lpf Urine Epithelial Cells (Auto) 10-20 /lpf Urine Bacteria (Auto) NEG Test 02/04/17 12:08 02/04/17 13:23 02/04/17 15:59 02/04/17 19:51 Hemoglobin 9.2 g/dL 9.4 g/dL 8.4 g/dL Hematocrit 28.5 % 28.8 % 26.0 % Sodium Level 142 mmol/L 140 mmol/L 141 mmol/L Potassium Level 3.9 mmol/L 4.1 mmol/L 3.8 mmol/L Chloride Level 108 mmol/L 108 mmol/L 108 mmol/L Carbon Dioxide Level 27 mmol/L 25 mmol/L 25 mmol/L Anion Gap 7.0 mmol/L 7.0 mmol/L 8.0 mmol/L Blood Urea Nitrogen 32 mg/dl 31 mg/dl 29 mg/dl Creatinine 1.28 mg/dl 1.36 mg/dl 1.27 mg/dl Est Creatinine Clear Calc Drug Dose 38.7 ml/min 36.5 ml/min 39.1 ml/min Estimated GFR () 59.2 55.0 59.7 Estimated GFR (Non- 51.1 47.4 51.5 BUN/Creatinine Ratio 25.3 22.7 23.2 Random Glucose 159 mg/dl 167 mg/dl 127 mg/dl Lactic Acid Level 1.6 mmol/L Calcium Level 7.6 mg/dl 7.7 mg/dl 7.6 mg/dl Procalcitonin 6.34 ng/ml Test 02/04/17 21:20 02/04/17 23:28 02/05/17 06:11 Lactic Acid Level 1.2 mmol/L 0.6 mmol/L Hemoglobin 8.2 g/dL 7.6 g/dL Hematocrit 25.7 % 24.0 % Sodium Level 141 mmol/L 141 mmol/L Potassium Level 4.2 mmol/L 4.0 mmol/L Chloride Level 108 mmol/L 109 mmol/L Carbon Dioxide Level 26 mmol/L 26 mmol/L Anion Gap 7.0 mmol/L 6.0 mmol/L Blood Urea Nitrogen 29 mg/dl 26 mg/dl Creatinine 1.24 mg/dl 1.15 mg/dl Est Creatinine Clear Calc Drug Dose 40.0 ml/min 43.1 ml/min Estimated GFR () 61.5 67.4 Estimated GFR (Non- 53.1 58.1 BUN/Creatinine Ratio 23.6 22.3 Random Glucose 97 mg/dl 96 mg/dl Calcium Level 7.5 mg/dl 7.4 mg/dl White Blood Count 9.00 K/uL Red Blood Count 2.41 M/uL Mean Corpuscular Volume 99.6 fL Mean Corpuscular Hemoglobin 31.5 pg Mean Corpuscular Hemoglobin Concent 31.7 g/dl RDW Standard Deviation 53.3 fL RDW Coefficient of Variation 14.5 % Platelet Count 163 K/uL Mean Platelet Volume 9.2 fL Platelet Estimate NORMAL Magnesium Level 2.1 mg/dl Total Bilirubin 0.7 mg/dl Aspartate Amino Transf (AST/SGOT) 13 U/L Alanine Aminotransferase (ALT/SGPT) 14 U/L Alkaline Phosphatase 50 U/L Total Protein 5.6 gm/dl Albumin 2.2 gm/dl Globulin 3.4 gm/dl Albumin/Globulin Ratio 0.6 Random Vancomycin Level 11.5 mcg/ml Assessment and Plan This is an 86 year old male with a PMH of adenocarcinoma of the pancreas, paroxysmal atrial fibrillation no longer on anticoagulation, CAD, hx. of diastolic CHF, depression presents with hematemesis and sepsis secondary to pneumonia Sepsis secondary to Pneumonia, likely Aspiration met sepsis criteria with fever, WBC, tachycardia blood pressure improved with IVFs CXR = Persistent patchy perihilar and bibasilar opacities suggesting atelectasis or pneumonia with slightly improved aeration of the lateral left midlung currently on supplemental O2 via nasal cannula and saturating well; denies any symptoms continue Zosyn and Levaquin as per ID for broad coverage blood cultures pending MRSA swab negative pulmonology consulted Upper GI Bleed/Hematemesis in the setting of Pancreatic Adenocarcinoma First diagnosed with pancreatic adenocarcinoma in November [address] Lama - no surgery/chemo; no palliative radiation as per family Stopped NSAIDs and Coumadin at that time Has no developed Hematemesis for the past day prior to arrival - ? hematochezia H/H trending down - Hgb down to 7.6 - will transfuse one unit PRBC plan for EGD this AM (02/05) cont. IV PPI BID GI consulted for management Prolonged QTc pev=393, avoid QT prolonging medications Repeat QTc is 495; will try to avoid QT prolonging medications when able Potassium and Mg wnl Atrial Fibrillation patient intermittently in A. Fib rate is controlled - continue metoprolol Not a candidate for anticoagulation CAD Stable, no chest pain Hold aspirin due to GI bleed Depression Continue Celexa DVT ppx SCD's DNR
--- NOTE | 2017-02-05 11:48 | Pulmonary Consultation ---
History General Date of Service: Feb 05, 2017. Stated Complaint: Pneumonia,Sepsis HPI The patient is a 86 year old male who presents to [facility] with complaints of Pneumonia,Sepsis. The patient's primary care provider is Raquel Osman M.D.. Mr. Ruiz is an 86-year-old man with pancreatic cancer recently diagnosed in November 2016, who presented on 02/04/2017 with complaints of persistent intractable vomiting that started started a few hours prior to admission. The patient then noticed that vomitus became bloody. Her daughter Rachel is at bedside, he denies any fevers, chills, chest pain, shortness of breath, dyspnea on exertion or decreased exercise tolerance. He denies any palpitations, lightheadedness or dizziness, cough, hemoptysis, abdominal pain, melena or genitourinary symptoms. He was in his normal state of health performing all activities of daily living prior to this admission. He was on Coumadin for anticoagulation for paroxysmal atrial fibrillation, but that was recently discontinued secondary to decreasing hemoglobin. He continues on aspirin. In the ER, his temperature was 38.2, pulse 1 28 bpm, respiratory rate 32, blood pressure 92/71 and saturating 91% on 6 L nasal cannula. Upon initial evaluation in the ER he was described as acutely ill and diaphoretic with crackles in all lung jean baptiste. Labs showed white blood cell count of 13, hemoglobin of 11.3 and platelets of 320. Chemistry significant for BUN of 31, creatinine of 1.48, albumin 2.2. Liver function tests and coags were within normal limits. Pro-calcitonin was 6.34. Blood cultures were drawn and are still pending. Chest x-ray showed patchy perihilar left lateral mid lung and bibasilar opacities. He was admitted for acute GI bleed, aspiration pneumonia. He was started on Zosyn and Levaquin. At the time of my evaluation this morning, patient states that she's feeling much better. He denies any chest pain, cough, or shortness of breath. He is also had no further episodes of vomiting or hematemesis. On review of labs this morning is a progressive decrease in hemoglobin to 7.6. The transfusion ordered and patient scheduled for upper endoscopy with GI. Historian: family Onset: just prior to arrival Complaint Status: improved Review of Systems Constitutional: reports: as stated in HPI Eyes: reports: as stated in HPI ENT: reports: as stated in HPI Cardiovascular: reports: as stated in HPI Respiratory: reports: as stated in HPI Gastrointestinal: reports: as stated in HPI Genitourinary - Male: reports: as stated in HPI Musculoskeletal: reports: as stated in HPI Integumentary: reports: as stated in HPI Neurologic: reports: as stated in HPI Psychiatric: reports: as stated in HPI Endocrine: as stated in HPI Hematologic / Lymphatic: as stated in HPI Allergic / Immunologic: as stated in HPI All Other Symptoms All Other Systems: Reviewed and Negative Past Medical History Past Medical History: 1. Asymptomatic paroxysmal atrial fibrillation, on chronic anticoagulation. 2. 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 3. Transient ischemic attack in May 2009. 4. Chronic coronary artery disease with left circumflex stenting in 2002 after abnormal pharmacologic stress testing. 5. Mild aortic valve stenosis. 6. Hypertension. 7. Dyslipidemia. 8. Adenocarcinoma of pancreas Past Surgical History: 1. Colonoscopy. 2. Rotator cuff surgery. 3. ERCP 4. Bilateral carotid endarterectomy in 2002 followed by carotid stenting of an unknown time. Family History FH: cancer FH: heart disease Negative for lung disease, premature CAD or sudden cardiac ; however, noncontributory given the patient's advanced age. Social History Patient is . Worked at [employer] for many years, now retired. Smoked about 5 cigarettes a day for about 30 years quit about 15 years ago. He denies any alcohol or illicit drug use. Hx Tobacco Use In Past Year?: No Smoking Status: Former Smoker Marital status: single Housing status: lives alone (lives alone but daughters currently staying with him) Occupational Status: retired Allergies Coded Allergies: No Known Allergies (Unverified , 02/04/17) Current Medications Reported Home Medications Medications Dose Route/Sig Max Daily Dose Days Date Category Dose Instructions Zofran (Ondansetron HCl) 4 Mg Tab 4 Mg PO QID 02/04/17 Reported Folic Acid 400 Mcg Tab 1 Tab PO DAILY 02/04/17 Reported Zantac (Ranitidine HCl) 150 Mg Tab 150 Mg PO BID 02/04/17 Reported Senokot S (Senna/Docusate Sodium) 1 Tab Tab 2 Tabs PO DAILY 02/04/17 Reported Miralax (Polyethylene Glycol 3350) 1 Pow Pow 17 Gm PO DAILY 02/04/17 Reported Kp Ferrous Sulfate (Ferrous Sulfate) 325 Mg Tab 325 Mg PO TIDM 02/04/17 Reported Citalopram Hydrobromide 10 Mg Tab 10 Mg PO QAM 02/04/17 Reported TOTAL DOSE=30MG Preservision Areds (Multiple Vitamins W/ Minerals) 1 Cap Cap 1 Cap PO QAM 08/10/14 Reported Aspirin Ec (Aspirin) 81 Mg Tab 81 Mg PO QAM 07/14/12 Reported Vitamin D 1000 Unit (Cholecalciferol) 1,000 Unit Cap 1,000 Inter.unit PO QAM 07/14/12 Reported Citalopram Hydrobromide 20 Mg Tab 20 Mg PO QAM 07/14/12 Reported TOTAL DOSE=30MG Lopressor (Metoprolol Tartrate) 25 Mg Tab 12.5 Mg PO QAM 07/14/12 Reported Physical Physical Exam Vital Signs: Date Time Temp Pulse Resp B/P (MAP) Pulse Ox O2 Delivery O2 Flow Rate FiO2 02/05/17 04:00 94 Nasal Cannula 4.0 02/05/17 04:00 37.4 89 16 115/68 (84) 94 Nasal Cannula 4.0 02/05/17 00:00 90 Nasal Cannula 3.5 02/04/17 23:31 37.1 98 18 114/67 (83) 90 Nasal Cannula 3.5 02/04/17 22:04 92 98/57 (71) 02/04/17 20:00 95 Nasal Cannula 4.0 02/04/17 19:31 37.0 84 18 98/55 (69) 91 Nasal Cannula 3.5 02/04/17 16:00 94 Nasal Cannula 4.0 02/04/17 15:11 37.0 81 16 98/64 (75) 94 Nasal Cannula 4.0 02/04/17 12:00 36.9 103 18 116/75 (89) 91 Nasal Cannula 4.0 02/04/17 11:51 Nasal Cannula 5.0 02/04/17 11:40 101 28 132/63 97 Nasal Cannula 5.0 02/04/17 10:44 108 28 117/78 94 Nasal Cannula 6.0 02/04/17 09:20 91 Nasal Cannula 6.0 02/04/17 09:20 81 Room Air 02/04/17 09:12 38.2 128 32 92/75 91 Nasal Cannula 6.0 02/04/17 09:01 124 General Appearance: WD/WN, NO APPARENT DISTRESS Head: NORMOCEPHALIC, ATRAUMATIC Eyes: PERRLA, NO DISCHARGE, EOMI, SCLERAE NORMAL ENT: NORMAL MOUTH EXAM, NORMAL THROAT EXAM, other (hearing impaired) Neck: NORMAL RANGE OF MOTION, NO TENDERNESS, TRACHEA MIDLINE, NO STRIDOR, SUPPLE Respiratory: other (coarse breath sounds at bases, with sporadic wheezes, otherwise good air entry bilaterally) Cardiovasular: NORMAL S1S2, NO M/G/R, irregular rate, abnormal rhythm Abdomen: NON TENDER, NORMAL BOWEL SOUNDS, NO REBOUND Back: NORMAL INSPECTION, NO MIDLINE TENDERNESS, NO CVA TENDERNESS Upper Extremities: NO EDEMA, NO DEFORMITY, NORMAL ROM Lower Extremities: NO EDEMA, NO DEFORMITY, NORMAL ROM Neuro: ALERT, ORIENTED x 3 Psychiatric: NORMAL AFFECT, NO SUICIDAL IDEATION, CONTRACTS FOR SAFETY Diagnostics Labs Results Past 24 Hours Test 02/04/17 08:29 02/04/17 09:36 02/04/17 10:11 02/04/17 10:45 Range/Units White Blood Count 13.28 4.8-10.8 K/uL Red Blood Count 3.52 4.7-6.1 M/uL Hemoglobin 11.3 14.0-18.0 g/dL Hematocrit 35.1 42-52 % Mean Corpuscular Volume 99.7 80-100 fL Mean Corpuscular Hemoglobin 32.1 25-34 pg Mean Corpuscular Hemoglobin Concent 32.2 32-36 g/dl Platelet Count 320 130-400 K/uL Mean Platelet Volume 9.9 7.4-10.4 fL Neutrophils (%) (Auto) 84.7 % Lymphocytes (%) (Auto) 10.0 % Monocytes (%) (Auto) 4.6 % Eosinophils (%) (Auto) 0.1 % Basophils (%) (Auto) 0.2 % Neutrophils # (Auto) 11.25 1.4-6.5 K/uL Lymphocytes # (Auto) 1.33 1.2-3.4 K/uL Monocytes # (Auto) 0.61 0.11-0.59 K/uL Eosinophils # (Auto) 0.01 0-0.5 K/uL Basophils # (Auto) 0.03 0-0.2 K/uL RDW Standard Deviation 52.7 36.4-46.3 fL RDW Coefficient of Variation 14.5 11.5-14.5 % Immature Granulocyte % (Auto) 0.4 % Immature Granulocyte # (Auto) 0.05 0.00-0.02 K/uL Prothrombin Time 10.9 9.0-12.0 SECONDS Prothromb Time International Ratio 1.0 0.9-1.1 Sodium Level 139 136-145 mmol/L Potassium Level 3.7 3.5-5.1 mmol/L Chloride Level 102 98-107 mmol/L Carbon Dioxide Level 28 21-32 mmol/L Anion Gap 10.0 17.0 16-25 mmol/L Blood Urea Nitrogen 31 7-18 mg/dl Creatinine 1.48 0.60-1.40 mg/dl Est Creatinine Clear Calc Drug Dose 33.5 ml/min Estimated GFR () 49.6 Estimated GFR (Non- 42.8 BUN/Creatinine Ratio 20.7 10-20 Random Glucose 175 70-99 mg/dl Calcium Level 8.7 8.5-10.1 mg/dl Magnesium Level 2.0 1.8-2.4 mg/dl Total Bilirubin 0.6 0.2-1 mg/dl Direct Bilirubin 0.2 0-0.2 mg/dl Aspartate Amino Transf (AST/SGOT) 19 15-37 U/L Alanine Aminotransferase (ALT/SGPT) 19 12-78 U/L Alkaline Phosphatase 76 45-117 U/L Total Creatine Kinase 41 39-308 U/L Creatine Kinase MB 1.1 0.5-3.6 ng/ml Creatine Kinase MB Ratio 2.7 0-3.0 Troponin I 0.023 0-0.045 ng/ml Total Protein 7.5 6.4-8.2 gm/dl Albumin 3.2 3.4-5.0 gm/dl Bedside Hemoglobin 11.6 14.0-18.0 g/dl Bedside Hematocrit 34 42-52 % Bedside Sodium 142 135-144 mEq/L Bedside Potassium 3.7 3.3-5.0 mEq/L Bedside Chloride 100 101-112 mEq/L Bedside Total CO2 29 24-31 mEq/l Bedside Blood Urea Nitrogen 30 7-18 mg/dl Bedside Creatinine 1.4 0.6-1.3 mg/dl Bedside Glucose (other) 178 70-99 mg/dl Bedside Ionized Calcium (Mk) 1.09 1.12-1.32 mmol/l Bedside Lactic Acid Venous 1.99 0.90-1.70 mmol/L Urine Color YELLOW Urine Appearance CLEAR CLEAR Urine pH 7.5 4.5-7.5 Urine Specific [place] 1.017 1.000-1.030 Urine Protein 1+ NEG Urine Glucose (UA) NEG NEG Urine Ketones TRACE NEG Urine Occult Blood NEG NEG Urine Nitrite NEG NEG Urine Bilirubin NEG NEG Urine Urobilinogen NEG NEG Urine Leukocyte Esterase TRACE NEG Urine WBC (Auto) 1-5 0-5 /hpf Urine RBC (Auto) 0-4 0-4 /hpf Urine Hyaline Casts (Auto) 1-5 0-5 /lpf Urine Epithelial Cells (Auto) 10-20 0-5 /lpf Urine Bacteria (Auto) NEG NEG Test 02/04/17 12:08 02/04/17 13:23 02/04/17 15:59 02/04/17 19:51 Range/Units Hemoglobin 9.2 9.4 8.4 14.0-18.0 g/dL Hematocrit 28.5 28.8 26.0 42-52 % Sodium Level 142 140 141 136-145 mmol/L Potassium Level 3.9 4.1 3.8 3.5-5.1 mmol/L Chloride Level 108 108 108 98-107 mmol/L Carbon Dioxide Level 27 25 25 21-32 mmol/L Anion Gap 7.0 7.0 8.0 3-11 mmol/L Blood Urea Nitrogen 32 31 29 7-18 mg/dl Creatinine 1.28 1.36 1.27 0.60-1.40 mg/dl Est Creatinine Clear Calc Drug Dose 38.7 36.5 39.1 ml/min Estimated GFR () 59.2 55.0 59.7 Estimated GFR (Non- 51.1 47.4 51.5 BUN/Creatinine Ratio 25.3 22.7 23.2 10-20 Random Glucose 159 167 127 70-99 mg/dl Lactic Acid Level 1.6 0.4-2.0 mmol/L Calcium Level 7.6 7.7 7.6 8.5-10.1 mg/dl Procalcitonin 6.34 0-0.5 ng/ml Test 02/04/17 21:20 02/04/17 23:28 02/05/17 06:11 Range/Units Lactic Acid Level 1.2 0.6 0.4-2.0 mmol/L Hemoglobin 8.2 7.6 14.0-18.0 g/dL Hematocrit 25.7 24.0 42-52 % Sodium Level 141 141 136-145 mmol/L Potassium Level 4.2 4.0 3.5-5.1 mmol/L Chloride Level 108 109 98-107 mmol/L Carbon Dioxide Level 26 26 21-32 mmol/L Anion Gap 7.0 6.0 3-11 mmol/L Blood Urea Nitrogen 29 26 7-18 mg/dl Creatinine 1.24 1.15 0.60-1.40 mg/dl Est Creatinine Clear Calc Drug Dose 40.0 43.1 ml/min Estimated GFR () 61.5 67.4 Estimated GFR (Non- 53.1 58.1 BUN/Creatinine Ratio 23.6 22.3 10-20 Random Glucose 97 96 70-99 mg/dl Calcium Level 7.5 7.4 8.5-10.1 mg/dl White Blood Count 9.00 4.8-10.8 K/uL Red Blood Count 2.41 4.7-6.1 M/uL Mean Corpuscular Volume 99.6 80-100 fL Mean Corpuscular Hemoglobin 31.5 25-34 pg Mean Corpuscular Hemoglobin Concent 31.7 32-36 g/dl RDW Standard Deviation 53.3 36.4-46.3 fL RDW Coefficient of Variation 14.5 11.5-14.5 % Platelet Count 163 130-400 K/uL Mean Platelet Volume 9.2 7.4-10.4 fL Platelet Estimate NORMAL Magnesium Level 2.1 1.8-2.4 mg/dl Total Bilirubin 0.7 0.2-1 mg/dl Aspartate Amino Transf (AST/SGOT) 13 15-37 U/L Alanine Aminotransferase (ALT/SGPT) 14 12-78 U/L Alkaline Phosphatase 50 45-117 U/L Total Protein 5.6 6.4-8.2 gm/dl Albumin 2.2 3.4-5.0 gm/dl Globulin 3.4 2.5-4.0 gm/dl Albumin/Globulin Ratio 0.6 0.9-2 Random Vancomycin Level 11.5 mcg/ml Microbiology Results 02/04/17 Blood Culture, Received Pending 02/04/17 Blood Culture, Received Pending 02/04/17 MRSA DNA Surveillance Screen - Final, Complete Specimen Negative for MRSA by DNA Probe Diagnostic Radiology CHEST ONE VIEW PORTABLE 02/05/2017 HISTORY: 86 years-old Male PNEUMONIA acute pneumonia. Follow-up study. COMPARISON: Chest radiograph 02/04/2017 TECHNIQUE: Portable upright AP view of the chest FINDINGS: Cardiac silhouette is again mildly enlarged. Pulmonary vascular congestion. Atherosclerosis of the aorta. No pneumothorax or large pleural effusion. There is mild background interstitial coarsening with patchy perihilar and right greater than left bibasilar opacities. Slightly improved aeration of the lateral left midlung. Bones are grossly intact. Degenerative changes are seen about the shoulders and spine. IMPRESSION: 1. Cardiomegaly with mild pulmonary vascular congestion and mild background interstitial coarsening suspicious for developing pulmonary edema. 2. Persistent patchy perihilar and bibasilar opacities suggesting atelectasis or pneumonia with slightly improved aeration of the lateral left midlung. CHEST ONE VIEW PORTABLE 02/04/2017 HISTORY: 86 years-old Male fever acute fever. COMPARISON: Chest radiographs 12/11/2016, 12/06/2016 TECHNIQUE: Portable upright AP view of the chest FINDINGS: Cardiac silhouette is mildly enlarged. There is atherosclerosis of the aorta. There are patchy perihilar, lateral left midlung and bibasilar airspace opacities are present. No pneumothorax, large pleural effusion or overt pulmonary edema. Bones are grossly intact. There are advanced degenerative changes of the right shoulder. At least moderate degenerative changes of the left shoulder. IMPRESSION: Patchy perihilar, lateral left midlung and bibasilar alveolar opacities are concerning for pneumonia or aspiration pneumonitis in the appropriate clinical setting. Follow-up recommended. EKG EKG from 02/05/2017 at around 6 AM Atrial fibrillation with PVCs, with a ventricular rate of 96 bpm. Right bundle megan block. EKG from 02/04/2017 on admission Sinus tachycardia with PACs. With the ventricular rate of 10 6 bpm. With left anterior fascicular block and right bundle branch block. Impression Assessment and Plan Hypoxemia Aspiration pneumonia/pneumonitis Hematemesis Acute blood loss anemia History of pancreatic cancer Atrial fibrillation Patient had acute hypoxemia in the setting of vomiting. This most likely representing acute aspiration pneumonia versus pneumonitis. This can precipitate a SIRS-like response with elevation of temperature and white blood cell count. Nonetheless he is improving from a respiratory standpoint. Continue his supplemental oxygen to maintain an SaO2 above 92%. Continue to taper as tolerated. I agree with empiric antibiotics to cover for aspiration. Patient is actively wheezing intermittently to continue with bronchodilators when necessary. Continue with pulmonary toilet and flutter valve. For acute blood loss anemia-continue management per primary team. GI has been consulted and patient scheduled for endoscopy this morning. Patient has history of atrial fibrillation and mild aortic stenosis--management per primary team.
--- NOTE | 2017-02-05 13:57 | History & Physical Bridge Note ---
H&P Re-Evaluation Bridge Note: I have examined the patient, reviewed the History & Physical and in the interval since the performance of the History & Physical I have noted the following changes of clinical significance: No changes noted. We are proceeding with upper endoscopy to evaluate his history of hematemesis.
[2017-02-05] MEDS ORDERED: LIDOCAINE HCL 2% 2 ML VIAL (20MG/ML) ONE (14:07)
[2017-02-05] MEDS ORDERED: ONDANSETRON INJ 2 MG/ML 2 ML VIAL ONE (14:07)
[2017-02-05] MEDS ORDERED: BENZOCAIN/TETRACA/BUTAM SPRAY 200 APPLN/20 GM SPRY ONE (14:07)
[2017-02-05] MEDS ORDERED: PROPOFOL IV EMULSION 10 MG/ML 20 ML VIAL IV ONE (14:07)
--- NOTE | 2017-02-05 14:48 | GI REPORT ---
Procedure Date: 02/05/2017 2:10 PM Procedure: Upper GI endoscopy Indications: Suspected upper gastrointestinal bleeding Medicines: Monitored Anesthesia Care Complications: No immediate complications. Estimated Blood Loss: Estimated blood loss: none. Procedure: Pre-Anesthesia Assessment: - Prior to the procedure, a History and Physical was performed, and patient medications and allergies were reviewed. The patient is competent. The risks and benefits of the procedure and the sedation options and risks were discussed with the patient. All questions were answered and informed consent was obtained. Patient identification and proposed procedure were verified by the physician, the nurse and the portrait artist in the procedure room. Mental Status Examination: alert and oriented. Airway Examination: normal oropharyngeal airway and neck mobility. Respiratory Examination: clear to auscultation. CV Examination: normal. ASA Grade Assessment: IV - A patient with severe systemic disease that is a constant threat to life. After reviewing the risks and benefits, the patient was deemed in satisfactory condition to undergo the procedure. The anesthesia plan was to use monitored anesthesia care (MAC). Immediately prior to administration of medications, the patient was re-assessed for adequacy to receive sedatives. The heart rate, respiratory rate, oxygen saturations, blood pressure, adequacy of pulmonary ventilation, and response to care were monitored throughout the procedure. The physical status of the patient was re-assessed after the procedure. After obtaining informed consent, the endoscope was passed under direct vision. Throughout the procedure, the patient's blood pressure, pulse, and oxygen saturations were monitored continuously. The Scope was introduced through the mouth, and advanced to the second part of duodenum. The upper GI endoscopy was accomplished without difficulty. The patient tolerated the procedure well. Findings: The Z-line was irregular. Localized mild inflammation characterized by erythema was found in the gastric body. Biopsies were taken with a cold forceps for Helicobacter pylori testing. Verification of patient identification for the specimen was done by the physician and nurse using the patient's name and date. One non-bleeding cratered duodenal ulcer with no stigmata of bleeding was found in the duodenal bulb. The lesion was 10 mm in largest dimension. The was also narrowing of the lumen with possible encroachment of his known pancreatic cancer. The 2nd part of the duodenum was normal. Impression: - Z-line irregular. - Gastritis. Biopsied. - One non-bleeding duodenal ulcer with no stigmata of bleeding. - Luminal narrowing at the apex of the bulb consistent his pancreatic mass. - Normal 2nd part of the duodenum. Recommendation: - Return patient to [facility] for [facility] care. - Fullliuqid diet today then advance as toleration - Continue present medications. - Await pathology results. - Use Prilosec (omeprazole) 40 mg PO BID for 2 months, then 40 mg per day indefinitly thereafter.. Sandra Carlton D.O. Sandra Carlton, DO 02/05/2017 2:48:09 PM This report has been signed electronically. LEEROY SOLANO MD Note Initiated On: 02/05/2017 2:10 PM I attest to the content of the Intraoperative Record and orders documented therein, exceptions below
--- NOTE | 2017-02-05 15:02 | Anesthesiology Progress Note ---
Anesthesia Post Op Note Date & Time Feb 05, 2017 at 15:01 Vital Signs Pain Intensity: 0.0 Vital Signs Past 12 Hours Date Time Temp Pulse Resp B/P (MAP) Pulse Ox O2 Delivery O2 Flow Rate FiO2 02/05/17 15:00 82 20 125/66 (85) 92 Nasal Cannula 2 02/05/17 14:45 82 20 137/81 (99) 92 Nasal Cannula 2 02/05/17 14:30 82 20 91/55 (67) 92 Nasal Cannula 4 02/05/17 13:28 37.1 77 24 117/63 (81) 93 Nasal Cannula 2 02/05/17 12:50 36.9 76 18 125/75 93 Nasal Cannula 2.0 02/05/17 12:03 36.9 78 18 125/75 93 2.0 02/05/17 12:00 92 Nasal Cannula 2.0 02/05/17 12:00 Nasal Cannula 2.0 02/05/17 11:23 37.0 76 18 124/68 (86) 93 Nasal Cannula 4.0 02/05/17 11:10 37.0 76 18 124/68 95 2.0 02/05/17 11:06 92 Nasal Cannula 4.0 02/05/17 10:10 36.9 72 18 106/62 95 2.0 02/05/17 09:40 37.1 93 18 116/74 94 2.0 02/05/17 09:25 37.0 87 18 115/67 95 4.0 02/05/17 08:00 92 Nasal Cannula 2.0 02/05/17 08:00 Nasal Cannula 4.0 02/05/17 07:55 36.8 86 18 126/74 (91) 92 Nasal Cannula 4.0 02/05/17 04:00 94 Nasal Cannula 4.0 02/05/17 04:00 37.4 89 16 115/68 (84) 94 Nasal Cannula 4.0 Notes Mental Status: alert / awake / arousable, participated in evaluation Pt Amnestic to Procedure: Yes Nausea / Vomiting: adequately controlled Pain: adequately controlled Airway Patency, RR, SpO2: stable & adequate BP & HR: stable & adequate Hydration State: stable & adequate Anesthetic Complications: no major complications apparent
--- NOTE | 2017-02-05 15:38 | Infectious Disease Progress Nt ---
Progress Note Date of Service Feb 05, 2017. Subjective Pt evaluation today including: conversation w/ patient, conversation w/ family , physical exam, chart review, lab review, review of studies, conversation w/ garden consultant, review of inpatient medication list Patient offering no new complaints today. Denies shortness of breath or increasing cough. No further vomiting or bleeding evident. No fever. Cultures remain negative, MRSA swab negative. Chest x-ray, read by me, shows no obvious worsening. Maybe some improvement left side. Awaiting EGD. All Other Systems: Reviewed and Negative Medications Current Inpatient Medications Medications (Trade) Dose Ordered Sig/Thelma Route Start Time Stop Time Status Last Admin Dose Admin Piperacillin Sod/ Tazobactam Sod (Consult) 1 ea UD PRN N/A 02/04/17 14:18 03/06/17 14:17 Acetaminophen (Tylenol Tab) 650 mg Q4H PRN PO 02/04/17 11:30 03/06/17 11:29 Pantoprazole Sodium 40 mg/ Syringe 10 ml @ 5 mls/min DAILY@ IV 02/04/17 21:00 03/06/17 20:59 02/05/17 09:03 5 MLS/MIN Metoprolol Tartrate (Lopressor Tab) 12.5 mg QAM PO 02/05/17 09:00 03/07/17 08:59 02/05/17 09:04 12.5 MG Piperacillin Sod/ Tazobactam Sod 3.375 gm/Dextrose 115 ml @ 28.75 mls/ hr Q8@0000,0800,1600 IV 02/04/17 16:00 02/11/17 15:59 02/05/17 09:03 28.75 MLS/HR Sodium Chloride 1,000 ml @ 100 mls/hr Q10H IV 02/04/17 22:30 03/06/17 22:29 02/05/17 05:10 100 MLS/HR Objective Vital Signs Date Time Temp Pulse Resp B/P (MAP) Pulse Ox O2 Delivery O2 Flow Rate FiO2 02/05/17 15:00 82 20 125/66 (85) 92 Nasal Cannula 2 02/05/17 14:45 82 20 137/81 (99) 92 Nasal Cannula 2 02/05/17 14:30 82 20 91/55 (67) 92 Nasal Cannula 4 02/05/17 13:28 37.1 77 24 117/63 (81) 93 Nasal Cannula 2 02/05/17 12:50 36.9 76 18 125/75 93 Nasal Cannula 2.0 02/05/17 12:03 36.9 78 18 125/75 93 2.0 02/05/17 12:00 92 Nasal Cannula 2.0 02/05/17 12:00 Nasal Cannula 2.0 02/05/17 11:23 37.0 76 18 124/68 (86) 93 Nasal Cannula 4.0 02/05/17 11:10 37.0 76 18 124/68 95 2.0 02/05/17 11:06 92 Nasal Cannula 4.0 02/05/17 10:10 36.9 72 18 106/62 95 2.0 02/05/17 09:40 37.1 93 18 116/74 94 2.0 02/05/17 09:25 37.0 87 18 115/67 95 4.0 02/05/17 08:00 92 Nasal Cannula 2.0 02/05/17 08:00 Nasal Cannula 4.0 02/05/17 07:55 36.8 86 18 126/74 (91) 92 Nasal Cannula 4.0 02/05/17 04:00 94 Nasal Cannula 4.0 02/05/17 04:00 37.4 89 16 115/68 (84) 94 Nasal Cannula 4.0 02/05/17 00:00 90 Nasal Cannula 3.5 02/04/17 23:31 37.1 98 18 114/67 (83) 90 Nasal Cannula 3.5 02/04/17 22:04 92 98/57 (71) 02/04/17 20:00 95 Nasal Cannula 4.0 02/04/17 19:31 37.0 84 18 98/55 (69) 91 Nasal Cannula 3.5 02/04/17 16:00 94 Nasal Cannula 4.0 Physical Exam General Appearance: WD/WN, no apparent distress Eyes: normal inspection, EOMI, sclerae normal ENT: normal ENT inspection, pharynx normal Neck: supple, no adenopathy, trachea midline Respiratory/Chest: chest non-tender, no respiratory distress, + rales Cardiovascular: regular rate, rhythm, no gallop, no murmur Abdomen: normal bowel sounds, non tender, soft, no organomegaly Extremities: non-tender, no calf tenderness Neurologic/Psychiatric: alert, oriented x 3 Skin: normal color, warm/dry, no rash Lymphatic: no adenopathy Laboratory Results RUN DATE: 02/04/17 [facility] LAB PAGE 1 RUN TIME: 1656 Specimen Inquiry PATIENT: STEFFANIE HANDLEY LOC: [place] U # : [id number] AGE/SX: 86/M ROOM: [facility] REG : 02/04/[address]: Kelsie Beatty M.D. : 1930 BED: 1 DIS : STATUS: ADM IN TLOC: SPEC #: [id number] MILDRED: 02/04/17 STATUS: COMP REQ #: [id number] RECD: 02/04/[address]: Marge Mcgrath PA-C SOURCE: NASAL ENTR: 02/04/[address]: Kristopher Villa MD [facility]: Sandra Carlton, Marta Morris M.D. Pervez, Ayesha H., M.D. Westrick, Diann, M.D. ORDERED: MRSA DNA COMMENTS: Has Specimen Been Obtained/Collected? Y Procedure Result Verified Site MRSA DNA (NASAL SWAB) Final 02/04/17-7 Specimen Negative for MRSA by DNA Probe Last 24 Hours Test 02/04/17 15:59 02/04/17 19:51 02/04/17 21:20 02/04/17 23:28 Hemoglobin 9.4 g/dL 8.4 g/dL 8.2 g/dL Hematocrit 28.8 % 26.0 % 25.7 % Sodium Level 140 mmol/L 141 mmol/L 141 mmol/L Potassium Level 4.1 mmol/L 3.8 mmol/L 4.2 mmol/L Chloride Level 108 mmol/L 108 mmol/L 108 mmol/L Carbon Dioxide Level 25 mmol/L 25 mmol/L 26 mmol/L Anion Gap 7.0 mmol/L 8.0 mmol/L 7.0 mmol/L Blood Urea Nitrogen 31 mg/dl 29 mg/dl 29 mg/dl Creatinine 1.36 mg/dl 1.27 mg/dl 1.24 mg/dl Est Creatinine Clear Calc Drug Dose 36.5 ml/min 39.1 ml/min 40.0 ml/min Estimated GFR () 55.0 59.7 61.5 Estimated GFR (Non- 47.4 51.5 53.1 BUN/Creatinine Ratio 22.7 23.2 23.6 Random Glucose 167 mg/dl 127 mg/dl 97 mg/dl Calcium Level 7.7 mg/dl 7.6 mg/dl 7.5 mg/dl Lactic Acid Level 1.2 mmol/L Test 02/05/17 06:11 White Blood Count 9.00 K/uL Red Blood Count 2.41 M/uL Hemoglobin 7.6 g/dL Hematocrit 24.0 % Mean Corpuscular Volume 99.6 fL Mean Corpuscular Hemoglobin 31.5 pg Mean Corpuscular Hemoglobin Concent 31.7 g/dl RDW Standard Deviation 53.3 fL RDW Coefficient of Variation 14.5 % Platelet Count 163 K/uL Mean Platelet Volume 9.2 fL Platelet Estimate NORMAL Sodium Level 141 mmol/L Potassium Level 4.0 mmol/L Chloride Level 109 mmol/L Carbon Dioxide Level 26 mmol/L Anion Gap 6.0 mmol/L Blood Urea Nitrogen 26 mg/dl Creatinine 1.15 mg/dl Est Creatinine Clear Calc Drug Dose 43.1 ml/min Estimated GFR () 67.4 Estimated GFR (Non- 58.1 BUN/Creatinine Ratio 22.3 Random Glucose 96 mg/dl Lactic Acid Level 0.6 mmol/L Calcium Level 7.4 mg/dl Magnesium Level 2.1 mg/dl Total Bilirubin 0.7 mg/dl Aspartate Amino Transf (AST/SGOT) 13 U/L Alanine Aminotransferase (ALT/SGPT) 14 U/L Alkaline Phosphatase 50 U/L Total Protein 5.6 gm/dl Albumin 2.2 gm/dl Globulin 3.4 gm/dl Albumin/Globulin Ratio 0.6 Random Vancomycin Level 11.5 mcg/ml Patient Name: STEFFANIE HANDLEY Unit Number: [id number] Dictated: 02/05/17704 Transcribed: 02/05/17704 LARISSA Printed Date/Time: [~ rep prt dt]/[~ rep prt tm] [~ rep ct labl] - [~ rep ct ivnm] [facility] [place] [address] Dictated: 02/05/17704 Transcribed: 02/05/17704 JRB Printed Date/Time: [~ rep prt dt]/[~ rep prt tm] [~ rep ct labl] - [~ rep ct ivnm] [~ rep ct add3]] CHEST ONE VIEW PORTABLE HISTORY: 86 years-old Male PNEUMONIA acute pneumonia. Follow-up study. COMPARISON: Chest radiograph 02/04/2017 TECHNIQUE: Portable upright AP view of the chest FINDINGS: Cardiac silhouette is again mildly enlarged. Pulmonary vascular congestion. Atherosclerosis of the aorta. No pneumothorax or large pleural effusion. There is mild background interstitial coarsening with patchy perihilar and right greater than left bibasilar opacities. Slightly improved aeration of the lateral left midlung. Bones are grossly intact. Degenerative changes are seen about the shoulders and spine. IMPRESSION: 1. Cardiomegaly with mild pulmonary vascular congestion and mild background interstitial coarsening suspicious for developing pulmonary edema. 2. Persistent patchy perihilar and bibasilar opacities suggesting atelectasis or pneumonia with slightly improved aeration of the lateral left midlung. The above report was generated using voice recognition software. It may contain grammatical, syntax or spelling errors. Electronically signed by: Colton Nelson M.D. 02/05/2017 7:07 AM Dictated Date/Time: 02/05/2017 7:05 AM The status of this report is Signed. Draft = Not yet reviewed or approved by Radiologist. Signed = Reviewed and approved by Radiologist. <AttendingPhy>Kelsie Beatty M.D.</AttendingPhy> <FamilyPhy>Raquel Osman M.D.</FamilyPhy> <PrimaryPhy>Raquel Osman M.D.</PrimaryPhy> <UnitNumber> [id number]</UnitNumber> <VisitNumber>[id number]</VisitNumber> <PatientName> STEFFANIE HANDLEY</PatientName> <DateOfBirth>1930</DateOfBirth> <Location>C.2T </Location> <ServiceDate>02/04/17</ServiceDate> <MNE>ESINDI</MNE> <OrderingPhy> Marge Mcgrath PA-C</OrderingPhy> <OrderingPhyMNE>f rep ord dr olson</ OrderingPhyMNE> <DictatingPhyMNE>f rep dict dr olson</DictatingPhyMNE> <CCListMNE> f rep ct mne</CCListMNE> <AdmittingPhyMNE>f pt admit dr olson</AdmittingPhyMNE> < AttendingPhyMNE>f pt attend dr olson</AttendingPhyMNE> <ConsultingPhyMNE>f pt consult dr olson</ConsultingPhyMNE> <FamilyPhyMNE>f pt fam dr olson</FamilyPhyMNE> <OtherPhyMNE>f pt other dr olson</OtherPhyMNE> < PrimaryPhyMNE>f pt prim care dr olson</PrimaryPhyMNE> <ReferringPhyMNE>f pt referring dr olson</ReferringPhyMNE> Assessment and Plan 86-year-old male with known pancreatic carcinoma now presents with sepsis with probable bilateral pneumonia, most likely aspiration in type. Current antibiotic therapy with Zosyn Will follow procalcitonin for response to therapy. Await follow-up chest x-ray. For EGD. Will follow.
[2017-02-06] VITALS (11 sets, daily range): BP systolic 117–150; BP diastolic 63–79; PULSE 76–102; TEMP 36.7–37.6; O2SAT 90–99
[2017-02-06 07:05] LABS: HEMATOCRIT 28.1 % (42-52); MEAN CELL VOLUME 96.2 fL (80-100); MEAN CORPUSCULAR HEMOGLOBIN 30.8 pg (25-34); MEAN PLATELET VOLUME 9.5 fL (7.4-10.4); PLATELET COUNT 186 K/uL (130-400); RED BLOOD COUNT 2.92 M/uL (4.7-6.1); WHITE BLOOD COUNT 8.21 K/uL (4.8-10.8)
[2017-02-06 07:37] LABS: BUN/CREATININE RATIO 15.1 (10-20); CALCIUM 7.8 mg/dl (8.5-10.1); CREATININE 1.1 mg/dl (0.60-1.40); MAGNESIUM 1.9 mg/dl (1.8-2.4); POTASSIUM 3.4 mmol/L (3.5-5.1)
[2017-02-06] MEDS ORDERED: POTASSIUM CHLORIDE 10 MEQ TABCR PO STA (07:40)
[2017-02-06] MEDS: SODIUM CHLORIDE 0.9% 1000ML 1,000 ML IV SCH ×2 (07:41→14:30)
[2017-02-06 07:44] LABS: ALB/GLOB RATIO 0.6 (0.9-2)
[2017-02-06] MEDS: PIPERACILL/TAZOBAC IV 3.375 GM in DEXTROSE 5% 100ML IV SCH ×2 (07:48→16:00)
[2017-02-06] MEDS: PANTOprazole INJ 40 MG in SYRINGE 0 ML IV SCH (07:49)
[2017-02-06] MEDS: METOPROLOL TARTRATE 25 MG TAB PO SCH (07:49)
[2017-02-06] MEDS ORDERED: MAGNESIUM SULFATE 1GM / D5W 1 GM in PREMIXED IN D5W 100 ML IV SCH (08:00)
--- NOTE | 2017-02-06 08:10 | DIAGNOSTIC IMAGING REPORT ---
CHEST ONE VIEW PORTABLE CLINICAL HISTORY: pneumonia pneumonitis COMPARISON STUDY: 02/05/2017 FINDINGS: Diffuse bilateral parenchymal infiltrative change. This is slightly progressive from the prior study. Moderate cardiomegaly. Tortuosity thoracic aorta. Overlap artifact versus narrowing of the distal trachea. IMPRESSION: 1. Mildly progressive components of congestive failure versus bilateral parenchymal infiltrates. Narrowing of the distal trachea versus artifact. CT chest is recommended. The above report was generated using voice recognition software. It may contain grammatical, syntax or spelling errors. Electronically signed by: Cisco Pena M.D. 02/06/2017 8:09 AM Dictated Date/Time: 02/06/2017 7:45 AM
--- NOTE | 2017-02-06 08:24 | Progress Note ---
Subjective Date of Service: Feb 06, 2017. Subjective Pt evaluation today including: conversation w/ patient, physical exam, lab review, review of studies, review of inpatient medication list Saw/examined the patient in room 222 Denies shortness of breath; cough more lethargic today as per nursing Wants to be left alone Noted to have lack of appetite; but denies nausea/vomiting, denies abdominal pain Problem List Medical Problems: (1) Confusion Status: Acute (2) Hematemesis Status: Acute (3) Hypotension Status: Acute (4) Leukocytosis Status: Acute (5) Pancreatic mass Status: Acute (6) Sepsis Status: Acute Review of Systems Constitutional: + problem reported (lack of appetite) Respiratory: No cough, No sputum, No wheezing, No shortness of breath, No dyspnea on exertion, No dyspnea at rest, No hemoptysis Cardiac: No chest pain Abdomen: No pain, No nausea, No vomiting, No diarrhea, No constipation Medications Current Inpatient Medications Medications (Trade) Dose Ordered Sig/Thelma Route Start Time Stop Time Status Last Admin Dose Admin Piperacillin Sod/ Tazobactam Sod (Consult) 1 ea UD PRN N/A 02/04/17 14:18 03/06/17 14:17 Acetaminophen (Tylenol Tab) 650 mg Q4H PRN PO 02/04/17 11:30 03/06/17 11:29 Pantoprazole Sodium 40 mg/ Syringe 10 ml @ 5 mls/min DAILY@09,21 IV 02/04/17 21:00 03/06/17 20:59 02/06/17 07:49 5 MLS/MIN Metoprolol Tartrate (Lopressor Tab) 12.5 mg QAM PO 02/05/17 09:00 03/07/17 08:59 02/06/17 07:49 12.5 MG Piperacillin Sod/ Tazobactam Sod 3.375 gm/Dextrose 115 ml @ 28.75 mls/ hr Q8@0000,0800,1600 IV 02/04/17 16:00 02/11/17 15:59 02/06/17 07:48 28.75 MLS/HR Sodium Chloride 1,000 ml @ 100 mls/hr Q10H IV 02/04/17 22:30 03/06/17 22:29 02/06/17 07:41 100 MLS/HR Magnesium Sulfate 1 gm/Prmx 100 ml @ 100 mls/hr 0800 IV 02/06/17 08:00 02/06/17 08:59 Objective Vital Signs Date Time Temp Pulse Resp B/P (MAP) Pulse Ox O2 Delivery O2 Flow Rate FiO2 02/06/17 07:30 37.0 76 18 136/72 (93) 99 02/06/17 04:57 36.9 92 18 125/70 (88) 90 02/06/17 04:00 Nasal Cannula 2.0 02/06/17 00:01 37.6 102 18 117/65 (82) 92 Nasal Cannula 2.0 02/06/17 00:00 Nasal Cannula 2.0 02/05/17 20:00 94 Nasal Cannula 2.0 02/05/17 19:33 37.4 97 18 125/77 (93) 91 Nasal Cannula 2.0 02/05/17 16:00 92 Nasal Cannula 2.0 02/05/17 15:36 36.7 88 18 134/73 (93) 90 Nasal Cannula 2.0 02/05/17 15:00 82 20 125/66 (85) 92 Nasal Cannula 2 02/05/17 14:45 82 20 137/81 (99) 92 Nasal Cannula 2 02/05/17 14:30 82 20 91/55 (67) 92 Nasal Cannula 4 02/05/17 13:28 37.1 77 24 117/63 (81) 93 Nasal Cannula 2 02/05/17 12:50 36.9 76 18 125/75 93 Nasal Cannula 2.0 02/05/17 12:03 36.9 78 18 125/75 93 2.0 02/05/17 12:00 92 Nasal Cannula 2.0 02/05/17 12:00 Nasal Cannula 2.0 02/05/17 11:23 37.0 76 18 124/68 (86) 93 Nasal Cannula 4.0 02/05/17 11:10 37.0 76 18 124/68 95 2.0 02/05/17 11:06 92 Nasal Cannula 4.0 02/05/17 10:10 36.9 72 18 106/62 95 2.0 02/05/17 09:40 37.1 93 18 116/74 94 2.0 02/05/17 09:25 37.0 87 18 115/67 95 4.0 Physical Exam General Appearance: no apparent distress, + pertinent finding (+weak) ENT: + pertinent finding (hard of hearing, hearing aid in place) Respiratory/Chest: lungs clear, normal breath sounds, no respiratory distress, no accessory muscle use Cardiovascular: regular rate, rhythm, no edema, no murmur Abdomen: normal bowel sounds, non tender, soft Neurologic/Psychiatric: alert Laboratory Results Last 24 Hours Test 02/05/17 16:00 02/06/17 06:35 Procalcitonin 8.83 ng/ml White Blood Count 8.21 K/uL Red Blood Count 2.92 M/uL Hemoglobin 9.0 g/dL Hematocrit 28.1 % Mean Corpuscular Volume 96.2 fL Mean Corpuscular Hemoglobin 30.8 pg Mean Corpuscular Hemoglobin Concent 32.0 g/dl RDW Standard Deviation 54.7 fL RDW Coefficient of Variation 15.6 % Platelet Count 186 K/uL Mean Platelet Volume 9.5 fL Sodium Level 141 mmol/L Potassium Level 3.4 mmol/L Chloride Level 107 mmol/L Carbon Dioxide Level 27 mmol/L Anion Gap 7.0 mmol/L Blood Urea Nitrogen 17 mg/dl Creatinine 1.10 mg/dl Est Creatinine Clear Calc Drug Dose 45.1 ml/min Estimated GFR () 71.1 Estimated GFR (Non- 61.3 BUN/Creatinine Ratio 15.1 Random Glucose 95 mg/dl Calcium Level 7.8 mg/dl Magnesium Level 1.9 mg/dl Total Bilirubin 0.6 mg/dl Aspartate Amino Transf (AST/SGOT) 13 U/L Alanine Aminotransferase (ALT/SGPT) 12 U/L Alkaline Phosphatase 51 U/L Total Protein 5.5 gm/dl Albumin 2.1 gm/dl Globulin 3.4 gm/dl Albumin/Globulin Ratio 0.6 Assessment and Plan This is an 86 year old male with a PMH of adenocarcinoma of the pancreas, paroxysmal atrial fibrillation no longer on anticoagulation, CAD, hx. of diastolic CHF, depression presents with hematemesis and sepsis secondary to pneumonia Sepsis secondary to Pneumonia, likely Aspiration 02/06 procalcitonin level increasing worsening CXR will obtain a Chest CT for now, continue Zosyn; ID input appreciated 02/05 met sepsis criteria with fever, WBC, tachycardia blood pressure improved with IVFs CXR = Persistent patchy perihilar and bibasilar opacities suggesting atelectasis or pneumonia with slightly improved aeration of the lateral left midlung currently on supplemental O2 via nasal cannula and saturating well; denies any symptoms continue Zosyn and Levaquin as per ID for broad coverage blood cultures pending MRSA swab negative pulmonology consulted Upper GI Bleed/Hematemesis in the setting of Pancreatic Adenocarcinoma 02/06 had an EGD yesterday, noted to have gastric ulcer continue Protonix BID, continue Zantac s/p one unit PRBC - Hgb up to 9.0 appreciate GI input 02/05 First diagnosed with pancreatic adenocarcinoma in November [address] Lama - no surgery/chemo; no palliative radiation as per family Stopped NSAIDs and Coumadin at that time Has no developed Hematemesis for the past day prior to arrival - ? hematochezia H/H trending down - Hgb down to 7.6 - will transfuse one unit PRBC plan for EGD this AM (02/05) cont. IV PPI BID GI consulted for management Prolonged QTc [id number]=[id number], avoid QT prolonging medications Repeat QTc is 495; will try to avoid QT prolonging medications when able Potassium and Mg wnl Atrial Fibrillation patient intermittently in A. Fib rate is controlled - continue metoprolol Not a candidate for anticoagulation CAD Stable, no chest pain Hold aspirin due to GI bleed Depression Continue Celexa DVT ppx SCD's DNR
--- NOTE | 2017-02-06 09:19 | Gastroenterology Progress Note ---
Progress Note Date of Service: Feb 06, 2017 Subjective Pt evaluation today including: conversation w/ patient, physical exam Pt seen and evaluated, chart reviewed. No family at bedside this AM. He offers no complaints, per nursing no evidence of GI blood loss. H&H stable. Review of Systems Constitutional: No fever Respiratory: No cough Cardiac: No chest pain Abdomen: No pain, No vomiting, No GI bleeding Medications Current Inpatient Medications Medications (Trade) Dose Ordered Sig/Thelma Route Start Time Stop Time Status Last Admin Dose Admin Piperacillin Sod/ Tazobactam Sod (Consult) 1 ea UD PRN N/A 02/04/17 14:18 03/06/17 14:17 Acetaminophen (Tylenol Tab) 650 mg Q4H PRN PO 02/04/17 11:30 03/06/17 11:29 Pantoprazole Sodium 40 mg/ Syringe 10 ml @ 5 mls/min DAILY@09,21 IV 02/04/17 21:00 03/06/17 20:59 02/06/17 07:49 5 MLS/MIN Metoprolol Tartrate (Lopressor Tab) 12.5 mg QAM PO 02/05/17 09:00 03/07/17 08:59 02/06/17 07:49 12.5 MG Piperacillin Sod/ Tazobactam Sod 3.375 gm/Dextrose 115 ml @ 28.75 mls/ hr Q8@0000,0800,1600 IV 02/04/17 16:00 02/11/17 15:59 02/06/17 07:48 28.75 MLS/HR Sodium Chloride 1,000 ml @ 100 mls/hr Q10H IV 02/04/17 22:30 03/06/17 22:29 02/06/17 07:41 100 MLS/HR Magnesium Sulfate 1 gm/Prmx 100 ml @ 100 mls/hr 0800 IV 02/06/17 08:00 02/06/17 08:59 02/06/17 08:41 100 MLS/HR Objective Vital Signs Date Time Temp Pulse Resp B/P (MAP) Pulse Ox O2 Delivery O2 Flow Rate FiO2 02/06/17 07:30 37.0 76 18 136/72 (93) 99 02/06/17 04:57 36.9 92 18 125/70 (88) 90 02/06/17 04:00 Nasal Cannula 2.0 02/06/17 00:01 37.6 102 18 117/65 (82) 92 Nasal Cannula 2.0 02/06/17 00:00 Nasal Cannula 2.0 02/05/17 20:00 94 Nasal Cannula 2.0 02/05/17 19:33 37.4 97 18 125/77 (93) 91 Nasal Cannula 2.0 02/05/17 16:00 92 Nasal Cannula 2.0 02/05/17 15:36 36.7 88 18 134/73 (93) 90 Nasal Cannula 2.0 02/05/17 15:00 82 20 125/66 (85) 92 Nasal Cannula 2 02/05/17 14:45 82 20 137/81 (99) 92 Nasal Cannula 2 02/05/17 14:30 82 20 91/55 (67) 92 Nasal Cannula 4 02/05/17 13:28 37.1 77 24 117/63 (81) 93 Nasal Cannula 2 02/05/17 12:50 36.9 76 18 125/75 93 Nasal Cannula 2.0 02/05/17 12:03 36.9 78 18 125/75 93 2.0 02/05/17 12:00 92 Nasal Cannula 2.0 02/05/17 12:00 Nasal Cannula 2.0 02/05/17 11:23 37.0 76 18 124/68 (86) 93 Nasal Cannula 4.0 02/05/17 11:10 37.0 76 18 124/68 95 2.0 02/05/17 11:06 92 Nasal Cannula 4.0 02/05/17 10:10 36.9 72 18 106/62 95 2.0 02/05/17 09:40 37.1 93 18 116/74 94 2.0 02/05/17 09:25 37.0 87 18 115/67 95 4.0 Physical Exam General Appearance: no apparent distress Eyes: PERRL Neck: supple Respiratory/Chest: lungs clear Cardiovascular: regular rate, rhythm Abdomen: normal bowel sounds, soft Neurologic/Psych: alert, normal mood/affect, oriented x 3 Skin: normal color Laboratory Results Last 24 Hours Test 02/05/17 16:00 02/06/17 06:35 Procalcitonin 8.83 ng/ml White Blood Count 8.21 K/uL Red Blood Count 2.92 M/uL Hemoglobin 9.0 g/dL Hematocrit 28.1 % Mean Corpuscular Volume 96.2 fL Mean Corpuscular Hemoglobin 30.8 pg Mean Corpuscular Hemoglobin Concent 32.0 g/dl RDW Standard Deviation 54.7 fL RDW Coefficient of Variation 15.6 % Platelet Count 186 K/uL Mean Platelet Volume 9.5 fL Sodium Level 141 mmol/L Potassium Level 3.4 mmol/L Chloride Level 107 mmol/L Carbon Dioxide Level 27 mmol/L Anion Gap 7.0 mmol/L Blood Urea Nitrogen 17 mg/dl Creatinine 1.10 mg/dl Est Creatinine Clear Calc Drug Dose 45.1 ml/min Estimated GFR () 71.1 Estimated GFR (Non- 61.3 BUN/Creatinine Ratio 15.1 Random Glucose 95 mg/dl Calcium Level 7.8 mg/dl Magnesium Level 1.9 mg/dl Total Bilirubin 0.6 mg/dl Aspartate Amino Transf (AST/SGOT) 13 U/L Alanine Aminotransferase (ALT/SGPT) 12 U/L Alkaline Phosphatase 51 U/L Total Protein 5.5 gm/dl Albumin 2.1 gm/dl Globulin 3.4 gm/dl Albumin/Globulin Ratio 0.6 Assessment and Plan - 40 mg PO BID for 2 months - 40 mg per day indefinitely thereafter - Hold NSAIDs - ok for baby aspirin daily - Follow up as needed GI to sign off. No GI contraindication to discharge I saw and evaluated the patient. Would suggest Protonix twice daily for 2 months then 1 time daily thereafter. He may follow with my office as needed. We did discuss the possibility that his pancreatic tumor could cause duodenal obstruction. I reviewed the potential symptoms with the patient and his family. They will contact me with any future questions or concerns.
--- NOTE | 2017-02-06 11:16 | DIAGNOSTIC IMAGING REPORT ---
CT SCAN OF THE CHEST WITHOUT IV CONTRAST CLINICAL HISTORY: Follow-up pneumonia. Sepsis. COMPARISON STUDY: Chest x-ray dated 02/06/2017. TECHNIQUE: CT scan of the thorax was performed from the thoracic inlet to the upper abdomen. Images are reviewed in the axial, sagittal, and coronal planes. IV contrast was not administered for this examination. A dose lowering technique was utilized adhering to the principles of ALARA. The examination is significant compromise by motion artifact, as well as by streak artifact from the patient's arms which could not be elevated above the chest. CT DOSE: 417.62 mGycm FINDINGS: Thyroid: Imaged portions of the thyroid gland are normal in size and attenuation. Thoracic aorta: There is atherosclerotic calcification of the thoracic aorta, which is normal in caliber and demonstrates standard 3-vessel arch anatomy. Heart: The heart is markedly enlarged and without pericardial effusion. The coronary arteries and aortic valve leaflets are densely calcified. The pulmonary arteries are dilated indicating pulmonary artery hypertension. Lungs and pleural spaces: Evaluation of lung parenchyma is degraded by motion artifact. The trachea is clear. There are small pleural effusions with bibasilar consolidation. Additional patchy airspace opacities are seen in the upper lobes bilaterally. Mediastinum: There are enlarged mediastinal lymph nodes. Precarinal nodes measure up to 1.3 cm in short axis. Sushila: Not well assessed without IV contrast. Axillae: There is no axillary lymphadenopathy. Lower neck: No supraclavicular adenopathy is identified. Surgical clips are partially seen in the right lower neck. Upper abdomen: There is intrahepatic biliary ductal dilatation and pneumobilia. The common bile duct stent is partially visualized. A tiny hiatal hernia is noted. Enlarged retrocrural lymph nodes measure up to 1.1 cm in short axis. Skeletal structures: The skeletal structures are osteopenic. Advanced arthritic change is seen in the shoulders. Advanced degenerative change and hyperkyphosis is also seen in the thoracic spine. No lytic or blastic bony lesions are seen. IMPRESSION: 1. Significantly streak and motion compromised examination. 2. There are layering pleural effusions with bibasilar consolidation. This could represent atelectasis and/or pneumonia. Clinical correlation required. 3. Marked cardiomegaly. 4. Perihilar and upper lobe airspace opacities are also seen. This could represent multifocal pneumonia and/or pulmonary edema. Clinical correlation will be required. 5. Mediastinal lymphadenopathy. 6. A common bile duct stent, pneumobilia, and intrahepatic biliary ductal dilatation are seen in the upper abdomen. Electronically signed by: Patrice Palma M.D. 02/06/2017 11:15 AM Dictated Date/Time: 02/06/2017 11:08 AM
[2017-02-06] MEDS: FERROUS SULFATE 325 MG TAB PO SCH (16:45)
--- NOTE | 2017-02-06 16:51 | Pulmonology Progress Note ---
Pulmonary Progress Note Date of Service Feb 06, 2017. Attending Dr. Gabriel Subjective Patient seen and examined. He denies any shortness of breath, chest pain, cough. Objective VS reviewed. Currently saturating well on 2L. Gen: AAOx3, NAD, speaking in full sentences CVS: S1, S2, irregularly irregular Lungs: decrease breath sounds at bases, good air entry bilaterally Abd: soft/NT/ND/BS+ Ext: no edema, no cyanosis, no clubbing Labs reviewed. s/p transfusion. Imaging reviewed and viewed by me. CHEST ONE VIEW PORTABLE CLINICAL HISTORY: pneumonia pneumonitis COMPARISON STUDY: 02/05/2017 FINDINGS: Diffuse bilateral parenchymal infiltrative change. This is slightly progressive from the prior study. Moderate cardiomegaly. Tortuosity thoracic aorta. Overlap artifact versus narrowing of the distal trachea. IMPRESSION: 1. Mildly progressive components of congestive failure versus bilateral parenchymal infiltrates. Narrowing of the distal trachea versus artifact. CT chest is recommended. CT SCAN OF THE CHEST WITHOUT IV CONTRAST CLINICAL HISTORY: Follow-up pneumonia. Sepsis. COMPARISON STUDY: Chest x-ray dated 02/06/2017. TECHNIQUE: CT scan of the thorax was performed from the thoracic inlet to the upper abdomen. Images are reviewed in the axial, sagittal, and coronal planes. IV contrast was not administered for this examination. A dose lowering technique was utilized adhering to the principles of ALARA. The examination is significant compromise by motion artifact, as well as by streak artifact from the patient's arms which could not be elevated above the chest. CT DOSE: 417.62 mGycm FINDINGS: Thyroid: Imaged portions of the thyroid gland are normal in size and attenuation. Thoracic aorta: There is atherosclerotic calcification of the thoracic aorta, which is normal in caliber and demonstrates standard 3-vessel arch anatomy. Heart: The heart is markedly enlarged and without pericardial effusion. The coronary arteries and aortic valve leaflets are densely calcified. The pulmonary arteries are dilated indicating pulmonary artery hypertension. Lungs and pleural spaces: Evaluation of lung parenchyma is degraded by motion artifact. The trachea is clear. There are small pleural effusions with bibasilar consolidation. Additional patchy airspace opacities are seen in the upper lobes bilaterally. Mediastinum: There are enlarged mediastinal lymph nodes. Precarinal nodes measure up to 1.3 cm in short axis. Sushila: Not well assessed without IV contrast. Axillae: There is no axillary lymphadenopathy. Lower neck: No supraclavicular adenopathy is identified. Surgical clips are partially seen in the right lower neck. Upper abdomen: There is intrahepatic biliary ductal dilatation and pneumobilia. The common bile duct stent is partially visualized. A tiny hiatal hernia is noted. Enlarged retrocrural lymph nodes measure up to 1.1 cm in short axis. Skeletal structures: The skeletal structures are osteopenic. Advanced arthritic change is seen in the shoulders. Advanced degenerative change and hyperkyphosis is also seen in the thoracic spine. No lytic or blastic bony lesions are seen. IMPRESSION: 1. Significantly streak and motion compromised examination. 2. There are layering pleural effusions with bibasilar consolidation. This could represent atelectasis and/or pneumonia. Clinical correlation required. 3. Marked cardiomegaly. 4. Perihilar and upper lobe airspace opacities are also seen. This could represent multifocal pneumonia and/or pulmonary edema. Clinical correlation will be required. 5. Mediastinal lymphadenopathy. 6. A common bile duct stent, pneumobilia, and intrahepatic biliary ductal dilatation are seen in the upper abdomen. Medications reviewed. Assessment & Plan Hypoxemic respiratory failure Aspiration pneumonia Hematemesis Blood loss anemia Pancreatic cancer Patient improving clinically from a respiratory standpoint. Now on 2L NC and saturating in the 90s. Imaging consistent with aspiration and pulmonary edema after transfusion of PRBCS Continue to treat with antibiotics to complete 7 day course. He may benefit from a diuretic as well. Continue with aggressive pulmonary toilet, DVT ppx per GI and ambulation. I will sign off case today. Please contact me if you have any questions or concerns. Data Medications: Current Inpatient Medications Medications (Trade) Dose Ordered Sig/Thelma Route Start Time Stop Time Status Last Admin Dose Admin Piperacillin Sod/ Tazobactam Sod (Consult) 1 ea UD PRN N/A 02/04/17 14:18 03/06/17 14:17 Acetaminophen (Tylenol Tab) 650 mg Q4H PRN PO 02/04/17 11:30 03/06/17 11:29 Metoprolol Tartrate (Lopressor Tab) 12.5 mg QAM PO 02/05/17 09:00 03/07/17 08:59 02/06/17 07:49 12.5 MG Piperacillin Sod/ Tazobactam Sod 3.375 gm/Dextrose 115 ml @ 28.75 mls/ hr Q8@0000,0800,1600 IV 02/04/17 16:00 02/11/17 15:59 02/06/17 07:48 28.75 MLS/HR Sodium Chloride 1,000 ml @ 100 mls/hr Q10H IV 02/04/17 22:30 03/06/17 22:29 02/06/17 07:41 100 MLS/HR Pantoprazole Sodium (Protonix Tab) 40 mg BID PO 02/06/17 21:00 03/08/17 20:59 Folic Acid (Folvite Tab) 400 mcg DAILY PO 02/07/17 09:00 03/09/17 08:59 Ranitidine HCl (zANTac TAB) 150 mg BID PO 02/06/17 21:00 03/08/17 20:59 Senna/Docusate Sodium (Senokot S Tab) 2 tab DAILY PO 02/07/17 09:00 03/09/17 08:59 Ferrous Sulfate (Feosol Tab) 325 mg TIDM PO 02/06/17 16:45 03/08/17 16:44 Multivitamins/ Minerals (Multivitamin W/ Minerals Tab) 1 tab QAM PO 02/07/17 09:00 03/09/17 08:59 I & O: 24-Hour Column 02/07/17 08:00 Intake Total 1189 ml Output Total 550 ml Balance 639 ml Vital Signs: Date Time Temp Pulse Resp B/P (MAP) Pulse Ox O2 Delivery O2 Flow Rate FiO2 02/06/17 16:08 36.7 78 18 145/63 (90) 92 Nasal Cannula 2.0 Humidified Oxygen 02/06/17 12:01 36.8 89 18 128/67 (87) 98 2.0 02/06/17 12:00 93 Nasal Cannula 2.0 02/06/17 08:00 93 Nasal Cannula 2.0 02/06/17 07:30 37.0 76 18 136/72 (93) 99 02/06/17 04:57 36.9 92 18 125/70 (88) 90 02/06/17 04:00 Nasal Cannula 2.0 02/06/17 00:01 37.6 102 18 117/65 (82) 92 Nasal Cannula 2.0 02/06/17 00:00 Nasal Cannula 2.0 02/05/17 20:00 94 Nasal Cannula 2.0 02/05/17 19:33 37.4 97 18 125/77 (93) 91 Nasal Cannula 2.0 Laboratory Results: Last 24 Hours Test 02/06/17 06:35 White Blood Count 8.21 K/uL Red Blood Count 2.92 M/uL Hemoglobin 9.0 g/dL Hematocrit 28.1 % Mean Corpuscular Volume 96.2 fL Mean Corpuscular Hemoglobin 30.8 pg Mean Corpuscular Hemoglobin Concent 32.0 g/dl RDW Standard Deviation 54.7 fL RDW Coefficient of Variation 15.6 % Platelet Count 186 K/uL Mean Platelet Volume 9.5 fL Sodium Level 141 mmol/L Potassium Level 3.4 mmol/L Chloride Level 107 mmol/L Carbon Dioxide Level 27 mmol/L Anion Gap 7.0 mmol/L Blood Urea Nitrogen 17 mg/dl Creatinine 1.10 mg/dl Est Creatinine Clear Calc Drug Dose 45.1 ml/min Estimated GFR () 71.1 Estimated GFR (Non- 61.3 BUN/Creatinine Ratio 15.1 Random Glucose 95 mg/dl Calcium Level 7.8 mg/dl Magnesium Level 1.9 mg/dl Total Bilirubin 0.6 mg/dl Aspartate Amino Transf (AST/SGOT) 13 U/L Alanine Aminotransferase (ALT/SGPT) 12 U/L Alkaline Phosphatase 51 U/L Total Protein 5.5 gm/dl Albumin 2.1 gm/dl Globulin 3.4 gm/dl Albumin/Globulin Ratio 0.6
[2017-02-06] MEDS ORDERED: DOCUSATE SODIUM 100 MG CAP PO ONE (18:45)
[2017-02-06] MEDS ORDERED: BISACODYL 5 MG TABEC PO ONE (18:45)
--- NOTE | 2017-02-06 19:22 | Infectious Disease Progress Nt ---
Progress Note Date of Service Feb 06, 2017. 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 Patient denies increase in shortness of breath or cough. No chest pain. Remains afebrile. All Other Systems: Reviewed and Negative Medications Current Inpatient Medications Medications (Trade) Dose Ordered Sig/Thelma Route Start Time Stop Time Status Last Admin Dose Admin Piperacillin Sod/ Tazobactam Sod (Consult) 1 ea UD PRN N/A 02/04/17 14:18 03/06/17 14:17 Acetaminophen (Tylenol Tab) 650 mg Q4H PRN PO 02/04/17 11:30 03/06/17 11:29 Metoprolol Tartrate (Lopressor Tab) 12.5 mg QAM PO 02/05/17 09:00 03/07/17 08:59 02/06/17 07:49 12.5 MG Piperacillin Sod/ Tazobactam Sod 3.375 gm/Dextrose 115 ml @ 28.75 mls/ hr Q8@0000,0800,1600 IV 02/04/17 16:00 02/11/17 15:59 02/06/17 16:00 28.75 MLS/HR Sodium Chloride 1,000 ml @ 100 mls/hr Q10H IV 02/04/17 22:30 03/06/17 22:29 02/06/17 14:30 100 MLS/HR Pantoprazole Sodium (Protonix Tab) 40 mg BID PO 02/06/17 21:00 03/08/17 20:59 Folic Acid (Folvite Tab) 400 mcg DAILY PO 02/07/17 09:00 03/09/17 08:59 Ranitidine HCl (zANTac TAB) 150 mg BID PO 02/06/17 21:00 03/08/17 20:59 Senna/Docusate Sodium (Senokot S Tab) 2 tab DAILY PO 02/07/17 09:00 03/09/17 08:59 Ferrous Sulfate (Feosol Tab) 325 mg TIDM PO 02/06/17 16:45 03/08/17 16:44 02/06/17 16:45 325 MG Multivitamins/ Minerals (Multivitamin W/ Minerals Tab) 1 tab QAM PO 02/07/17 09:00 11/25/17 08:59 Objective Vital Signs Date Time Temp Pulse Resp B/P (MAP) Pulse Ox O2 Delivery O2 Flow Rate FiO2 02/06/17 16:08 36.7 78 18 145/63 (90) 92 Nasal Cannula 2.0 Humidified Oxygen 02/06/17 16:00 93 Nasal Cannula 2.0 02/06/17 12:01 36.8 89 18 128/67 (87) 98 2.0 02/06/17 12:00 93 Nasal Cannula 2.0 02/06/17 08:00 93 Nasal Cannula 2.0 02/06/17 07:30 37.0 76 18 136/72 (93) 99 02/06/17 04:57 36.9 92 18 125/70 (88) 90 02/06/17 04:00 Nasal Cannula 2.0 02/06/17 00:01 37.6 102 18 117/65 (82) 92 Nasal Cannula 2.0 02/06/17 00:00 Nasal Cannula 2.0 02/05/17 20:00 94 Nasal Cannula 2.0 02/05/17 19:33 37.4 97 18 125/77 (93) 91 Nasal Cannula 2.0 Physical Exam General Appearance: WD/WN, no apparent distress Eyes: normal inspection, sclerae normal ENT: normal ENT inspection, pharynx normal Neck: supple, no adenopathy, trachea midline Respiratory/Chest: chest non-tender, no respiratory distress, + rales Cardiovascular: no gallop, no murmur, + irregularly irregular Abdomen: normal bowel sounds, non tender, soft, no organomegaly Extremities: non-tender, no calf tenderness Neurologic/Psychiatric: alert, oriented x 3 Skin: normal color, warm/dry, no rash Lymphatic: no adenopathy Laboratory Results RUN DATE: 02/04/17 [facility] LAB PAGE 1 RUN TIME: 8131 Specimen Inquiry PATIENT: STEFFANIE HANDLEY LOC: [place] U # : [id number] AGE/SX: 86/M ROOM: E222 REG : 02/04/[address]: Kelsie Beatty M.D. : 1930 BED: 1 DIS : STATUS: ADM IN TLOC: SPEC #: [id number] MILDRED: 02/04/17 STATUS: COMP REQ #: [id number] RECD: 02/04/[address]: Marge Mcgrath PA-C SOURCE: NASAL ENTR: 02/04/[address]: Kristopher Villa MD SPDESC: Sandra Carlton, Marta Morris M.D. Pervez, Ayesha H., M.D. Westrick, Diann, M.D. ORDERED: MRSA DNA COMMENTS: Has Specimen Been Obtained/Collected? Y Procedure Result Verified Site MRSA DNA (NASAL SWAB) Final 02/04/17-1656 Specimen Negative for MRSA by DNA Probe Last 24 Hours Test 02/06/17 06:35 White Blood Count 8.21 K/uL Red Blood Count 2.92 M/uL Hemoglobin 9.0 g/dL Hematocrit 28.1 % Mean Corpuscular Volume 96.2 fL Mean Corpuscular Hemoglobin 30.8 pg Mean Corpuscular Hemoglobin Concent 32.0 g/dl RDW Standard Deviation 54.7 fL RDW Coefficient of Variation 15.6 % Platelet Count 186 K/uL Mean Platelet Volume 9.5 fL Sodium Level 141 mmol/L Potassium Level 3.4 mmol/L Chloride Level 107 mmol/L Carbon Dioxide Level 27 mmol/L Anion Gap 7.0 mmol/L Blood Urea Nitrogen 17 mg/dl Creatinine 1.10 mg/dl Est Creatinine Clear Calc Drug Dose 45.1 ml/min Estimated GFR () 71.1 Estimated GFR (Non- 61.3 BUN/Creatinine Ratio 15.1 Random Glucose 95 mg/dl Calcium Level 7.8 mg/dl Magnesium Level 1.9 mg/dl Total Bilirubin 0.6 mg/dl Aspartate Amino Transf (AST/SGOT) 13 U/L Alanine Aminotransferase (ALT/SGPT) 12 U/L Alkaline Phosphatase 51 U/L Total Protein 5.5 gm/dl Albumin 2.1 gm/dl Globulin 3.4 gm/dl Albumin/Globulin Ratio 0.6 Patient Name: STEFFANIE HANDLEY Unit Number: [id number] Dictated: 02/06/171107 Transcribed: 02/06/171107 EV Printed Date/Time: [~ rep prt dt]/[~ rep prt tm] [~ rep ct labl] - [~ rep ct ivnm] [facility] [place] [address] Dictated: 02/06/171107 Transcribed: 02/06/171107 EV Printed Date/Time: [~ rep prt dt]/[~ rep prt tm] [~ rep ct labl] - [~ rep ct ivnm] CT SCAN OF THE CHEST WITHOUT IV CONTRAST CLINICAL HISTORY: Follow-up pneumonia. Sepsis. COMPARISON STUDY: Chest x-ray dated 02/06/2017. TECHNIQUE: CT scan of the thorax was performed from the thoracic inlet to the upper abdomen. Images are reviewed in the axial, sagittal, and coronal planes. IV contrast was not administered for this examination. A dose lowering technique was utilized adhering to the principles of ALARA. The examination is significant compromise by motion artifact, as well as by streak artifact from the patient's arms which could not be elevated above the chest. CT DOSE: 417.62 mGycm FINDINGS: Thyroid: Imaged portions of the thyroid gland are normal in size and attenuation. Thoracic aorta: There is atherosclerotic calcification of the thoracic aorta, which is normal in caliber and demonstrates standard 3-vessel arch anatomy. Heart: The heart is markedly enlarged and without pericardial effusion. The coronary arteries and aortic valve leaflets are densely calcified. The pulmonary arteries are dilated indicating pulmonary artery hypertension. Lungs and pleural spaces: Evaluation of lung parenchyma is degraded by motion artifact. The trachea is clear. There are small pleural effusions with bibasilar consolidation. Additional patchy airspace opacities are seen in the upper lobes bilaterally. Mediastinum: There are enlarged mediastinal lymph nodes. Precarinal nodes measure up to 1.3 cm in short axis. Sushila: Not well assessed without IV contrast. Axillae: There is no axillary lymphadenopathy. Lower neck: No supraclavicular adenopathy is identified. Surgical clips are partially seen in the right lower neck. Upper abdomen: There is intrahepatic biliary ductal dilatation and pneumobilia. The common bile duct stent is partially visualized. A tiny hiatal hernia is noted. Enlarged retrocrural lymph nodes measure up to 1.1 cm in short axis. Skeletal structures: The skeletal structures are osteopenic. Advanced arthritic change is seen in the shoulders. Advanced degenerative change and hyperkyphosis is also seen in the thoracic spine. No lytic or blastic bony lesions are seen. IMPRESSION: 1. Significantly streak and motion compromised examination. 2. There are layering pleural effusions with bibasilar consolidation. This could represent atelectasis and/or pneumonia. Clinical correlation required. 3. Marked cardiomegaly. 4. Perihilar and upper lobe airspace opacities are also seen. This could represent multifocal pneumonia and/or pulmonary edema. Clinical correlation will be required. 5. Mediastinal lymphadenopathy. 6. A common bile duct stent, pneumobilia, and intrahepatic biliary ductal dilatation are seen in the upper abdomen. Electronically signed by: Patrice Palma M.D. 02/06/2017 11:15 AM Dictated Date/Time: 02/06/2017 11:08 AM The status of this report is Signed. Draft = Not yet reviewed or approved by Radiologist. Signed = Reviewed and approved by Radiologist. <AttendingPhy>Dm Aguilar, </AttendingPhy> <FamilyPhy>Raquel Osman M.D.</FamilyPhy> <PrimaryPhy>Raquel Osman M.D.</PrimaryPhy> <UnitNumber> [id number]</UnitNumber> <VisitNumber>[id number]</VisitNumber> <PatientName> STEFFANIE HANDLEY</PatientName> <DateOfBirth>1930</DateOfBirth> <Location>C.2T </Location> <ServiceDate>02/04/17</ServiceDate> <MNE>ESINDI</MNE> <OrderingPhy> Dm Aguilar DO</OrderingPhy> <OrderingPhyMNE>f rep ord dr olson</ OrderingPhyMNE> <DictatingPhyMNE>f rep dict dr olson</DictatingPhyMNE> <CCListMNE> f rep ct mne</CCListMNE> <AdmittingPhyMNE>f pt admit dr olson</AdmittingPhyMNE> < AttendingPhyMNE>f pt attend dr olson</AttendingPhyMNE> <ConsultingPhyMNE>f pt consult dr olson</ConsultingPhyMNE> <FamilyPhyMNE>f pt fam dr olson</FamilyPhyMNE> <OtherPhyMNE>f pt other dr olson</OtherPhyMNE> < PrimaryPhyMNE>f pt prim care dr olson</PrimaryPhyMNE> <ReferringPhyMNE>f pt referring dr olson</ReferringPhyMNE> Assessment and Plan 86-year-old male with known pancreatic carcinoma now presents with sepsis with probable bilateral pneumonia, most likely aspiration in type. Procalcitonin ordered to assess response to therapy. Patient to continue on IV ertapenem. Will follow.
[2017-02-06] MEDS: RANITIDINE HCL 150 MG TAB PO SCH (20:28)
[2017-02-06] MEDS: PANTOprazole SOD 40 MG TAB PO SCH (20:28)
[2017-02-06] MEDS: ERTAPENEM IV 1 GM in SODIUM CHLOR 0.9% AD-VAN 50ML 50 ML IV SCH (20:30)
[2017-02-06] MEDS ORDERED: DOCUSATE SODIUM 100 MG CAP PO SCH (21:00)
[2017-02-07] VITALS (9 sets, daily range): BP systolic 148–183; BP diastolic 70–96; PULSE 86–109; TEMP 36–37.7; O2SAT 90–94
[2017-02-07] MEDS: SODIUM CHLORIDE 0.9% 1000ML 1,000 ML IV SCH (04:30)
[2017-02-07 07:23] LABS: BUN/CREATININE RATIO 13.4 (10-20); CALCIUM 7.9 mg/dl (8.5-10.1); CREATININE 0.92 mg/dl (0.60-1.40); MAGNESIUM 1.9 mg/dl (1.8-2.4); POTASSIUM 3.4 mmol/L (3.5-5.1)
[2017-02-07 07:26] LABS: ALB/GLOB RATIO 0.6 (0.9-2)
[2017-02-07 07:30] LABS: HEMATOCRIT 29.1 % (42-52); MEAN CELL VOLUME 95.1 fL (80-100); MEAN CORPUSCULAR HEMOGLOBIN 30.7 pg (25-34); MEAN CORPUSCULAR HGB CONC 32.3 g/dl (32-36); MEAN PLATELET VOLUME 9.5 fL (7.4-10.4); PLATELET COUNT 181 K/uL (130-400); RED BLOOD COUNT 3.06 M/uL (4.7-6.1); WHITE BLOOD COUNT 7.56 K/uL (4.8-10.8)
[2017-02-07] MEDS ORDERED: POTASSIUM CHLORIDE 10 MEQ TABCR PO STA (07:50)
[2017-02-07] MEDS ORDERED: MAGNESIUM SULFATE 1GM / D5W 1 GM in PREMIXED IN D5W 100 ML IV ONE (08:00)
[2017-02-07] MEDS: METOPROLOL TARTRATE 25 MG TAB PO SCH (08:33)
[2017-02-07] MEDS: PANTOprazole SOD 40 MG TAB PO SCH ×2 (08:34→20:16)
[2017-02-07] MEDS: RANITIDINE HCL 150 MG TAB PO SCH ×2 (08:35→20:16)
[2017-02-07] MEDS: DOCUSATE SODIUM/SENNA 50/8.6MG TAB PO SCH (08:35)
[2017-02-07] MEDS: FoLIC ACID TAB 400 MCG TAB PO SCH (08:36)
[2017-02-07] MEDS: CEROVITE ADV FORMULA TAB PO SCH (08:36)
[2017-02-07] MEDS: FERROUS SULFATE 325 MG TAB PO SCH ×3 (08:36→16:31)
--- NOTE | 2017-02-07 09:02 | Progress Note ---
Subjective Date of Service: Feb 07, 2017. Subjective Pt evaluation today including: conversation w/ patient, physical exam, lab review, review of studies, review of inpatient medication list Saw/examined the patient in room 222 He is eating breakfast, denies any symptoms has some weakness when ambulating to the bathroom as per patient I notified him about his pneumonia, gastric ulcer and he understands the reason for hospitalization Daughter to come to hospital later in the day Problem List Medical Problems: (1) Confusion Status: Acute (2) Hematemesis Status: Acute (3) Hypotension Status: Acute (4) Leukocytosis Status: Acute (5) Pancreatic mass Status: Acute (6) Sepsis Status: Acute Review of Systems Constitutional: + weakness, No fever, No chills Respiratory: No cough, No sputum, No shortness of breath Cardiac: No chest pain Abdomen: No pain, No nausea, No vomiting, No diarrhea Medications Current Inpatient Medications Medications (Trade) Dose Ordered Sig/Thelma Route Start Time Stop Time Status Last Admin Dose Admin Acetaminophen (Tylenol Tab) 650 mg Q4H PRN PO 02/04/17 11:30 03/06/17 11:29 Metoprolol Tartrate (Lopressor Tab) 12.5 mg QAM PO 02/05/17 09:00 03/07/17 08:59 02/07/17 08:33 12.5 MG Pantoprazole Sodium (Protonix Tab) 40 mg BID PO 02/06/17 21:00 03/08/17 20:59 02/07/17 08:34 40 MG Folic Acid (Folvite Tab) 400 mcg DAILY PO 02/07/17 09:00 03/09/17 08:59 02/07/17 08:36 400 MCG Ranitidine HCl (zANTac TAB) 150 mg BID PO 02/06/17 21:00 03/08/17 20:59 02/07/17 08:35 150 MG Senna/Docusate Sodium (Senokot S Tab) 2 tab DAILY PO 02/07/17 09:00 03/09/17 08:59 02/07/17 08:35 2 TAB Ferrous Sulfate (Feosol Tab) 325 mg TIDM PO 02/06/17 16:45 03/08/17 16:44 02/07/17 08:36 325 MG Multivitamins/ Minerals (Multivitamin W/ Minerals Tab) 1 tab QAM PO 02/07/17 09:00 03/09/17 08:59 02/07/17 08:36 1 TAB Ertapenem 1 gm/ Sodium Chloride 50 ml @ 120 mls/hr Q24H IV 02/06/17 20:00 02/16/17 19:59 02/06/17 20:30 120 MLS/HR Magnesium Sulfate 1 gm/Prmx 100 ml @ 100 mls/hr TODAY@0800 ONCE IV 02/07/17 08:00 02/07/17 08:59 02/07/17 08:32 100 MLS/HR Objective Vital Signs Date Time Temp Pulse Resp B/P (MAP) Pulse Ox O2 Delivery O2 Flow Rate FiO2 02/07/17 08:28 104 18 168/96 (120) 90 Room Air 02/07/17 07:49 37.5 86 18 148/76 (100) 93 02/07/17 04:33 37.7 88 20 155/77 (103) 91 Nasal Cannula 2.0 02/07/17 04:00 Nasal Cannula 2.0 02/06/17 23:59 Nasal Cannula 2.0 02/06/17 23:17 37.4 91 20 150/75 (100) 94 Nasal Cannula 2.0 02/06/17 20:00 96 Nasal Cannula 2.0 02/06/17 19:43 36.7 95 20 128/79 (95) 93 Nasal Cannula 2.0 Humidified Oxygen 02/06/17 16:08 36.7 78 18 145/63 (90) 92 Nasal Cannula 2.0 Humidified Oxygen 02/06/17 16:00 93 Nasal Cannula 2.0 02/06/17 12:01 36.8 89 18 128/67 (87) 98 2.0 02/06/17 12:00 93 Nasal Cannula 2.0 Physical Exam General Appearance: no apparent distress Respiratory/Chest: no respiratory distress, no accessory muscle use, + crackles Cardiovascular: regular rate, rhythm, no edema, no murmur Laboratory Results Last 24 Hours Test 02/07/17 06:31 02/07/17 08:13 White Blood Count 7.56 K/uL Red Blood Count 3.06 M/uL Hemoglobin 9.4 g/dL Hematocrit 29.1 % Mean Corpuscular Volume 95.1 fL Mean Corpuscular Hemoglobin 30.7 pg Mean Corpuscular Hemoglobin Concent 32.3 g/dl RDW Standard Deviation 51.8 fL RDW Coefficient of Variation 14.9 % Platelet Count 181 K/uL Mean Platelet Volume 9.5 fL Sodium Level 141 mmol/L Potassium Level 3.4 mmol/L Chloride Level 107 mmol/L Carbon Dioxide Level 28 mmol/L Anion Gap 7.0 mmol/L Blood Urea Nitrogen 12 mg/dl Creatinine 0.92 mg/dl Est Creatinine Clear Calc Drug Dose 53.9 ml/min Estimated GFR () 88.2 Estimated GFR (Non- 76.1 BUN/Creatinine Ratio 13.4 Random Glucose 104 mg/dl Calcium Level 7.9 mg/dl Magnesium Level 1.9 mg/dl Total Bilirubin 0.5 mg/dl Aspartate Amino Transf (AST/SGOT) 14 U/L Alanine Aminotransferase (ALT/SGPT) 12 U/L Alkaline Phosphatase 55 U/L Total Protein 6.1 gm/dl Albumin 2.3 gm/dl Globulin 3.8 gm/dl Albumin/Globulin Ratio 0.6 Assessment and Plan This is an 86 year old male with a PMH of adenocarcinoma of the pancreas, paroxysmal atrial fibrillation no longer on anticoagulation, CAD, hx. of diastolic CHF, depression presents with hematemesis and sepsis secondary to pneumonia Sepsis secondary to Pneumonia, likely Aspiration 02/07 appreciate ID input, changed Zosyn to Invanz stop IVFs, encourage PO intake will hold off diuretics for now, but will add if there are symptoms PT/OT Hgb stable continue Protonix BID plan to d/c to [facility] when antibiotics can be switched to oral 02/06 procalcitonin level increasing worsening CXR will obtain a Chest CT for now, continue Zosyn; ID input appreciated 02/05 met sepsis criteria with fever, WBC, tachycardia blood pressure improved with IVFs CXR = Persistent patchy perihilar and bibasilar opacities suggesting atelectasis or pneumonia with slightly improved aeration of the lateral left midlung currently on supplemental O2 via nasal cannula and saturating well; denies any symptoms continue Zosyn and Levaquin as per ID for broad coverage blood cultures pending MRSA swab negative pulmonology consulted Upper GI Bleed/Hematemesis in the setting of Pancreatic Adenocarcinoma 02/06 had an EGD yesterday, noted to have gastric ulcer continue Protonix BID, continue Zantac s/p one unit PRBC - Hgb up to 9.0 appreciate GI input 02/05 First diagnosed with pancreatic adenocarcinoma in November [address] Lama - no surgery/chemo; no palliative radiation as per family Stopped NSAIDs and Coumadin at that time Has no developed Hematemesis for the past day prior to arrival - ? hematochezia H/H trending down - Hgb down to 7.6 - will transfuse one unit PRBC plan for EGD this AM (02/05) cont. IV PPI BID GI consulted for management Prolonged QTc [id number], avoid QT prolonging medications Repeat QTc is 495; will try to avoid QT prolonging medications when able Potassium and Mg wnl Atrial Fibrillation patient intermittently in A. Fib rate is controlled - continue metoprolol Not a candidate for anticoagulation CAD Stable, no chest pain Hold aspirin due to GI bleed Depression Continue Celexa DVT ppx SCD's DNR
--- NOTE | 2017-02-07 13:36 | Infectious Disease Progress Nt ---
Progress Note Date of Service Feb 07, 2017. Subjective Pt evaluation today including: conversation w/ patient, physical exam, chart review, lab review, review of studies, conversation w/ home service consultant, review of inpatient medication list Appears comfortable, offers no new complaints. Remains afebrile. No increased cough or SOB. All Other Systems: Reviewed and Negative Medications Current Inpatient Medications Medications (Trade) Dose Ordered Sig/Thelma Route Start Time Stop Time Status Last Admin Dose Admin Acetaminophen (Tylenol Tab) 650 mg Q4H PRN PO 02/04/17 11:30 03/06/17 11:29 Metoprolol Tartrate (Lopressor Tab) 12.5 mg QAM PO 02/05/17 09:00 03/07/17 08:59 02/07/17 08:33 12.5 MG Pantoprazole Sodium (Protonix Tab) 40 mg BID PO 02/06/17 21:00 03/08/17 20:59 02/07/17 08:34 40 MG Folic Acid (Folvite Tab) 400 mcg DAILY PO 02/07/17 09:00 03/09/17 08:59 02/07/17 08:36 400 MCG Ranitidine HCl (zANTac TAB) 150 mg BID PO 02/06/17 21:00 03/08/17 20:59 02/07/17 08:35 150 MG Senna/Docusate Sodium (Senokot S Tab) 2 tab DAILY PO 02/07/17 09:00 03/09/17 08:59 02/07/17 08:35 2 TAB Ferrous Sulfate (Feosol Tab) 325 mg TIDM PO 02/06/17 16:45 03/08/17 16:44 02/07/17 11:34 325 MG Multivitamins/ Minerals (Multivitamin W/ Minerals Tab) 1 tab QAM PO 02/07/17 09:00 03/09/17 08:59 02/07/17 08:36 1 TAB Ertapenem 1 gm/ Sodium Chloride 50 ml @ 120 mls/hr Q24H IV 02/06/17 20:00 02/16/17 19:59 02/06/17 20:30 120 MLS/HR Objective Vital Signs Date Time Temp Pulse Resp B/P (MAP) Pulse Ox O2 Delivery O2 Flow Rate FiO2 02/07/17 12:00 93 Nasal Cannula 2.0 02/07/17 11:37 36.7 109 16 154/91 (112) 92 Nasal Cannula 2.0 02/07/17 08:28 104 18 168/96 (120) 90 Room Air 02/07/17 08:00 93 Room Air 02/07/17 07:49 37.5 86 18 148/76 (100) 93 02/07/17 04:33 37.7 88 20 155/77 (103) 91 Nasal Cannula 2.0 02/07/17 04:00 Nasal Cannula 2.0 02/06/17 23:59 Nasal Cannula 2.0 02/06/17 23:17 37.4 91 20 150/75 (100) 94 Nasal Cannula 2.0 02/06/17 20:00 96 Nasal Cannula 2.0 02/06/17 19:43 36.7 95 20 128/79 (95) 93 Nasal Cannula 2.0 Humidified Oxygen 02/06/17 16:08 36.7 78 18 145/63 (90) 92 Nasal Cannula 2.0 Humidified Oxygen 02/06/17 16:00 93 Nasal Cannula 2.0 Physical Exam General Appearance: WD/WN, no apparent distress Eyes: normal inspection, EOMI, sclerae normal ENT: normal ENT inspection, pharynx normal Neck: supple, no adenopathy, trachea midline Respiratory/Chest: chest non-tender, no respiratory distress, no accessory muscle use, + rales Cardiovascular: regular rate, rhythm, no gallop, no murmur Abdomen: normal bowel sounds, non tender, soft, no organomegaly Extremities: non-tender, no calf tenderness Neurologic/Psychiatric: alert, oriented x 3 Skin: normal color, no rash, + pertinent finding (right great toe eschar) Lymphatic: no adenopathy Laboratory Results Last 24 Hours Test 02/07/17 06:31 02/07/17 08:13 White Blood Count 7.56 K/uL Red Blood Count 3.06 M/uL Hemoglobin 9.4 g/dL Hematocrit 29.1 % Mean Corpuscular Volume 95.1 fL Mean Corpuscular Hemoglobin 30.7 pg Mean Corpuscular Hemoglobin Concent 32.3 g/dl RDW Standard Deviation 51.8 fL RDW Coefficient of Variation 14.9 % Platelet Count 181 K/uL Mean Platelet Volume 9.5 fL Sodium Level 141 mmol/L Potassium Level 3.4 mmol/L Chloride Level 107 mmol/L Carbon Dioxide Level 28 mmol/L Anion Gap 7.0 mmol/L Blood Urea Nitrogen 12 mg/dl Creatinine 0.92 mg/dl Est Creatinine Clear Calc Drug Dose 53.9 ml/min Estimated GFR () 88.2 Estimated GFR (Non- 76.1 BUN/Creatinine Ratio 13.4 Random Glucose 104 mg/dl Calcium Level 7.9 mg/dl Magnesium Level 1.9 mg/dl Total Bilirubin 0.5 mg/dl Aspartate Amino Transf (AST/SGOT) 14 U/L Alanine Aminotransferase (ALT/SGPT) 12 U/L Alkaline Phosphatase 55 U/L Total Protein 6.1 gm/dl Albumin 2.3 gm/dl Globulin 3.8 gm/dl Albumin/Globulin Ratio 0.6 Procalcitonin 3.14 ng/ml Assessment and Plan 86-year-old male with known pancreatic carcinoma now presents with sepsis with probable bilateral pneumonia, most likely aspiration in type. Procalcitonin decreasing c/w response to Abx. Recommend 7 days IV Abx for aspiration PNA. Will follow.
--- NOTE | 2017-02-07 15:44 | Palliative Care Consultation ---
Consultation Date of Consultation: Feb 07, 2017. Requesting Physician: Dr. Aguilar Attending Physician: Dr. Aguilar Reason for Consultation: Goals of care History of Present Illness This 86 year old male patient with PMH atrial fibrillation no longer on Coumadin , CAD, hx CVA, pancreatic adenocarcinoma diagnosed in 11/2016, and other problems listed below, presented to the ED with hematemesis. He underwent EGD- non-bleeding duodenal ulcer was fond, luminal narrowing at apex of the bulb consistent with pancreatic mass, and gastritis discovered. He has been seen by speech and noted to be aspirating small amounts. Patient saw oncologist once for the pancreatic cancer, he apparently does not want to pursue any further treatment for it. Patient normally lives home alone, but will be going to [facility] post hospitalization for rehab with the intent of going home after. Given his medical conditions and his wish to not pursue aggressive care, palliative care consulted to establish goals of care and complete POLST. I met with the patient and his daughter Jocelyne in room 222. Patient is awake, alert and oriented x4. Sitting on edge of bed, very hard of hearing. He confirmed that his goal is to live his life the way he wants, comfortably at home. He does not wish to pursue aggressive measures for his pancreatic cancer, and he wishes to continue to eat despite the risk of aspiration. After [facility], patient really wants to get home. Jocelyne states that between her and her three siblings, someone could be with patient 05/11. We did discuss hospice and the care they provide, patient and family will consider adding this after rehab. We also went over POLST-- patient would like to wait to fill it out until his daughter, Koki, is here as she is his POA. She is not coming until Saturday. Patient did state that he does not want CPR or intubation, would never want any artificial hydration/nutrition to prolong his life. Past Medical/Surgical History Medical History: Afib Aortic valve stenosis Permanent Comment: mild on echo from 03/2016 CAD Permanent Comment: 2003 - PCI to left circumflex Carotid stenosis CVA Depression Diastolic dysfunction Permanent Comment: grade I on echo 03/2016 HLD (hyperlipidemia) Pancreatic adenocarcinoma Surgical Problems: Carotid endarterectomy Shoulder surgery Social History Smoking Status: Former Smoker History of Alcohol Use: No Marital Status: single Housing Status: lives alone (lives alone but daughters currently staying with him) Occupation Status: retired Review of Systems Constitutional: + weakness (mild) ENT: + see HPI (about swallowing), + hearing loss Respiratory: + dyspnea on exertion, No cough, No wheezing (resolved), No shortness of breath Cardiac: No chest pain, No edema Abdomen: No pain, No nausea, No vomiting Male : No problem reported Psychiatric: No depression symptoms, No anxiety Allergies Coded Allergies: No Known Allergies (Unverified , 02/04/17) Medications Current Inpatient Medications Medications (Trade) Dose Ordered Sig/Thelma Route Start Time Stop Time Status Last Admin Dose Admin Acetaminophen (Tylenol Tab) 650 mg Q4H PRN PO 02/04/17 11:30 03/06/17 11:29 Metoprolol Tartrate (Lopressor Tab) 12.5 mg QAM PO 02/05/17 09:00 03/07/17 08:59 02/07/17 08:33 12.5 MG Pantoprazole Sodium (Protonix Tab) 40 mg BID PO 02/06/17 21:00 03/08/17 20:59 02/07/17 08:34 40 MG Folic Acid (Folvite Tab) 400 mcg DAILY PO 02/07/17 09:00 03/09/17 08:59 02/07/17 08:36 400 MCG Ranitidine HCl (zANTac TAB) 150 mg BID PO 02/06/17 21:00 03/08/17 20:59 02/07/17 08:35 150 MG Senna/Docusate Sodium (Senokot S Tab) 2 tab DAILY PO 02/07/17 09:00 03/09/17 08:59 02/07/17 08:35 2 TAB Ferrous Sulfate (Feosol Tab) 325 mg TIDM PO 02/06/17 16:45 03/08/17 16:44 02/07/17 11:34 325 MG Multivitamins/ Minerals (Multivitamin W/ Minerals Tab) 1 tab QAM PO 02/07/17 09:00 03/09/17 08:59 02/07/17 08:36 1 TAB Ertapenem 1 gm/ Sodium Chloride 50 ml @ 120 mls/hr Q24H IV 02/06/17 20:00 02/16/17 19:59 02/06/17 20:30 120 MLS/HR Physical Exam Date Time Temp Pulse Resp B/P (MAP) Pulse Ox O2 Delivery O2 Flow Rate FiO2 02/07/17 12:00 93 Nasal Cannula 2.0 02/07/17 11:37 36.7 109 16 154/91 (112) 92 Nasal Cannula 2.0 02/07/17 08:28 104 18 168/96 (120) 90 Room Air 02/07/17 08:00 93 Room Air 02/07/17 07:49 37.5 86 18 148/76 (100) 93 02/07/17 04:33 37.7 88 20 155/77 (103) 91 Nasal Cannula 2.0 02/07/17 04:00 Nasal Cannula 2.0 02/06/17 23:59 Nasal Cannula 2.0 02/06/17 23:17 37.4 91 20 150/75 (100) 94 Nasal Cannula 2.0 02/06/17 20:00 96 Nasal Cannula 2.0 02/06/17 19:43 36.7 95 20 128/79 (95) 93 Nasal Cannula 2.0 Humidified Oxygen 02/06/17 16:08 36.7 78 18 145/63 (90) 92 Nasal Cannula 2.0 Humidified Oxygen 02/06/17 16:00 93 Nasal Cannula 2.0 General Appearance: no apparent distress ENT: hearing grossly normal Neck: supple, no JVD Respiratory: no respiratory distress, no accessory muscle use Cardiovascular: regular rate, rhythm, no edema Abdomen: non tender, soft Neurologic/Psychiatric: alert, normal mood/affect, oriented x 3 Skin: normal color Laboratory Results Last 24 Hours Test 02/07/17 06:31 02/07/17 08:13 White Blood Count 7.56 K/uL Red Blood Count 3.06 M/uL Hemoglobin 9.4 g/dL Hematocrit 29.1 % Mean Corpuscular Volume 95.1 fL Mean Corpuscular Hemoglobin 30.7 pg Mean Corpuscular Hemoglobin Concent 32.3 g/dl RDW Standard Deviation 51.8 fL RDW Coefficient of Variation 14.9 % Platelet Count 181 K/uL Mean Platelet Volume 9.5 fL Sodium Level 141 mmol/L Potassium Level 3.4 mmol/L Chloride Level 107 mmol/L Carbon Dioxide Level 28 mmol/L Anion Gap 7.0 mmol/L Blood Urea Nitrogen 12 mg/dl Creatinine 0.92 mg/dl Est Creatinine Clear Calc Drug Dose 53.9 ml/min Estimated GFR () 88.2 Estimated GFR (Non- 76.1 BUN/Creatinine Ratio 13.4 Random Glucose 104 mg/dl Calcium Level 7.9 mg/dl Magnesium Level 1.9 mg/dl Total Bilirubin 0.5 mg/dl Aspartate Amino Transf (AST/SGOT) 14 U/L Alanine Aminotransferase (ALT/SGPT) 12 U/L Alkaline Phosphatase 55 U/L Total Protein 6.1 gm/dl Albumin 2.3 gm/dl Globulin 3.8 gm/dl Albumin/Globulin Ratio 0.6 Procalcitonin 3.14 ng/ml Assessment & Plan Palliative Performance Scale: 60 % Problem list: Weakness, generalized Hematemesis/upper GI bleed- resolved SOB- resolved Pneumonia/sepsis Pancreatic cancer Goals of care (Z51.5) Palliative care recs: discussed with patient and daughter, Jocelyne; Dr. Aguilar. -Patient is DNR/level 5. -Goal is for comfort and quality of life. He is not quite ready to say that he would not want to come back to the hospital for treatment, but certainly wants to avoid ICU/aggressive care. -No treatment being pursued for pancreatic cancer per patient's wish. -Patient would like to continue eat despite aspiration risk. He would never want a feeding tube or artificial nutrition. -Patient going to [facility] for rehab. He would like to get home after that. His daughter stated that between patient's four children, someone would be with him 05/11. We discussed hospice-- they would be interested once patient is done with rehab. -POLST form explained and discussed. Patient would like to wait to fill it out until his daughter/POA, Koki, is in town. Thank you kindly for this consult. Please contact me with any further palliative care needs.
[2017-02-07] MEDS: ERTAPENEM IV 1 GM in SODIUM CHLOR 0.9% AD-VAN 50ML 50 ML IV SCH (20:16)
[2017-02-08] VITALS (10 sets, daily range): BP systolic 116–184; BP diastolic 65–78; PULSE 65–104; TEMP 36.4–37.4; O2SAT 89–94
[2017-02-08 07:02] LABS: HEMATOCRIT 31.1 % (42-52)
[2017-02-08 07:27] LABS: POTASSIUM 3.6 mmol/L (3.5-5.1)
[2017-02-08 07:28] LABS: MAGNESIUM 2.1 mg/dl (1.8-2.4)
[2017-02-08] MEDS: METOPROLOL TARTRATE 25 MG TAB PO SCH (07:51)
[2017-02-08] MEDS: PANTOprazole SOD 40 MG TAB PO SCH (07:52)
[2017-02-08] MEDS: DOCUSATE SODIUM/SENNA 50/8.6MG TAB PO SCH (07:52)
[2017-02-08] MEDS: FERROUS SULFATE 325 MG TAB PO SCH ×3 (07:52→16:30)
[2017-02-08] MEDS: FoLIC ACID TAB 400 MCG TAB PO SCH (07:52)
[2017-02-08] MEDS: RANITIDINE HCL 150 MG TAB PO SCH (07:52)
[2017-02-08] MEDS: CEROVITE ADV FORMULA TAB PO SCH (07:53)
[2017-02-08] MEDS ORDERED: METOPROLOL TARTRATE 25 MG TAB PO ONE (09:45)
--- NOTE | 2017-02-08 12:58 | Progress Note ---
Subjective Date of Service: Feb 08, 2017. Subjective Pt evaluation today including: conversation w/ patient, physical exam, lab review, review of studies, review of inpatient medication list Saw/examined the patient in room 222 He is doing well; denies any symptoms Aware of the plan for subacute discharge and he is agreeable Problem List Medical Problems: (1) Confusion Status: Acute (2) Hematemesis Status: Acute (3) Hypotension Status: Acute (4) Leukocytosis Status: Acute (5) Pancreatic mass Status: Acute (6) Sepsis Status: Acute Review of Systems Constitutional: No fever, No chills Respiratory: No cough, No sputum, No shortness of breath Cardiac: No chest pain Abdomen: No pain, No nausea, No vomiting, No diarrhea, No constipation, No GI bleeding Medications Current Inpatient Medications Medications (Trade) Dose Ordered Sig/Thelma Route Start Time Stop Time Status Last Admin Dose Admin Acetaminophen (Tylenol Tab) 650 mg Q4H PRN PO 02/04/17 11:30 03/06/17 11:29 Pantoprazole Sodium (Protonix Tab) 40 mg BID PO 02/06/17 21:00 03/08/17 20:59 02/08/17 07:52 40 MG Folic Acid (Folvite Tab) 400 mcg DAILY PO 02/07/17 09:00 03/09/17 08:59 02/08/17 07:52 400 MCG Ranitidine HCl (zANTac TAB) 150 mg BID PO 02/06/17 21:00 03/08/17 20:59 02/08/17 07:52 150 MG Senna/Docusate Sodium (Senokot S Tab) 2 tab DAILY PO 02/07/17 09:00 03/09/17 08:59 02/08/17 07:52 2 TAB Ferrous Sulfate (Feosol Tab) 325 mg TIDM PO 02/06/17 16:45 03/08/17 16:44 02/08/17 12:30 325 MG Multivitamins/ Minerals (Multivitamin W/ Minerals Tab) 1 tab QAM PO 02/07/17 09:00 03/09/17 08:59 02/08/17 07:53 1 TAB Metoprolol Tartrate (Lopressor Tab) 25 mg QAM PO 02/09/17 09:00 03/11/17 08:59 Ertapenem 1 gm/ Sodium Chloride 50 ml @ 120 mls/hr Q24H IV 02/08/17 16:00 02/16/17 15:59 Objective Vital Signs Date Time Temp Pulse Resp B/P (MAP) Pulse Ox O2 Delivery O2 Flow Rate FiO2 02/08/17 12:00 93 Nasal Cannula 1.0 02/08/17 11:11 36.9 65 20 116/68 (84) 93 Nasal Cannula 1.0 02/08/17 08:00 93 Nasal Cannula 1.0 02/08/17 07:48 36.5 81 18 165/68 (100) 93 Room Air 02/08/17 07:44 36.7 73 20 148/78 (101) 94 Nasal Cannula 1.0 02/08/17 04:00 Nasal Cannula 2.0 02/08/17 03:35 37.4 104 20 156/78 (104) 92 Nasal Cannula 1.0 Humidified Oxygen 02/08/17 00:16 36.4 88 20 184/68 (106) 92 Nasal Cannula 1.0 02/07/17 23:59 Nasal Cannula 2.0 02/07/17 20:00 Nasal Cannula 2.0 02/07/17 19:09 36.6 95 20 183/75 (111) 94 Nasal Cannula 2.0 Humidified Oxygen 02/07/17 16:46 36.0 98 20 161/70 (100) 90 02/07/17 16:00 93 Nasal Cannula 2.0 02/07/17 15:22 Nasal Cannula 2.0 Physical Exam General Appearance: no apparent distress ENT: + pertinent finding (+hearing aid) Respiratory/Chest: chest non-tender, lungs clear, normal breath sounds, no respiratory distress, no accessory muscle use Cardiovascular: regular rate, rhythm, no edema, no murmur Laboratory Results Last 24 Hours Test 02/08/17 06:54 02/08/17 10:24 Hemoglobin 10.1 g/dL Hematocrit 31.1 % Potassium Level 3.6 mmol/L Magnesium Level 2.1 mg/dl Stool Occult Blood NEGATIVE Assessment and Plan This is an 86 year old male with a PMH of adenocarcinoma of the pancreas, paroxysmal atrial fibrillation no longer on anticoagulation, CAD, hx. of diastolic CHF, depression presents with hematemesis and sepsis secondary to pneumonia Sepsis secondary to Pneumonia, likely Aspiration 02/08 Plan is to continue Invanz for another three days will d/c to [facility] with no IV site; and Malcolm, last dose on Saturday to be on Protonix BID for the gastric ulcer x2 months, then once daily wean O2 and transportation to be provided by family 02/07 appreciate ID input, changed Zosyn to Invanz stop IVFs, encourage PO intake will hold off diuretics for now, but will add if there are symptoms PT/OT Hgb stable continue Protonix BID plan to d/c to [facility] when antibiotics can be switched to oral 02/06 procalcitonin level increasing worsening CXR will obtain a Chest CT for now, continue Zosyn; ID input appreciated 02/05 met sepsis criteria with fever, WBC, tachycardia blood pressure improved with IVFs CXR = Persistent patchy perihilar and bibasilar opacities suggesting atelectasis or pneumonia with slightly improved aeration of the lateral left midlung currently on supplemental O2 via nasal cannula and saturating well; denies any symptoms continue Zosyn and Levaquin as per ID for broad coverage blood cultures pending MRSA swab negative pulmonology consulted Upper GI Bleed/Hematemesis in the setting of Pancreatic Adenocarcinoma 02/06 had an EGD yesterday, noted to have gastric ulcer continue Protonix BID, continue Zantac s/p one unit PRBC - Hgb up to 9.0 appreciate GI input 02/05 First diagnosed with pancreatic adenocarcinoma in November [address] Lama - no surgery/chemo; no palliative radiation as per family Stopped NSAIDs and Coumadin at that time Has no developed Hematemesis for the past day prior to arrival - ? hematochezia H/H trending down - Hgb down to 7.6 - will transfuse one unit PRBC plan for EGD this AM (02/05) cont. IV PPI BID GI consulted for management Prolonged QTc [id number], avoid QT prolonging medications Repeat QTc is 495; will try to avoid QT prolonging medications when able Potassium and Mg wnl Atrial Fibrillation patient intermittently in A. Fib rate is controlled - continue metoprolol Not a candidate for anticoagulation CAD Stable, no chest pain Hold aspirin due to GI bleed Depression Continue Celexa DVT ppx SCD's DNR
[2017-02-08] MEDS ORDERED: LPR25 PO (13:04)
[2017-02-08] MEDS ORDERED: ERTA1INJ IV (13:04)
[2017-02-08] MEDS ORDERED: PRT40 PO (13:04)
--- NOTE | 2017-02-08 13:07 | Discharge Instructions ---
Discharge Instructions Date of Service Feb 08, 2017. Admission Reason for Admission: Pneumonia,Sepsis Discharge Discharge Diagnosis / Problem: Sepsis secondary to Pneumonia, Anemia, Gastric Ulcer Discharge Goals Goal(s): Decrease discomfort, Improve function, Diagnostic testing, Therapeutic intervention Activity Recommendations Activity Level: Up Ad Apurva Therapies: Physical Therapy, Occupational Therapy . Additional Information Patient informed of condition: Yes Advance Directives: Yes DNR: Yes Level of Care: Skilled Communicable Disease: No Prognosis: Stable Oxygen at (LPM): intermittently Instructions / Follow-Up Instructions / Follow-Up For the pneumonia - to be treated with IV Invanz (antibiotic) for three more days (last dose on February 11) For the gastric ulcer - take Protonix 40mg twice a day for two months, and then once daily For the low Hemoglobin - you were given one unit of blood - now the blood hemoglobin level is now >10 Current Hospital Diet Patient's current hospital diet: Regular Diet Discharge Diet Recommended Diet: Regular Diet Procedures Procedures Performed: EGD with biopsy Pending Studies Studies pending at discharge: no Physician Orders On Transfer POLST Discussion: without POLST completion (would like it completed with daughter; please address this at [facility]) Medical Emergencies . Who to Call and When: Medical Emergencies: If at any time you feel your situation is an emergency, please call 911 immediately. . Non-Emergent Contact Non-Emergency issues call your: Primary Care Provider . . "Provider Documentation" section prepared by Dm Aguilar. . Core Measure Problem Core Measures: None
--- NOTE | 2017-02-08 13:13 | Discharge Summary ---
Discharge Summary Date of Service Feb 08, 2017. Discharge Summary Admission Date: Feb 04, 2017 at 11:03 Discharge Date: Feb 08, 2017 Discharge Disposition: residential facility Principal Diagnosis: Sepsis secondary to Pneumonia, likely Aspiration Anemia, blood loss Gastric Ulcer Medication Reconciliation New Medications: Ertapenem Sodium (Invanz) 1 Gm Inj 1 GM IV DAILY for 3 Days, #3 VIAL Pantoprazole (Pantoprazole Sodium) 40 Mg Tab 40 MG PO BID for 60 Days, #120 TAB Changed Medications: Metoprolol Tartrate (Lopressor) 25 Mg Tab 25 MG PO QAM for 30 Days, #30 TAB (Changed from: 12.5 MG) Continued Medications: Aspirin (Aspirin Ec) 81 Mg Tab 81 MG PO QAM Cholecalciferol (Vitamin D 1000 Unit) 1,000 Unit Cap 1000 INTER.UNIT PO QAM, CAP Citalopram Hydrobromide (Citalopram Hydrobromide) 20 Mg Tab 20 MG PO QAM TOTAL DOSE=30MG Citalopram Hydrobromide (Citalopram Hydrobromide) 10 Mg Tab 10 MG PO QAM, TAB TOTAL DOSE=30MG Ferrous Sulfate (Kp Ferrous Sulfate) 325 Mg Tab 325 MG PO TIDM, TAB 3 Refills Folic Acid (Folic Acid) 400 Mcg Tab 1 TAB PO DAILY Multiple Vitamins W/ Minerals (Preservision Areds) 1 Cap Cap 1 CAP PO QAM Ondansetron Hcl (Zofran) 4 Mg Tab 4 MG PO QID, TAB Polyethylene Glycol 3350 (Miralax) 1 Pow Pow 17 GM PO DAILY, #255 GM Ranitidine (Zantac) 150 Mg Tab 150 MG PO BID, TAB Senna/Docusate Sod (Senokot S) 1 Tab Tab 2 TABS PO DAILY, TAB Admission Information HPI (per Admitting provider): This is an 86 y/o male with PMH of atrial fibrillation no longer on Coumadin, CAD, hx CVA, pancreatic adenocarcinoma diagnosed in 11/2016, and other problems listed below who presents to the ED with hematemesis. The patient was recently admitted from December 06-December 17, 2016 with newly diagnosed adenocarcinoma of pancreas, painless jaundice from biliary obstruction, SIRS with suspected GI source treated with Cipro and Flagyl, pneumonia treated with doxycycline, brief run of [place], [place]. Patient underwent EUS/ERCP with biopsy of pancreatic mass and CBD stent by Dr. Carlton. He was discharged to [facility] then returned home 5 days ago where daughters are staying with him. Family states he has been ambulating unassisted and performing ADL's independently. Pt followed up with Dr. Lama, was not a candidate for surgery or chemo, patient/ family decided against palliative radiation. he was having N/V 3-4 weeks ago which resolved after being placed on Zofran. Then overnight around 3 am patient developed vomiting of blood >1 cup in volume. His daughter reports 7-8 episodes, initially with brown/red colored blood then progressed to purple/red appearance. Last episode was around 7:20 am, then had no further episodes in ER. Currently nausea is resolved. Pt reports 1 episode of red blood in his stool this morning. Family states stool was normal formed brown yesterday.Family reports rhinorrhea for a few days and occasional cough, then overnight cough became more significant and family thought he sounded wheezy. Not expectorating sputum. Family reports longstanding SOB when bending over but no acute SOB. Family denies aspiration episode during vomiting. He had been eating normally without swallowing issues/ aspirating during meals. Does have early postprandial fullness and weight loss of 15 lb since November. Pt denies fever, chills, sore throat, weakness, dizziness, chest pain, abdominal pain, diarrhea, constipation, melena, acute urinary change, altered mental status. Pt takes baby aspirin but no other NSAID or blood thinner (taken off Coumadin approx 2 weeks ago). Pt does not use home O2 but was hypoxic to 81% on RA in ER , now saturating well on 6 liters NC. In ER pt was also febrile to 38.2, tachycardic, tachypneic, borderline hypotensive which resolved with IVF's. EGD 12/07/2016- Normal esophagus. Z-line irregular, 39 cm from the incisors. Normal stomach. Rule out malignancy, duodenal mass. Biopsy-benign, nonspecific edema . Normal 2nd part of the duodenum and 3rd part of the duodenum. EUS 12/07/16-There was no sign of significant pathology in the ampulla.There was dilation in the common bile duct which measured up to 10 mm. Endosonographic images of the left adrenal gland were unremarkable. One enlarged lymph node was visualized in the artur hepatis region. A mass was identified in the pancreatic head. This was staged T3 N1 Mx by endosonographic criteria. The staging applies if malignancy is confirmed. Fine needle aspiration- pancreatic adenocarcinoma ERCP 12/07/16: The major papilla appeared to be small. A segmental biliary stricture was found. The stricture was malignant appearing. A sphincterotomy was performed. One covered metal biliary stent was placed into the common bile duct. Physical Exam (per Admitting): General Appearance: WD/WN, no apparent distress, + pertinent finding ( daughters at bedside) Head: normocephalic, atraumatic Eyes: normal inspection, sclerae normal ENT: normal ENT inspection (external inspection of ears, nose lips WNL), + pertinent finding (hard of hearing) Neck: supple, trachea midline Respiratory/Chest: normal breath sounds, no respiratory distress, no accessory muscle use, + crackles (bilateral bases), + pertinent finding ( saturating well on 6 liters NC) Cardiovascular: regular rate, rhythm (rate 90s), no murmur Abdomen/GI: normal bowel sounds, non tender, soft Extremities/Musculoskelatal: no calf tenderness, no pedal edema Neurologic/Psych: alert, normal mood/affect, + pertinent finding (oriented to person and place, correct on the month and slightly off on the date, incorrect on the year- baseline per family) Skin: normal color, warm/dry Hospital Course This is an 86 year old male with a PMH of adenocarcinoma of the pancreas, paroxysmal atrial fibrillation no longer on anticoagulation, CAD, hx. of diastolic CHF, depression presents with hematemesis and sepsis secondary to pneumonia Sepsis secondary to Pneumonia, likely Aspiration 02/08 Plan is to continue Invanz for another three days will d/c to [facility] with no IV site; and Invanz, last dose on Saturday to be on Protonix BID for the gastric ulcer x2 months, then once daily wean O2 and transportation to be provided by family 02/07 appreciate ID input, changed Zosyn to Invanz stop IVFs, encourage PO intake will hold off diuretics for now, but will add if there are symptoms PT/OT Hgb stable continue Protonix BID plan to d/c to [facility] when antibiotics can be switched to oral 02/06 procalcitonin level increasing worsening CXR will obtain a Chest CT for now, continue Zosyn; ID input appreciated 02/05 met sepsis criteria with fever, WBC, tachycardia blood pressure improved with IVFs CXR = Persistent patchy perihilar and bibasilar opacities suggesting atelectasis or pneumonia with slightly improved aeration of the lateral left midlung currently on supplemental O2 via nasal cannula and saturating well; denies any symptoms continue Zosyn and Levaquin as per ID for broad coverage blood cultures pending MRSA swab negative pulmonology consulted Upper GI Bleed/Hematemesis in the setting of Pancreatic Adenocarcinoma 02/06 had an EGD yesterday, noted to have gastric ulcer continue Protonix BID, continue Zantac s/p one unit PRBC - Hgb up to 9.0 appreciate GI input 02/05 First diagnosed with pancreatic adenocarcinoma in November [address] Lama - no surgery/chemo; no palliative radiation as per family Stopped NSAIDs and Coumadin at that time Has no developed Hematemesis for the past day prior to arrival - ? hematochezia H/H trending down - Hgb down to 7.6 - will transfuse one unit PRBC plan for EGD this AM (02/05) cont. IV PPI BID GI consulted for management Prolonged QTc bpu=285, avoid QT prolonging medications Repeat QTc is 495; will try to avoid QT prolonging medications when able Potassium and Mg wnl Atrial Fibrillation patient intermittently in A. Fib rate is controlled - continue metoprolol Not a candidate for anticoagulation CAD Stable, no chest pain Hold aspirin due to GI bleed Depression Continue Celexa DVT ppx SCD's DNR Total time spent on discharge = 50 minutes This includes examination of the patient, discharge planning, medication reconciliation, and communication with other providers. Discharge Instructions For the pneumonia - to be treated with IV Invanz (antibiotic) for three more days (last dose on February 11) For the gastric ulcer - take Protonix 40mg twice a day for two months, and then once daily For the low Hemoglobin - you were given one unit of blood - now the blood hemoglobin level is now >10
--- NOTE | 2017-02-08 14:35 | Infectious Disease Progress Nt ---
Progress Note Date of Service Feb 08, 2017. Subjective Pt evaluation today including: conversation w/ patient, physical exam, chart review, lab review, review of studies, conversation w/ product/industry consultant, review of inpatient medication list Patient comfortable, offers no new complaints. Remains afebrile. Tolerating antibiotics without apparent difficulty. All Other Systems: Reviewed and Negative Medications Current Inpatient Medications Medications (Trade) Dose Ordered Sig/Thelma Route Start Time Stop Time Status Last Admin Dose Admin Acetaminophen (Tylenol Tab) 650 mg Q4H PRN PO 02/04/17 11:30 03/06/17 11:29 Pantoprazole Sodium (Protonix Tab) 40 mg BID PO 02/06/17 21:00 03/08/17 20:59 02/08/17 07:52 40 MG Folic Acid (Folvite Tab) 400 mcg DAILY PO 02/07/17 09:00 03/09/17 08:59 02/08/17 07:52 400 MCG Ranitidine HCl (zANTac TAB) 150 mg BID PO 02/06/17 21:00 03/08/17 20:59 02/08/17 07:52 150 MG Senna/Docusate Sodium (Senokot S Tab) 2 tab DAILY PO 02/07/17 09:00 03/09/17 08:59 02/08/17 07:52 2 TAB Ferrous Sulfate (Feosol Tab) 325 mg TIDM PO 02/06/17 16:45 03/08/17 16:44 02/08/17 12:30 325 MG Multivitamins/ Minerals (Multivitamin W/ Minerals Tab) 1 tab QAM PO 02/07/17 09:00 03/09/17 08:59 02/08/17 07:53 1 TAB Metoprolol Tartrate (Lopressor Tab) 25 mg QAM PO 02/09/17 09:00 03/11/17 08:59 Ertapenem 1 gm/ Sodium Chloride 50 ml @ 120 mls/hr Q24H IV 02/08/17 16:00 02/16/17 15:59 Objective Vital Signs Date Time Temp Pulse Resp B/P (MAP) Pulse Ox O2 Delivery O2 Flow Rate FiO2 02/08/17 12:00 93 Nasal Cannula 1.0 02/08/17 11:11 36.9 65 20 116/68 (84) 93 Nasal Cannula 1.0 02/08/17 08:00 93 Nasal Cannula 1.0 02/08/17 07:48 36.5 81 18 165/68 (100) 93 Room Air 02/08/17 07:44 36.7 73 20 148/78 (101) 94 Nasal Cannula 1.0 02/08/17 04:00 Nasal Cannula 2.0 02/08/17 03:35 37.4 104 20 156/78 (104) 92 Nasal Cannula 1.0 Humidified Oxygen 02/08/17 00:16 36.4 88 20 184/68 (106) 92 Nasal Cannula 1.0 02/07/17 23:59 Nasal Cannula 2.0 02/07/17 20:00 Nasal Cannula 2.0 02/07/17 19:09 36.6 95 20 183/75 (111) 94 Nasal Cannula 2.0 Humidified Oxygen 02/07/17 16:46 36.0 98 20 161/70 (100) 90 02/07/17 16:00 93 Nasal Cannula 2.0 02/07/17 15:22 Nasal Cannula 2.0 Physical Exam General Appearance: WD/WN, no apparent distress Eyes: normal inspection, EOMI, sclerae normal ENT: normal ENT inspection, pharynx normal Neck: supple, no adenopathy, thyroid normal, trachea midline Respiratory/Chest: chest non-tender, lungs clear, normal breath sounds, no respiratory distress Cardiovascular: regular rate, rhythm, no gallop, no murmur Abdomen: normal bowel sounds, non tender, soft, no organomegaly Extremities: non-tender, no calf tenderness Neurologic/Psychiatric: alert, oriented x 3 Skin: normal color, warm/dry, no rash Lymphatic: no adenopathy Laboratory Results Last 24 Hours Test 02/08/17 06:54 02/08/17 10:24 Hemoglobin 10.1 g/dL Hematocrit 31.1 % Potassium Level 3.6 mmol/L Magnesium Level 2.1 mg/dl Stool Occult Blood NEGATIVE Assessment and Plan 86-year-old male with known pancreatic carcinoma now presents with sepsis with probable bilateral pneumonia, most likely aspiration in type. Procalcitonin decreasing c/w response to Abx. Recommend 7 days IV Abx for aspiration PNA. For SNF transfer.
[2017-02-08] MEDS ORDERED: ERTAPENEM IV 1 GM in SODIUM CHLOR 0.9% AD-VAN 50ML 50 ML IV SCH (16:00)
[2017-02-09] MEDS ORDERED: METOPROLOL TARTRATE 25 MG TAB PO SCH (09:00)
== END 2017-02-08 17:50 | DRG 871 ==
LOC: EDBD 08:51 → C.EDB 08:53 → C.2T 11:03 → EDBEDREQ 11:28 → ENRESERV 11:31
PROVIDERS: ADMIT Hospitalist; ATTEND Family Medicine
PROC: 0DB68ZX Excision of Stomach, Via Natural or Artificial Opening Endoscopic, Diagnostic (ICD-10-PCS; principal; 2017-02-05 13:22)
DX: A41.9 Sepsis, unspecified organism (principal); J69.0 Pneumonitis due to inhalation of food and vomit; C25.0 Malignant neoplasm of head of pancreas; K92.2 Gastrointestinal hemorrhage, unspecified; D62 Acute posthemorrhagic anemia; K92.0 Hematemesis; Z82.49 Family history of ischemic heart disease and other diseases of the circulatory system; Z87.891 Personal history of nicotine dependence; Z79.82 Long term (current) use of aspirin; I48.91 Unspecified atrial fibrillation; I35.0 Nonrheumatic aortic (valve) stenosis; I25.10 Atherosclerotic heart disease of native coronary artery without angina pectoris; Z86.73 Personal history of transient ischemic attack (TIA), and cerebral infarction without residual deficits; F32.9 Major depressive disorder, single episode, unspecified; I45.81 Long QT syndrome; Z66 Do not resuscitate; K29.70 Gastritis, unspecified, without bleeding; K26.9 Duodenal ulcer, unspecified as acute or chronic, without hemorrhage or perforation; I10 Essential (primary) hypertension; E78.5 Hyperlipidemia, unspecified; Z95.820 Peripheral vascular angioplasty status with implants and grafts; Z51.5 Encounter for palliative care